=== PATIENT | male | born 1960 | race Caucasian/White ===

== ENCOUNTER 2022-10-26 15:12 | Outpatient (OUT) | payer MEDICAID, SELFPAY ==
[2022-10-26 15:41] LABS: Basophils Absolute Auto 0.1 10^3/uL (0.0-0.1); Basophils Percent Auto 0.6 % (0.2-2.0); Eosinophils Absolute Auto 0.2 10^3/uL (0.0-0.7); Eosinophils Percent Auto 2.5 % (0.9-7.0); Hematocrit 41.6 % (42.0-54.0); Hemoglobin 13.9 g/dL (14.0-18.0); Immature Granulocytes Abs Auto 0.02 10^3/uL (0.00-0.03); Immature Granulocytes Pct Auto 0.2 % (0.0-0.5); Lymphocytes Absolute Auto 2.4 10^3/uL (1.2-3.8); Lymphocytes Percent Auto 25.5 % (20.5-60.0); Mean Corpuscular HGB Conc 33.4 g/dL (29.9-35.2); Mean Corpuscular Hemoglobin 30.8 pg (25.9-34.0); Mean Platelet Volume 10.3 fL (9.5-13.5); Monocytes Percent Auto 11.1 % (1.7-12.0); Neutrophils Absolute Auto 5.6 10^3/uL (1.4-6.5); Neutrophils Percent Auto 60.1 % (43.0-75.0); Platelet Count 307 10^3/uL (150-450); Red Blood Count 4.52 10^6/uL (4.70-6.10); Red Cell Distribution Width 13.5 % (11.0-15.0); White Blood Count 9.4 10^3/uL (4.0-11.0)
[2022-10-26 16:05] LABS: Alanine Aminotransferase 45 U/L (16-63); Albumin Globulin Ratio 1.3; Alkaline Phosphatase 88 U/L (46-116); Anion Gap 11.1; Aspartate Amino Transferase 28 U/L (15-37); Bilirubin Total 0.7 mg/dL (0.2-1.0); Calcium 9.7 mg/dL (8.5-10.1); Carbon Dioxide 27.3 mmol/L (21.0-32.0); Chloride 101 mmol/L (98-107); Chol HDL Ratio 2.2; Cholesterol 107 mg/dL (<=200); Estimated GFR (African America >60 (>=60); Estimated GFR (Non-African Ame >60 (>=60); Globulin 3.2 g/dL; Glucose 113 mg/dL (74-106); HDL Cholesterol 49 mg/dL (40-60); LDL Cholesterol Calculated 52.4 mg/dL; Potassium 4.4 mmol/L (3.5-5.1); Sodium 135 mmol/L (136-145); Total Protein 7.2 g/dL (6.4-8.2); Triglycerides 28 mg/dL (<=150); VLDL CHOLESTEROL 5.6 mg/dL
[2022-10-26 16:22] LABS: Prostate Specific Antigen Scrn 3.43 ng/mL (<=4.00)
== END 2022-10-26 15:13 | disposition home or self-care (01) ==
LOC: LAB 15:14
PROVIDERS: PCP Internal Medicine; Visit Provider Internal Medicine
DX: Z00.00 Encounter for general adult medical examination without abnormal findings (principal); Z12.5 Encounter for screening for malignant neoplasm of prostate
CPT/HCPCS: 36415; 80053; 80061; 85025; G0103

== ENCOUNTER 2022-11-08 13:18 | Outpatient (OUT) | payer MEDICAID, SELFPAY ==
--- NOTE | 2022-11-08 13:21 | CT_ITS ---
[address] [address] Patient Name: NAKIA LIRIANO MRN: [id number] date: 1960 Sex: M Assigned Patient Location: CT Current Patient Location: Accession/Order Number: [id number] Exam Date: 11/08/2022 13:25 Report Date: 11/09/2022 01:47 At the request of: PRINCESS VALVERDE Procedure: CT lung screening low-dose EXAMINATION: CT lung screening low-dose HISTORY: History Of Tobacco Abuse Z87.891 COMPARISON: CT chest 11/11/2021 TECHNIQUE: Axial, Coronal, and Sagittal images were created without the administration of IV contrast material. Dose reduction techniques were achieved by using automated exposure control and/or adjustment of mA and/or kV according to patient size and/or use of iterative reconstruction technique. FINDINGS: LUNGS: Marked emphysematous changes throughout the lungs. Mild scarring and/or discoid atelectasis within lateral base of right upper lobe and superior segment of right lower lobe. No suspicious mass/nodules. PLEURA: No mass, effusion, or pneumothorax. VASCULATURE: No abnormality. DEBORA: No mass or pathologic adenopathy. MEDIASTINUM: No mass or pathologic adenopathy. CARDIAC: No enlargement, pericardial thickening, or significant calcification. AORTA: No aneurysm or dissection. CHEST WALL: No mass or axillary adenopathy BONES: No bone lesion or fracture. LIMITED ABDOMEN: No suspicious findings. Limited images of the upper abdomen. OTHER: Negative. CT/CT lung screening low-dose IMPRESSION: 1. Lung-RADS Category 1 Negative. No nodules and definitely benign nodules. Continue annual screening with LDCT in 12 months. 2. Marked emphysematous changes. Electronically authenticated by: NOEMI MARTINEZ Date: 11/09/2022 01:47
== END 2022-11-08 13:19 | disposition home or self-care (01) ==
LOC: CT 13:18
PROVIDERS: PCP Internal Medicine; Visit Provider Internal Medicine
DX: Z87.891 Personal history of nicotine dependence (principal)
CPT/HCPCS: 71271

== ENCOUNTER 2022-12-05 14:43 | Outpatient (OUT) | payer MEDICAID, SELFPAY ==
[2022-12-06 04:07] LABS: PSA, Free 0.25 ng/mL; Prostate Specific Ag 2.4 ng/mL (0.0-4.0)
== END 2022-12-05 14:44 | disposition home or self-care (01) ==
LOC: LAB 14:44
PROVIDERS: PCP Internal Medicine; Visit Provider Internal Medicine
DX: R97.20 Elevated prostate specific antigen [PSA] (principal)
CPT/HCPCS: 36415; 84153; 84154

== ENCOUNTER 2023-04-23 11:13 | Outpatient (OUT) | payer MEDICAID, SELFPAY ==
[2023-04-23 11:38] LABS: Basophils Absolute Auto 0.1 10^3/uL (0.0-0.1); Eosinophils Absolute Auto 0.3 10^3/uL (0.0-0.7); Immature Granulocytes Abs Auto 0.04 10^3/uL (0.00-0.03); Immature Granulocytes Pct Auto 0.3 % (0.0-0.5); Lymphocytes Absolute Auto 2.6 10^3/uL (1.2-3.8); Monocytes Absolute Auto 1.1 10^3/uL (0.3-0.8); Red Blood Count 4.74 10^6/uL (4.70-6.10); Red Cell Distribution Width 12.9 % (11.0-15.0)
[2023-04-23 12:18] LABS: Alanine Aminotransferase 34 U/L (16-63); Anion Gap 8.8; BUN Creatinine Ratio 22.5; Calcium 10.2 mg/dL (8.5-10.1); Carbon Dioxide 30.4 mmol/L (21.0-32.0); Chloride 103 mmol/L (98-107); Chol HDL Ratio 2.6; Cholesterol 129 mg/dL (<=200); Estimated GFR (African America >60 (>=60); Estimated GFR (Non-African Ame >60 (>=60); Glucose 107 mg/dL (74-106); HDL Cholesterol 50 mg/dL (40-60); LDL Cholesterol Calculated 65.4 mg/dL; Potassium 4.2 mmol/L (3.5-5.1); Sodium 138 mmol/L (136-145); Triglycerides 68 mg/dL (<=150); VLDL CHOLESTEROL 13.6 mg/dL
[2023-04-23 12:44] LABS: Basophils Percent Auto 0.8 % (0.2-2.0); Eosinophils Percent Auto 2.3 % (0.9-7.0); Hematocrit 44.8 % (42.0-54.0); Hemoglobin 14.3 g/dL (14.0-18.0); Lymphocytes Percent Auto 21.6 % (20.5-60.0); Mean Corpuscular HGB Conc 31.9 g/dL (29.9-35.2); Mean Corpuscular Hemoglobin 30.2 pg (25.9-34.0); Mean Corpuscular Volume 94.5 fL (80.0-94.0); Mean Platelet Volume 11.7 fL (9.5-13.5); Monocytes Percent Auto 9.3 % (1.7-12.0); Neutrophils Percent Auto 65.7 % (43.0-75.0); Platelet Count 362 10^3/uL (150-450); White Blood Count 12.1 10^3/uL (4.0-11.0)
[2023-04-23 13:53] LABS: Prostate Specific Antigen Scrn 1.86 ng/mL (<=4.00)
== END 2023-04-23 11:14 | disposition home or self-care (01) ==
LOC: LAB 11:14
PROVIDERS: PCP Internal Medicine; Visit Provider Internal Medicine
DX: I25.10 Atherosclerotic heart disease of native coronary artery without angina pectoris (principal); Z79.899 Other long term (current) drug therapy; E78.00 Pure hypercholesterolemia, unspecified
CPT/HCPCS: 36415; 80048; 80061; 84460; 85025; G0103

== ENCOUNTER 2023-11-11 10:05 | Outpatient (OUT) | payer MEDICARE, MEDICAID, SELFPAY ==
--- NOTE | 2023-11-11 10:10 | CT_ITS ---
[address] [address] Patient Name: NAKIA LIRIANO MRN: [id number] date: 1960 Sex: M Assigned Patient Location: CT Current Patient Location: Accession/Order Number: [id number] Exam Date: 11/11/2023 10:20 Report Date: 11/13/2023 04:44 At the request of: PRINCESS VALVERDE Procedure: CT lung screening low-dose EXAMINATION: CT lung screening low-dose HISTORY: History Of Tobacco Dependence Z87.891 COMPARISON: CT lung cancer screening 11/08/2022 TECHNIQUE: Axial, Coronal, and Sagittal images were created without the administration of IV contrast material. Dose reduction techniques were achieved by using automated exposure control and/or adjustment of mA and/or kV according to patient size and/or use of iterative reconstruction technique. FINDINGS: LUNGS: Marked emphysematous changes and a few scattered areas of mild scarring. Stable appearance of a few 3-5 mm nodules/opacities. No suspicious nodules. PLEURA: No mass, effusion, or pneumothorax. VASCULATURE: No abnormality. DEBORA: No mass or pathologic adenopathy. MEDIASTINUM: No mass or pathologic adenopathy. CARDIAC: No enlargement, pericardial thickening, or pericardial effusion. Coronary Artery calcifications: Coronary calcifications are moderate. AORTA: No aneurysm or dissection. CHEST WALL: No mass or axillary adenopathy BONES: No bone lesion or fracture. LIMITED ABDOMEN: No suspicious findings. Limited images of the upper abdomen. OTHER: Negative. CT/CT lung screening low-dose IMPRESSION: 1. Lung-RADS 2- Benign Appearance or Behavior. Nodules with a very low likelihood of becoming a clinically active cancer due to size or lack of growth. Follow-up CT Chest in 1 year. Electronically authenticated by: NOEMI MARTINEZ Date: 11/13/2023 04:44
== END 2023-11-11 10:06 | disposition home or self-care (01) ==
LOC: CT 10:05
PROVIDERS: PCP Internal Medicine; Visit Provider Internal Medicine
DX: Z87.891 Personal history of nicotine dependence (principal); Z12.2 Encounter for screening for malignant neoplasm of respiratory organs
CPT/HCPCS: 71271

== ENCOUNTER 2023-12-23 12:00 | Outpatient (OUT) | payer MEDICARE, MEDICAID, SELFPAY ==
--- OUTSIDE RECORDS SUMMARY | 2023-12-23 12:22 | XMS_ITS | CCD ---
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 Princess Brown Referring Unavailab le Pending, Provider Primary Care Unavailable JESENIA, Dr. PAULINO BRISENO Admitting Unav ailable YOUNG, Dr. PAULINO BRISENO Attending Unav ailable Kinga, Dr. Moises Urena Referring Unavailab le Pending, Provider Primary Care Unavailable Pending, Provider Primary Care Unavailable SCHILMichael, Dr. GELA KRAFT Attending Unavaila ble Pending, Provider Primary Care Unavailable SCHILZ, Dr. GELA KRAFT Attending Unavaila ble SCHILZ, Dr. GELA KRAFT Attending Unavaila ble Pending, Provider Primary Care Unavailable Avasarala, Hunter Chinchilla Attending Unavai lable Avasarala, Hunter Chinchilla Referring Unavai lable Pending, Provider Primary Care Unavailable TIMMIS, DR VELAZQUEZ Attending Unavailable TIMMIS, DR VELAZQUEZ Admitting Unavailable BALL, DR ECHAVARRIA Primary Care Unavailable BALL, DR ECHAVARRIA Primary Care Unavailable TIMMIS, DR VELAZQUEZ Attending Unavailable TIMMIS, DR VELAZQUEZ Admitting Unavailable BALL, DR ECHAVARRIA Consulting Unavailable BALL, DR ECHAVARRIA Primary Care Unavailable BALL, DR ECHAVARRIA Admitting Unavailable BALL, DR ECHAVARRIA Attending Unavailable BALL, DR ECHAVARRIA Admitting Unavailable BALL, DR ECHAVARRIA Attending Unavailable BALL, DR ECHAVARRIA Consulting Unavailable BALL, DR ECHAVARRIA Primary Care Unavailable BALL, DR ECHAVARRIA Consulting Unavailable MISC, DR STRANGE Attending Unavailable BALL, DR ECHAVARRIA Primary Care Unavailable MISC, DR STRANGE Admitting Unavailable BALL, DR ECHAVARRIA Consulting Unavailable BALL, DR ECHAVARRIA Primary Care Unavailable BALL, DR ECHAVARRIA Admitting Unavailable BALL, DR ECHAVARRIA Attending Unavailable ZIEBER, DR NOEMI Watson Consulting Unavailable BALL, DR ECHAVARRIA Primary Care Unavailable BALL, DR ECHAVARRIA Admitting Unavailable BALL, DR ECHAVARRIA Attending Unavailable BALL, DR ECHAVARRIA Primary Care Unavailable MISC, DR STRANGE Consulting Unavailable MISC, DR STRANGE Admitting Unavailable MISC, DR STRANGE Attending Unavailable RAFAEBLORE, DR NOEMI Watson Consulting Unavailable SAMSA ., PRINCESS Attending Unavailable LOS LUNAS, DR OJ Adler Consulting Unavailable SEGUNDO, DR ECHAVARRIA Primary Care Unavailable SAMSA ., PRINCESS Admitting Unavailable SAMSA ., PRINCESS Consulting Unavailable SEGUNDO, DR ECHAVARRIA Primary Care Unavailable MISC, DR STRANGE Consulting Unavailable MISC, DR STRANGE Admitting Unavailable MISC, DR STRANGE Attending Unavailable SEGUNDO, DR ECHAVARRIA Primary Care Unavailable SAMSA ., PRINCESS Attending Unavailable SAMSA ., PRINCESS Admitting Unavailable TIMMIS, DR VELAZQUEZ Admitting Unavailable SEGUNDO, DR ECHAVARRIA Primary Care Unavailable TIMMIDarlene, DR VELAZQUEZ Attending Unavailable Paulino Wilson Unavailable PAULINO WILSON Primary Care Physician [phone] MARGARET CASTILLO Attending Unavailable Calvin WALKER Attending Unavailable Calvin WALKER Attending Unavailable PAULINO WILSON Referring Unavailable Allergies Allergy Classification Reported Allergen(s) Allergy Type Date of Onset Reaction(s) Facility (1 source) No Known Medication Allergies; Translations: [No Known Medication Allergies] Propensity to adverse reactions (disorder) [facility] Repository Medications Current Medications Medication Drug Class(es) Dates Sig (Normalized) Sig (Original) [id number] 200 actuat albuterol 0.09 mg/actuat metered dose inhaler (17 sources) beta2-Adrenergic Agonist Start: 05-16-2023 take 2 puff(s) by mouth every four hours as needed for cough Albuterol Sulfate (Ventolin Hfa) 90 mcg/actuation HFA aerosol inhaler Active 0 .ROUTE .COMPLEX May 16, 2023 3:38pm INHALE 2 PUFFS BY MOUTH EVERY 4 HOURS NEEDED FOR COUGH OR SHORTNESS OF BREATH Start: 05-16-2023 End: 05-16-2023 take 1 puff(s) by inhalation every four hours Albuterol Sulfate Discontinued 2 PUFF INHALATION Every 4 hours May 16, 2023 1:00am May 16, 2023 3:38pm Start: 02-21-2021 take 2 puff(s) by mo uth every four hours as needed for cough Albuterol Sulfate HFA 108 (90 Base) MCG/ACT Inhalation Aerosol Solution INHALE 2 PUFFS BY MOUTH EVERY 4 HOURS NEEDED FOR COUGH OR SHORTNESS OF BREATH Quantity: 8 Refills: 0 Ordered: 09-Aug-2021 DO Start : 21-Feb-2021 Active take 2 puff(s) by [facility] every four hours as needed for cough Albuterol Sulfate HFA 108 (90 Base) MCG/ACT INHALE 2 PUFFS BY MOUTH EVERY 4 HOURS NEEDED FOR COUGH OR SHORTNESS OF BREATH Active take 2 puff(s) by [facility] every four hours as needed for cough Albuterol Sulfate HFA 108 (90 Base) MCG/ACT INHALE 2 PUFFS BY MOUTH EVERY 4 HOURS NEEDED FOR COUGH OR SHORTNESS OF BREATH Active take 2 puff(s) by [facility] every four hours as needed for cough Albuterol Sulfate HFA 108 (90 Base) MCG/ACT INHALE 2 PUFFS BY MOUTH EVERY 4 HOURS NEEDED FOR COUGH OR SHORTNESS OF BREATH Active 24 hr alfuzosin hydrochloride 10 mg extended release oral tablet (2 sources) alpha-Adrenergic Michael Start: 04-29-2023 End: 04-23-2024 take 10 mg by mouth once daily at mealtime Alfuzosin Active 10 MG PO Daily October 15, 2023 12:00am administer after the same meal each day aspirin 81 mg delayed release oral tablet (17 sources) Platelet Aggregation Inhibitor, Nonsteroidal Anti-inflammatory Drug Start: 10-15-2023 take 81 mg by mouth once daily Aspirin Active 81 MG PO Daily October 15, 2023 12:00am Start: 04-29-2023 [facility] ASP[facility] 81 MG TABLET [facility] ASPIRIN EC 81 MG TABLET Start Date: 04/29/23 Status: Ordered Start: 02-22-2021 take 1 tablet by mouth once da ariadne Aspirin Low Dose 81 MG Oral Tablet Delayed Release TAKE 1 TABLET BY MOUTH EVERY DAY Quantity: 90 Refills: 0 Ordered: 16-Aug-2021 DO Start : 22-Feb-2021 Active atorvastatin 80 mg oral tablet (17 sources) HMG-CoA Reductase Inhibitor Start: 10-15-2023 take 80 mg by mouth once daily Atorvastatin Active 80 MG PO Daily October 15, 2023 12:00am Start: 04-29-2023 atorvastatin 8 0 mg Tab Refills(s) 0 Start Date: 04/29/23 Status: Ordered Start: 02-22-2021 take 1 tablet by gene th once daily Atorvastatin Calcium 80 MG Oral Tablet TAKE 1 TABLET BY MOUTH EVERY DAY Quantity: 90 Refills: 0 Ordered: 16-Aug-2021 DO Start : 22-Feb-2021 Active Breztri Aerosphere inhalation aerosol (1 source) Start: 04-29-2023 Breztri Aerosp here inhalation aerosol Refill(s) 0 Start Date: 04/29/23 Status: Ordered metoprolol tartrate 25 mg oral tablet (17 sources) beta-Adrenergic Michael Start: 10-15-2023 take 25 mg by mouth twice daily Metoprolol Tartrate Active 25 MG PO Twice daily October 15, 2023 12:00am Start: 04-29-2023 take 1 tablet by mouth once da ariadne Lopressor 25 mg oral tablet 25 mg = 1 tab(s), Oral, Daily, Refills(s) 0 Start Date: 04/29/23 Status: Ordered Start: 01-11-2021 take 1 tablet by gene twice daily at mealtime Metoprolol Tartrate 25 MG Oral Tablet TAKE 1 TABLET BY MOUTH TWICE A DAY WITH FOOD Quantity: 180 Refills: 0 Ordered: 09-Aug-2021 DO Start : 11-Jan-2021 Active Tiotropium-Olodaterol (1 source) Anticholinergic, beta2-Adrenergic Agonist Start: 12-01-2018 Tiotropium-Olodaterol (Stiolto Respimat) 2.5-2.5 mcg/actuation Mist Active 2 PUFF INHALATION Daily December 01, 2018 12:00am Completed/Discontinued Medications Medication Drug Class(es) Dates Sig (Normalized) Sig (Original) Acetaminophen / HYDROcodone (8 sources) Opioid Agonist HYDROcodone-Acet aminop hen Not-Taking/PRN HYDROcodone-Acet aminophen Not-Taking 120 actuat budesonide 0.16 mg/actuat / formoterol fumarate 0.0048 mg/actuat / glycopyrrolate 0.009 mg/actuat metered dose inhaler (15 sources) Corticosteroid, beta2-Adrenergic Agonist Start: 07-27-2021 take 2 puff(s) by mouth twice daily Breztri Aerosphere 160-9-4.8 MCG/ACT Inhalation Aerosol INHALE 2 PUFFS BY MOUTH TWICE A DAY *RINSE MOUTH AFTER USE* Quantity: 11 Refills: 0 Ordered: 28-Jul-2021 DO Start : 27-Jul-2021 Active take 2 puff(s) by inhalation twi ce daily Breztri Aerosphere 160-9-4.8 MCG/ACT 2 puffs Inhalation Twice a day Active Cephalexin (8 sources) Cephalosporin Antibacterial Ceph alexin Not-Taking/PRN Cephalexin Not-T aking clopidogrel 75 mg oral tablet (7 sources) P2Y12 Platelet Inhibitor Start: 02-22-2021 take 1 tablet by mouth once daily Clopidogrel Bisulfate 75 MG Oral Tablet TAKE 1 TABLET BY MOUTH EVERY DAY Quantity: 90 Refills: 0 Ordered: 16-Aug-2021 DO Start : 22-Feb-2021 Active sulfamethoxazole 800 mg / trimethoprim 160 mg oral tablet (7 sources) Dihydrofolate Reductase Inhibitor Antibacterial, Sulfonamide Antimicrobial Start: 10-29-2022 take 1 tablet by mouth every twelve hours Bactrim DS 800-160 MG 1 tablet Orally Twice a day for 21 days Oct, Not-Taking/PRN Problems Active Problems Problem Classification Problem Date Documented Da te Episodic/Chronic Abdominal pain (1 source) Right lower quadrant pain Episodic Acute bronchitis (5 sources) Acute bronchitis; Translations: [Acute bronchitis due to other specified organisms] Episodic Cardiac dysrhythmias (9 sources) Supraventricular tachycardia; Translations: [Supraventricular tachycardia] Resolved: 2 10-13-2023 Chronic Chronic obstructive pulmonary disease and bronchiectasis (20 sources) Pulmonary emphysema; Translations: [Other emphysema] Onset: 6 Resolved: 2 Chronic Coronary atherosclerosis and other heart disease (20 sources) Atherosclerotic heart disease of [place] coronary artery without angina pectoris; Translations: [Atherosclerosis of coronary artery without angina pectoris] Onset: 1 Chronic Disorders of lipid metabolism (11 sources) Hyperlipidemia, unspecified; Translations: [Hypercholesterolemia] Onset: 2 Chronic Essential hypertension (1 source) Essential (primary) hypertension; Translations: [Essential (primary) hypertension] Onset: 2 Chronic Genitourinary symptoms and ill-defined conditions (1 source) Poor urinary stream Episodic Hyperplasia of prostate (19 sources) Lower urinary tract symptoms due to benign prostatic hypertrophy; Translations: [Benign prostatic hyperplasia with lower urinary tract symptoms] Onset: 4 Chronic Inflammatory conditions of male genital organs (13 sources) Orchitis and epididymitis; Translations: [Epididymo-orchitis] Onset: 7 Episodic Nonmalignant breast conditions (12 sources) Hypertrophy of breast; Translations: [Gynecomastia] Onset: 3 Episodic Nutritional deficiencies (13 sources) Vitamin D deficiency; Translations: [Vitamin D deficiency, unspecified] Chronic Other aftercare (8 sources) Long-term current use of inhaled steroid; Translations: [alf (current) use of inhaled steroids] Episodic Other aftercare (1 source) 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 Episodic Other and unspecified benign neoplasm (8 sources) Benign neoplasm of colon; Translations: [Benign neoplasm of sigmoid colon] Episodic Other and unspecified benign neoplasm (5 sources) Benign neoplasm of sigmoid colon; Translations: [Benign neoplasm of sigmoid colon] Episodic Other circulatory disease (7 sources) H/O: heart disorder; Translations: [Personal history of unspecified circulatory disease] Episodic Other gastrointestinal disorders (13 sources) Oropharyngeal dysphagia; Translations: [Dysphagia, oropharyngeal phase] Episodic Other gastrointestinal disorders (1 source) Stool DNA-based colorectal cancer screening positive; Translations: [Other fecal abnormalities] 03-06-2023 Episodic Other inflammatory condition of skin (13 sources) Intertrigo; Translations: [Erythema intertrigo] Episodic Other lower respiratory disease (7 sources) H/O: asthma; Translations: [Personal history of other diseases of respiratory system] Episodic Other lower respiratory disease (7 sources) Solitary pulmonary nodule; Translations: [Solitary pulmonary nodule] Onset: 2 Episodic Other lower respiratory disease (8 sources) Dyspnea on exertion; Translations: [Other forms of dyspnea] Episodic Other lower respiratory disease (5 sources) Dyspnea; Translations: [Other forms of dyspnea] Episodic Other lower respiratory disease (8 sources) Solitary nodule of lung; Translations: [Solitary pulmonary nodule] Episodic Other lower respiratory disease (1 source) Nodule of lung; Translations: [Solitary pulmonary nodule] 10-14-2023 Episodic Other nutritional; endocrine; and metabolic disorders (9 sources) Hypercalcemia; Translations: [Hypercalcemia] 10-14-2023 Chronic Other nutritional; endocrine; and metabolic disorders (1 source) Hypercalcemia; Translations: [Hypercalcemia] 10-15-2023 Chronic Other screening for suspected conditions (not mental disorders or infectious disease) (7 sources) Encounter for screening for malignant neoplasm of prostate; Translations: [Elevated prostate specific antigen [PSA]] Onset: 2 Episodic Residual codes; unclassified (2 sources) H/O: tissue/organ recipient; 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] Chronic Residual codes; unclassified (5 sources) Immunization refused ; Translations: [Immunization not carried out because of patient refusal] Episodic Screening and history of mental health and substance abuse codes (8 sources) Personal history of nicotine dependence; Translations: [Nicotine dependence] Onset: 2 Episodic Substance-related disorders (20 sources) 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; Translations: [Nicotine dependence, cigarettes, with unspecified nicotine-induced disorders] Onset: 6 Chronic Unclassified (1 source) CONTACT W/AND (SUSP) EXPOS COVID-19; Translations: [CONTACT W/AND (SUSP) EXPOS COVID-19] Onset: 2 Unclassified (5 sources) Other ventricular tachycardia; Translations: [Other ventricular tachycardia] Past or Other Problems Problem Classification Problem Date Documented Da te Episodic/Chronic Cancer of bronchus; lung (1 source) Personal history of other malignant neoplasm of bronchus and lung; Translations: [Personal history of malignant neoplasm of bronchus and lung] Onset: 01-30-2022 Episodic Coronary atherosclerosis and other heart disease (1 source) Presence of aortocoronary bypass graft; Translations: [Presence of aortocoronary bypass graft] Onset: 01-30-2022 Episodic Deficiency and other anemia (5 sources) Anemia; Translations: [Anemia, unspecified] Resolved: 05-16-2021 Episodic E Codes: Adverse effects of medical drugs (5 sources) Adverse effect of antiasthmatics, initial encounter; Translations: [Adverse effect of antiasthmatics, initial encounter] Onset: 07-21-2015 Episodic Immunizations and screening for infectious disease (5 sources) Contact with and (suspected) exposure to other viral communicable diseases; Translations: [Contact with and (suspected) exposure to COVID-19] Resolved: 06-08-2021 Episodic Lymphadenitis (1 source) Generalized enlarged lymph nodes; Translations: [Generalized enlarged lymph nodes] Onset: 09-11-2021 Episodic Other aftercare (1 source) 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; Translations: [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] Onset: 01-30-2022 Episodic Other aftercare (1 source) 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; Translations: [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] Onset: 01-30-2022 Episodic Other and unspecified benign neoplasm (1 source) Polyp of colon; Translations: [Polyp of colon] Onset: 03-25-2018 10-13-2023 Episodic Other and unspecified benign neoplasm (1 source) Polyp of colon; Translations: [Benign neoplasm of colon] Onset: 03-25-2018 10-15-2023 Episodic Other lower respiratory disease (5 sources) Chest pain on breathing; Translations: [Chest pain on breathing] Resolved: 07-19-2021 Episodic Other nutritional; endocrine; and metabolic disorders (5 sources) Abnormal weight loss; Translations: [Abnormal weight loss] Onset: 06-15-2015 Episodic Other nutritional; endocrine; and metabolic disorders (5 sources) Body mass index less than 20; Translations: [Body mass index (BMI) 19.9 or less, adult] Onset: 12-18-2017 Episodic Other upper respiratory disease (5 sources) Disorder of pharynx; Translations: [Other diseases of pharynx] Onset: 07-21-2015 Episodic Other upper respiratory infections (5 sources) Acute tracheitis without obstruction; Translations: [Acute tracheitis without obstruction] Resolved: 06-22-2021 Episodic Pneumonia (except that caused by tuberculosis or sexually transmitted disease) (5 sources) Pneumonia; Translations: [Pneumonia, unspecified organism] Resolved: 07-19-2021 Episodic Residual codes; unclassified (5 sources) Tobacco user; Translations: [Tobacco use] Onset: 06-15-2015 Episodic Unclassified (6 sources) NSVT (nonsustained ventricular tachycardia); Translations: [NSVT (nonsustained ventricular tachycardia)] Unclassified (1 source) NSVT (nonsustained ventricular tachycardia) I47.29 Results Test Name Value Interpretation Reference Range Facility Office Visiton 06-20-2023 Follow-up visit [id number] Brad Liriano 1960 M Date Provider Department Center 06/20/2023 [facility] Family History Problem Relation Age of Onset No Known Problems Mother No Known Problems Father Family Status - Relation Status Age at Mother Father Level of Service:89739 [place] OFFICE/OUTPATIENT ESTABLISHED LOW MDM 20 MIN Reason for Visit and Comments: Coronary Artery Disease [187] Hypertension [576470] Normal [facility] Physician Referralon 024 Physician Referral [id number] Normal [facility] Screenson 04-30-2023 Screens [id number] Normal [facility] Patient Educationon 04-29-19 24 Patient Education Urology Benign Prostatic Hyperplasia Benign prostatic hyperplasia (BPH) is an enlarged prostate gland that is caused by the normal aging process. The prostate may get bigger as a man gets older. The condition is not caused by cancer. The prostate is a walnut-sized gland that is involved in the production of semen. It is located in front of the rectum and below the bladder. The bladder stores urine. The urethra carries stored urine out of the body. An enlarged prostate can press on the urethra. This can make it harder to pass urine. The buildup of urine in the bladder can cause infection. Back pressure and infection may progress to bladder damage and kidney (renal) failure. What are the causes? This condition is part of the normal aging process. However, not all men develop problems from this condition. If the prostate enlarges away from the urethra, urine flow will not be blocked. If it enlarges toward the urethra and compresses it, there will be problems passing urine. What increases the risk? This condition is more likely to develop in men older than 50 years. What are the signs or symptoms? Symptoms of this condition include: ? Getting up often during the night to urinate. ? Needing to urinate frequently during the day. ? Difficulty starting urine flow. ? Decrease in size and strength of your urine stream. ? Leaking (dribbling) after urinating. ? Inability to pass urine. This needs immediate treatment. ? Inability to completely empty your bladder. ? Pain when you pass urine. This is more common if there is also an infection. ? Urinary tract infection (UTI). How is this diagnosed? This condition is diagnosed based on your medical history, a physical exam, and your symptoms. Tests will also be done, such as: ? A post-void bladder scan. This measures any amount of urine that may remain in your bladder after you finish urinating. ? A digital rectal exam. In a rectal exam, your health care provider checks your prostate by putting a lubricated, gloved finger into your rectum to feel the back of your prostate gland. This exam detects the size of your gland and any abnormal lumps or growths. ? An exam of your urine (urinalysis). ? A prostate specific antigen (PSA) screening. This is a blood test used to screen for prostate cancer. ? An ultrasound. This test uses sound waves to electronically produce a picture of your prostate gland. Your health care provider may refer you to a specialist in kidney and prostate diseases (urologist). How is this treated? Once symptoms begin, your health care provider will monitor your condition (active surveillance or watchful waiting). Treatment for this condition will depend on the severity of your condition. Treatment may include: ? Observation and yearly exams. This may be the only treatment needed if your condition and symptoms are mild. ? Medicines to relieve your symptoms, including: ? Medicines to shrink the prostate. ? Medicines to relax the muscle of the prostate. ? Surgery in severe cases. Surgery may include: ? Prostatectomy. In this procedure, the prostate tissue is removed completely through an open incision or with a laparoscope or robotics. ? Transurethral resection of the prostate (TURP). In this procedure, a tool is inserted through the opening at the tip of the penis (urethra). It is used to cut away tissue of the inner core of the prostate. The pieces are removed through the same opening of the penis. This removes the blockage. ? Transurethral incision (TUIP). In this procedure, small cuts are made in the prostate. This lessens the prostate's pressure on the urethra. ? Transurethral microwave thermotherapy (TUMT). This procedure uses microwaves to create heat. The heat destroys and removes a small amount of prostate tissue. ? Transurethral needle ablation (TUNA). This procedure uses radio frequencies to destroy and remove a small amount of prostate tissue. ? Interstitial laser coagulation (ILC). This procedure uses a laser to destroy and remove a small amount of prostate tissue. ? Transurethral electrovaporization (TUVP). This procedure uses electrodes to destroy and remove a small amount of prostate tissue. ? Prostatic urethral lift. This procedure inserts an implant to push the lobes of the prostate away from the urethra. Follow these instructions at home: ? Take mdxp-mpt-epzkzie and prescription medicines only as told by your health care provider. ? Monitor your symptoms for any changes. Contact your health care provider with any changes. ? Avoid drinking large amounts of liquid before going to bed or out in public. ? Avoid or reduce how much caffeine or alcohol you drink. ? Give yourself time when you urinate. ? Keep all follow-up visits. This is important. Contact a health care provider if: ? You have unexplained back pain. ? Your symptoms do not get better with treatment. ? You develop side effects from the medicine (more content not included)... Normal [facility] Lab Reportson 04-27-2023 Lab Reports [id number] Normal [facility] MG MAMM DIAGNOSTIC 3D MATT CA Don 06-26-2022 MG MAMM DIAGNOSTIC 3D MATT CAD Patient: PATRICK LIRIANO Exam Date: 06/26/2022 : 1960 Gender:M Ordering : DR PAULINO WILSON D.O. Admission #: [id number] Family : Order #: [id number] CLICK HERE TO VIEW EXAM RADIOLOGY REPORT PROCEDURE: MAMMOGRAM DIAGNOSTIC 3D BILATERAL CAD, 06/26/2022, 12:44 ULTRASOUND BREAST LEFT LIMITED, 06/26/2022, 13:07 COMPARISON: US BREAST LEFT LIMITED, 06/26/2022. INDICATIONS: Hypertrophy of breast Calculator Name NCI Breast Cancer Risk Assessment Tool 5 Year Breast Cancer Risk Not Applicable. Lifetime Breast Cancer Risk Not Applicable. Personal Breast Cancer No Personal Ovarian Cancer No Treatments None Family Cancers None LOCATION: [facility] BREAST COMPOSITION: Almost entirely fatty. FINDINGS: DIAGNOSTIC CATEGORY 2--BENIGN FINDING: RIGHT BREAST: Trace amount of increased density in the subareolar region. LEFT BREAST: Triangular-shaped area of increased density in the retroareolar region which corresponds to the patient's area of tenderness and palpable lump. Ultrasound evaluation demonstrates normal appearing subcutaneous tissue; no mass or cyst. Findings are compatible with gynecomastia; left greater than right. RECOMMENDATIONS: CLINICAL EVALUATION. PLEASE NOTE: A NORMAL MAMMOGRAM DOES NOT EXCLUDE THE POSSIBILITY OF BREAST CANCER. A CLINICALLY SUSPICIOUS PALPABLE LUMP SHOULD BE BIOPSIED. Dictated by: Noemi Conrad M.D. on 06/26/2022 at 13:19 Approved by: Noemi Conrad M.D. on 06/26/2022 at 13:25 Normal [facility] US BREAST LEFT LIMITEDon US BREAST LEFT LIMITED Patient: PATRICK LIRIANO Exam Date: 06/26/2022 : 1960 Gender:M Ordering : DR PAULINO WILSON D.O. Admission #: [id number] Family : Order #: [id number] CLICK HERE TO VIEW EXAM RADIOLOGY REPORT PROCEDURE: MAMMOGRAM DIAGNOSTIC 3D BILATERAL CAD, 06/26/2022, 12:44 ULTRASOUND BREAST LEFT LIMITED, 06/26/2022, 13:07 COMPARISON: US BREAST LEFT LIMITED, 06/26/2022. INDICATIONS: Hypertrophy of breast Calculator Name NCI Breast Cancer Risk Assessment Tool 5 Year Breast Cancer Risk Not Applicable. Lifetime Breast Cancer Risk Not Applicable. Personal Breast Cancer No Personal Ovarian Cancer No Treatments None Family Cancers None LOCATION: [facility] BREAST COMPOSITION: Almost entirely fatty. FINDINGS: DIAGNOSTIC CATEGORY 2--BENIGN FINDING: RIGHT BREAST: Trace amount of increased density in the subareolar region. LEFT BREAST: Triangular-shaped area of increased density in the retroareolar region which corresponds to the patient's area of tenderness and palpable lump. Ultrasound evaluation demonstrates normal appearing subcutaneous tissue; no mass or cyst. Findings are compatible with gynecomastia; left greater than right. RECOMMENDATIONS: CLINICAL EVALUATION. PLEASE NOTE: A NORMAL MAMMOGRAM DOES NOT EXCLUDE THE POSSIBILITY OF BREAST CANCER. A CLINICALLY SUSPICIOUS PALPABLE LUMP SHOULD BE BIOPSIED. Dictated by: Noemi Conrad M.D. on 06/26/2022 at 13:19 Approved by: Noemi Conrad M.D. on 06/26/2022 at 13:25 Normal [facility] HLA CLASS I SP AB ID, HDon 1 HLA CLASS I SP AB ID,HD SEE COMMENT Normal [facility] Comment on above: Result Comment: HLA- CLASS I SP ANTIBODY IDENTIFICATION, HIGH DEFINITION SEE SEPARATE REPORT. Test performed at [facility], 6th Floor [address] [place] [address] Performed By: #### I GA #### [facility] [address] [place] [id number] HLA CLASS II SP AB ID, HDon 03-23-2022 HLA CLASS II SP AB ID,HD SEE COMMENT Normal [facility] Comment on above: Result Comment: HLA- CLASS II SP ANTIBODY IDENTIFICATION, HIGH DEFINITION SEE SEPARATE REPORT. Test performed at [facility], 6th Floor [address] [place] [address] Performed By: #### I GA #### [facility] [address] [place] [address] HLA CLASS II SP AB ID,HD SEE COMMENT Normal [facility] Comment on above: Result Comment: HLA- CLASS II SP ANTIBODY IDENTIFICATION, HIGH DEFINITION SEE SEPARATE REPORT. Test performed at [facility], 6th Floor [address] [place] [address] Performed By: #### H LHD2 #### [facility] [address] [place] [id number] HLA-A,B,C LRon 03-23-2022 HLA-A LOCUS LR TYPE SEE COMMENT Normal [facility] Comment on above: Result Comment: HLA- A LOCUS, LOW RESOLUTION TYPE SEE SEPARATE REPORT. Performed By: #### H AVTO #### [facility] [address] [place] [address] HLA-B LOCUS LR TYPE SEE COMMENT Normal [facility] Comment on above: Result Comment: HLA- B LOCUS, LOW RESOLUTION TYPE SEE SEPARATE REPORT. Performed By: #### H AVTO #### [facility] [address] [place] [address] HLA-C LOCUS LR TYPE SEE COMMENT Normal [facility] Comment on above: Result Comment: HLA- C LOCUS, LOW RESOLUTION TYPE SEE SEPARATE REPORT. Test performed at [facility], 6th Floor [address] [place] [address] Performed By: #### H AVTO #### [facility] [address] [place] HLA-DPB1 HR TYPINGon 022 HLA-DPB1 HR TYPING SEE COMMENT Normal [facility] Comment on above: Result Comment: HLA- DPB1 HIGH RESOLUTION TYPING SEE SEPARATE REPORT. Test performed at [facility], 6th Floor [id number] [place] [address] Performed By: #### S YPHR #### [facility] [address] [place] [id number] HLA-DQB1 HR TYPINGon HLA-DQB1 HR TYPING SEE COMMENT Normal [facility] Comment on above: Result Comment: HLA- DQB1 HIGH RESOLUTION TYPING SEE SEPARATE REPORT. Test performed at [facility], 6th Floor [address] [place] [address] Performed By: #### D QBHT #### [facility] [address] [address] [place] [address] HLA-DRB1/3/4/5 AND DQB1 LR T YPINGon 03-23-2022 HLA-DRB1/3/4/5 & DQB1 LR TYPING SEE COMMENT Normal [facility] Comment on above: Result Comment: HLA- DRB1/3/4/5 AND DQB1 LOW RESOLUTION TYPING SEE SEPARATE REPORT. Test performed at [facility], 6th Floor [address] [place] [address] Performed By: #### T ETAB #### [facility] [address] [place] [id number] HEP B VIRAL DNA, ULTRA QUANT PCRon 03-08-2022 HBV DNA PCR COMMENT SEE BELOW Normal [facility] Comment on above: Result Comment: Repo rtable Range: 10-1,000,000,000 IU/mL. The lauren HBV test is in vitro nucleic acid amplification test for the quantitation of hepatitis B virus (HBV) DNA in human EDTA plasma or serum of HBV-infected individuals on the lauren??? 6800/8800 Systems. A single probe is used to detect and quantify, but not discriminate genotypes A-H. The primers and probes target the highly conserved pre-core and core regions of the HBV genome. The analytical quantification range of this assay has been determined to be 10 to 1,000,000,000 IU/ml in plasma. The amplified region of the genome will not be affected by mutations that arise due to drug resistance. Though rare, mutations within the highly conserved regions of a viral genome covered by lauren HBV, may affect primers and/or probe binding resulting in the under-quantitation of virus or failure to detect the presence of virus. If the assay DETECTED the presence of the virus but was not able to accurately quantify the number of copies, the test result will be reported as DETECTED BUT NOT QUANTIFIED . The lauren HBV test is intended for use as an aid in the management of patients with chronic HBV infection undergoing anti-viral therapy. The test can be used to measure HBV DNA levels at baseline and during treatment to aid in assessing response to treatment. The results from lauren??? HBV must be interpreted within the context of all relevant clinical and laboratory findings. The lauren HBV is not intended for use as a screening test for the presence of HBV in blood or blood products or as a diagnostic test to confirm the presence of HBV infection. This test is approved by the US Food and Drug Administration, and its performance characteristics verified by the Molecular Diagnostic Laboratory, Department of Pathology, [facility]. Performed By: #### I GA #### [facility] [address] [place] [address] HBV DNA QUANT PCR IU/ML Not detected Normal Not Detected [facility] Comment on above: Performed By: #### I GA #### [facility] [address] [place] [address] HBV DNA QUANT PCR LOG NOT CALCULATED Normal [facility] Comment on above: Performed By: #### I GA #### [facility] [address] [place] [address] HISTOPLASMA ABS,(CF/ID)on HISTOPLASMA,ABS (ID) Not detected Normal Not Detected [facility] Comment on above: Result Comment: No H istoplasma antibodies were detected. This result does not exclude Histoplasma infection. Performed by [facility], [address] [place], [place] [address], [place] [address] [email or web address], Garfield Torrez MD, PHD - Lab. Director Performed By: #### I GA #### [facility] [address] [place] [address] HISTOPLASMOSIS MYCELIA <1:8 Normal <1:8 [facility] Comment on above: Result Comment: INTR EPRETIVE INFORMATION: Histoplasma Mycelia Antibodies by CF A titer of 1:8 or greater is generally considered presumptive evidence of histoplasmosis. A titer of 1:32 or greater or rising titers indicate strong presumptive evidence of histoplasmosis. Cross reactions, usually at lower titers, may occur with other fungal diseases. Performed By: #### I GA #### [facility] [address] [place] [address] HISTOPLASMOSIS YEAST <1:8 Normal <1:8 [facility] Comment on above: Result Comment: INTE RPRETIVE INFORMATION: Histoplasma Yeast Antibodies by CF A titer of 1:8 or greater is generally considered presumptive evidence of histoplasmosis. A titer of 1:32 or greater or rising titers indicate strong presumptive evidence of histoplasmosis. Cross reactions, usually at lower titers, may occur with other fungal diseases. Performed By: #### I GA #### [facility] [address] [place] [address] CMV IGM ABon 03-07-2022 CMV IGM AB <30.00 Normal [facility] Comment on above: Result Comment: REFE RENCE RANGE: <30.00 AU/mL . Interpretive criteria: <30.00 AU/mL No antibody detected 30.00-34.99 AU/mL Equivocal > or = 35.00 AU/mL Antibody detected . Results from any one IgM assay should not be used as a sole determinant of a current or recent infection. Because an IgM test can yield false positive results and low level IgM antibody may persist for more than 12 months post infection, reliance on a single test result could be misleading. Acute infection is best diagnosed by demonstrating the conversion of IgG from negative to positive. If an acute infection is suspected, consider obtaining a new specimen and submit for both IgG and IgM testing in two or more weeks. Performed By: #### C MV #### [facility] [address] [place] [address] STREP PNEUMO IGG AB 23 SEROT YPESon 03-07-2022 SEROTYPE 1 <0.1 Low >1.3 [facility] Comment on above: Performed By: #### H IV #### [facility] [address] [place] [address] SEROTYPE 10A[34] 0.1 ug/mL Low >1.3 [facility] Comment on above: Performed By: #### H IV #### [facility] [address] [place] [address] SEROTYPE 11A[43] <0.1 Low >1.3 [facility] Comment on above: Performed By: #### H IV #### [facility] [address] [place] [address] SEROTYPE 12F <0.1 Low >1.3 [facility] Comment on above: Performed By: #### H IV #### [facility] [address] [place] [address] SEROTYPE 14 <0.1 Low >1.3 [facility] Comment on above: Performed By: #### H IV #### [facility] [address] [place] [address] SEROTYPE 15B[54] <0.1 Low >1.3 [facility] Comment on above: Performed By: #### H IV #### [facility] [address] [place] [address] SEROTYPE 17F <0.1 Low >1.3 [facility] Comment on above: Performed By: #### H IV #### [facility] [address] [place] [address] SEROTYPE 18C[56] <0.1 Low >1.3 [facility] Comment on above: Performed By: #### H IV #### [facility] [address] [place] [address] SEROTYPE 19A[57] 0.1 ug/mL Low >1.3 [facility] Comment on above: Performed By: #### H IV #### [facility] [address] [place] [address] SEROTYPE 19F 0.2 ug/mL Low >1.3 [facility] Comment on above: Performed By: #### H IV #### [facility] [address] [place] [address] SEROTYPE 2 <0.1 Low >1.3 [facility] Comment on above: Performed By: #### H IV #### [facility] [address] [place] [address] SEROTYPE 20 <0.1 Low >1.3 [facility] Comment on above: Performed By: #### H IV #### [facility] [address] [place] [address] SEROTYPE 22F <0.1 Low >1.3 [facility] Comment on above: Performed By: #### H IV #### [facility] [address] [place] [address] SEROTYPE 23F <0.1 Low >1.3 [facility] Comment on above: Performed By: #### H IV #### [facility] [address] [place] [address] SEROTYPE 3 0.3 ug/mL Low >1.3 [facility] Comment on above: Performed By: #### H IV #### [facility] [address] [place] [address] SEROTYPE 33F[70] <0.1 Low >1.3 [facility] Comment on above: Result Comment: *Thi s test was developed and its performance characteristics determined by [facility]. It has not been cleared or approved by the U.S. Food and Drug Administration. Performed At: [facility] [address] [place] [address] Transition Social Worker: Ciaran Baxter Ph.D., BCLNhung (CLAUDIA) CAMERONIA#: [id number] Phone: Performed By: #### H IV #### [facility] [address] [place] [address] SEROTYPE 4 <0.1 Low >1.3 [facility] Comment on above: Performed By: #### H IV #### [facility] [address] [place] [address] SEROTYPE 5 <0.1 Low >1.3 [facility] Comment on above: Performed By: #### H IV #### [facility] [address] [place] [address] SEROTYPE 6B[26] <0.1 Low >1.3 [facility] Comment on above: Performed By: #### H IV #### [facility] [address] [place] [address] SEROTYPE 7F[51] <0.1 Low >1.3 [facility] Comment on above: Performed By: #### H IV #### [facility] [address] [place] [address] SEROTYPE 8 <0.1 Low >1.3 [facility] Comment on above: Performed By: #### H IV #### [facility] [address] [place] [address] SEROTYPE 9N <0.1 Low >1.3 [facility] Comment on above: Performed By: #### H IV #### [facility] [address] [place] [address] SEROTYPE 9V[68] <0.1 Low >1.3 [facility] Comment on above: Performed By: #### H IV #### [facility] [address] [place] [address] DIPHTHERIA ABon 03-06-2022 DIPHTHERIA AB 0.27 IU/mL Normal <0.10 [facility] Comment on above: Result Comment: Inte rpretation: Non-Protective <0.10 Protective >=0.10 For research use only. Performed By: #### H IV #### [facility] [address] [place] [address] H. INFLUENZA B AB, IGGon H. INFLUENZA B AB, IGG 0.1 ug/mL Normal [facility] Comment on above: Result Comment: INTE RPRETIVE INFORMATION: H. Influenzae b Ab, IgG Less than 1.0 ug/mL ...... Antibody concentration not protective. 1.0 ug/mL or greater ..... Antibodies to H. Influenzae b detected. Suggestive of protection. Responder status is determined according to the ratio of post-vaccination concentration to pre-vaccination concentration of Haemophilus influenza b antibody, IgG as follows: 1. If the post-vaccination concentration is less than 3.0 ug/mL, the patient is considered to be a non-responder. 2. If the post-vaccination concentration is greater than or equal to 3.0 ug/mL, a patient with a ratio of greater than or equal to 4 is a good responder, a ratio of 2-4 is a weak responder, and a ratio of less than 2 is considered a non-responder. This test was developed and its performance characteristics determined by [facility]. It has not been cleared or approved by the US Food and Drug Administration. This test was performed in a CLIA certified laboratory and is intended for clinical purposes. Performed By: [facility] [address] [place] [address] Transition Social Worker: Garfield Torrez MD, PhD Performed By: #### H IV #### [facility] [address] [place] [address] TETANUS ABon 03-06-2022 TETANUS AB >7.00 Normal <0.10 [facility] Comment on above: Result Comment: Inte rpretation: Non-Protective <0.10 Protective >=0.10 Results for this test are for research purposes only by the assay's information technology manager. The performance characteristics of this product have not been established. Results should not be used as a diagnostic procedure without confirmation of the diagnosis by another medically established diagnostic product or procedure. Performed By: #### T ETAB #### [facility] [address] [place], [place] [id number] TOXO IGMon 03-04-2022 TOXOPLASMA IGM <3.0 Normal <=7.9 [facility] Comment on above: Result Comment: INTE RPRETIVE INFORMATION: Toxoplasma Ab, IgM 7.9 AU/mL or less .... Not Detected. 8.0-9.9 AU/mL ........ Indeterminate - Repeat testing in 10-14 days may be helpful. 10.0 AU/mL or greater. Detected - Significant level of Toxoplasma gondii IgM antibody detected and may indicate a current or recent infection. However, low levels of IgM antibodies may occasionally persist for more than 12 months post-infection. This test is performed using the [employer] LIAISON. As suggested by the CDC, any indeterminate or detected Toxoplasma gondii IgM result should be retested in parallel with a specimen collected 1-3 weeks later. Further confirmation may be necessary using a different test from another reference laboratory specializing in toxoplasmosis testing where an IgM NELIDA should be ordered. Caution should be exercised in the use of IgM antibody levels in screening. Any Toxoplasma gondii IgM in patients that have also been confirmed by a second reference laboratory should be evaluated by amniocentesis and PCR testing for Toxoplasma gondii. For male and non- female patients with indeterminate or detected Toxoplasma gondii IgM results, PCR may also be useful if a specimen can be collected from an affected body site. This test should not be used for blood donor screening, associated re-entry protocols, or for screening Human Cell, Tissues and Cellular and Tissue-Based Products (HCT/P). For additional information, refer to the CDC website: www.cdc.gov/parasites/toxoplasmosis/health_professionals/index.htm l . The magnitude of the measured result is not indicative of the amount of antibody present. Performed By: [facility] [address] [place] [id number] Transition Social Worker: Garfield Torrez MD, PhD Performed By: #### H IV #### [facility] [address] [place] [id number] T-SPOT TBon 03-03-2022 NIL[NEG]CONTROL SPOT COUNT Passed Normal [facility] Comment on above: Performed By: #### I GA #### [facility] [address] [place] [address] PANEL A SPOT COUNT 0 Normal [facility] Comment on above: Performed By: #### I GA #### [facility] [address] [place] [address] PANEL B SPOT COUNT 0 Normal [facility] Comment on above: Performed By: #### I GA #### [facility] [address] [place] [address] POS CONTROL SPOT COUNT Passed Normal [facility] Comment on above: Performed By: #### I GA #### [facility] [address] [place] [address] T-SPOT.TB INTERP Negative Normal Normal Valu e: Negative [facility] Comment on above: Result Comment: A ne gative test result does not exclude the possibility of exposure to or infection with Mycobacterium tuberculosis (M. tuberculosis). Patients with recent exposure to TB infected individuals exhibiting a negative T-SPOT.TB result should be considered for retesting within 6 weeks or if other relevant clinical symptoms indicate. Results from T-SPOT.TB testing must be used in conjunction with each individual's epidemiological history, current medical status, and results of other diagnostic evaluations. The T-SPOT.TB test is qualitative and results are reported as positive, borderline or negative, given that the test controls perform as expected. In line with the Centers for Disease Control and Prevention's 2010 recommendation to report quantitative measurements alongside the qualitative result, the laboratory provides spot counts for informational purposes only. The T-SPOT.TB test should not be interpreted as a quantitative test. Performed By: #### I GA #### [facility] [address] [place] [address] Generalized Anxiety Disorder -7on 03-02-2022 Adult depression screening assessment In Remission (0-4) [facility] [place] [address] Work Phone: Generalized Anxiety Disorder-7 2 1 [facility] [place] [address] Work Phone: [phone] Generalized Anxiety Disorder-7 1-Several days [facility] [place] [address] Work Phone: [phone] Generalized Anxiety Disorder-7 0-Not at all [facility] [place] [address] Work Phone: [phone] HCV RNA BY PCR [VIRAL LOAD]o n 03-02-2022 HCV RNA, PCR Not detected Normal [facility] Comment on above: Result Comment: REF VALUE NOT DETECTED Performed By: #### T ETAB #### [facility] [address] [place], [place] [id number] HCV RNA,PCR, LOG NOT CALCULATED Normal [facility] Comment on above: Result Comment: Repo rtable Range: 15-100,000,000 IU/mL. The lauren HCV is an in vitro nucleic acid amplification test for both the detection and quantitation of hepatitis C virus (HCV) RNA, in human EDTA plasma or serum, of HCV antibody positive or HCV-infected individuals on the lauren [employer]/8800 Systems. Dual probes are used to detect and quantify, but not discriminate HCV genotypes 1-6. Though rare, mutations within the highly conserved regions of a viral genome covered by lauren HCV may affect primer and/or probe binding resulting in the under-quantitation of virus or failure to detect the presence of virus. The analytical quantification range of this assay has been determined to be 15 to 100,000,000 IU/ml in plasma. If the assay DETECTED the presence of the virus but was not able to accurately quantify the number of copies, the test result will be reported as DETECTED BUT NOT QUANTIFIED . The lauren??? HCV is intended for use as an aid in the diagnosis of HCV infection in the following populations: individuals with antibody evidence of HCV with evidence of liver disease, individuals suspected to be actively infected with HCV antibody evidence, and individuals at risk for HCV infection with antibodies to HCV. Detection of HCV RNA indicates that the virus is replicating and therefore is evidence of active infection. The luaren HCV is intended for use as an aid in the management of HCV-infected patients undergoing anti-viral therapy. The assay can be used to measure HCV RNA levels at baseline, during treatment, at the end of treatment, and at the end of follow up of treatment to determine sustained or non-sustained viral response. The results must be interpreted within the context of all relevant clinical and laboratory findings. This test is approved by the [place] Food and Drug administration, and its performance characteristics verified by the Molecular Diagnostic Laboratory, Department of Pathology, [facility]. Performed By: #### T ETAB #### [facility] [address] [place], [place] [id number] SIPATon 03-02-2022 SIPAT 21-39 Minimally Acceptable Candidate [facility] [place] [address] Work Phone: [phone] SIPAT 1) Good Understanding [facility] [place] [address] Work Phone: [phone] SIPAT 1) Good [facility] [place] [address] Work Phone: SIPAT 2) Good [facility] 1800 Work Phone: SIPAT 3) Late [facility] Work Phone: [phone] SIPAT 8) Poor [facility] Work Phone: [phone] SIPAT 6) Limited [facility] Work Phone: [phone] SIPAT 3) Limited [facility] Work Phone: [phone] SIPAT 0) None [facility] Work Phone: [phone] SIPAT 0) No Clinical Depression [facility] [place] [facility] Work Phone: [phone] SIPAT 0) No Clinical Anxiety [facility] Work Phone: [phone] SIPAT 1) Minimal [facility] Work Phone: [phone] SIPAT 2) Minor [facility] Work Phone: [phone] SIPAT 2) Mild [facility] [place] [facility] Work Phone: [phone] SIPAT 2) No Problematic Al cohol Use [facility] Work Phone: [phone] SIPAT 1) Low Risk [facility] [place] [facility] Work Phone: [phone] SIPAT 1) Past Use [facility] Work Phone: [phone] ABO/RH GROUP TESTon 03-01-20 22 ABO TYPE A Normal [facility] Comment on above: Performed By: #### A DONNA #### [facility] [address] [place] [address] RH TYPE Positive Normal [facility] Comment on above: Performed By: #### A DONNA #### [facility] [address] [place] [address] Antibody Assay, Diphtheriaon 03-01-2022 C. diphtheriae Ab IA Qn (S) 0.27 {IU/mL} <0.10 [facility] 1800 Work Phone: Comment on above: Interpretation: Non- Protective <0.10 Protective >=0.10 For research use only. Blood Typing (ABO + Rho D)on 03-01-2022 ABO group Nom (Bld) A [facility] Work Phone: Rh immune globulin screen (Bld) [Interp] Positive [facility] Work Phone: CBC AND DIFFERENTIALon 03-01 % AUTOMATED IMMATURE GRAN 0.3 % Normal 0.0 - 0.9 [facility] Comment on above: Result Comment: Cathleen ture Granulocyte Count (IG) includes promyelocytes, myelocytes and metamyelocytes but does not include bands. Percent differential counts (%) should be interpreted in the context of the absolute cell counts (cells/L). Performed By: #### I GA #### [facility] [address] [place] [address] Basophils (Bld) [#/Vol] 0.07 10*3/uL Normal 0.00 - 0.10 [facility] Comment on above: Performed By: #### I GA #### [facility] [address] [place] [address] Basophils/100 WBC (Bld) 0.6 % Normal 0.0 - 2.0 [facility] Comment on above: Performed By: #### I GA #### [facility] [address] [place] [address] Eosinophils (Bld) [#/Vol] 0.26 10*3/uL Normal 0.00 - 0.70 [facility] Comment on above: Performed By: #### I GA #### [facility] [address] [place] [address] Eosinophils/100 WBC (Bld) 2.3 % Normal 0.0 - 6.0 [facility] Comment on above: Performed By: #### I GA #### [facility] [address] [place] [address] Erythrocyte distribution width (RBC) [Ratio] 13.0 % Normal 11.5 - 14.5 [facility] Comment on above: Performed By: #### I GA #### [facility] [address] [place] [address] Hematocrit (Bld) [Volume fraction] 47.9 % Normal 41.0 - 52.0 [facility] Comment on above: Performed By: #### I GA #### [facility] [address] [place] [address] Hemoglobin (Bld) [Mass/Vol] 15.6 g/dL Normal 13.5 - 17.5 [facility] Comment on above: Performed By: #### I GA #### [facility] [address] [place] [address] Lymphocytes (Bld) [#/Vol] 2.53 10*3/uL Normal 1.20 - 4.80 [facility] Comment on above: Performed By: #### I GA #### [facility] [address] [place] [address] Lymphocytes/100 WBC (Bld) 22.8 % Normal 13.0 - 44.0 [facility] Comment on above: Performed By: #### I GA #### [facility] [address] [place] [address] MCHC (RBC) [Mass/Vol] 32.6 g/dL Normal 32.0 - 36.0 [facility] Comment on above: Performed By: #### I GA #### [facility] [address] [place] [address] MCV (RBC) [Entitic vol] 92 fL Normal 80 - 100 [facility] Comment on above: Performed By: #### I GA #### [facility] [address] [place] [address] Monocytes (Bld) [#/Vol] 0.82 10*3/uL Normal 0.10 - 1.00 [facility] Comment on above: Performed By: #### I GA #### [facility] [address] [place] [address] Monocytes/100 WBC (Bld) 7.4 % Normal 2.0 - 10.0 [facility] Comment on above: Performed By: #### I GA #### [facility] [address] [place] [address] Neutrophils (Bld) [#/Vol] 7.37 10*3/uL Normal 1.20 - 7.70 [facility] Comment on above: Performed By: #### I GA #### [facility] [address] [place] [address] Neutrophils/100 WBC (Bld) 66.6 % Normal 40.0 - 80.0 [facility] Comment on above: Performed By: #### I GA #### [facility] [address] [place] [address] NUCLEATED RBC 0.0 /100 WBC Normal 0.0-0.0 [facility] Comment on above: Performed By: #### I GA #### [facility] [address] [place] [address] Platelets (Bld) [#/Vol] 355 10*3/uL Normal 150 - 450 [facility] Comment on above: Performed By: #### I GA #### [facility] [address] [place] [address] RBC 5.20 x10E12/L Normal 4.50 - 5.90 [facility] Comment on above: Performed By: #### I GA #### [facility] [address] [place] [address] WBC (Bld) [#/Vol] 11.1 10*3/uL Normal 4.4 - 11.3 [facility] Comment on above: Performed By: #### I GA #### [facility] [address] [place] [address] CMV IGG AND IGM ABon 022 CMV IGG AB Non-Reactive Normal NONREACTIVE [facility] Comment on above: Performed By: #### T ETAB #### [facility] [place], [place] [id number] CMV IGM ABon 03-01-2022 CMV IgM IA Qn <30.00 [facility] Work Phone: Comment on above: REFERENCE RANGE: <30 .00 AU/mL. Interpretive criteria: <30.00 AU/mL No antibody detected 30.00-34.99 AU/mL Equivocal > or = 35.00 AU/mL Antibody detected.Results from any one IgM assay should not beused as a sole determinant of a current or recentinfection. Because an IgM test can yield falsepositive results and low level IgM antibody maypersist for more than 12 months post infection,reliance on a single test result could be misleading.Acute infection is best diagnosed by demonstratingthe conversion of IgG from negative to positive.If an acute infection is suspected, considerobtaining a new specimen and submit for bothIgG and IgM testing in two or more weeks. COMPREHENSIVE PANELon 2021 Albumin [Mass/Vol] 4.8 g/dL Normal 3.4 - 5.0 [facility] Comment on above: Performed By: #### S YPHR #### [facility] [address] [place] [address] ALP [Catalytic activity/Vol] 128 U/L Normal 33 - 136 [facility] Comment on above: Performed By: #### S YPHR #### [facility] [address] [place] [address] ALT [Catalytic activity/Vol] 28 U/L Normal 10 - 52 [facility] Comment on above: Result Comment: Lorena ents treated with Sulfasalazine may generate falsely decreased results for ALT. Performed By: #### S YPHR #### [facility] [address] [place] [address] Anion gap [Moles/Vol] 14 mmol/L Normal 10 - 20 [facility] Comment on above: Performed By: #### S YPHR #### [facility] [address] [place] [address] AST [Catalytic activity/Vol] 23 U/L Normal 9 - 39 [facility] Comment on above: Performed By: #### S YPHR #### [facility] [address] [place] [address] Bilirubin [Mass/Vol] 1.0 mg/dL Normal 0.0 - 1.2 [facility] Comment on above: Performed By: #### S YPHR #### [facility] [address] [place] [address] Calcium [Mass/Vol] 11.4 mg/dL High 8.6 - 10.6 [facility] Comment on above: Performed By: #### S YPHR #### [facility] [address] [place] [address] Chloride [Moles/Vol] 100 mmol/L Normal 98 - 107 [facility] Comment on above: Performed By: #### S YPHR #### [facility] [address] [place] [address] Creatinine [Mass/Vol] 0.88 mg/dL Normal 0.50 - 1.30 [facility] Comment on above: Performed By: #### S YPHR #### [facility] [address] [place] [address] eGFR MALE >90 Normal >90 [facility] Comment on above: Result Comment: CALC ULATIONS OF ESTIMATED GFR ARE PERFORMED USING THE 2020 CKD-EPI STUDY REFIT EQUATION WITHOUT THE RACE VARIABLE FOR THE IDMS-TRACEABLE CREATININE METHODS. https://jasn.asnjournals.org/content//ASN.66500314 88 Performed By: #### S YPHR #### [facility] [address] [place] [address] Glucose [Mass/Vol] 96 mg/dL Normal 74 - 99 [facility] Comment on above: Performed By: #### S YPHR #### [facility] [address] [place] [address] HCO3 (Bld) [Moles/Vol] 29 mmol/L Normal 21 - 32 [facility] Comment on above: Performed By: #### S YPHR #### [facility] [address] [place] [address] Potassium [Moles/Vol] 4.4 mmol/L Normal 3.5 - 5.3 [facility] Comment on above: Performed By: #### S YPHR #### [facility] [address] [place] [address] Protein [Mass/Vol] 7.8 g/dL Normal 6.4 - 8.2 [facility] Comment on above: Performed By: #### S YPHR #### [facility] [address] [place] [address] Sodium [Moles/Vol] 139 mmol/L Normal 136 - 145 [facility] Comment on above: Performed By: #### S YPHR #### [facility] [address] [place] [address] Urea nitrogen [Mass/Vol] 13 mg/dL Normal 6 - 23 [facility] Comment on above: Performed By: #### S YPHR #### [facility] [address] [place] [address] CRP, HIGH SENSITIVITYon 12-0 CRP, HIGH SENSITIVITY 4.0 mg/L Abnormal [facility] Comment on above: Result Comment: hsCR P INTERPRETATION mg/L < 1.0 LOW RELATIVE RISK OF CVD 1.0-3.0 AVERAGE RELATIVE RISK OF CVD > 3.0 HIGH RELATIVE RISK OF CVD Source: NELY TJael Colindres. et al. CIRCULATION 2003; 107:499-511. Performed By: #### S YPHR #### [facility] [address] [place] [address] CRP, High Sensitivityon 12-0 CRP High sensitivity method [Mass/Vol] 4.0 mg/L Abnormal [facility] Work Phone: Comment on above: SOURCE: hsCRP INTERP RETATION mg/L < 1.0 LOW RELATIVE RISK OF CVD 1.0-3.0 AVERAGE RELATIVE RISK OF CVD > 3.0 HIGH RELATIVE RISK OF CVD Source:NELY TJael Colindres. et al. CIRCULATION 2003;107:499-511. Complete Blood Count + Diffe vern 03-01-2022 Basophils/100 WBC (Bld) 0.6 % 0.0 - 2.0 [facility] Work Phone: Erythrocyte distribution width (RBC) [Ratio] 13.0 % See Below [facility] Work Phone: Comment on above: Reference Range: 11. 5 - 14.5 Hematocrit (Bld) [Volume fraction] 47.9 % See Below [facility] Work Phone: Comment on above: Reference Range: 41. 0 - 52.0 Hemoglobin (Bld) [Mass/Vol] 15.6 g/dL See Below [facility] Work Phone: Comment on above: Reference Range: 13. 5 - 17.5 Lymphocytes/100 WBC (Bld) 22.8 % See Below [facility] Work Phone: Comment on above: Reference Range: 13. 0 - 44.0 MCHC (RBC) [Mass/Vol] 32.6 g/dL See Below [facility] Work Phone: Comment on above: Reference Range: 32. 0 - 36.0 MCV (RBC) [Entitic vol] 92 fL 80 - 100 [facility] Work Phone: Monocytes/100 WBC (Bld) 7.4 % 2.0 - 10.0 [facility] Work Phone: Neutrophils/100 WBC (Bld) 66.6 % See Below [facility] Work Phone: Comment on above: Reference Range: 40. 0 - 80.0 Platelets (Bld) [#/Vol] 355 10*3/uL 150 - 450 [facility] Work Phone: RBC (Bld) [#/Vol] 5.20 {x10E12/L} See Below [facility] Work Phone: Comment on above: Reference Range: 4.5 0 - 5.90 WBC (Bld) [#/Vol] 11.1 10*3/uL 4.4 - 11.3 [facility] Work Phone: Complete Blood Count + Differential 0.07 {x10E9/L} See Below [facility] Work Phone: Comment on above: Reference Range: 0.0 0 - 0.10 Complete Blood Count + Differential 0.26 {x10E9/L} See Below [facility] Work Phone: Comment on above: Reference Range: 0.0 0 - 0.70 Complete Blood Count + Differential 0.82 {x10E9/L} See Below [facility] Work Phone: Comment on above: Reference Range: 0.1 0 - 1.00 Complete Blood Count + Differential 2.53 {x10E9/L} See Below [facility] Work Phone: Comment on above: Reference Range: 1.2 0 - 4.80 Complete Blood Count + Differential 7.37 {x10E9/L} See Below [facility] Work Phone: Comment on above: Reference Range: 1.2 0 - 7.70 Complete Blood Count + Differential 2.3 % 0.0 - 6.0 [facility] Work Phone: Complete Blood Count + Differential 0.3 % 0.0 - 0.9 [facility] Work Phone: Comment on above: Immature Granulocyte Count (IG) includes promyelocytes, myelocytes and metamyelocytes but does not include bands. Percent differential counts (%) should be interpreted in the context of the absolute cell counts (cells/L). Complete Blood Count + Differential 0.0 {/100_WBC} 0.0-0.0 [facility] Work Phone: DRUG SCREEN,URINE WITH REFLE X TO CONFIRMATIONon 03-01-2022 AMPHETAMINE SCREEN,U Canceled Normal [facility] Comment on above: Order Comment: TEST DRUG SCREEN,URINE WITH REFLEX TO CONFIRMATION WAS CANCELLED, :42 pt couldnt void. Result Comment: CUTO FF LEVEL: 500 NG/ML Cross-reactivity has been reported with high concentrations of the following drugs: buproprion, chloroquine, chlorpromazine, ephedrine, mephentermine, fenfluramine, phentermine, phenylpropanolamine, pseudoephedrine, and propranolol. Performed By: #### H IV #### [facility] [address] [place] [id number] BARBITURATES SCREEN,U Canceled Normal [facility] Comment on above: Order Comment: TEST DRUG SCREEN,URINE WITH REFLEX TO CONFIRMATION WAS CANCELLED, :42 pt couldnt void. Result Comment: CUTO FF LEVEL: 200 NG/ML Performed By: #### H IV #### [facility] [address] [place] [address] BENZODIAZEPINES SCREEN,U Canceled Normal [facility] Comment on above: Order Comment: TEST DRUG SCREEN,URINE WITH REFLEX TO CONFIRMATION WAS CANCELLED, :42 pt couldnt void. Result Comment: CUTO FF LEVEL: 200 NG/ML Performed By: #### H IV #### [facility] [address] [place] [address] CANNABINOIDS SCREEN,U Canceled Normal [facility] Comment on above: Order Comment: TEST DRUG SCREEN,URINE WITH REFLEX TO CONFIRMATION WAS CANCELLED, :42 pt couldnt void. Result Comment: CUTO FF LEVEL: 50 NG/ML Performed By: #### H IV #### [facility] [address] [place] [address] COCAINE METABOLITE SCREEN,U Canceled Normal [facility] Comment on above: Order Comment: TEST DRUG SCREEN,URINE WITH REFLEX TO CONFIRMATION WAS CANCELLED, :42 pt couldnt void. Result Comment: CUTO FF LEVEL: 150 NG/ML Performed By: #### H IV #### [facility] [address] [place] [address] DRUG SCREEN COMMENT Canceled Normal [facility] Comment on above: Order Comment: TEST DRUG SCREEN,URINE WITH REFLEX TO CONFIRMATION WAS CANCELLED, :42 pt couldnt void. Result Comment: Drug screen results are presumptive and should not be used to assess compliance with prescribed medication. Definitive confirmatory drug testing has been added to this sample for any positive screen result and will be reported separately. . Toxicology screening results are reported qualitatively. The concentration must be greater than or equal to the cutoff to be reported as positive. The concentration at which the screening test can detect an individual drug or metabolite varies. The absence of expected drug(s) and/or drug metabolite(s) may indicate non-compliance, inappropriate timing of specimen collection relative to drug administration, poor drug absorption, diluted/adulterated urine, or limitations of testing. For medical purposes only; not valid for forensic use. . Interpretive questions should be directed to the laboratory medical directors. Performed By: #### H IV #### [facility] [address] [place] [address] FENTANYL SCREEN,URINE Canceled Normal [facility] Comment on above: Order Comment: TEST DRUG SCREEN,URINE WITH REFLEX TO CONFIRMATION WAS CANCELLED, :42 pt couldnt void. Result Comment: CUTO FF LEVEL: 5 NG/ML Performed By: #### H IV #### [facility] [address] [place] [address] METHADONE SCREEN,U Canceled Normal [facility] Comment on above: Order Comment: TEST DRUG SCREEN,URINE WITH REFLEX TO CONFIRMATION WAS CANCELLED, :42 pt couldnt void. Result Comment: CUTO FF LEVEL: 150 NG/ML The metabolite R-yhggq-zkrdddsprqafcg (LAAM) is not detected by this method in concentrations that would be found in the urine of patients on LAAM therapy. Performed By: #### H IV #### [facility] [address] [place] [id number] OPIATES SCREEN,U Canceled Normal [facility] Comment on above: Order Comment: TEST DRUG SCREEN,URINE WITH REFLEX TO CONFIRMATION WAS CANCELLED, :42 pt couldnt void. Result Comment: CUTO FF LEVEL: 300 NG/ML The opiate screen does not detect fentanyl, meperidine, or tramadol. Oxycodone is not consistently detected (refer to Oxycodone Screen, Urine result). Performed By: #### H IV #### [facility] [address] [place] [address] OXYCODONE SCREEN,U Canceled Normal [facility] Comment on above: Order Comment: TEST DRUG SCREEN,URINE WITH REFLEX TO CONFIRMATION WAS CANCELLED, :42 pt couldnt void. Result Comment: CUTO FF LEVEL: 100 NG/ML This test will accurately detect both oxycodone and oxymorphone. Performed By: #### H IV #### [facility] [address] [place] [id number] PCP SCREEN,U Canceled Normal [facility] Comment on above: Order Comment: TEST DRUG SCREEN,URINE WITH REFLEX TO CONFIRMATION WAS CANCELLED, :42 pt couldnt void. Result Comment: CUTO FF LEVEL: 25 NG/ML Cross-reactivity has been reported with dextromethorphan. Performed By: #### H IV #### [facility] [address] [place] [address] EBV PANELon 03-01-2022 VCA IGM ANTIBODY Negative Normal NEGATIVE [facility] Comment on above: Performed By: #### T ETAB #### [facility] [address] [place], [place] [id number] EBV EA-D IGG ANTIBODY Negative Normal NEGATIVE [facility] Comment on above: Performed By: #### T ETAB #### [facility] [address] [place], [place] [id number] EBV INTERPRETATION SEE BELOW Normal [facility] Comment on above: Result Comment: . EB V INTERPRETATION CHART . VCA-IGG VCA-IGM NA-IGG EA-IGG . PRIMARY ACUTE +/- +/- - +/- LATE ACUTE + +/- +/- +/- RECOVERING + - - + PREVIOUS INFECTION + - +/- - Performed By: #### T ETAB #### [facility] [address] [place], [place] [id number] EBV NA-1 IGG ANTIBODY Positive Abnormal NEGATIVE [facility] Comment on above: Performed By: #### T ETAB #### [facility] [address] [place], [place] [id number] VCA IGG ANTIBODY Positive Abnormal NEGATIVE [facility] Comment on above: Performed By: #### T ETAB #### [facility] [address] [place], [place] [id number] FERRITINon 03-01-2022 FERRITIN 435 ug/L High 20 - 300 [facility] Comment on above: Performed By: #### H IV #### [facility] [address] [place] [address] Ferritin, Serumon 03-01-2022 Ferritin [Mass/Vol] 435 ug/L above high threshold 20 - 300 [facility] Work Phone: Comment on above: SOURCE: H. Influenza B Ab, IgGon H. influenzae B IgG (S) [Mass/Vol] 0.1 ug/mL [facility] Work Phone: Comment on above: INTERPRETIVE INFORMA TION: H. Influenzae b Ab, IgG Less than 1.0 ug/mL ...... Antibody concentration not protective. 1.0 ug/mL or greater ..... Antibodies to H. Influenzae b detected. Suggestive of protection.Responder status is determined according to the ratio of post-vaccination concentration to pre-vaccination concentration of Haemophilus influenza b antibody, IgG as follows: 1. If the post-vaccination concentration is less than 3.0 ug/mL, the patient is considered to be a non-responder. 2. If the post-vaccination concentration is greater than or equal to 3.0 ug/mL, a patient with a ratio of greater than or equal to 4 is a good responder, a ratio of 2-4 is a weak responder, and a ratio of less than 2 is considered a non-responder. This test was developed and its performance characteristics determined by [facility]. It has not been cleared or approved by the [place] Food and Drug Administration. This test was performed in a CLIA certified laboratory and is intended for clinical purposes.Performed By: [facility] [place] [id number] Director: Garfield Torrez MD, PhD HEMOGLOBIN A1Con 03-01-2022 Glucose [Mass/Vol] 114 mg/dL Normal [facility] Comment on above: Performed By: #### S YPHR #### [facility] [address] [place] [address] HbA1c (Bld) [Mass fraction] 5.6 % Normal [facility] Comment on above: Result Comment: Diag nosis of Diabetes-Adults Non-Diabetic: < or = 5.6% Increased risk for developing diabetes: 5.7-6.4% Diagnostic of diabetes: > or = 6.5% . Monitoring of Diabetes Age (y) Therapeutic Goal (%) Adults: >18 <7.0 Pediatrics: 13-18 <7.5 7-12 <8.0 0- 6 7.5-8.5 [employer]. Diabetes Care 33(S1), Mar 2009. Performed By: #### S YPHR #### [facility] [address] [place] [address] HEPATITIS A AB-TOTALon 03-01 HEPATITIS A AB-TOTAL Non-Reactive Normal NONREACTIVE [facility] Comment on above: Result Comment: Biot in interference may cause falsely elevated results. Patients taking a Biotin dose of up to 5 mg/day should refrain from taking Biotin for 24 hours before sample collection. Providers may contact their local laboratory for further information. Performed By: #### H AVTO #### [facility] [address] [place] [address] HEPATITIS B CORE AB-TOTALon 03-01-2022 HEP. B CORE AB-TOTAL Non-Reactive Normal NONREACTIVE [facility] Comment on above: Result Comment: Resu lts from patients taking biotin supplements or receiving high-dose biotin therapy should be interpreted with caution due to possible interference with this test. Providers may contact their local laboratory for further information. Performed By: #### S YPHR #### [facility] [address] [place] [address] HEPATITIS B SURF ABon 2021 HEP B SURF AB <3.1 Normal <10 [facility] Comment on above: Result Comment: INTE RPRETIVE CRITERIA: <10 mIU/mL....NONREACTIVE >=10 mIU/mL...REACTIVE . Biotin interference may cause falsely decreased results. Patients taking a Biotin dose of up to 5 mg/day should refrain from taking Biotin for 24 hours before sample collection. Providers may contact their local laboratory for further information. Performed By: #### S YPHR #### [facility] [address] [place] [address] HEPATITIS B SURFACE AGon HEP.B SURFACE AG Non-Reactive Normal NONREACTIVE [facility] Comment on above: Result Comment: Biot in interference may cause falsely decreased results. Patients taking a Biotin dose of up to 5 mg/day should refrain from taking Biotin for 24 hours before sample collection. Providers may contact their local laboratory for further information. Performed By: #### T ETAB #### [facility] [address] [place], [place] [id number] HEPATITIS C ABon 03-01-2022 HEPATITIS C AB Non-Reactive Normal NONREACTIVE [facility] Comment on above: Result Comment: Resu lts from patients taking biotin supplements or receiving high-dose biotin therapy should be interpreted with caution due to possible interference with this test. Providers may contact their local laboratory for further information. Performed By: #### S YPHR #### [facility] [address] [place] [address] HIV 1/2 ANTIGEN/ANTIBODY SCR EEN WITH REFLEX TO CONFIRMATIONon 03-01-2022 HIV 1/2 AG/AB SCREEN Non-Reactive Normal NONREACTIVE [facility] Comment on above: Result Comment: HIV Ag/Ab screen is performed using the Siemens Atellica HIV Ag/Ab Combo assay which detects the presence of HIV p24 antigen as well as antibodies to HIV-1 (Group M and O) and HIV-2. . No laboratory evidence of HIV infection. If acute HIV infection is suspected, consider testing for HIV RNA by PCR (viral load). Performed By: #### H IV #### [facility] [address] [place] [address] HIV 1+2 Ab Qn (S) Non-Reactive See Below -[facility] [facility] Work Phone: Comment on above: SOURCE: Reference Ra nge: NONREACTIVE HIV Ag/Ab screen is performed using the Siemens Atellica HIV Ag/Ab Combo assay which detects the presence of HIV p24 antigen as well as antibodies to HIV-1 (Group M and O) and HIV-2..No laboratory evidence of HIV infection. If acute HIV infection is suspected, consider testing for HIV RNA by PCR (viral load). HLA CLASS I SP AB ID, HDon 1 05-02-2021 HLA CLASS I SP AB ID,HD Canceled Normal [facility] Comment on above: Order Comment: TEST HLA CLASS I SP AB ID, HD WAS CANCELLED, 03/01/2022 19:28 Tests orderedunder wron visit. Lab will reorder. Please do not recollect.. Performed By: #### H IV #### [facility] [address] [place] [address] HLA CLASS II SP AB ID, HDon 03-01-2022 HLA CLASS II SP AB ID,HD Canceled Normal [facility] Comment on above: Order Comment: TEST HLA CLASS II SP AB ID, HD WAS CANCELLED, 03/01/2022 19:28 Tests orderedunder wron visit. Lab will reorder. Please do not recollect.. Performed By: #### T ETAB #### [facility] [address] [place] [id number] HLA-A,B,C LRon 03-01-2022 HLA-A LOCUS LR TYPE Canceled Normal [facility] Comment on above: Order Comment: TEST HLA-A,B,C LR WAS CANCELLED, 03/01/2022 19:28 Tests ordered under wronvisit. Lab will reorder. Please do not recollect.. Performed By: #### A DONNA #### [facility] [address] [place] [address] HLA-B LOCUS LR TYPE Canceled Normal [facility] Comment on above: Order Comment: TEST HLA-A,B,C LR WAS CANCELLED, 03/01/2022 19:28 Tests ordered under wronvisit. Lab will reorder. Please do not recollect.. Performed By: #### A DONNA #### [facility] [address] [place] [address] HLA-C LOCUS LR TYPE Canceled Normal [facility] Comment on above: Order Comment: TEST HLA-A,B,C LR WAS CANCELLED, 03/01/2022 19:28 Tests ordered under wronvisit. Lab will reorder. Please do not recollect.. Performed By: #### A DONNA #### [facility] [address] [place] [address] HLA-DPB1 HR TYPINGon HLA-DPB1 HR TYPING Canceled Normal [facility] Comment on above: Order Comment: TEST HLA-DPB1 HR TYPING WAS CANCELLED, 03/01/2022 19:28 Tests ordered underwron visit. Lab will reorder. Please do not recollect.. Performed By: #### A DONNA #### [facility] [address] [place] [address] HLA-DQB1 HR TYPINGon 022 HLA-DQB1 HR TYPING Canceled Normal [facility] Comment on above: Order Comment: TEST HLA-DQB1 HR TYPING WAS CANCELLED, 03/01/2022 19:28 Tests ordered underwron visit. Lab will reorder. Please do not recollect.. Performed By: #### A DONNA #### [facility] [address] [place] [address] HLA-DRB1/3/4/5 AND DQB1 LR T YPINGon 03-01-2022 HLA-DRB1/3/4/5 & DQB1 LR TYPING Canceled Normal [facility] Comment on above: Order Comment: TEST HLA-DRB1/3/4/5 AND DQB1 LR TYPING WAS CANCELLED, 03/01/2022 19:28 Testsordered under wron visit. Lab will reorder. Please do not recollect.. Performed By: #### A DONNA #### [facility] [address] [place] [address] HSV IGG1 AND IGG2 ABon 03-01 HSV I IGG AB 0.7 INDEX Normal [facility] Comment on above: Result Comment: REF VALUES NEGATIVE <0.9 EQUIVOCAL >=0.90 <=1.10 POSITIVE >1.10 Performed By: #### A DONNA #### [facility] [address] [place] [address] HSV II IGG AB <0.2 Normal [facility] Comment on above: Result Comment: POTE NTIAL FOR CROSS-REACTIVITY BETWEEN HSV I AND HSV II EXISTS. REF VALUES NEGATIVE <0.9 EQUIVOCAL >=0.90 <=1.10 POSITIVE >1.10 Performed By: #### A DONNA #### [facility] [address] [place] [address] Hemoglobin A1Con 03-01-2022 Glucose [Mass/Vol] 114 mg/dL [facility] Work Phone: HbA1c (Bld) [Mass fraction] 5.6 % [facility] [facility] Work Phone: Comment on above: Diagnosis of Diabete s-Adults Non-Diabetic: < or = 5.6% Increased risk for developing diabetes: 5.7-6.4% Diagnostic of diabetes: > or = 6.5%. Monitoring of Diabetes Age (y) Therapeutic Goal (%) Adults: >18 <7.0 Pediatrics: 13-18 <7.5 7-12 <8.0 0- 6 7.5-8.5 [place] [employer]. Diabetes Care 33(S1), Mar 2009. Hep B Virus Quant PCRon 12-0 HBV DNA MARTINEZ+probe [Log units/Vol] NOT CALCULATED [facility] Work Phone: HBV DNA MARTINEZ+probe Ql SEE BELOW [facility] Work Phone: Comment on above: Reportable Range: 10 -1,000,000,000 IU/mL.The lauren HBV test is in vitro nucleic acid amplification test for the quantitation of hepatitis B virus (HBV) DNA in human EDTA plasma or serum of HBV-infected individuals on the Pharmaxis0/8800 Systems. A single probe is used to detect and quantify, but not discriminate genotypes A-H. The primers and probes target the highly conserved pre-core and core regions of the HBV genome. The analytical quantification range of this assay has been determined to be 10 to 1,000,000,000 IU/ml in plasma. The amplified region of the genome will not be affected by mutations that arise due to drug resistance. Though rare, mutations within the highly conserved regions of a viral genome covered by lauren HBV, may affect primers and/or probe binding resulting in the under-quantitation of virus or failure to detect the presence of virus.If the assay DETECTED the presence of the virus but was not able to accurately quantify the number of copies, the test result will be reported as DETECTED BUT NOT QUANTIFIED .The lauren HBV test is intended for use as an aid in the management of patients with chronic HBV infection undergoing anti-viral therapy. The test can be used to measure HBV DNA levels at baseline and during treatment to aid in assessing response to treatment. The results from lauren HBV must be interpreted within the context of all relevant clinical and laboratory findings. The lauren HBV is not intended for use as a screening test for the presence of HBV in blood or blood products or as a diagnostic test to confirm the presence of HBV infection. This test is approved by the [place] Food and Drug Administration, and its performance characteristics verified by the Molecular Diagnostic Laboratory, Department of Pathology, [facility]. HBV DNA MARTINEZ+probe Qn Not detected See Below [facility] [employer] Work Phone: Comment on above: SOURCE: Reference Ra nge: Not Detected Hepatitis A Antibody, Totalo n 03-01-2022 HAV Ab IA Ql (S) Non-Reactive See Below [facility] [employer] Work Phone: Comment on above: SOURCE: Reference Ra nge: NONREACTIVE Biotin interference may cause falsely elevated results. Patients taking a Biotin dose of up to 5 mg/day should refrain from taking Biotin for 24 hours before sample collection. Providers may contact their local laboratory for further information. Hepatitis B Surface Antibody on 03-01-2022 HBV surface Ag IA Ql <3.1 <10 [facility] 1800 Work Phone: Comment on above: SOURCE: INTERPRETIVE CRITERIA:<10 mIU/mL....NONREACTIVE >=10 mIU/mL...REACTIVE . Biotin interference may cause falsely decreased results. Patients taking a Biotin dose of up to 5 mg/day should refrain from taking Biotin for 24 hours before sample collection. Providers may contact their local laboratory for further information. Hepatitis C Antibody Teston 03-01-2022 Hepatitis C Antibody Test Non-Reactive See Below [facility] 1800 Work Phone: Comment on above: SOURCE: Reference Ra nge: NONREACTIVE Results from patients taking biotin supplements or receiving high-dose biotin therapy should be interpreted with caution due to possible interference with this test. Providers may contact their local laboratory for further information. SOURCE: Reference Ra nge: NONREACTIVE SOURCE: Reference Ra nge: NONREACTIVE Biotin interference may cause falsely decreased results. Patients taking a Biotin dose of up to 5 mg/day should refrain from taking Biotin for 24 hours before sample collection. Providers may contact their local laboratory for further information. IGAon 03-01-2022 IgA [Mass/Vol] 256 mg/dL Normal 70 - 400 [facility] Comment on above: Result Comment: MONO CLONAL PROTEINS MAY CAUSE FALSELY LOW RESULTS IN THIS ASSAY. SERUM PROTEIN ELECTROPHORESIS SHOULD BE DONE THE FIRST TEST TO EVALUATE MONOCLONAL GAMMOPATHY. Performed By: #### I GA #### [facility] [address] [place] [address] Lab Specimen Source Normal [facility] Comment on above: Performed By: #### I GA #### [facility] [address] [address] [place], [place] Performed By: #### H IV #### [facility] [address] [address] [place], [place] Performed By: #### S YPHR #### [facility] [address] [address] [place], [place] Performed By: #### H AVTO #### [facility] [address] [place], [place] Performed By: #### T ETAB #### [facility] [address] [place], [place] [id number] Performed By: #### A DONNA #### [facility] [address] [place] [address] [place] IGEon 03-01-2022 IGE 57 IU/mL Normal 0 - 214 [facility] Comment on above: Performed By: #### Bernadine DONNA #### [facility] [address] [address] [place] IGG SUBCLASSESon 03-01-2022 IGG SUBCLASS 2 158 mg/dL Normal 150 - 640 [facility] Comment on above: Performed By: #### T ETAB #### [facility] [address] [place], [place] [id number] IGG SUBCLASS 1 548 mg/dL Normal 490 - 1140 [facility] Comment on above: Performed By: #### T ETAB #### [facility] [address] [place], [place] [phone] IgG [Mass/Vol] 739 mg/dL Normal 700 - 1600 [facility] Comment on above: Result Comment: MONO CLONAL PROTEINS MAY CAUSE FALSELY LOW RESULTS IN THIS ASSAY. SERUM PROTEIN ELECTROPHORESIS SHOULD BE DONE THE FIRST TEST TO EVALUATE MONOCLONAL GAMMOPATHY. Performed By: #### T ETAB #### [facility] [address] [place], [place] [id number] IGG SUBCLASS 3 62 mg/dL Normal 11 - 85 [facility] Comment on above: Performed By: #### T ETAB #### [facility] [address] [place], [place] [id number] IGG SUBCLASS 4 28 mg/dL Normal 3 - 200 [facility] Comment on above: Result Comment: DUE TO INHERENT IMPRECISION OF METHODS, THE SUM OF COMPONENTS MAY DIFFER FROM TOTAL IGG BY MUCH 20%. Performed By: #### T ETAB #### [facility] [address] [place], [place] [id number] IGMon 03-01-2022 IgM [Mass/Vol] 63 mg/dL Normal 40 - 230 [facility] Comment on above: Result Comment: MONO CLONAL PROTEINS MAY CAUSE FALSELY LOW RESULTS IN THIS ASSAY. SERUM PROTEIN ELECTROPHORESIS SHOULD BE DONE THE FIRST TEST TO EVALUATE MONOCLONAL GAMMOPATHY. Performed By: #### H IV #### [facility] [address] [place] [address] IRON + TIBCon 03-01-2022 % SATURATION 34 % Normal 25 - 45 [facility] Comment on above: Performed By: #### I GA #### [facility] [address] [place] [address] Iron [Mass/Vol] 141 ug/dL Normal 35 - 150 [facility] Comment on above: Performed By: #### I GA #### [facility] [address] [place] [address] TIBC 414 ug/dL Normal 240 - 445 [facility] Comment on above: Performed By: #### I GA #### [facility] [address] [place] [address] Immunoglobulin A Level, Seru sat03-01-2022 IgA [Mass/Vol] 256 mg/dL 70 - 400 [facility] [place] [facility] Work Phone: Comment on above: SOURCE: MONOCLONAL P ROTEINS MAY CAUSE FALSELY LOWRESULTS IN THIS ASSAY. SERUM PROTEINELECTROPHORESIS SHOULD BE DONE THEFIRST TEST TO EVALUATE MONOCLONAL GAMMOPATHY. Immunoglobulin E Level, Seru sat03-01-2022 IgE Qn 57 {IU/mL} 0 - 214 [facility] [address] Work Phone: Comment on above: SOURCE: Immunoglobulin M Level, Seru mon 03-01-2022 IgM [Mass/Vol] 63 mg/dL 40 - 230 [facility] [address] Work Phone: Comment on above: SOURCE: MONOCLONAL P ROTEINS MAY CAUSE FALSELY LOWRESULTS IN THIS ASSAY. SERUM PROTEINELECTROPHORESIS SHOULD BE DONE THEFIRST TEST TO EVALUATE MONOCLONAL GAMMOPATHY. LIPID PANEL (CORONARY RISK 2 )on 03-01-2022 Cholesterol [Mass/Vol] 128 mg/dL Normal 0 - 199 [facility] Comment on above: Result Comment: . AGE DESIRABLE BORDERLINE HIGH HIGH 0-19 Y 0 - 169 170 - 199 >/= 200 20-24 Y 0 - 189 190 - 224 >/= 225 >24 Y 0 - 199 200 - 239 >/= 240 All ranges are based on fasting samples. Specific therapeutic targets will vary based on patient-specific cardiac risk. . Pediatric guidelines reference:Pediatrics 2011, 128(S5). Adult guidelines reference: NCEP ATPIII Guidelines, NAYE 2001, 258:2486-97 . Venipuncture immediately after or during the administration of Metamizole may lead to falsely low results. Testing should be performed immediately prior to Metamizole dosing. Performed By: #### I GA #### [facility] [address] [place] [address] Cholesterol in HDL [Mass/Vol] 56.0 mg/dL Normal [facility] Comment on above: Result Comment: . AGE VERY LOW LOW NORMAL HIGH 0-19 Y < 35 < 40 40-45 ---- 20-24 Y ---- < 40 >45 ---- >24 Y ---- < 40 40-60 >60 . Performed By: #### I GA #### [facility] [address] [place] [address] Cholesterol in LDL [Mass/Vol] 58 mg/dL Normal 0 - 99 [facility] Comment on above: Result Comment: . NEAR BORD AGE DESIRABLE OPTIMAL HIGH HIGH VERY HIGH 0-19 Y 0 - 109 --- 110-129 >/= 130 ---- 20-24 Y 0 - 119 --- 120-159 >/= 160 ---- >24 Y 0 - 99 100-129 130-159 160-189 >/=190 . Performed By: #### I GA #### [facility] [address] [place] [address] Cholesterol in VLDL [Mass/Vol] 14 mg/dL Normal 0 - 40 [facility] Comment on above: Performed By: #### I GA #### [facility] [address] [place] [address] Cholesterol.total/C holesterol in HDL [Mass ratio] 2.3 {ratio} Normal [facility] Comment on above: Result Comment: REF VALUES DESIRABLE < 3.4 HIGH RISK > 5.0 Performed By: #### I GA #### [facility] [address] [place] [address] Triglyceride [Mass/Vol] 72 mg/dL Normal 0 - 149 [facility] Comment on above: Result Comment: . AGE DESIRABLE BORDERLINE HIGH HIGH VERY HIGH 0 D-90 D 19 - 174 ---- ---- ---- 91 D- 9 Y 0 - 74 75 - 99 >/= 100 ---- 10-19 Y 0 - 89 90 - 129 >/= 130 ---- 20-24 Y 0 - 114 115 - 149 >/= 150 ---- >24 Y 0 - 149 150 - 199 200- 499 >/= 500 . Venipuncture immediately after or during the administration of Metamizole may lead to falsely low results. Testing should be performed immediately prior to Metamizole dosing. Performed By: #### I GA #### [facility] [address] [place] [address] Laboratory - Chemistry and C hemistry - challengeon 03-01-2022 Albumin BCP dye [Mass/Vol] 4.8 g/dL 3.4 - 5.0 [facility] Work Phone: ALP [Catalytic activity/Vol] 128 U/L 33 - 136 [facility] [facility] Work Phone: ALT With P-5'-P [Catalytic activity/Vol] 28 U/L 10 - 52 [facility] [facility] Work Phone: Comment on above: Patients treated wit h Sulfasalazine may generate falsely decreased results for ALT. Anion gap [Moles/Vol] 14 mmol/L 10 - 20 [facility] Work Phone: AST With P-5'-P [Catalytic activity/Vol] 23 U/L 9 - 39 [facility] Work Phone: Bilirubin [Mass/Vol] 1.0 mg/dL 0.0 - 1.2 [facility] [place] [employer] Work Phone: Calcium [Mass/Vol] 11.4 mg/dL above high threshold 8.6 - 10.6 [facility] Work Phone: Chloride [Moles/Vol] 100 mmol/L 98 - 107 [facility] Work Phone: CO2 [Moles/Vol] 29 mmol/L 21 - 32 [facility] Work Phone: Creatinine [Mass/Vol] 0.88 mg/dL See Below [facility] Work Phone: Comment on above: Reference Range: 0.5 0 - 1.30 Glucose [Mass/Vol] 96 mg/dL 74 - 99 [facility] [employer] [facility] [facility] Work Phone: Comment on above: SOURCE: IgG [Mass/Vol] 739 mg/dL 700 - 1600 [facility] [employer] [facility] Work Phone: Comment on above: SOURCE: MONOCLONAL P ROTEINS MAY CAUSE FALSELY LOWRESULTS IN THIS ASSAY. SERUM PROTEINELECTROPHORESIS SHOULD BE DONE THEFIRST TEST TO EVALUATE MONOCLONAL GAMMOPATHY. Iron [Mass/Vol] 141 ug/dL 35 - 150 [facility] Work Phone: Comment on above: SOURCE: Iron binding capacity [Mass/Vol] 414 ug/dL 240 - 445 [facility] Work Phone: Potassium [Moles/Vol] 4.4 mmol/L 3.5 - 5.3 [facility] [facility] Work Phone: Protein [Mass/Vol] 7.8 g/dL 6.4 - 8.2 [facility] [place] [facility] Work Phone: Sodium [Moles/Vol] 139 mmol/L 136 - 145 [facility] [facility] Work Phone: Urea nitrogen [Mass/Vol] 13 mg/dL 6 - 23 [facility] [facility] Work Phone: Laboratory - Coagulationon 1 05-02-2021 INR Coag (PPP) [Relative time] 1.1 {INR} 0.9 - 1.1 [facility] [facility] Work Phone: PT Coag (PPP) [Time] 12.2 s 9.8 - 13.4 [facility] [facility] Work Phone: Laboratory - HLA antigenson 03-01-2022 HLA-A locus Nom (Bld/Tiss) Canceled [facility] [place] [address] Work Phone: [phone] HLA-A+B+C (class I) Ab (S) Canceled [facility] [place] [address] Work Phone: [phone] HLA-B locus Nom (Bld/Tiss) Canceled [facility] [place] [address] Work Phone: [phone] HLA-C locus Nom (Bld/Tiss) Canceled [facility] [place] [address] Work Phone: [phone] HLA-DP+DQ+DR (class II) Ab (S) Canceled [facility] [place] [address] Work Phone: [phone] HLA-DP2 Ql (Bld/Tiss) Canceled [facility] [place] [address] Work Phone: [phone] HLA-DQB1 High resolution Nom (Bld/Tiss) Canceled [facility] [place] [address] Work Phone: HLA-DR+DQ Nom (Bld/Tiss) Canceled [facility] Work Phone: Laboratory - Microbiology an d Antimicrobial susceptibilityon 03-01-2022 EBV capsid IgG IA Qn (S) Positive Abnormal NEGATIVE [facility] [place] [facility] Work Phone: EBV capsid IgM IA Qn (S) Negative NEGATIVE [facility] [facility] Work Phone: [phone] EBV early IgM IA Qn (S) Negative NEGATIVE [facility] Work Phone: [phone] EBV nuclear IgG IA Qn (S) Positive Abnormal NEGATIVE [facility] [facility] Work Phone: [phone] H. capsulatum Ab Immune diff (S) [Titer] Not detected See Below [facility] Work Phone: [phone] Comment on above: Reference Range: Not DetectedNo Histoplasma antibodies were detected. This result does not exclude Histoplasma infection.Performed by [facility], [address] [place] [id number] [email or web address], Garfield Torrez MD, PHD - Lab. Director H. capsulatum mycelial phase Ab CF (S) [Titer] <1:8 <1:8 [facility] Work Phone: Comment on above: INTREPRETIVE INFORMA TION: Histoplasma Mycelia Antibodies by RECEPTIONIST SECRETARY titer of 1:8 or greater is generally considered presumptive evidence of histoplasmosis. A titer of 1:32 or greater or rising titers indicate strong presumptive evidence of histoplasmosis. Cross reactions, usually at lower titers, may occur with other fungal diseases. H. capsulatum yeast phase Ab CF (S) [Titer] <1:8 <1:8 [facility] Work Phone: Comment on above: INTERPRETIVE INFORMA TION: Histoplasma Yeast Antibodies by RECEPTIONIST SECRETARY titer of 1:8 or greater is generally considered presumptive evidence of histoplasmosis. A titer of 1:32 or greater or rising titers indicate strong presumptive evidence of histoplasmosis. Cross reactions, usually at lower titers, may occur with other fungal diseases. HCV RNA MARTINEZ+probe Qn Not detected [facility] [place] [facility] Work Phone: Comment on above: SOURCE: REF VALUENOT DETECTED S. pneumoniae Romanian type 1 IgG (S) [Mass/Vol] <0.1 below low threshold >1.3 [facility] [place] [facility] Work Phone: S. pneumoniae Romanian type 10A IgG (S) [Mass/Vol] 0.1 ug/mL below low threshold >1.3 [facility] Work Phone: S. pneumoniae Romanian type 11A IgG (S) [Mass/Vol] <0.1 below low threshold >1.3 [facility] [facility] Work Phone: S. pneumoniae Romanian type 12F IgG (S) [Mass/Vol] <0.1 below low threshold >1.3 [facility] [place] [facility] Work Phone: S. pneumoniae Romanian type 14 IgG (S) [Mass/Vol] <0.1 below low threshold >1.3 [facility] Work Phone: S. pneumoniae Romanian type 15B IgG (S) [Mass/Vol] <0.1 below low threshold >1.3 [facility] Work Phone: S. pneumoniae Romanian type 17F IgG (S) [Mass/Vol] <0.1 below low threshold >1.3 [facility] Work Phone: S. pneumoniae Romanian type 18C IgG (S) [Mass/Vol] <0.1 below low threshold >1.3 [facility] [facility] Work Phone: S. pneumoniae Romanian type 19A IgG (S) [Mass/Vol] 0.1 ug/mL below low threshold >1.3 [facility] Work Phone: S. pneumoniae Romanian type 19F IgG (S) [Mass/Vol] 0.2 ug/mL below low threshold >1.3 [facility] Work Phone: S. pneumoniae Romanian type 2 IgG (S) [Mass/Vol] <0.1 below low threshold >1.3 [facility] Work Phone: S. pneumoniae Romanian type 20A IgG (S) [Mass/Vol] <0.1 below low threshold >1.3 [facility] Work Phone: S. pneumoniae Romanian type 22F IgG (S) [Mass/Vol] <0.1 below low threshold >1.3 [facility] Work Phone: S. pneumoniae Romanian type 23F IgG (S) [Mass/Vol] <0.1 below low threshold >1.3 [facility] Work Phone: S. pneumoniae Romanian type 3 IgG (S) [Mass/Vol] 0.3 ug/mL below low threshold >1.3 [facility] Work Phone: S. pneumoniae Romanian type 33F IgG (S) [Mass/Vol] <0.1 below low threshold >1.3 [facility] Work Phone: Comment on above: *This test was kunal richter and its performance characteristics determined by [facility]. It has not been cleared or approved by the U.S. Food and Drug Administration. Performed At:[id number] [place], [place] [address]Laboratory Director: Ciaran Baxter Ph.D., BCLNhung (ABB)CLIA#: [id number]: S. pneumoniae Romanian type 4 IgG (S) [Mass/Vol] <0.1 below low threshold >1.3 [facility] Work Phone: S. pneumoniae Romanian type 5 IgG (S) [Mass/Vol] <0.1 below low threshold >1.3 [facility] [facility] Work Phone: S. pneumoniae Romanian type 6B IgG (S) [Mass/Vol] <0.1 below low threshold >1.3 [facility] Work Phone: S. pneumoniae Romanian type 7F IgG (S) [Mass/Vol] <0.1 below low threshold >1.3 [facility] Work Phone: S. pneumoniae Romanian type 8 IgG (S) [Mass/Vol] <0.1 below low threshold >1.3 [facility] Work Phone: S. pneumoniae Romanian type 9N IgG (S) [Mass/Vol] <0.1 below low threshold >1.3 [facility] Work Phone: S. pneumoniae Romanian type 9V IgG (S) [Mass/Vol] <0.1 below low threshold >1.3 [facility] Work Phone: Lipid Panelon 03-01-2022 Cholesterol [Mass/Vol] 128 mg/dL 0 - 199 [facility] Work Phone: Comment on above: SOURCE: . AGE DESIRA BLE BORDERLINE HIGH HIGH 0-19 Y 0 - 169 170 - 199 >/= 200 20-24 Y 0 - 189 190 - 224 >/= 225 >24 Y 0 - 199 200 - 239 >/= 240 All ranges are based on fasting samples. Specific therapeutic targets will vary based on patient-specific cardiac risk.. Pediatric guidelines reference:Pediatrics 2011, 128(S5). Adult guidelines reference: NCEP ATPIII Guidelines, NAYE 2001, 258:2486-97. Venipuncture immediately after or during the administration of Metamizole may lead to falsely low results. Testing should be performed immediately prior to Metamizole dosing. Cholesterol in HDL [Mass/Vol] 56.0 mg/dL [facility] [facility] Work Phone: Comment on above: . AGE VERY LOW LOW N ORMAL HIGH 0-19 Y < 35 < 40 40-45 ---- 20- 24 Y ---- < 40 >45 ---- >24 Y ---- < 40 40-60 >60. Cholesterol in LDL [Mass/Vol] 58 mg/dL 0 - 99 [facility] [facility] Work Phone: Comment on above: . NEAR BORD AGE ANDREA RABLE OPTIMAL HIGH HIGH VERY HIGH 0-19 Y 0 - 109 --- 110-129 >/= 130 ---- 20-24 Y 0 - 119 --- 120-159 >/= 160 ---- >24 Y 0 - 99 100-129 130-159 160-189 >/=190. Cholesterol.total/C holesterol in HDL [Mass ratio] 2.3 {ratio} [facility] [facility] Work Phone: Comment on above: REF VALUESDESIRABLE < 3.4HIGH RISK > 5.0 Triglyceride [Mass/Vol] 72 mg/dL 0 - 149 [facility] Work Phone: Comment on above: . AGE DESIRABLE BORD MARIE HIGH HIGH VERY HIGH 0 D-90 D 19 - 174 ---- ---- ----91 D- 9 Y 0 - 74 75 - 99 >/= 100 ---- 10-19 Y 0 - 89 90 - 129 >/= 130 ---- 20-24 Y 0 - 114 115 - 149 >/= 150 ---- >24 Y 0 - 149 150 - 199 200- 499 >/= 500. Venipuncture immediately after or during the administration of Metamizole may lead to falsely low results. Testing should be performed immediately prior to Metamizole dosing. Lipid Panel 14 mg/dL 0 - 40 [facility] [facility] Work Phone: MAGNESIUMon 03-01-2022 Magnesium [Mass/Vol] 1.74 mg/dL Normal 1.60 - 2.40 [facility] Comment on above: Performed By: #### T ETAB #### [facility] [address] [place], [place] [id number] MUMPS IGG ANTIBODYon 022 MUMPS IGG ANTIBODY Positive Normal [facility] Comment on above: Result Comment: INTE RPRETATIVE COMMENT NEGATIVE: No IgG antibodies specific to Mumps detected. It is likely that the patient has not had a previous exposure to Mumps through infection or vaccination. Alternatively, the patient may have been exposed to Mumps but a failure to respond may indicate immunodeficiency. EQUIVOCAL:Equivocal results; obtain additional sample for retesting. POSITIVE: IgG antibody to Mumps detected. This may indicate that the patient was exposed to Mumps through infection or vaccination. The interpretation of serological tests should take into account the immunological status of the patient. Test results for patients, including immunocompromised patients, neonates, and pediatric patients, reflect their capacity to respond immunologically to the virus as well as their exposure to the pathogen. Patients treated with IVIG may demonstrate altered results in serological assays. Performed By: #### A DONNA #### [facility] [address] [place] [address] Magnesium, Serumon 2 Magnesium [Mass/Vol] 1.74 mg/dL See Below [facility] Work Phone: Comment on above: SOURCE: Reference Ra nge: 1.60 - 2.40 Mumps IgG Antibodyon 022 MuV IgG (S) [Titer] Positive [facility] Work Phone: Comment on above: INTERPRETATIVE COMME NT NEGATIVE: No IgG antibodies specific to Mumps detected. It is likely that the patient has not had a previous exposure to Mumps through infection or vaccination. Alternatively, the patient may have been exposed to Mumps but a failure to respond may indicate immunodeficiency. EQUIVOCAL:Equivocal results; obtain additional sample for retesting. POSITIVE: IgG antibody to Mumps detected. This may indicate that the patient was exposed to Mumps through infection or vaccination.The interpretation of serological tests should take into accountthe immunological status of the patient. Test results forpatients, including immunocompromised patients, neonates, andpediatric patients, reflect their capacity to respondimmunologically to the virus as well as their exposure to thepathogen. Patients treated with IVIG may demonstrate alteredresults in serological assays. NICOTINEANDMETABOLITES,Uon 1 05-02-2021 [id number],U Canceled Normal [facility] Comment on above: Order Comment: TEST NICOTINE AND METABOLITES,U WAS CANCELLED, 03/01/2022 13:42 pt couldnt void. Performed By: #### I GA #### [facility] [address] [place] [address] ANABASINE,U Canceled Normal [facility] Comment on above: Order Comment: TEST NICOTINE AND METABOLITES,U WAS CANCELLED, 03/01/2022 13:42 pt couldnt void. Performed By: #### I GA #### [facility] [address] [place] [address] COTININE,U Canceled Normal [facility] Comment on above: Order Comment: TEST NICOTINE AND METABOLITES,U WAS CANCELLED, 03/01/2022 13:42 pt couldnt void. Performed By: #### I GA #### [facility] [address] [place] [address] NICOTINE,U Canceled Normal [facility] Comment on above: Order Comment: TEST NICOTINE AND METABOLITES,U WAS CANCELLED, 03/01/2022 13:42 pt couldnt void. Performed By: #### I GA #### [facility] [address] [place] [address] No Panel Informationon 03-01 NOT CALCULATED [facility] Work Phone: Comment on above: Reportable Range: 15 -100,000,000 IU/mL.The lauren HCV is an in vitro nucleic acid amplification test for both the detection and quantitation of hepatitis C virus (HCV) RNA, in human EDTA plasma or serum, of HCV antibody positive or HCV-infected individuals on the lauren 6800/8800 Systems. Dual probes are used to detect and quantify, but not discriminate HCV genotypes 1-6. Though rare, mutations within the highly conserved regions of a viral genome covered by lauren HCV may affect primer and/or probe binding resulting in the under-quantitation of virus or failure to detect the presence of virus. The analytical quantification range of this assay has been determined to be 15 to 100,000,000 IU/ml in plasma. If the assay DETECTED the presence of the virus but was not able to accurately quantify the number of copies, the test result will be reported as DETECTED BUT NOT QUANTIFIED .The lauren HCV is intended for use as an aid in the diagnosis of HCV infection in the following populations: individuals with antibody evidence of HCV with evidence of liver disease, individuals suspected to be actively infected with HCV antibody evidence, and individuals at risk for HCV infection with antibodies to HCV. Detection of HCV RNA indicates that the virus is replicating and therefore is evidence of active infection. The lauren HCV is intended for use as an aid in the management of HCV-infected patients undergoing anti-viral therapy. The assay can be used to measure HCV RNA levels at baseline, during treatment, at the end of treatment, and at the end of follow up of treatment to determine sustained or non-sustained viral response. The results must be interpreted within the context of all relevant clinical and laboratory findings. This test is approved by the [place] Food and Drug administration, and its performance characteristics verified by the Molecular Diagnostic Laboratory, Department of Pathology, [facility]. 28 mg/dL 3 - 200 [facility] Work Phone: Comment on above: DUE TO INHERENT IMPR ECISION OF METHODS, THE SUM OF COMPONENTS MAY DIFFER FROM TOTAL IGG BY MUCH 20%. 62 mg/dL 11 - 85 [facility] Work Phone: 158 mg/dL 150 - 640 [facility] [facility] Work Phone: 548 mg/dL 490 - 1140 [facility] [facility] Work Phone: <0.2 [facility] Work Phone: Comment on above: POTENTIAL FOR CROSS- REACTIVITY BETWEENHSV I AND HSV II EXISTS.REF VALUESNEGATIVE <0.9EQUIVOCAL >=0.90 <=1.10POSITIVE >1.10 0.7 {INDEX} [facility] Work Phone: Comment on above: REF VALUESNEGATIVE < 0.9EQUIVOCAL >=0.90 <=1.10POSITIVE >1.10 SEE BELOW [facility] [facility] Work Phone: Comment on above: . EBV INTERPRETATION CHART. VCA-IGG VCA-IGM NA-IGG EA-IGG. PRIMARY ACUTE +/- +/- - +/-LATE ACUTE + +/- +/- +/-RECOVERING + - - +PREVIOUS INFECTION + - +/- - 34 % 25 - 45 [facility] Work Phone: >90 >90 [facility] [facility] Work Phone: Comment on above: CALCULATIONS OF AMADOU MATED GFR ARE PERFORMED USING THE 2020 CKD-EPI STUDY REFIT EQUATION WITHOUT THE RACE VARIABLE FOR THE IDMS-TRACEABLE CREATININE METHODS.https://jasn.asnjournals.org/content/early//ASN. 5034221389 PT/INRon 03-01-2022 PT Coag (PPP) [Time] 12.2 s Normal 9.8 - 13.4 [facility] Comment on above: Performed By: #### S YPHR #### [facility] [address] [place] [address] PT, INR 1.1 Normal 0.9 - 1.1 [facility] Comment on above: Performed By: #### S YPHR #### [facility] [address] [place] [address] RUBELLA IGG ABon 03-01-2022 RUBELLA IGG AB Positive Normal [facility] Comment on above: Result Comment: INTE RPRETATIVE COMMENT NEGATIVE: No IgG antibodies specific to Rubella detected. It is likely that the patient has not had a previous exposure to Rubella through infection or vaccination. Alternatively, the patient may have been exposed to Rubella but a failure to respond may indicate immunodeficiency. EQUIVOCAL:Equivocal results; obtain additional sample for retesting. POSITIVE: IgG antibody to Rubella detected. This may indicate that the patient was exposed to Rubella through infection or vaccination. The interpretation of serological tests should take into account the immunological status of the patient. Test results for patients, including immunocompromised patients, neonates, and pediatric patients, reflect their capacity to respond immunologically to the virus as well as their exposure to the pathogen. Patients treated with IVIG may demonstrate altered results in serological assays. Performed By: #### A DONNA #### [facility] [address] [place] [address] RUBEOLA IGG ABon 03-01-2022 RUBEOLA IGG AB Positive Normal [facility] Comment on above: Result Comment: INTE RPRETATIVE COMMENT NEGATIVE: No IgG antibodies specific to Measles detected. It is likely that the patient has not had a previous exposure to Measles through infection or vaccination. Alternatively, the patient may have been exposed to Measles but a failure to respond may indicate immunodeficiency. EQUIVOCAL:Equivocal results; obtain additional sample for retesting. POSITIVE: IgG antibody to Measles detected. This may indicate that the patient was exposed to Measles through infection or vaccination. The interpretation of serological tests should take into account the immunological status of the patient. Test results for patients, including immunocompromised patients, neonates, and pediatric patients, reflect their capacity to respond immunologically to the virus as well as their exposure to the pathogen. Patients treated with IVIG may demonstrate altered results in serological assays. Performed By: #### A DONNA #### [facility] [address] [place] [address] Rubella IgG Antibodyon 03-01 Rubella virus IgG IA Ql Positive [facility] Work Phone: Comment on above: INTERPRETATIVE COMME NT NEGATIVE: No IgG antibodies specific to Rubella detected. It is likely that the patient has not had a previous exposure to Rubella through infection or vaccination. Alternatively, the patient may have been exposed to Rubella but a failure to respond may indicate immunodeficiency. EQUIVOCAL:Equivocal results; obtain additional sample for retesting. POSITIVE: IgG antibody to Rubella detected. This may indicate that the patient was exposed to Rubella through infection or vaccination.The interpretation of serological tests should take into accountthe immunological status of the patient. Test results forpatients, including immunocompromised patients, neonates, andpediatric patients, reflect their capacity to respondimmunologically to the virus as well as their exposure to thepathogen. Patients treated with IVIG may demonstrate alteredresults in serological assays. Rubeola IgG Antibodyon 03-01 MeV IgG IA Ql (S) Positive [facility] Work Phone: Comment on above: INTERPRETATIVE COMME NT NEGATIVE: No IgG antibodies specific to Measles detected. It is likely that the patient has not had a previous exposure to Measles through infection or vaccination. Alternatively, the patient may have been exposed to Measles but a failure to respond may indicate immunodeficiency. EQUIVOCAL:Equivocal results; obtain additional sample for retesting. POSITIVE: IgG antibody to Measles detected. This may indicate that the patient was exposed to Measles through infection or vaccination.The interpretation of serological tests should take into accountthe immunological status of the patient. Test results forpatients, including immunocompromised patients, neonates, andpediatric patients, reflect their capacity to respondimmunologically to the virus as well as their exposure to thepathogen. Patients treated with IVIG may demonstrate alteredresults in serological assays. SYPHILIS SCREENING WITH REFL EXon 03-01-2022 SYPHILIS TOTAL AB Non-Reactive Normal NONREACTIVE [facility] Comment on above: Result Comment: No s ignificant level of Treponema pallidum antibody detected. Repeat testing in 2 to 4 weeks may be considered if early infection or incubating syphilis infection is suspected. Performed By: #### S [facility] #### [facility] [address] [place] [address] T. pallidum IgG+IgM IA Ql (S) Non-Reactive See Below [facility] Work Phone: Comment on above: SOURCE: Reference Ra nge: NONREACTIVENo significant level of Treponema pallidum antibody detected. Repeat testing in 2 to 4 weeks may be considered if early infection or incubating syphilis infection is suspected. T-SPOT. TBon 03-01-2022 T-SPOT. TB Passed [facility] 1800 Work Phone: T-SPOT. TB 0 1 [facility] Work Phone: T-SPOT. TB Negative See Below [facility] Work Phone: Comment on above: Reference Range: Nor mal Value: NegativeA negative test result does not exclude the possibility of exposure to or infection with Mycobacterium tuberculosis (M. tuberculosis). Patients with recent exposure to TB infected individuals exhibiting a negative T-SPOT.TB result should be considered for retesting within 6 weeks or if other relevant clinical symptoms indicate. Results from T-SPOT.TB testing must be used in conjunction with each individual's epidemiological history, current medical status, and results of other diagnostic evaluations. The T-SPOT.TB test is qualitative and results are reported as positive, borderline or negative, given that the test controls perform as expected. In line with the Centers for Disease Control and Prevention's 2010 recommendation to report quantitative measurements alongside the qualitative result, the laboratory provides spot counts for informational purposes only. The T-SPOT.TB test should not be interpreted as a quantitative test. T3 - Free Triiodothyronine, Serumon 03-01-2022 Free T3 [Mass/Vol] 3.5 pg/mL 2.3 - 4.2 [facility] Work Phone: Comment on above: SOURCE: T4 - Free Thyroxine, Serumon 03-01-2022 Free T4 [Mass/Vol] 1.42 ng/dL See Below [employer] Work Phone: Comment on above: SOURCE: Reference Ra nge: 0.78 - 1.48 Thyroxine Free testing is performed using different testing methodology at [facility] than at other [facility]. Direct result comparisons should only be made within the same method. THYROXINE,FREEon 03-01-2022 THYROXINE,FREE 1.42 ng/dL Normal 0.78 - 1.48 [facility] Comment on above: Result Comment: Thyr oxine Free testing is performed using different testing methodology at [facility] than at other [facility]. Direct result comparisons should only be made within the same method. Performed By: #### I GA #### [facility] [address] [place] [address] TOXO IGGon 03-01-2022 TOXOPLASMA IGG Non-Reactive Normal NONREACTIVE [facility] Comment on above: Performed By: #### S YPHR #### [facility] [address] [place] [address] TRIIODOTHYRONINE,FREEon TRIIODOTHYRONINE,FR EE 3.5 pg/mL Normal 2.3 - 4.2 [facility] Comment on above: Performed By: #### H IV #### [facility] [address] [place] [address] TSHon 03-01-2022 TSH Qn 4.76 m[IU]/L High 0.44 - 3.98 [facility] Comment on above: Result Comment: TSH testing is performed using different testing methodology at [facility] than at other [facility]. Direct result comparisons should only be made within the same method. Performed By: #### T ETAB #### [facility] [address] [place], [place] [id number] TSH - Thyroid Stimulating Ho rmone, Serumon 03-01-2022 TSH Qn 4.76 m[IU]/L above high threshold See Below [facility] Work Phone: Comment on above: SOURCE: Reference Ra nge: 0.44 - 3.98 TSH testing is performed using different testing methodology at [facility] than at other [facility]. Direct result comparisons should only be made within the same method. Tetanus Abon 03-01-2022 C. tetani IgG IA Qn (S) >7.00 <0.10 [facility] Work Phone: Comment on above: Interpretation: Non- Protective <0.10 Protective >=0.10 Results for this test are for research purposes only by the assay's information technology manager. The performance characteristics of this product have not been established. Results should not be used as a diagnostic procedure without confirmation of the diagnosis by another medically established diagnostic product or procedure. Toxoplasma IgM, Serumon T. gondii IgM IA Qn (S) <3.0 <=7.9 [facility] [address] Work Phone: Comment on above: INTERPRETIVE INFORMA TION: Toxoplasma Ab, IgM 7.9 AU/mL or less .... Not Detected. 8.0-9.9 AU/mL ........ Indeterminate - Repeat testing in 10-14 days may be helpful. 10.0 AU/mL or greater. Detected - Significant level of Toxoplasma gondii IgM antibody detected and may indicate a current or recent infection. However, low levels of IgM antibodies may occasionally persist for more than 12 months post-infection.This test is performed using the [employer] LIAISON. As suggested by the CDC, any indeterminate or detected Toxoplasma gondii IgM result should be retested in parallel with a specimen collected 1-3 weeks later. Further confirmation may be necessary using a different test from another reference laboratory specializing in toxoplasmosis testing where an IgM NELIDA should be ordered. Caution should be exercised in the use of IgM antibody levels in screening. Any Toxoplasma gondii IgM in patients that have also been confirmed by a second reference laboratory should be evaluated by amniocentesis and PCR testing for Toxoplasma gondii.For male and non- female patients with indeterminate or detected Toxoplasma gondii IgM results, PCR may also be useful if a specimen can be collected from an affected body site.This test should not be used for blood donor screening, associated re-entry protocols, or for screening Human Cell, Tissues and Cellular and Tissue-Based Products (HCT/P). For additional information, refer to the CDC website: www.cdc.gov/parasites/toxoplasmosis/health_professionals/index.htm l. The magnitude of the measured result is not indicative of the amount of antibody present.Performed By: [facility] [place] [address] [id number] Director: Garfield Torrez MD, PhD Transplant Recipient Darrell avalos 03-01-2022 Transplant Recipient Assessment Assessment Visit Type: This is the initial visit for the patient. Location: [place] [address]. Accompanied by: Sue girlfriend. Organ for transplant: lung. Ethnicity: White: Not Specified/ Unknown. ADLs: Fully Independent, Showers okay it just takes longer, gets out of breath. Instrumental ADLs: Partially Independent, takes his time, gets out of breath, back pain, winded lifting doing something physical. Level of Activity: Active, does as much as he can but can't do what he use to. DME: none. Knowledge of Health: Good, toe/finger nails are getting thick, possible fungal, some toes going numb, stint in lower part of heart. Why do you have end stage organ disease? 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 Knowledge of transplant / VAD: Patient is able to make an informed decision. Patient verbalizes understanding of transplant / VAD: risk of rejection, risk of infection, risk of complications and risk of . Patient verbalizes understanding of recovery and follow up from transplant / VAD regarding length of stay, verbalizes understanding of recovery and follow up from transplant / VAD regarding appointments, verbalizes understanding of recovery and follow up from transplant / VAD regarding labs and verbalizes understanding of recovery and follow up from transplant / VAD regarding rehabilitation. Patient has identified goals of transplant / VAD? yes, wants to enjoy life not endure it, get back to be able to service his car maybe even work again. Any Potential Donors? n/a. Overall compliance: good, 4 pills and 2 inhalers. Compliance with medications: good. Managed by: patient, uses bottles. Understanding of medication: good, named off the medications and knows what they are for. Compliance with appointments: good, stated never misses/rescheduled. How does patient handle health problems? sit around for a few minutes, gather thoughts, hurting or if too much, will contact the office. Lung Pulmonary Rehab: active, 2x a week. O2 Therapy Compliance? no. not needed Medical and Clinic Appointment Compliant? yes. : no Education: HS Diploma, Patient is literate, Patient is computer literate, but Patient does not have Internet access . working on getting [employer] at home, company coming to manager group. Patient's current employment: Not working disabled: . Employment History:. 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 Will patient have paid status from employment during recovery? no. none Spouse/SO current employment: unemployed Will spouse/SO have paid status from employment during recovery? no. none SO fighting disability, getting a letter about not being able to return to work from a doctor, terminating employee status due to medical Patient has financial concerns Patient is able to meet current monthly expenses mortgage, car note, friends and mom is helping, had a savings but it is gone, cut a lot of services, like internet, tv, working on dissbility Resources: [employer] [place] Primary Insurance: Self , Medicaid Medicaid: yes. : yes. When? 1998. In a Relationship: yes. How Long? 19 years. Describe Relationship: good. Spouse/SO Name: Sue Krishna. Age: 53. Health: severe depression social anxiety, 4 bulging herniated disks, COPD, still smokes. Other Caregiver Responsibilities: none. Spouse/Significant others reaction to donation: n/a. Children: # Biological: 2 children, once . ? 1 child. has a dtr but hasn?t talked to her since last year Raised By: one biological parent milli got when he was 6 . Did the patient have contact with the other parent? yes. saw him 6 weeks in the summer Father ? yes. Age? 79. Cause of : lung cancer. Living Parent #1 Name: Zoë. Age: 82. Health: decent, just had surgery, had an annurism surgery. Lives: local. How Much Contact? daily. Siblings: # Biological: sister but she passed from cancer . Support AND Recovery Plan: Both primary and secondary supports are not adequate. Primary Support Name: Sue. Age: 53 Relationship to Patient: SO unemployed. If so, is it paid time off? no. If not, will this impact your finances? no. Did they attend education classes? yes. Do they have other caregiver responsibilities (child or eldercare)? no. Do they have their own conditions which may prevent them from providing care for you? yes. back pain and mental health concerns. Are they available on short notice? yes. Are they reliable? yes. Are they responsible? yes. Are they able to understand and process new information? yes. Do they have reliable transportation or will you allow them to use you vehicle? yes. Are they currently involved in your care? yes. Secondary Support: Name: Zoë Liriano. Kow: 81Relationship to Patient: Mom Can they take time off work? no. If so, is it paid time off? no. If not, will this impact your finances? no. Did they attend education (more content not included)... Normal [employer] URINALYSISon 03-01-2022 Appearance (U) Canceled Normal [facility] Comment on above: Order Comment: TEST URINALYSIS WAS CANCELLED, 03/01/2022 13:42 pt couldnt void. Performed By: #### S YPHR #### [facility] [address] [place] [address] ASCORBIC ACID Canceled Normal [facility] Comment on above: Order Comment: TEST URINALYSIS WAS CANCELLED, 03/01/2022 13:42 pt couldnt void. Result Comment: Conc entrations > = 20 mg/dL of ascorbic acid can be expected to cause strong interference in the reactions testing for glucose, nitrite and blood. It is recommended to discontinue Vitamin C administration and retest in 10 hours. Performed By: #### S YPHR #### [facility] [address] [place] [address] Bilirubin Ql (U) Canceled Normal [facility] Comment on above: Order Comment: TEST URINALYSIS WAS CANCELLED, 03/01/2022 13:42 pt couldnt void. Performed By: #### S YPHR #### [facility] [address] [place] [address] Color (U) Canceled Normal [facility] Comment on above: Order Comment: TEST URINALYSIS WAS CANCELLED, 03/01/2022 13:42 pt couldnt void. Performed By: #### S YPHR #### [facility] [address] [place] [address] Glucose Ql (U) Canceled Normal [facility] Comment on above: Order Comment: TEST URINALYSIS WAS CANCELLED, 03/01/2022 13:42 pt couldnt void. Performed By: #### S YPHR #### [facility] [address] [place] [address] Hemoglobin Ql (U) Canceled Normal [facility] Comment on above: Order Comment: TEST URINALYSIS WAS CANCELLED, 03/01/2022 13:42 pt couldnt void. Performed By: #### S YPHR #### [facility] [address] [place] [address] Ketones Ql (U) Canceled Normal [facility] Comment on above: Order Comment: TEST URINALYSIS WAS CANCELLED, 03/01/2022 13:42 pt couldnt void. Performed By: #### S YPHR #### [facility] [address] [place] [address] Leukocyte esterase Test strip Ql (U) Canceled Normal [facility] Comment on above: Order Comment: TEST URINALYSIS WAS CANCELLED, 03/01/2022 13:42 pt couldnt void. Performed By: #### S YPHR #### [facility] [address] [place] [address] Nitrite Ql (U) Canceled Normal [facility] Comment on above: Order Comment: TEST URINALYSIS WAS CANCELLED, 03/01/2022 13:42 pt couldnt void. Performed By: #### S YPHR #### [facility] [address] [place] [address] pH Canceled Normal [facility] Comment on above: Order Comment: TEST URINALYSIS WAS CANCELLED, 03/01/2022 13:42 pt couldnt void. Performed By: #### S YPHR #### [facility] [address] [place] [address] Protein Ql (U) Canceled Normal [facility] Comment on above: Order Comment: TEST URINALYSIS WAS CANCELLED, 03/01/2022 13:42 pt couldnt void. Performed By: #### S YPHR #### [facility] [address] [place] [address] Specific gravity (U) [Rel density] Canceled Normal [facility] Comment on above: Order Comment: TEST URINALYSIS WAS CANCELLED, 03/01/2022 13:42 pt couldnt void. Performed By: #### S YPHR #### [facility] [address] [place] [address] UROBILINOGEN Canceled Normal [facility] Comment on above: Order Comment: TEST URINALYSIS WAS CANCELLED, 03/01/2022 13:42 pt couldnt void. Performed By: #### S YPHR #### [facility] [address] [place] [address] VARICELLA ZOSTER IGG ABon VARICELLA ZOSTER IGG AB Positive Normal NEGATIVE [facility] Comment on above: Result Comment: INTE RPRETATIVE COMMENT NEGATIVE: No IgG antibodies specific to VZV detected. It is likely that the patient has not had a previous exposure to VZV through infection or vaccination. Alternatively, the patient may have been exposed to VZV but a failure to respond may indicate immunodeficiency. EQUIVOCAL:Equivocal results; obtain additional sample for retesting. POSITIVE: IgG antibody to VZV detected. This may indicate that the patient was exposed to VZV through infection or vaccination. The interpretation of serological tests should take into account the immunological status of the patient. Test results for patients, including immunocompromised patients, neonates, and pediatric patients, reflect their capacity to respond immunologically to the virus as well as their exposure to the pathogen. Patients treated with IVIG may demonstrate altered results in serological assays. Performed By: #### A DONNA #### [facility] [address] [place] [address] Varicella Zoster IgG Antibod yon 03-01-2022 VZV IgG IA Ql (S) Positive NEGATIVE [facility] [address] Work Phone: Comment on above: INTERPRETATIVE COMME NT NEGATIVE: No IgG antibodies specific to VZV detected. It is likely that the patient has not had a previous exposure to VZV through infection or vaccination. Alternatively, the patient may have been exposed to VZV but a failure to respond may indicate immunodeficiency. EQUIVOCAL:Equivocal results; obtain additional sample for retesting. POSITIVE: IgG antibody to VZV detected. This may indicate that the patient was exposed to VZV through infection or vaccination.The interpretation of serological tests should take into accountthe immunological status of the patient. Test results forpatients, including immunocompromised patients, neonates, andpediatric patients, reflect their capacity to respondimmunologically to the virus as well as their exposure to thepathogen. Patients treated with IVIG may demonstrate alteredresults in serological assays. Bronchoscopyon 01-30-2022 Bronchoscopy PATIENTNAME Patient Name: Patrick Liriano EXAMDATE Procedure Date: 01/30/2022 9:49 AM PATIENTID PATIENTACCOUNTNUM PATIENTDOB Date of : 1960 PATIENTROOM Room: [place] Procedure Room 8 PROVDR Attending MD: Paulino Betancur MD, [id number] ENDOPROCEDURENAME Procedure: Bronchoscopy INDICATION Indications: Emphysema, Bronchoscopic lung volume reduction PRIMARYPROVIDER Providers: Paulino Betancur MD (Doctor), Kenzie Cabrera RN (Nurse), Pankaj Tejeda Location Man (Location Man), Peggy Hurtado MD (Fellow) EDREFPROVIDER Referring MD: Princess Valverde DO (Referring MD) CURRENT_MEDS Medicines: General Anesthesia, See the Anesthesia note for documentation of the administered medications COMPLIC Complications: No immediate complications ENDOPROCEDURETEXT Procedure: Pre-Anesthesia Assessment: - A History and Physical has been performed. Patient meds and allergies have been reviewed. The risks and benefits of the procedure and the sedation options and risks were discussed with the patient. All questions were answered and informed consent was obtained. Patient identification and proposed procedure were verified prior to the procedure by the physician, the nurse, the anesthesiologist and the corporate receptionist in the procedure room. Mental Status Examination: alert and oriented. Airway Examination: Please refer to anesthesia staff note. Respiratory Examination: poor air movement. CV Examination: RRR, no murmurs, no S3 or S4. ASA Grade Assessment: III - A patient with severe systemic disease. After reviewing the risks and benefits, the patient was deemed in satisfactory condition to undergo the procedure. The anesthesia plan was to use general anesthesia. Immediately prior to administration of medications, the patient was re-assessed for adequacy to receive sedatives. The heart rate, respiratory rate, oxygen saturations, blood pressure, adequacy of pulmonary ventilation, and response to care were monitored throughout the procedure. The physical status of the patient was re-assessed after the procedure. After obtaining informed consent, the therapeutic bronchoscope was introduced through the mouth, via the endotracheal tube (the patient was intubated for the procedure) and advanced to the tracheobronchial tree. The procedure was accomplished without difficulty. The patient tolerated the procedure well. The total duration of the procedure was 31 minutes. FINDING Findings: The endotracheal tube is in good position. The trachea is of normal caliber. The sarita is sharp. The tracheobronchial tree was examined to at least the first subsegmental level. Bronchial mucosa and anatomy are normal; there are no endobronchial lesions. The Chart[employer]ference Hound System was used to assess for collateral ventilation in the target lobe by sequentially occluding the left upper and lower lobe bronchi. Airflow was maintained after balloon occlusion, indicating a non-intact interlobar fissure with collateral ventilation. Endobronchial valves could not be placed due to collateral ventilation. EBL Estimated Blood Loss: Estimated blood loss was minimal. IMPRESS Impression: - Emphysema - Chartis System evaluation demonstrated the presence of collateral ventilation in the target lobe. Bronchoscopic lung volume reduction could not be performed. - No specimens collected. ENDORECOMMENDATION Recommendation: - The patient will be observed post-procedure, until all discharge criteria are met. - Follow up with referring physician. - Referral for evaluations for surgical options for severe emphysema (e.g. LVRS, lung transplant). CPT_CODES Procedure Code(s): --- Professional --- 29618, Bronchoscopy, rigid or flexible, including fluoroscopic guidance, when performed; with balloon occlusion, with assessment of air leak, with administration of occlusive substance (eg, fibrin glue), if performed ICD_CODES Diagnosis Code(s): --- Professional --- J43.9, Emphysema, unspecified CODINGSTMT CPT copyright 2020 [employer]. All rights reserved. The codes documented in this report are preliminary and upon personal caregiver review may be revised to meet current compliance requirements. ATTDRPART Attending Participation: I was present and participated during the entire procedure, including non-kiser portions. SIGNATURENAME Paulino Betancur MD SIGNATUREDATE 02/01/2022 10:45:05 AM SIGNATUREONFILEIND This report has been signed electronically. NUMADDENDA Number of Addenda: 0 INITIATEDON Note Initiated On: 01/30/2022 9:49 AM PTPROFILE Patient Profile: This is a 62 year old male. Refer to note in patient chart for documentation of history and physical. The attending physician independently verified the history and physical at 1009 on 01/30/2022. The patient's ECOG performance status grade is 2 - (more content not included)... Normal [facility] No Panel Informationon 01-30 [email or web address] ={[id number]} [facility] Work Phone: [facility] Work Phone: CBC AUTO DIFFon 01-27-2022 BASO # 0.1 103/ul Normal 0.0-0.1 [facility] Comment on above: Performed By: #### C BC ####[facility] [address] [place], [place] [address]Dr. Evon Quesada Basophils/100 WBC (Bld) 0.5 % Normal 0.2-2.0 [facility] Comment on above: Performed By: #### C BC ####[facility] [address] [place], [place] [address]Dr. Evon Quesada EO # 0.3 103/ul Normal 0.0-0.7 [facility] Comment on above: Performed By: #### C BC ####[facility] [address] [place], [place] [address]Dr. Evon Quesada Eosinophils/100 WBC (Bld) 2.8 % Normal 0.9-7.0 [facility] Comment on above: Performed By: #### C BC ####[facility] [address] [place], [place] [address]Dr. Evon Quesada Erythrocyte distribution width (RBC) [Ratio] 13.1 % Normal 11.0-15.0 [facility] Comment on above: Performed By: #### C BC ####[facility] [address] [place], [place] [address]Dr. Evon Quesada Hematocrit (Bld) [Volume fraction] 42.4 % Normal 42.0-54.0 [facility] Comment on above: Performed By: #### C BC ####[facility] [address] [place], [place] [address]Dr. Evon Quesada Hemoglobin (Bld) [Mass/Vol] 13.9 g/dL Critically low 14.0-18.0 [facility] Comment on above: Performed By: #### C BC ####[facility] [address] [place], [place] [address]Dr. Evon Quesada IG # 0.03 10e3/ul Normal 0.00-0.03 [facility] Comment on above: Performed By: #### C BC ####[facility] [address] [place] [id number]. Evon Quesada IG % 0.3 % Normal 0.0-0.5 [facility] Comment on above: Performed By: #### C BC ####[facility] [address] [place] [id number]. Evon Quesada LYMPH # 1.8 103/ul Normal 1.2-3.8 [facility] Comment on above: Performed By: #### C BC ####[facility] [address] [place] [id number]. Evon Dipak Lymphocytes/100 WBC (Bld) 15.6 % Critically low 20.5-60.0 [facility] Comment on above: Performed By: #### C BC ####[facility] [address] [place] [phone]. Evon Dipak MANUAL DIFF REQ NO Normal [facility] Comment on above: Performed By: #### C BC ####[facility] [address] [place] [phone]. Evon Dipak MCH (RBC) [Entitic mass] 30.2 pg Normal 25.9-34.0 [facility] Comment on above: Performed By: #### C BC ####[facility] [address] [place] [id number]. Evon Quesada MCHC (RBC) [Mass/Vol] 32.8 g/dL Normal 29.9-35.2 [facility] Comment on above: Performed By: #### C BC ####[facility] [address] [place] [phone]. Evon Qeusada MCV (RBC) [Entitic vol] 92.0 fL Normal 80.0-94.0 [facility] Comment on above: Performed By: #### C BC ####[facility] [address] [place] [phone]. Evon Dipak MONO # 1.3 103/ul Critically high 0.3-0.8 [facility] Comment on above: Performed By: #### C BC ####[facility] [address] [place] [phone]. Evon Quesada Monocytes/100 WBC (Bld) 11.1 % Normal 1.7-12.0 [facility] Comment on above: Performed By: #### C BC ####[facility] [address] [place], [place] [address]Db. Evon Quesada NEUT # 7.9 103/ul Critically high 1.4-6.5 [facility] Comment on above: Performed By: #### C BC ####[facility] [address] [place] [phone]. Evon Quesada Neutrophils/100 WBC (Bld) 69.7 % Normal 43.0-75.0 [facility] Comment on above: Performed By: #### C BC ####[facility] [address] [place] [phone]. Evon Quesada Platelet mean volume (Bld) [Entitic vol] 10.1 fL Normal 9.5-13.5 [facility] Comment on above: Performed By: #### C BC ####[facility] [address] [place] [phone]. Evon Quesada PLT 333 103/ul Normal 150-450 [facility] Comment on above: Performed By: #### C BC ####[facility] [address] [place] [phone]. Evon Quesada RBC 4.61 106/ul Critically low 4.70-6.10 [facility] Comment on above: Performed By: #### C BC ####[facility] [address] [place] [phone]. Evon Quesada WBC 11.3 103/ul Critically high 4.0-11.0 [facility] Comment on above: Performed By: #### C BC ####[facility] [address] [place] [phone]. Evon Quesada Covid-19 PCR (CVDTB)on SARS-CoV-2 (COVID-19) RNA MARTINEZ+probe Ql (Unsp spec) Not detected Normal NOT DETECTED [facility] Comment on above: Result Comment: This test is not yet approved or cleared by the [place] FDA. When there are no FDA-approved or cleared tests available, and other criteria are met, FDA can make tests available under an emergency access mechanism called an Emergency Use Authorization (EUA). The EUA for this test is supported by the [place] of Health and Human Service's (HHS's) declaration that circumstances exist to justify the emergency use of in vitro diagnostics for the detection and/or diagnosis of the virus that causes COVID-19. This EUA will remain in effect (meaning this test can be used) for the duration of the COVID-19 declaration justifying emergency of IVDs, unless it is terminated or revoked by FDA (after which the test may no longer be used). When diagnostic testing is negative, the possibility of a false negative should be considered in the context of a patient's recent exposures and the presence of clinical signs and symptoms consistent with SARS-CoV-2. Performed By: #### C VDTB #### [facility] [address] [place] [address] Dr. Evon Quesada PROF CHEM 8 (BAS METB)on Anion gap [Moles/Vol] 7.1 mmol/L Normal [facility] Comment on above: Performed By: #### B MP #### [facility] [address] [place] [address] Dr. Evon Quesada Calcium [Mass/Vol] 10.2 mg/dL Critically high 8.5-10.1 [facility] Comment on above: Performed By: #### B MP #### [facility] [address] [place] [address] Dr. Evon Quesada Chloride [Moles/Vol] 100 mmol/L Normal 98-107 [facility] Comment on above: Performed By: #### B MP #### [facility] [address] [place] [address] Dr. Evon Quesada CO2 [Moles/Vol] 33.2 mmol/L Critically high 21.0-32.0 [facility] Comment on above: Performed By: #### B MP #### [facility] [address] [place] [address] Dr. Evon Quesada Creatinine [Mass/Vol] 0.74 mg/dL Normal 0.70-1.30 [facility] Comment on above: Performed By: #### B MP #### [facility] [address] [place] [address] [address] Evon Quesada EGFR-AF SALVADOREAN >60 Normal >=60 [facility] [place] Comment on above: Performed By: #### B MP #### [facility] [address] [place] [address] [address] Evon Quesada EGFR-NON AF SALVADOREAN >60 Normal >=60 [facility] Comment on above: Performed By: #### B MP #### [facility] [address] [place] [address] [address] Evon Quesada Glucose [Mass/Vol] 96 mg/dL Normal 74-106 [facility] Comment on above: Performed By: #### B MP #### [facility] [address] [place] [address] Dr. Evon Quesada Potassium [Moles/Vol] 4.3 mmol/L Normal 3.5-5.1 [facility] Comment on above: Performed By: #### B MP #### [facility] [address] [place] [address] Dr. Evon Quesada Sodium [Moles/Vol] 136 mmol/L Normal 136-145 [facility] Comment on above: Performed By: #### B MP #### [facility] [address] [place] [address] Dr. Evon Quesada Urea nitrogen [Mass/Vol] 16.0 mg/dL Normal 7.0-18.0 [facility] Comment on above: Performed By: #### B MP #### [facility] [address] [place] [address] Dr. Evon Quesada Urea nitrogen/Creatinine [Mass ratio] 21.6 mg/mg Normal [facility] Comment on above: Performed By: #### B MP #### [facility] [address] [place] [address] Dr. Evon Quesada NM LUNG PERF QUANTon 022 NM LUNG PERF QUANT EXAMINATION: NM LUNG PERF QUANT HISTORY: Chronic obstructive lung disease COMPARISON: No relevant comparison available. TECHNIQUE: After obtaining the patient's consent, a ventilation/perfusion scan was obtained in the usual manner.; 6.1 mm technetium 99m MAA IV; 26.3 mCi technetium 99m DTPA aerosol inhaled FINDINGS: VENTILATION: Markedly decreased radiotracer activity within the upper one half the lungs, left is decreased more significantly than right. PERFUSION: Radiotracer activity on perfusion sequence matches the ventilation pattern; no significant mismatch. QUANTITATIVE: Anterior perfusion: Upper zone left 5% right 6% Middle zone: Left 22% right 32% Lower zone: Left 16% right 19% Posterior perfusion: Upper zone: Left 5% right 6% Middle zone: Left 23% right 31% Lower zone: Left 17% right 18% IMPRESSION: 1. Quantitative perfusion of lung zones as detailed above. Electronically authenticated by: NOEMI CONRAD Date: 2021-12-05 12:03 Normal [facility] XR CHEST 2 Von 12-05-2021 XR CHEST 2 V EXAMINATION: XR CHES T 2 V HISTORY: Chronic obstructive lung disease COMPARISON: XR chest 06/14/2021, CT chest 09/11/2021 FINDINGS: LUNGS: Hyperexpanded lungs compatible with known marked COPD with apical predominance; left lung apex greater than right. VASCULATURE: No increased pulmonary vasculature. PLEURA: No pneumothorax, effusion, or pleural thickening. CARDIAC: No cardiomegaly or cardiac silhouette abnormality. MEDIASTINUM: No visible mass or adenopathy. BONES: No fracture or visible bone lesion. OTHER: Negative. IMPRESSION: 1. No acute cardiopulmonary process. 2. Hyperexpanded lungs secondary to bilateral apical emphysematous changes, left greater than right. Electronically authenticated by: NOEMI CONRAD Date: 2021-12-05 11:52 Normal [facility] PET CT SKULL BASE MID THIGHo n 10-30-[address] SKULL BASE MID THIGH EXAMINATION: PET CT SKULL BASE MID THIGH HISTORY: Solitary nodule of lung COMPARISON: 09/11/2021 CT TECHNIQUE: After obtaining the patient's consent, F-18 FDG was administered intravenously. PET/CT imaging was performed from skull to thigh with multi-planar imaging without oral or intravenous contrast material, using a dedicated integrated PET/CT scanner. FINDINGS: HEAD/NECK: Normal. No pathologic FDG activity. LUNGS: Moderate to severe diffuse bilateral centrilobular emphysema. Bilateral subcentimeter pulmonary nodules. The previously noted spiculated nodule in the right middle lobe is markedly decreased in size on the current exam now several associated punctate nodules measuring 2 to 3 mm in size best visualized on axial images 138-139. No associated abnormal FDG uptake is observed. MEDIASTINUM/DEBORA: Normal. No pathologic FDG activity. CHEST WALL/AXILLA: Normal. No pathologic FDG activity. ABDOMEN: Normal. No pathologic FDG activity. PELVIS: Normal. No pathologic FDG activity. BONES: Normal. No pathologic FDG activity. No suspicious lesions on CT imaging. OTHER: Negative. IMPRESSION: Significant interval decrease in size of a right middle lobe nodule with no associated abnormal pathologic FDG activity. Electronically authenticated by: OJ CALI Date: 2021-10-30 13:20 Normal [facility] ARTERIAL BLOOD GAS,CO-OXon 0 09-11-2021 BASE EXCESS-BLOOD 1.2 mmol/L Normal -2.0 - 3.0 [facility] Comment on above: Performed By: #### H IV #### [facility] [address] [place] [address] BICARB, CALCULATED 26.0 mmol/L Normal 22.0 - 26.0 [facility] Comment on above: Performed By: #### H IV #### [facility] [address] [place] [address] CO HGB 1.6 % Abnormal [facility] Comment on above: Result Comment: REF VALUES NONSMOKERS 0.5-1.5% SMOKERS 0.5-10.0% Performed By: #### H IV #### [facility] [address] [place] [address] DEOXY HGB 3.2 % Normal 0.0 - 5.0 [facility] Comment on above: Performed By: #### H IV #### [facility] [address] [place] [address] Hemoglobin (Bld) [Mass/Vol] 15.0 g/dL Normal 13.5 - 17.5 [facility] Comment on above: Performed By: #### H IV #### [facility] [address] [place] [address] MET HGB 0.9 % Normal 0.0 - 1.5 [facility] Comment on above: Performed By: #### H IV #### [facility] [address] [place] [address] OXY HGB 94.4 % Normal 94.0 - 98.0 [facility] Comment on above: Performed By: #### H IV #### [facility] [address] [place] [address] Oxygen (Bld) [Partial pressure] 77 mm[Hg] Low 85 - 95 [facility] Comment on above: Performed By: #### H IV #### [facility] [address] [place] [address] PATIENT TEMPERATURE 37.0 degrees C Normal [facility] Comment on above: Result Comment: NOTE : PATIENT RESULTS ARE NOT CORRECTED FOR TEMPERATURE. Performed By: #### H IV #### [facility] [address] [place] [address] PCO2 41 mmHg Normal 38 - 42 [facility] Comment on above: Performed By: #### H IV #### [facility] [address] [place] [address] pH (Bld) 7.41 [pH] Normal 7.38 - 7.42 [facility] Comment on above: Performed By: #### H IV #### [facility] [address] [place] [address] SO2 97 % Normal 94 - 100 [facility] Comment on above: Performed By: #### H IV #### [facility] [address] [place] [address] CHEST without FOR BRYAN BRONC PLANNINGon 09-11-2021 CT CHEST without FOR BRYAN BRONC PLANNING Patient Name: PATRICK LIRIANO STUDY: TH CT CHEST WITHOUT FOR BRYAN BRONC PLANNING; 09/11/2021 1:05 pm INDICATION: sob J43.9: COPD (chronic obstructive pulmonary disease) with emphysema. COMPARISON: None ACCESSION NUMBER(S): [id number] ORDERING CLINICIAN: HUNTER SMITH TECHNIQUE: Helical data acquisition of the chest was obtained without intravenous contrast. Images were reformatted in axial, coronal, and sagittal planes. FINDINGS: LUNGS AND AIRWAYS: The trachea and central airways are patent. No endobronchial lesion is seen. There is a solid nodule in the periphery of the right middle lobe which measures 0.9 x 0.8 cm (series 2, image 226) and demonstrates faint spiculations. There is a 0.3 cm spiculated ground-glass nodule in the right upper lobe near the apex (series 2, image 93). There is a 0.2 cm nodule in the left upper lobe (series 3, image 114). There is a 0.2 cm nodule in the left upper lobe (series 3, image 74). Severe biapical predominant emphysematous changes. There is no focal consolidation, pleural effusion, or pneumothorax. MEDIASTINUM AND DEBORA, LOWER NECK AND AXILLA: The visualized thyroid gland is within normal limits. Borderline enlarged left paratracheal lymph node with short axis measuring up to 1.0 cm (series 3, image 148). Multiple additional prominent, nonenlarged mediastinal lymph nodes. There is no hilar or axillary lymphadenopathy. Esophagus appears within normal limits as seen. HEART AND VESSELS: The thoracic aorta normal in course and caliber.There are mild scattered atherosclerosis present, including calcified and noncalcified plaques. Main pulmonary artery and its branches are normal in caliber. Moderate coronary artery calcifications are seen. Please note,the study is not optimized for evaluation of coronary arteries. The cardiac chambers are not enlarged. There is no pericardial effusion seen. UPPER ABDOMEN: The visualized subdiaphragmatic structures demonstrate no remarkable findings. CHEST WALL AND OSSEOUS STRUCTURES: Chest wall is within normal limits. No acute osseous pathology.There are no suspicious osseous lesions.Mild multilevel degenerative changes within visualized spine. IMPRESSION: 1. Solid nodule in the periphery of the right middle lobe measuring 0.9 x 0.8 cm with faint spiculations. Recommend correlation with prior outside hospital imaging if available. Recommend further evaluation with a short term follow up non contrast Chest CT at 3 months, PET/CT, or tissue sampling. Please note that negative PET-CT does not exclude low grade malignancy, FDG uptake may be underestimated in nodules <1 cm in size, or those close to diaphragm.(Fredrick Nava et al., Guidelines for management of incidental pulmonary nodules detected on CT images: From the Fleischner Society 2017, Radiology. 2017 Sep;284 (1):228-243.) FLEISCHNER.ACR.IF.4 2. There is a 0.3 cm ground-glass right upper lobe nodule with faint spiculations. Recommend attention to this finding on follow-up evaluation. 3. Multiple additional nodules less than 0.6 cm in size further described above which are favored to be infectious/inflammatory in nature. 4. Borderline enlarged left paratracheal lymph node with multiple additional prominent, nonenlarged mediastinal lymph nodes. Findings may be reactive in nature, however malignancy is not definitively excluded. There is no hilar or axillary lymphadenopathy. 5. Severe biapical predominant emphysematous changes. COMMUNICATION A critical result communication was sent to Dr. Smith on 08/11/2021 at 6:52 p.m. using the Boonty system. I personally reviewed the images/study and I agree with the findings as stated. This study was interpreted at [place], [place]. Electronically signed by: Walter HELTON MD Normal [facility]23 SARS-CoV-2 (COVID-19) RNA MARTINEZ+probe Ql (Unsp spec) Not detected Normal NOT DETECTED [facility] Comment on above: Result Comment: This test is not yet approved or cleared by the [place] FDA. When there are no FDA-approved or cleared tests available, and other criteria are met, FDA can make tests available under an emergency access mechanism called an Emergency Use Authorization (EUA). The EUA for this test is supported by the Component Engineer of Health and Human Service's (HHS's) declaration that circumstances exist to justify the emergency use of in vitro diagnostics for the detection and/or diagnosis of the virus that causes COVID-19. This EUA will remain in effect (meaning this test can be used) for the duration of the COVID-19 declaration justifying emergency of IVDs, unless it is terminated or revoked by FDA (after which the test may no longer be used). When diagnostic testing is negative, the possibility of a false negative should be considered in the context of a patient's recent exposures and the presence of clinical signs and symptoms consistent with SARS-CoV-2. Performed By: #### C [facility] #### [facility] [address] [place], [place] [id number] Dr. Evon Quesada CBC AUTO DIFFon 08-18-2021 BASO # 0.1 103/ul Normal 0.0-0.1 [facility] Comment on above: Performed By: #### C BC ####[facility] [address] [place] [id number]. Evon Quesada Basophils/100 WBC (Bld) 0.5 % Normal 0.2-2.0 [facility] Comment on above: Performed By: #### C BC ####[facility] [address] [place] [address]DrJael Quesada EO # 0.2 103/ul Normal 0.0-0.7 [facility] Comment on above: Performed By: #### C BC ####[facility] [address] [place] [address]DrJael Quesada Eosinophils/100 WBC (Bld) 1.5 % Normal 0.9-7.0 [facility] Comment on above: Performed By: #### C BC ####[facility] [address] [place] [address]Dr. Evon Quesada Erythrocyte distribution width (RBC) [Ratio] 13.3 % Normal 11.0-15.0 [facility] Comment on above: Performed By: #### C BC ####[facility] [address] [place] [phone]. Evon Quesada Hematocrit (Bld) [Volume fraction] 42.6 % Normal 42.0-54.0 [facility] Comment on above: Performed By: #### C BC ####[facility] [address] [place] [phone]. Evon Quesada Hemoglobin (Bld) [Mass/Vol] 13.9 g/dL Critically low 14.0-18.0 [facility] Comment on above: Performed By: #### C BC ####[facility] [address] [place] [phone] Quesada IG # 0.11 10e3/ul Critically high 0.00-0.03 [facility] Comment on above: Performed By: #### C BC ####[facility] [address] [place] [phone]. Evon Quesada IG % 0.7 % Critically high 0.0-0.5 [facility] Comment on above: Performed By: #### C BC ####[facility] [address] [place] [phone]. Evon Quesada LYMPH # 2.3 103/ul Normal 1.2-3.8 [facility] Comment on above: Performed By: #### C BC ####[facility] [address] [place] [phone]. Evon Queasda Lymphocytes/100 WBC (Bld) 15.8 % Critically low 20.5-60.0 [facility] Comment on above: Performed By: #### C BC ####[facility] [address] [place] [phone]. Evon Quesada MANUAL DIFF REQ NO Normal [facility] Comment on above: Performed By: #### C BC ####[facility] [address] [place] [phone]. Evon Quesada MCH (RBC) [Entitic mass] 30.7 pg Normal 25.9-34.0 [facility] Comment on above: Performed By: #### C BC ####[facility] [address] [place] [phone]. Evon Quesada MCHC (RBC) [Mass/Vol] 32.6 g/dL Normal 29.9-35.2 [facility] Comment on above: Performed By: #### C BC ####[facility] [address] [place] [phone]. Evon Quesada MCV (RBC) [Entitic vol] 94.0 fL Normal 80.0-94.0 [facility] Comment on above: Performed By: #### C BC ####[facility] [address] [place] [phone]. Evon Dipak MONO # 1.7 103/ul Critically high 0.3-0.8 [facility] Comment on above: Performed By: #### C BC ####[facility] [address] [place] [phone]. Evon Quesada Monocytes/100 WBC (Bld) 11.3 % Normal 1.7-12.0 [facility] Comment on above: Performed By: #### C BC ####[facility] [address] [place], [place] [address]Bc. Evon Quesada NEUT # 10.4 103/ul Critically high 1.4-6.5 [facility] Comment on above: Performed By: #### C BC ####[facility] [address] [place] [phone]. Evon Quesada Neutrophils/100 WBC (Bld) 70.2 % Normal 43.0-75.0 [facility] Comment on above: Performed By: #### C BC ####[facility] [address] [place] [phone]. Evon Quesada Platelet mean volume (Bld) [Entitic vol] 10.1 fL Normal 9.5-13.5 [facility] Comment on above: Performed By: #### C BC ####[facility] [address] [place] [phone]. Evon Quesada PLT 366 103/ul Normal 150-450 [facility] Comment on above: Performed By: #### C BC ####[facility] [address] [place] [phone]. Evon Quesada RBC 4.53 106/ul Critically low 4.70-6.10 [facility] Comment on above: Performed By: #### C BC ####[facility] [address] [place] [phone]. Evon Quesada WBC 14.7 103/ul Critically high 4.0-11.0 [facility] Comment on above: Performed By: #### C BC ####[facility] [address] [place] [phone]. Evon Quesada LIPID PROFILEon 08-18-2021 CHOL-HDL RATIO NORM SEE BELOW Normal [facility] Comment on above: Result Comment: 3.3 - 4.4 LOW RISK 4.4 - 7.1 AVERAGE RISK 7.1 - 11.0 MODERATE RISK >11.0 HIGH RISK Performed By: #### L IPID, CMP #### [facility] [address] [place] [address] [address] Evon Quesada Cholesterol [Mass/Vol] 117 mg/dL Normal <=200 [facility] Comment on above: Performed By: #### L IPID, CMP #### [facility] [address] [place] [address] [address] Evon Quesada Cholesterol in HDL [Mass/Vol] 56 mg/dL Normal 40-60 [facility] Comment on above: Performed By: #### L IPID, CMP #### [facility] [address] [place] [address] Dr. Evon Quesada Cholesterol in LDL [Mass/Vol] 49.8 mg/dL Normal [facility] Comment on above: Performed By: #### L IPID, CMP #### [facility] [address] [place] [address] Dr. Evon Quesada Cholesterol.total/C holesterol in HDL [Mass ratio] 2.1 {ratio} Normal [facility] Comment on above: Performed By: #### L IPID, CMP #### [facility] [address] [place] [address] Dr. Evon Quesada HDL NORMAL > or = 60 mg/dl - LO W CARDIOVASCULAR RISK <40 mg/dl - HIGH CARDIOVASCULAR RISK Normal [facility] Comment on above: Performed By: #### L IPID, CMP #### [facility] [address] [place] [address] Dr. Evon Quesada LDL CALC NORMAL SEE BELOW Normal [facility] Comment on above: Result Comment: <100 mg/dl OPTIMAL 100 - 129 mg/dl NEAR OR ABOVE OPTIMAL 130 - 159 mg/dl BORDERLINE HIGH 160 - 189 mg/dl HIGH >190 mg/dl VERY HIGH Performed By: #### L IPID, CMP #### [facility] [address] [place] [address] Dr. Evon Quesada Triglyceride [Mass/Vol] 56 mg/dL Normal <=150 [facility] Comment on above: Performed By: #### L IPID, CMP #### [facility] [address] [place] [address] [address] Evon Quesada VLDL CALC 11.2 mg/dL Normal [facility] Comment on above: Performed By: #### L IPID, CMP #### [facility] [address] [place] [address] [address] Evon Quesada PROF 14(COMP METB)on 022 Albumin [Mass/Vol] 3.6 g/dL Normal 3.4-5.0 [facility] Comment on above: Performed By: #### L IPID, CMP #### [facility] [address] [place] [address] [address] Evon Quesada Albumin/Globulin [Mass ratio] 1.0 {ratio} Normal [facility] Comment on above: Performed By: #### L IPID, CMP #### [facility] [address] [place] [address] Dr. Evon Quesada ALP [Catalytic activity/Vol] 108 U/L Normal 46-116 [facility] Comment on above: Performed By: #### L IPID, CMP #### [facility] [address] [place] [address] [address] Evon Quesada ALT [Catalytic activity/Vol] 38 U/L Normal 16-63 [facility] Comment on above: Performed By: #### L IPID, CMP #### [facility] [address] [place] [address] [address] Evon Quesada Anion gap [Moles/Vol] 10.7 mmol/L Normal [facility] Comment on above: Performed By: #### L IPID, CMP #### [facility] [address] [place] [address] [address] Evon Quesada AST [Catalytic activity/Vol] 35 U/L Normal 15-37 [facility] Comment on above: Performed By: #### L IPID, CMP #### [facility] [address] [place] [address] [address] Evon Quesada Bilirubin [Mass/Vol] 0.7 mg/dL Normal 0.2-1.0 [facility] Comment on above: Performed By: #### L IPID, CMP #### [facility] [address] [place] [address] [address] Evon Quesada Calcium [Mass/Vol] 10.4 mg/dL Critically high 8.5-10.1 [facility] Comment on above: Performed By: #### L IPID, CMP #### [facility] [address] [place] [address] [address] Evon Quesada Chloride [Moles/Vol] 102 mmol/L Normal 98-107 [facility] Comment on above: Performed By: #### L IPID, CMP #### [facility] [address] [place] [address] Dr. Evon Quesada CO2 [Moles/Vol] 30.1 mmol/L Normal 21.0-32.0 [facility] [place] Comment on above: Performed By: #### L IPID, CMP #### [facility] [address] [place] [address] Dr. Evon Quesada Creatinine [Mass/Vol] 0.79 mg/dL Normal 0.70-1.30 [facility] Comment on above: Performed By: #### L IPID, CMP #### [facility] [address] [place] [address] Dr. Evon Quesada EGFR-AF SALVADOREAN >60 Normal >=60 [facility] [place] Comment on above: Performed By: #### L IPID, CMP #### [facility] [address] [place] [address] Dr. Evon Quesada EGFR-NON AF SALVADOREAN >60 Normal >=60 [facility] Comment on above: Performed By: #### L IPID, CMP #### [facility] [address] [place] [address] Dr. Evon Quesada Globulin (S) [Mass/Vol] 3.7 g/dL Normal [facility] Comment on above: Performed By: #### L IPID, CMP #### [facility] [address] [place] [address] Dr. Evon Quesada Glucose [Mass/Vol] 99 mg/dL Normal 74-106 [facility] Comment on above: Performed By: #### L IPID, CMP #### [facility] [address] [place] [address] [address] Evon Quesada Potassium [Moles/Vol] 4.8 mmol/L Normal 3.5-5.1 [facility] Comment on above: Performed By: #### L IPID, CMP #### [facility] [address] [place] [address] [address] Evon Quesada Protein [Mass/Vol] 7.3 g/dL Normal 6.4-8.2 [facility] Comment on above: Performed By: #### L IPID, CMP #### [facility] [address] [place] [address] [address] Evon Quesada Sodium [Moles/Vol] 138 mmol/L Normal 136-145 [facility] Comment on above: Performed By: #### L IPID, CMP #### [facility] [address] [place] [address] [address] Evon Quesada Urea nitrogen [Mass/Vol] 12.0 mg/dL Normal 7.0-18.0 [facility] Comment on above: Performed By: #### L IPID, CMP #### [facility] [address] [place] [address] Dr. Evon Quesada Urea nitrogen/Creatinine [Mass ratio] 15.2 mg/mg Normal [facility] Comment on above: Performed By: #### L IPID, CMP #### [facility] [address] [place] [address] [address] Evon Quesada HEMOGLOBINon 07-07-2021 Hemoglobin (Bld) [Mass/Vol] 13.3 g/dL Critically low 14.0-18.0 [facility] Comment on above: Performed By: #### H GB ####[facility] [address] [place] [address]Dr. Evon Quesada CREATININE BLOODon Creatinine [Mass/Vol] 0.64 mg/dL Low 0.70-1.30 [facility] Comment on above: Order Comment: No: D o not add to previous draw Performed By: #### 2 5656 #### [facility] [address] [place] [address], [facility] GFR/1.73 sq M.predicted among blacks MDRD (S/P/Bld) [Vol rate/Area] mL/min/{1.73_m2} Normal >60 [facility] Comment on above: Order Comment: No: D o not add to previous draw Performed By: #### 2 5656 #### [facility] [address] [place] [address], [facility] GFR/1.73 sq M.predicted among non-blacks MDRD (S/P/Bld) [Vol rate/Area] mL/min/{1.73_m2} Normal >60 [facility] Comment on above: Order Comment: No: D o not add to previous draw Performed By: #### 2 5656 #### [facility] [address] Cardiovascular Lab Reporton 02-23-2021 Cardiovascular Lab Report [facility] Patient Name: Shashi [facility] MR #: [id number] Physician: Almas Mcallister, Department of M.D. Medicine Service Date: 02/22/2021 Division of Birthdate: 1960 Cardiology Room #: [id number] [facility] [place] [address] Cardiovascular Laboratory Report FINAL IMPRESSIONS: 1. Severe stenosis of the left anterior descending coronary artery successfully treated by balloon angioplasty and Synergy drug-eluting stent placement. 2. Otherwise nonobstructive coronary arteries angiographically. 3. Normal global left ventricular systolic function by noninvasive imaging. 4. Mildly elevated right-sided heart pressures and normal wedge pressure. 5. Normal cardiac output/cardiac index. RECOMMENDATIONS: 1. Aspirin 81 mg lifelong. 2. Plavix 75 mg daily for a minimum of 6 months preferably fpc. 3. Aggressive cardiovascular risk factor modification. 4. Guideline directed medical therapy for coronary artery disease should include high-intensity statin therapy, beta michael, +/- an angiotensin-converting enzyme inhibitor. 5. Follow up with Dr. Mcallister in the [facility] in the next 3-4 weeks. 6. Follow up with Dr. Wilson as scheduled. PROCEDURES: Limited femoral angiography, right heart catheterization, bilateral selective coronary angiography, percutaneous balloon angioplasty, and Synergy drug-eluting stent placement of the left anterior descending coronary artery. Failed MynxGrip deployment over the right femoral access site. METHODS: After risks, benefits, and alternatives were explained, written informed consent was obtained. The patient was prepped and draped in the usual sterile fashion over both groins. Using 1% lidocaine solution, local infiltration anesthesia was achieved. Using a modified Seldinger technique and a micropuncture kit, access to the right common femoral vein and artery was obtained. A 6-Turkish 11 cm sheath was placed in each. Right heart catheterization was performed using a Fernandez catheter via the venous sheath. Pressures were measured in the right atrium, right ventricle, pulmonary artery, and pulmonary capillary wedge positions. Oxygen saturations were obtained and cardiac output/cardiac index was calculated using the modified Joel principle. The Fernandez catheter was removed. Bilateral selective coronary angiography was performed using JL4 and JR4 catheters. After reviewing the images, it was elected to proceed with an interventional procedure. A 6-Turkish XB3.5 guide catheter was advanced over J-wire and coaxially engaged into the left coronary ostium. A 0.014 Runthrough NS wire was advanced through the catheter across the suspect stenosis and positioned distally. Balloon angioplasty was performed using a 2.5 x 15 mm noncompliant balloon. An inadequate result was treated using a 4.0 x 20 mm Synergy drug-eluting stent. Postdilation was performed using a 4.0 x 12 and a 4.0 x 8 mm Synergy stent. Evidence of plaque protrusion was seen. Therefore repeat post dilation was performed using the 4.0 x 15 mm balloon. Repeat imaging showed a satisfactory result. The wire was removed. Final images showed GIANA-3 flow with no dissection, thrombus, or distal wire trauma. At this point, it was elected to conclude the procedure. All catheters were removed. A 6-Turkish MynxGrip closure device was deployed per protocol, however, failed due to the patient's body habitus. Therefore manual pressure was held for hemostasis. Overall, the patient tolerated the procedure well. There were no other complications. He was to be transferred to the holding area in stable condition. FINDINGS: Hemodynamics. RA 3. RV 38/0, 6. PA 38/15, (24). PCWP 7. TP. AO 144/86. Cardiac output 5.01/cardiac index 2.67. AO sat 93%/PA sat 67%. LEFT VENTRICULOGRAPHY: This was not performed. Ejection fraction is normal to low normal on echocardiography. CORONARY ARTERIES: Left main coronary artery: This arises from the left coronary cusp. It bifurcates into the left anterior descending and left circumflex coronary arteries. It is free of significant stenosis. Left anterior descending coronary artery: Baseline imaging shows short segment 80% to 85% stenosis adjacent to a small caliber 2nd diagonal. This was reduced to 0%-10% by balloon angioplasty and Synergy drug-eluting stent placement with postdilation as described above. It is a large wrap-around vessel also supplying the distal half of the infero apex. Final images showed GIANA-3 flow with no dissection, thrombus, or distal wire trauma. Left circumflex coronary artery: This is a dominant vessel giving rise to the posterior descending and posterolateral branches. It shows luminal irregularities. Right coronary artery: This is a small nondominant vessel. INDICATI (more content not included)... Normal [facility] Vital Signs Date Time Vital Sign Value Performing Clinician Facility 10-15-2023 10:45-0400 Body height 190.5 cm [facility] 10-15-2023 10:45-0400 Body mass index (BMI) [Ratio] 20.9 kg/m2 [facility] 10-15-2023 10:45-0400 Body weight 75.92 kg [facility] 10-15-2023 10:45-0400 Diastolic blood pressure 83 mm[Hg] [facility] 10-15-2023 10:45-0400 Heart rate 78 /min [facility] 10-15-2023 10:45-0400 Respiratory rate 12 /min [facility] 10-15-2023 10:45-0400 Systolic blood pressure 127 mm[Hg] [facility] 04-29-2023 11:22-0500 Blood Pressure Location Calvin LIZETH [facility] 04-29-2023 11:22-0500 Diastolic blood pressure 68 mm[Hg] Calvin WALKER [facility] 04-29-2023 11:22-0500 Heart rate 64 /min Calvin WALKER [facility] 04-29-2023 11:22-0500 Respiratory rate 16 /min Calvin WALKER [facility] 04-29-2023 11:22-0500 Systolic blood pressure 128 mm[Hg] Calvin WALKER [facility] 04-23-2023 10:30-0500 Body height 190.5 cm Paulino Ball Other [facility] Other 04-23-2023 10:30-0500 Body mass index (BMI) [Ratio] 20.72 kg/m2 Paulino Ball Other [facility] Other 04-23-2023 10:30-0500 Body weight 75.21 kg Paulino Ball Other [facility] Other 04-23-2023 10:30-0500 Diastolic blood pressure 73 mm[Hg] Paulino Ball Other [facility] Other 04-23-2023 10:30-0500 Respiratory rate 12 /min Paulino Ball Other [facility] Other 04-23-2023 10:30-0500 Systolic blood pressure 119 mm[Hg] Paulino Ball Other [facility] Other 10-22-2022 11:00-0400 Body height 190.5 cm Paulino Ball Other [facility] Other 10-22-2022 11:00-0400 Body mass index (BMI) [Ratio] 21.25 kg/m2 Paulino [employer] Other [facility] Other 10-22-2022 11:00-0400 Body weight 77.11 kg Paulino [employer] Other [facility] Other 10-22-2022 11:00-0400 Diastolic blood pressure 71 mm[Hg] [employer] Other [facility] Other 10-22-2022 11:00-0400 Respiratory rate 16 /min [employer] Other [facility] Other 10-22-2022 11:00-0400 Systolic blood pressure 142 mm[Hg] [employer] Other [facility] Other 03-02-2022 14:14-0500 1 1 Hiral Guy [employer] PRE[employer] Work Phone: [facility] Work Phone: Comment on above: PHQ-9 TS Encounters Encounter Date Encounter Type Care Provider Facility Start: 12-27-2023 ambulatory Calvin WALKER [facility] ty:[facility] Start: 10-15-2023 End: 10-15-2023 ambulatory [facility] Work Phone: Start: 10-15-2023 End: 10-15-2023 [facility] Work Phone: Start: 06-20-2023 End: 06-20-2023 ambulatory [facility] Start: 04-29-2023 End: 04-29-2023 ambulatory Calvin WALKER Facility:[facility] Start: 04-29-2023 End: 04-29-2023 Patient encounter procedure Calvin WALKER [facility] Start: 04-24-2023 End: 04-24-2023 ambulatory Paulino Wilson Other [facility] [employer] Other Start: 04-24-2023 Telephone encounter Paulino Wilson [facility] Start: 04-23-2023 End: 04-23-2023 ambulatory Paulino Ball Other [employer] Other Start: 04-23-2023 Office outpatient vi sit 25 minutes Paulino Segundo [facility] Start: 04-05-2023 ambulatory Calvin WALKER Facility :[facility] Start: 01-31-2023 End: 01-31-2023 ambulatory Paulino Wilson Other [employer] Other Start: 01-31-2023 Telephone encounter Paulino Wilson [facility] [employer] Start: 12-14-2022 ambulatory Calvin WALKER Facility :[facility] Start: 12-07-2022 End: 12-07-2022 ambulatory Paulino Wilson Other [employer] Other Start: 12-07-2022 Telephone encounter Paulino Wilson [facility] Start: 11-29-2022 End: 11-29-2022 ambulatory Paulino Segundo Other [facility] Other Start: 11-29-2022 Telephone encounter Paulino Ball [facility] Start: 11-11-2022 End: 11-11-2022 ambulatory Paulino Ball Other [employer] Other Start: 11-11-2022 Telephone encounter Paulino Ball [facility] Start: 11-09-2022 End: 11-09-2022 ambulatory Paulino Ball Other [facility] Other Start: 11-09-2022 Telephone encounter Paulino Ball [facility] Start: 10-22-2022 End: 10-22-2022 ambulatory Paulino Ball Other [employer] Other Start: 10-22-2022 Encounter for genera l adult medical examination without abnormal findings Paulino Wilson [facility] Start: 10-22-2022 Periodic preventive med est patient 40-64yrs Paulino Segundo [facility] Start: 06-26-2022 End: 06-27-[address] PAULINO WILSON Facility: Start: 03-23-2022 ambulatory Provider Pending Facili ty:[facility] Start: 03-21-2022 Chart Update Gela Jaquez DO Work Phone: [facility] Work Phone: Start: 03-01-2022 ambulatory Provider Pending Facili ty:[facility] Start: 03-01-2022 LUNGSW, Provider: Hiral Guy, Status: Pen, Time: 11:00 AM Gela Jaquez DO Work Phone: [facility] Work Phone: Start: 03-01-2022 Patient encounter procedure Hiral Guy JACK[employer] PREPAR[employer] Work Phone: [facility] [address] Work Phone: Start: 03-01-[address] GELA JAQUEZ Facility:[facility] Start: 03-01-2022 EDUCLUNG, Provider: LUNG TRANSPLANT EDUCATION,NURSE, Status: Pen, Time: 10:00 AM Gela Jaquez DO Work Phone: [facility] Work Phone: Start: 02-22-2022 AUDIT Gela Jaquez DO Work Phone: [facility] Work Phone: Start: 02-01-2022 Result Review Provider Lorri hernandez Work Phone: [facility] Work Phone: Start: 02-01-2022 Encounter for [facility] Start: 01-30-2022 End: 01-30-[address] PAULINO BETANCUR Facility:[facility] Start: 01-27-2022 End: 01-28-[address] PAULINO WILSON Facility:[facility] Start: 01-27-2022 End: 01-28-2022 Encounter for other preprocedural examination DR PAULINO WILSON Facility:[facility] Start: 12-05-2021 End: 12-06-[address] PAULINO WILSON Facility:[facility] Start: 11-06-[address] PAULINO WILSON Facilalthea ty:[facility] Start: 10-28-2021 End: 10-29-2021 ambulatory PRINCESS VALVERDE . Facility:[facility] Start: 09-11-2021 ambulatory Hunter Smith Facility:[facility] Start: 09-11-2021 ambulatory Hunter Smith Facility:[facility] Start: 09-11-2021 Patient encounter procedure Martina Rodríguez Work Phone: [facility] Work Phone: Start: 09-08-2021 End: 09-09-[address] PAULINO WILSON Facility:[facility] Start: 08-29-2021 AUDIT Hunter palmer MD Work Phone: [facility] Work Phone: Start: 08-28-2021 Encounter for genera l adult medical examination without abnormal findings DR PAULINO WILOSN [facility] Start: 08-18-2021 End: 08-19-[address] PAULINO WILSON Facility:[facility] Start: 08-18-2021 End: 08-19-2021 Encounter for general adult medical examination without abnormal findings DR PAULINO WILSON Facility:[facility] Start: 08-17-2021 Adult health examination Sarthak Wilson Other [employer] Other Start: 08-08-[address] PAULINO Mathis ty:[facility] Start: 08-05-[address] CAROLINE Mathis ty:[facility] Start: 07-28-[address] CAROLINE Mathis ty:[facility] Start: 07-07-2021 End: 07-08-[address] PAULINO WILSON Facility:[facility] Start: 02-22-2021 End: 02-23-2021 ambulatory EHAB A SERJIO Facility:[facility] Start: 03-30-2019 Problem, abnormal examination Paulino Wilson Other [employer] Other Patient encounter status Provide r AMAProvider Work Phone: [facility] Work Phone: Procedures Date Procedure Procedure Detail Performing Clinician Start: 08-18-[address] CAROLINE THOMAS Comment on above: Performed By: #### P [facility] #### [facility] [address] [place] [address] Dr. Evon Quesada Start: 12-18-2017 Screening for malign ant neoplasm of colon Paulino Wilson Other Cardiac catheter (ph ysical object) Calvin WALKER Cardiac catheterization Prov ider AMAProvider Work Phone: Colonoscopy Provider AMAPro vider Work Phone: Depression screening Bette Wilson Other Endoscopy Provider AMAPro vider Work Phone: Finger operation Provider AM AProvider Work Phone: Finger structure (mary dy structure) Calvin WALKER Screening for malign ant neoplasm of prostate Paulino Wilson Other Upper limb structure (body structure) Calvin WALKER Plan of Treatment Date Care Activity Detail Author Start: 10-27-2021 NPV, Provider: Mary Salcedo, Status: Pen, Time: 2:00 PM NPV, Provider: Mary Salcedo, Status: Pen, Time: 2:00 PM [facility] Work Phone: Start: 09-22-2021 VIRNPVBLAYNEE, Provider : Hunter Smith, Status: Pen, Time: 1:40 PM VIRNPVROSITA, Provider: Hunter Smith, Status: Pen, Time: 1:40 PM [facility] Work Phone: Start: 09-11-2021 ABG, Provider: [facility] FLR PFT RM1,PULM, Status: Pen, Time: 12:15 PM ABG, Provider: [facility] F[facility] PFT RM1,PULM, Status: Pen, Time: 12:15 PM [facility] Work Phone: Start: 09-11-2021 PFT, [facility] F[facility] PFT RM1,PULM, Status: Pen, Time: 11:15 AM PFT, Provider: [facility] FLR PFT RM1,PULM, Status: Pen, Time: 11:15 AM [facility] Work Phone: Start: 09-11-2021 PST, Provider: [facility] FLR PFT [place],PULM, Status: Pen, Time: 10:45 AM PST, Provider: [address] FLR PFT WALKWAY,PULM, Status: Pen, Time: 10:45 AM [facility] Work Phone: Immunizations Immunization Date Immunization Notes Care Provider Abdelrahman wilcox 04-04-2022 SARS-CoV-2 mRNA (dhgqrjjtlfn-efps-hyfga se) vaccine Calvin WALKER [facility] Comment on above: Result Comment: 2023: [id number] 03-14-2022 SARS-CoV-2 mRNA (xzquebartvf-tqdw-ykltb se) vaccine Calvin WALKER [facility] Comment on above: Result Comment: 2023: [id number] 03-11-2022 influenza virus vaccine, unspecified formulation Calvin WALKER [facility] Payers Date Payer Category Payer Medicaid [id number] 1960 Self-pay [id number] 1960 Unknown [id number] 1960 Unknown [id number] 2.16.8 [id number] 1959 Unknown [id number] 2.16. 840.1.305629.3.579.2.356 1959 Unknown [id number] 2.16. 840.1.986957.3.579.2.356 1959 Unknown [id number] 2.16. 840.1.997145.3.579.2.356 1959 Unknown [id number] 2.16. 840.1.130665.3.579.2.356 1959 Unknown [id number] 2.16. 840.1.414296.3.579.2.356 1959 Unknown [id number] 2.16. 840.1.789788.3.579.2.356 1959 Unknown [id number] 2.16.84 0.1.161545.3.579.2.593 1959 Unknown [id number] 2.16.84 0.1.988925.3.579.2.593 1959 Unknown [id number] 2.16.84 0.1.282854.3.579.2.593 1959 Unknown [id number] 2.16.84 0.1.867320.3.579.2.593 1959 Unknown [id number] 2.16.84 0.1.313319.3.579.2.593 1959 Unknown [id number] 2.16.84 0.1.569331.3.579.2.593 1959 Unknown [id number] 2.16.84 0.1.733618.3.579.2.593 1959 Unknown [id number] 2.16.84 0.1.298684.3.579.2.593 1959 Unknown [id number] 2.16.84 0.1.663423.3.579.2.593 1959 Unknown [id number] 2.16.84 0.1.106642.3.579.2.593 1959 Unknown [id number] 2.16.84 0.1.013733.3.579.2.593 1959 Unknown [id number] 2.16.8 40.1.097544.3.579.2.727 1959 Unknown [id number] 2.16.8 40.1.629819.3.579.2.727 1959 Unknown [id number] 2.16.8 40.1.793194.3.579.2.727 1959 Unknown [id number] 2.16.8 40.1.909054.3.579.2.727 Self-pay Self Pay [id number] Unknown Unknown [id number] Unknown [id number] 2.16.84 0.1.909367.3.579.2.593 Social History Date Type Detail Facility [facility] Work Phone: Comment on above: quit 12/2020; on short term disabi lity; Sex Assigned At [facility] Start: 04-29-2023 Tobacco smoking status Ex-smoker (fi nding) [facility] Tobacco smoking status Never [facility] Start: 12-01-2018 Tobacco smoking stat us NHIS Smoker (finding) [facility] Start: 1960 Sex Assigned At Male [facility] Functional Status Date Assessment Result Facility 04-29-2023 Functional Status N/A [facility] Clinical Notes 10-06-2021 to 06-20-2023 Note Date & Type Note Facility 06-20-2023 Note Patient here for 1 y ear follow up CAD and NSVT. Dr. Mcallister stopped Plavix at last visit in May 2022. He had routine labs w/ lipid in Mar 2023. Denies chest pain, palpitations, and lightheadedness/syncope. Sees Dr. Valverde for SOB and COPD. Review of Systems Cardiovascular: Positive for dyspnea on exertion. Respiratory: Positive for cough. Musculoskeletal: Positive for arthritis, back pain, joint pain and myalgias. All other systems reviewed and are negative. [facility] 06-20-2023 Note Cardiovascular Medic [facility] SUBJECTIVE Chief Complaint Patient presents with Coronary Artery Disease Hypertension Patrick Liriano is a 63 y.o. male here for follow-up. HPI PMHx: CAD, NSVT, HTN, COPD He has been doing well since last seen. He has MARK that is chronic. This is secondary to his COPD. This limits his activity level pretty significantly. He is waiting to be able to be on the lung transplant list. Denies c/o CP, orthopnea, PND, LE edema, dizziness/LH, palpitations, syncope. Patient Active Problem List Diagnosis Fracture of phalanx of finger Nonsustained ventricular tachycardia (CMS/HCC) Chronic obstructive lung disease (CMS/HCC) Coronary artery disease involving [place] coronary artery of [place] heart without angina pectoris Primary hypertension Mixed hyperlipidemia Past Medical History: Diagnosis Date COPD (chronic obstructive pulmonary disease) (CMS/HCC) Coronary artery disease NSVT (nonsustained ventricular tachycardia) Family History Problem Relation Name Age of Onset No Known Problems Mother No Known Problems Father Social History Tobacco Use Smoking status: Former Types: Cigarettes Smokeless tobacco: Never Substance Use Topics Alcohol use: Not Currently No Known Allergies ROS Cardiovascular: Positive for dyspnea on exertion. Respiratory: Positive for cough. Musculoskeletal: Positive for arthritis, back pain, joint pain and myalgias. All other systems reviewed and are negative. OBJECTIVE Visit Vitals BP 120/72 (BP Location: Left arm, Patient Position: Sitting) Pulse 63 Ht 1.905 m (6' 3 ) Wt 77.1 kg (170 lb) SpO2 95% BMI 21.25 kg/m??? Smoking Status Former BSA 2.02 m??? Medications: Current Outpatient Medications: albuterol 90 mcg/actuation inhaler, , Disp: , Rfl: aspirin 81 mg EC tablet, Take 1 tablet (81 mg) by mouth once daily as directed., Disp: 90 tablet, Rfl: 3 atorvastatin (Lipitor) 80 mg tablet, Take 1 tablet (80 mg) by mouth at bedtime., Disp: 90 tablet, Rfl: 3 jmhhcnaoho-giswjtiw-khdtobysxr 160-9-4.8 mcg/actuation HFA aerosol inhaler, Tramainetralthea Aerosphere 160 mcg-9mcg-4.8mcg/actuation HFA aerosol inhaler INHALE 2 PUFFS BY MOUTH TWICE A DAY *RINSE MOUTH AFTER USE*, Disp: , Rfl: metoprolol tartrate (Lopressor) 25 mg tablet, TAKE 1 TABLET BY MOUTH IN THE MORNING AND 1 TABLET AT BEDTIME, Disp: 180 tablet, Rfl: 3 Physical Exam Constitutional: Appearance: Normal appearance. He is normal weight. HENT: Head: Normocephalic and atraumatic. Right Ear: External ear normal. Left Ear: External ear normal. Eyes: Extraocular Movements: Extraocular movements intact. Pupils: Pupils are equal, round, and reactive to light. Neck: Vascular: No carotid bruit. Cardiovascular: Rate and Rhythm: Normal rate and regular rhythm. Pulses: Normal pulses. Heart sounds: Normal heart sounds. Pulmonary: Effort: Pulmonary effort is normal. Breath sounds: Normal breath sounds. Abdominal: General: Bowel sounds are normal. Palpations: Abdomen is soft. Musculoskeletal: General: Normal range of motion. Cervical back: Neck supple. Right lower leg: No edema. Left lower leg: No edema. Skin: General: Skin is warm and dry. Neurological: General: No focal deficit present. Mental Status: He is alert and oriented to person, place, and time. Psychiatric: Mood and Affect: Mood normal. Behavior: Behavior normal. Thought Content: Thought content normal. Judgment: Judgment normal. Labs: Legacy Encounter on 02/23/2021 Component Date Value Ref Range Status Creatinine 02/23/2021 0.64 (L) 0.70 - 1.30 mg/dL Final eGFR - Non- 02/23/2021 >60 >60 ml/min/1.73sq m Final eGFR - 02/23/2021 >60 >60 ml/min/1.73sq m Final No results found for: EXTCMP , BMPR1A , CBCDIF , BNP , LASAP , RED 04/23/2023 Cr 0.28, BUN 20, K 4.2, Na 138, eGFR >60 Chol 129, HDL 50, trig 68, direct LDL 65.4 Testing/Procedures: Echocardiogram 12/2020: Low normal global left ventricle systolic function with an EF of 50 to 55%. Normal right ventricular systolic function. No significant valvular dysfunction. Normal right-sided pressures. Service Date: 02/22/2021 Cardiovascular Laboratory Report FINAL IMPRESSIONS: 1. Severe stenosis of the left anterior descending coronary artery successfully treated by balloon angioplasty and Synergy drug-eluting stent placement. 2. Otherwise nonobstructive coronary arteries angiographically. 3. Normal global left ventricular systolic function by noninvasive imaging. 4. Mildly elevated right-sided heart pressures and normal wedge pressure. 5. Normal cardiac output/cardiac index. RECOMMENDATIONS: 1. Aspirin 81 mg lifelong. 2. Plavix 75 mg daily for a minimum of 6 months preferably fpc. 3. Aggressive cardiovascular risk factor modification. 4. Guideline directed medical therapy for coronary artery disease should include high-intensit (more content not included)... [facility] 04-29-2023 Hospital Discharge instructions Patient Education 04/29/2023 12:11:15 Benign Prostatic Hyperplasia Benign Prostatic Hyperplasia Benign prostatic hyperplasia (BPH) is an enlarged prostate gland that is caused by the normal aging process. The prostate may get bigger as a man gets older. The condition is not caused by cancer. The prostate is a walnut-sized gland that is involved in the production of semen. It is located in front of the rectum and below the bladder. The bladder stores urine. The urethra carries stored urine out of the body. An enlarged prostate can press on the urethra. This can make it harder to pass urine. The buildup of urine in the bladder can cause infection. Back pressure and infection may progress to bladder damage and kidney (renal) failure. What are the causes? This condition is part of the normal aging process. However, not all men develop problems from this condition. If the prostate enlarges away from the urethra, urine flow will not be blocked. If it enlarges toward the urethra and compresses it, there will be problems passing urine. What increases the risk? This condition is more likely to develop in men older than 50 years. What are the signs or symptoms? Symptoms of this condition include: Getting up often during the night to urinate. Needing to urinate frequently during the day. Difficulty starting urine flow. Decrease in size and strength of your urine stream. Leaking (dribbling) after urinating. Inability to pass urine. This needs immediate treatment. Inability to completely empty your bladder. Pain when you pass urine. This is more common if there is also an infection. Urinary tract infection (UTI). How is this diagnosed? This condition is diagnosed based on your medical history, a physical exam, and your symptoms. Tests will also be done, such as: A post-void bladder scan. This measures any amount of urine that may remain in your bladder after you finish urinating. A digital rectal exam. In a rectal exam, your health care provider checks your prostate by putting a lubricated, gloved finger into your rectum to feel the back of your prostate gland. This exam detects the size of your gland and any abnormal lumps or growths. An exam of your urine (urinalysis). A prostate specific antigen (PSA) screening. This is a blood test used to screen for prostate cancer. An ultrasound. This test uses sound waves to electronically produce a picture of your prostate gland. Your health care provider may refer you to a specialist in kidney and prostate diseases (urologist). How is this treated? Once symptoms begin, your health care provider will monitor your condition (active surveillance or watchful waiting). Treatment for this condition will depend on the severity of your condition. Treatment may include: Observation and yearly exams. This may be the only treatment needed if your condition and symptoms are mild. Medicines to relieve your symptoms, including: ?Medicines to shrink the prostate. ?Medicines to relax the muscle of the prostate. Surgery in severe cases. Surgery may include: ?Prostatectomy. In this procedure, the prostate tissue is removed completely through an open incision or with a laparoscope or robotics. ?Transurethral resection of the prostate (TURP). In this procedure, a tool is inserted through the opening at the tip of the penis (urethra). It is used to cut away tissue of the inner core of the prostate. The pieces are removed through the same opening of the penis. This removes the blockage. ?Transurethral incision (TUIP). In this procedure, small cuts are made in the prostate. This lessens the prostate's pressure on the urethra. ?Transurethral microwave thermotherapy (TUMT). This procedure uses microwaves to create heat. The heat destroys and removes a small amount of prostate tissue. ?Transurethral needle ablation (TUNA). This procedure uses radio frequencies to destroy and remove a small amount of prostate tissue. ?Interstitial laser coagulation (ILC). This procedure uses a laser to destroy and remove a small amount of prostate tissue. ?Transurethral electrovaporization (TUVP). This procedure uses electrodes to destroy and remove a small amount of prostate tissue. ?Prostatic urethral lift. This procedure inserts an implant to push the lobes of the prostate away from the urethra. Follow these instructions at home: Take tnmr-akq-wjnjwpn and prescription medicines only as told by your health care provider. Monitor your symptoms for any changes. Contact your health care provider with any changes. Avoid drinking large amounts of liquid before going to bed or out in public. Avoid or reduce how much caffeine or alcohol you drink. Give yourself time when you urinate. Keep all follow-up visits. This is important. Contact a health care provider if: You have unexplained back pain. Your symptoms do not get better with treatment. You develop side effects from the medicine you are taking. Your urine becomes very dark or has a bad smell. Your lower abdomen becomes distended and you have trouble passing urine. Get help right away if: You have a fever or chills. You suddenly cannot urinate. You feel light-headed or very dizzy, or you faint. There are large amounts of blood or clots in your urine. Your urinary problems become hard to manage. You develop moderate to severe low back or flank pain. The flank is the side of your body between the ribs and the hip. These symptoms may be an emergency. Get help right away. Call 911. Do not wait to see if the symptoms will go away. Do not drive yourself to the hospital. Summary Benign prostatic hyperplasia (BPH) is an enlarged prostate that is caused by the normal aging process. It is not caused by cancer. An enlarged prostate can press on the urethra. This can make it hard to pass urine. This condition is more likely to develop in men older than 50 years. Get help right away if you suddenly cannot urinate. This information is not intended to replace advice given to you by your health care provider. Make sure you discuss any questions you have with your health care provider. Document Revised: 09/27/2021 Document Reviewed: 09/27/2021 [employer] Patient Education 2022 [employer]. Follow Up Care 01/23/2023 14:26:12 With:LIZETH WOODALL, Calvin Watson, URL Address: [facility] [address], [place] [address] [phone] When: Unknown Comments:6 mos w/ PSA [facility] 04-29-2023 Note Chief Complaint Referral *Elevated PSA HPI Staff Referral for elevated PSA by Dr. Wilson. Pt is a new pt. Never before seen in our office. PSA 10/26/22- 3.43 12/06/22- 2.4 & 10.4% 04/23/23- 1.86 Per referral papers, c/o hesitancy w/o nocturia, polyuria or hematuria. Tx'd w/abx for 3wks, prior to PSA F/T. Denies Family Hx of Prostate Cancer. Former Smoker. Numb feeling to head of penis since Cardiac Cath in Feb. Weaker stream in past 6m. Mild intermittent difficulty getting stream started at times. Denies pain/burning and visible blood. Frequency during day depends on coffee intake. Voids 4-5x/day. Does not get up through the night. History of Present Illness Tests reviewed: reviewed referral records, PSAs I have reviewed the previous health record information and history for this patient from external providers. I have reviewed and verified the staff HPI to be accurate for this encounter. Review of Systems PHQ Score Initial Depression Screen Score: 0 SCORE ROS - Provider Constitutional: denies weight loss, denies hot flashes. Eyes: denies eye problems. Gastrointestinal: denies nausea, denies vomiting. Cardiovascular: denies chest pain or angina. Integumentary: no dryness Musculoskeletal: denies musculoskeletal symptoms. ENMT: denies otolaryngeal symptoms. Respiratory: no shortness of breath. Heme/Lymph: denies easy bleeding tendency, denies easy bruising tendency. Psychiatric: no confusion, no anxiety. Genitourinary: See HPI. Physical Exam Vitals & Measurements HR: 64(Peripheral) RR: 16 BP: 128/68 HT: 75 in HT: 189.9 cm WT: 75.5 kg WT: 166.1 lb BMI: 20.94 General Appearance: alert, no distress, well nourished, well developed male. Head: normocephalic . Eyes: normal orbit and globe. ENMT: normal examination of external ears. Chest: Lungs CTA, respirations non labored. Cardiovascular: regular rate and rhythm. Abdomen: soft, non distended, no tenderness, no mass or organomegaly, no hernia. Genitourinary: normal scrotum, normal testes, normal urethra, normal epididymis, normal vas deferens/spermatic cord. Flank Pain: none. Bladder: nonpalpable. Penis: normal shaft, normal glans. Prostate: normal prostate, estimated weight 40 gms, no hard nodule observed. Lymph Nodes: unremarkable palpation of the cervical area. Skin: warm, dry, no bruising. Psychiatric: cooperative, affect appropriate for age, normal judgement, euthymic mood. Assessment/Plan Patrick is a 63 yo male new pt referred by Dr. Wilson for increased PSA. 1. BPH with obstruction/lower urinary tract symptoms (N40.1: Benign prostatic hyperplasia with lower urinary tract symptoms) PSA 08/09/20 - 1.17 08/18/21 - 0.56 10/26/22 - 3.43 12/05/22 - 2.4 & 10.4% 04/23/23 - 1.86 IPSS 5. Cardiac Cath in Feb. States he feel this has affected his bladder sensation. Occasionally his stream stops before he is finished voiding. States his stream has weakened but attributes this to age. ANGEL: 40g, benign No fam hx of prostate ca. Reports his PCP gave him a 3 week course of abx twice and his PSA decreased. Discussed he likely has chronic prostatitis secondary to poor urination. Recommended pt to start timed voids q2-3hr during waking hours whether the urge to void is present or not to help prevent infections. Also recommended pt to take prostate medication to help improve urinary sxs. Will continue to monitor PSA level to ensure it does not rise. Pt states his PCP checks this and will ensure our office receives a copy of PSA level. -Start timed voids -Begin Alfuzosin. Discussed the medication side effects, and the patient will monitor closely for these, as well as for symptom improvement. If severe side effects occur, the medication should be stopped and the office notified. -F/u in 6 mos w/ PSA 2. Former smoker (Z87.891: Personal history of nicotine dependence) Risk factor for urothelial ca. Follow-up With When Contact Information Calvin WALKER MD, URL [facility] [address] [place] [address]- [phone] Additional Instructions: 6 mos w/ PSA Patient Education Benign Prostatic Hyperplasia Bailee Gill, personally scribed for Dr. Walker on 04/29/2023 12:14:31. . Documentation recorded by the scribe, Bailee Daniel, accurately reflects the services(s) I performed and decisions made by me. Authenticated by Dr. Walker on 04/29/2023 12:16:05. 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 Medications atorvastatin 80 mg Tab Breztri Aerosphere inhalation aerosol [facility] ASPIRIN EC 81 MG TABLET, 0 Lopressor 25 mg oral tablet, 25 mg= 1 tab(s), Oral, Daily Allergies No Known Medication Allergies Social History T (more content not included)... [facility] Comment on above: Result Comment: Elec tronically Signed By: Calvin WALKER MD\.br\Date and Time Signed: 04/29/23 12:16 EST\.br\Electronically Co-Signed By: Bailee Daniel\.br\Date and Time Co-Signed: 04/29/23 12:14 EST 04-23-2023 Evaluation note Encounter Date Diagnosis Assessment Notes Mar, ASHD (arteriosclerot ic heart disease) (ICD-10 - I25.10) This patient is stable without activity related CP, dyspnea or lightheadedness. They are instructed to continue exercise and AHA diet plan. Continue secondary prevention measures. Mar, Mucopurulent chronic bronchitis (ICD-10 - J41.1) Continue abstinence from tobacco products. SMoking cessation x 2 years Yearly LDCT w/ Pulmonary medicine Denies CP, change in sputum production or hemoptysis Mar, Elevated cholesterol (ICD-10 - E78.00) Instructed on diet and exercise with continued statin therapy.Discussed the beneficial effects of lowering cholesterol in reducing the risk for cerebrovascular and cardiovascular disease. Mar, Increased prostate specific antigen (PSA) velocity (ICD-10 - R97.20) Continue to monitor PSA - all values < 4.0 - recheck today - scheduled to see in AprilMar, Solitary pulmonary nodule (ICD-10 - R91.1) LDCT w/o suspicious nodules - 10/2022 Pulmonary nodule w/o suspicious findings COntinue LDCT Mar, Benign prostatic hyperplasia with lower urinary tract symptoms (ICD-10 - N40.1) Symptoms tolerable w/ weaker stream and nocturia x 1 Denies dysuria or hematuria. Mar, Poor urinary stream (ICD-10 - R39.12) Mar, Nicotine dependence, cigarettes, in remission (ICD-10 - F17.211) COntinue abstinence Yearly LDCT Mar, High risk medication use (ICD-10 - Z79.899) Mar, Other Healthy diet and exercise. Reviewed age-appropriate preventive testing recommended. [employer] Other 09-07-2023 Evaluation note* Encounter Date Diagnosis Assessment Notes Treatment Notes Treatment Clinical Notes Nov, Increased prostate specific antigen (PSA) velocity (ICD-10 - R97.20) [employer] Other 08-18-2023 Evaluation note* Encounter Date Diagnosis Assessment Notes Treatment Notes Treatment Clinical Notes Oct, Solitary pulmonary nodule (ICD-10 - R91.1) LDCT w/o suspicious nodules - 10/2022Oct, Nicotine dependence, cigarettes, in remission (ICD-10 - F17.211) [employer] Other 07-31-2023 Evaluation note* Encounter Date Diagnosis Assessment Notes Treatment Notes Treatment Clinical Notes Sep, ASHD (arteriosclerotic heart disease) (ICD-10 - I25.10) This patient is stable without activity related CP, dyspnea or lightheadedness. They are instructed to continue exercise and AHA diet plan. Sep, Wellness examination (ICD-10 - Z00.00) Healthy diet and exercise. Reviewed age-appropriate preventive testing recommended. Sep, Mucopurulent chronic bronchitis (ICD-10 - J41.1) On hold for lung transplant due to inability to complete immunizations Respiratory status unchanged - stable w/ triple therapy - GALEN used once daily - no ER visits for AE Sep, Elevated cholesterol (ICD-10 - E78.00) Instructed on diet and exercise with continued statin therapy.Discussed the beneficial effects of lowering cholesterol in reducing the risk for cerebrovascular and cardiovascular disease. Sep, Centrilobular emphysema (ICD-10 - J43.2) On hold for lung transplant due to inability to complete immunizations Respiratory status unchanged - stable w/ triple therapy - GALEN used once daily - no ER visits for AE Sep, NSVT (nonsustained ventricular tachycardia) (ICD-10 - I47.29) Denies CP, palpitations or lightheadedness. f/u Cardiology Secondary to myocardial ischemia Sep, Benign prostatic hyperplasia with lower urinary tract symptoms (ICD-10 - N40.1) Symptoms tolerable Yearly PSA and ANGEL Sep, Right groin pain (ICD-10 - R10.31) No s/s hernia or orchitis. Reassure and monitor for now Sep, Nicotine dependence, cigarettes, in remission (ICD-10 - F17.211) Continue abstinence Sep, Screening PSA (prostate specific antigen) (ICD-10 - Z12.5) [employer] Other 07-15-2022 NotePatient Discussion/Summary You were seen today for evaluation for bronchoscopic lung volume reduction. I will get your CT from08/2021 uploaded for computer analysis. You have a new nodule in your right middle lobe, we'll haveto look into this more before a firm decision is made about the procedure. I will Dr. Valverde know about our clinic visit. I will call after your CT has been analyzed. Provider Impressions 61 year old male former smoker (quit in 12/2020, 50 PY history) with CAD (S/P C with MEKHI in 02/2021) with very severe COPD (FEV1 26% of predicted 08/2021) who has been referred to me for evaluationfor bronchoscopic lung volume reduction. He symptomatic due to his COPD, there are several issues that need to be addressed to continue for assessment with BLVR candidacy. His CT from 09/11/2021 is most significant for a 1cm 4L LN (which appears stable from 04/2021) but also shows a new 0.9 cm RML nodule (which was not present on 04/2021's scan). This nodule has not been worked up and it is unclear at this time if it represents a malignancy. Secondly, he has not participated in pulmonary rehabilitation, which is a prerequisite for BLVR. 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 I discussed this issues with the patient and stated the most pressing issue at the time - the development of a suspicious new lung nodule. I will get his CT from 08/2021 uploaded for StratX analysis to ascertain which lobes would be suitable target. If it is the RML, further work up is contraindicated. If other lobes are deemed to be suitable targets, a more in-depth risk-benefit discussion is warranted as the RML nodule could very well represent a malignancy till proven other nix. 1) Severe COPD: Upload 08/2021 CT for StratX analysis; recommend pulm reheb locally 2) RML nodule: 0.9 cm in size, new when compared to 04/2021 CT. I discussed this in depth with the patient and will let his referring maxillofacial prosthodontist know as well so it can be worked up closer to home. I will contact the patient after I receive the StratX report. CC: Dr. Valverde - (telephone); (fax) Chief Complaint A telephone visit (audio only) between the patient (at the originating site) and the provider (at the distant site) was utilized to provide this telehealth service. Verbal consent was requested and obtained from PATRICK LIRIANO on this date, 10/06/2021 02:40 PM , fora telehealth visit. New patient Ref by Dr. Wilson AND Dr. Valverde for Consult [facility] Valve testing Virtual [employer]: [phone] History of Present IllnessDue to the COVID-19 pandemic, this clinical encounter was conducted via telephone. Verbal consent was obtained. Name and birthday were used to confirm the patient's identity. I confirmed with the patient that he was in a private apartment to safely discuss her healthcare information. 61 year old male former smoker (quit in 12/2020, 50 PY history) with CAD (S/P C with MEKHI in 02/2021) with very severe COPD (FEV1 26% of predicted 08/2021) who has been referred to me for evaluationfor bronchoscopic lung volume reduction. Shortness of breath is his main symptom. Has to walk around 50 feet on level ground before he gets dyspneic. Does not use supplemental O2 or PAP devices. Last hospitalized for AECOPD in 12/2020, he was not intubated during that admission. Denies any chest pain, new shortness of breath, or new coughat this time. Has an occasional cough, faitly dry. Has been referred to pulmonary rehab - hasn't started yet. Currently not on systemic corticosteroids Current medications for COPD: Yadiztralthea Albuterol (using about twice daily) Current on Plavix due to MEKHI in 02/2021. No other surgeries or procedures performed on chest wall or lungs with the exception of the [facility] in 2020. No personal history of cancer. 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 Lives in [place], [place]. Dad and sister had lung cancer - both . Referral contact/referring maxillofacial prosthodontist: Dr. Valverde - (telephone); (fax) Not allergic to nickel, titanium, nitinol, or silicone. No history of stroke or VTE. Review of Systems With the exception of what is mentioned in the HPI, a 10-point comprehensive review of system is negative. Active Problems COPD (chronic obstructive pulmonary disease) with emphysema (492.8) (J43.9) History of asthma (V12.69) (Z87.09) Past Medical History History of cardiac disorder (V12.50) (Z86.79) Surgical History History of Cardiac catheterization History of Cardiac catheterization with stent placement History of Colonoscopy History of Endoscopy History of Finger surgical procedure Family History No pertinent family history Family history of Family history of Malignant neoplasm of overlapping sites of lung, unspecified laterality Family hist (more content not included)... TouchworksEvaluation + Plan note Future Appointments Appointment Date:10/28/2023 10:45:00 AM Scheduled Provider:Calvin WALKER MD Location:[facility] Appointment Type:URO Office Visit Diagnostic Tests Pending * PSA Total 2/5/24 [facility] evaluation noteNo InformationNoresearch [facility] [employer] 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 Medical History Centrilobular emphysema Medical History NSVT (nonsustained ventricular t achycardia) Medical History Oropharyngeal dysphagia Medical History Vitamin D deficiency Medical History Hypercalcemia Medical History Solitary pulmonary nodule Medical History Adenomatous polyp of sigmoid col on Medical History Benign prostatic hyp erplasia with lower urinary tract symptoms Medical History ASHD (arteriosclerotic heart dis ease) Medical History Nicotine dependence, cigarettes, in remission Medical History Pruritic intertrigo Medical History Orchitis Medical History MARK (dyspnea on exertion) Medical History Pulmonary emphysema, unspecified emphysema type Medical History Coronary artery disease Surgical History DX BRONCHOSCOPE/WASH 2021 Surgical History PRQ CARD STENT W/ANGIO 1 VSL 20 21 Surgical History COLONOSCOPY 2019 Surgical History LEFT FOREARM FX REPIAR Surgical History VASECTOMY Surgical History ORIF RIGHT LONG FINGER 2018 Hospitalization History SEE SURGICAL HX [facility] Other Hisckrj general Narrative - Reported* Type Description Date Medical History emphysema Medical History COPD 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 Medical History Centrilobular emphysema Medical History NSVT (nonsustained ventricular t achycardia) Medical History Oropharyngeal dysphagia Medical History Vitamin D deficiency Medical History Hypercalcemia Medical History Solitary pulmonary nodule Medical History Adenomatous polyp of sigmoid col on Medical History Benign prostatic hyp erplasia with lower urinary tract symptoms Medical History ASHD (arteriosclerotic heart dis ease) Medical History Nicotine dependence, cigarettes, in remission Medical History Pruritic intertrigo Medical History Orchitis Medical History MARK (dyspnea on exertion) Medical History Pulmonary emphysema, unspecified emphysema type Medical History Coronary artery disease Surgical History DX BRONCHOSCOPE/WASH 2021 Surgical History PRQ CARD STENT W/ANGIO 1 VSL 20 21 Surgical History COLONOSCOPY 11/2018 Surgical History LEFT FOREARM FX REPIAR Surgical History VASECTOMY Surgical History ORIF RIGHT LONG FINGER 2018 Hospitalization History SEE SURGICAL HX [employer] Other History of Present illness Narrative* Visit Type: This is the initial visit for the patient. * Location: [place] [address]. * Accompanied by: girlfriend Sue. * Organ for transplant: lung. * ADLs: Fully Independent, showers take longer, gets out of breath. * Instrumental ADLs: Partially Independent, takes his time, gets out of breath, back pain, winded lifting doing something physical. * Level of Activity: Active, does as much as he can but cant do what he use to. * DME: none. * Knowledge of Health: toe/finer nails are getting thick fungal, some toes going numb, stint in lowerpart of heart. * Why do you have end stage organ disease? 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 * Patient verbalizes understanding of transplant / VAD: risk of rejection, risk of infection, risk ofcomplications and risk of . * Patient verbalizes understanding of recovery and follow up from transplant / VAD regarding length of stay, verbalizes understanding of recovery and follow up from transplant / VAD regarding appointments, verbalizes understanding of recovery and follow up from transplant / VAD regarding labs and verbalizes understanding of recovery and follow up from transplant / VAD regarding rehabilitation. * Patient has identified goals of transplant / VAD? wants to enjoy life not endure it, get back to beable to service his car maybe even work again,. * Any Potential Donors? n/a. * Overall compliance: good, 4 pills and 2 inhalers. * Compliance with medications: good. * Managed by: patient, bottles. * Understanding of medication: good, named off the medications and knows what they are for. * Compliance with appointments: good, stated never misses/rescheduled. * How does patient handle health problems? sit around for a few minutes, gather thoughts, hurting or if too much, will contact the office. * Lung * Pulmonary Rehab: active, 2x a week. * O2 Therapy Compliance? no. not needed * Medical and Clinic Appointment Compliant? yes. * : no * Education: HS Diploma, Patient is literate, Patient is computer literate, but Patient does not have[employer] access . 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 * Patient's current employment: Not working disabled: . * Employment History:. 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 * Will patient have paid status from employment during recovery? no. none * Spouse/SO current employment: unemployed * Will spouse/SO have paid status from employment during recovery? no. SO fighting disability, getting a letter about not being able to return to work from a doctor, terminating empolyee status due to medical Patient has financial concerns Patient is able to meet current monthly expenses mortgage, car note, friends and mom is helping, had a savings but it is gone, cut a lot of services, like internet, tv, working on dissbility * Resources: [employer] * Primary Insurance: Self , Medicaid * Medicaid: yes. * When? 1998. * In a Relationship: yes. How Long? 19 years. * Spouse/SO Name: Sue Krishna. Age: 54. Health: fighting disabiltiy, severe depression social anxiety,4 bulging hernatiaed disks, COPD, still smokes. * Other Caregiver Responsibilities: none. * Children: # Biological: 1. * ? 1 child. has a dtr but hasn t talked to her since last year * Raised By: one biological parent milli got when he was 6 . * Did the patient have contact with the other parent? yes. saw him 6 weeks in the summer * Father ? yes. Age? 79. Cause of : lung cancer. * Living Parent #1 Name: Zoë. Age: 82. Health: decent, just had surgery, had an annurism surgery. * Lives: local. * How Much Contact? daily. * Siblings: # Biological: sister but she passed from cancer . * Primary Support Name: Sue. * Do they have other caregiver responsibilities (child or eldercare)? no. * Do they have their own conditions which may prevent them from providing care for you? yes. pain in back maybe. * Are they available on short notice? yes. * Are they reliable? yes. * Are they responsible? yes. * Are they able to understand and process new information? yes. * Do they have reliable transportation or will you allow them to use you vehicle? yes. * Are they currently involved in your care? yes. * Secondary Support: Phone: [phone] to Patient: Mom * Do they have their own conditions which may prevent them from providing care for you? yes. hearing aids, surgery, age,. * Housing: Owns home. * Type of Home: house, ranch, # of stairs 1 step up into and 3 steps into the kitchen basement . * Distance to [facility]: 1 hour and a half. * Pets: 3 monkeys small,. * Does Patient Feel Safe in Home? yes. * # Licensed Drivers in the Home: 2. * Does Patient Drive? yes. * # Reliable Vehicles: 2. * Does Patient use Public Transportation? no. * Does Patient use Medical Transportation? no. * The patient reports his/her mood as: not too bad, a little disappointed to not be able to do with he use to, high spirited. * Reported Mental Health Diagnosis: none * Family History of Mental Health Concerns: none reported * What are patient's psychosocial stressors? sue, worried about bills, doesn t want to lose house, everyday things, what can i get rid of or sell to bring in money. * Cognition: No cognitive deficits reported or observed. * Current Medications: none. * OTC Meds: advil once in a while, multivitamin * Counseling: never * Patient has not been hospitalized for mental health. * Referral to Transplant Psych? yes. * Mental Health Follow Up Required no. * History of Suicide Ideation: No * History of Suicide Attempt: No * History of Suicide Ideation in the past 3 months: No. * Patient's Reported Trauma History: none reported * What are patient's coping behaviors? crossword puzzles, sudoku, go camping for the weekend, be outside, eileen in the [employer], gathering, lin. * Methodist/Spirituality: none. * Current Tobacco User? No. * Former Tobacco User? Yes. Describe past tobacco use and date quit: started smoking at 10 on and off, byuing at 14, up to 2 ppd but not everyday, december2020 quit * Current Alcohol User? No. not reporerd not reported * Former Alcohol User? Yes. Describe past alcohol use and date quit: quit in back in 1999 every once in a while would stop after work and have a beer, drank a bit more during divorce never drank everyday * Has patient ever gone to CD treatment? No. * Attends AA meetings? never * Do support people drink alcohol? Yes. * If yes, describe support people's use: mom drinks every once in a while. * Is alcohol kept in the home? Yes. * Does Patient need to sign a CD contract? No. * Current Illegal / Unprescribed Drug User? No. * Former Illegal / Unprescribed Drug User? No. * Has patient ever gone to CD treatment? No. * Attends AA/NA meetings? never * Do support people use illegal drugs? No. * Are illegal drugs kept in the home? No. * Does Patient need to sign a CD contract? No. * Prescription Drug Abuse: patient has not experienced feelings of addiction, patient has not experienced symptoms of withdrawal and patient has not experienced any side effects. * Legal Issues: patient has had no arrests * Patient is not currently on probation or parole. * Mcc: No * Citizenship: [place] Citizen: Yes * Advance Directives: no documents provided * has a will but not living [id number] [address] Work Phone: History of Present illness Narrative* Visit Type: This is the initial visit for the patient. * Location: [place] [id number]. * Accompanied by: Sue girlfriend. * Organ for transplant: lung. * Ethnicity: White: Not Specified/ Unknown. * ADLs: Fully Independent, Showers okay it just takes longer, gets out of breath. * Instrumental ADLs: Partially Independent, takes his time, gets out of breath, back pain, winded lifting doing something physical. * Level of Activity: Active, does as much as he can but can't do what he use to. * DME: none. * Knowledge of Health: Good, toe/finger nails are getting thick, possible fungal, some toes going numb, stint in lower part of heart. * Why do you have end stage organ disease? 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 * Knowledge of transplant / VAD: Patient is able to make an informed decision. * Patient verbalizes understanding of transplant / VAD: risk of rejection, risk of infection, risk ofcomplications and risk of . * Patient verbalizes understanding of recovery and follow up from transplant / VAD regarding length of stay, verbalizes understanding of recovery and follow up from transplant / VAD regarding appointments, verbalizes understanding of recovery and follow up from transplant / VAD regarding labs and verbalizes understanding of recovery and follow up from transplant / VAD regarding rehabilitation. * Patient has identified goals of transplant / VAD? yes, wants to enjoy life not endure it, get back to be able to service his car maybe even work again. * Any Potential Donors? n/a. * Overall compliance: good, 4 pills and 2 inhalers. * Compliance with medications: good. * Managed by: patient, uses bottles. * Understanding of medication: good, named off the medications and knows what they are for. * Compliance with appointments: good, stated never misses/rescheduled. * How does patient handle health problems? sit around for a few minutes, gather thoughts, hurting or if too much, will contact the office. * Lung * Pulmonary Rehab: active, 2x a week. * O2 Therapy Compliance? no. not needed * Medical and Clinic Appointment Compliant? yes. * : no * Education: HS Diploma, Patient is literate, Patient is computer literate, but Patient does not have[employer]Motion access . 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 * Patient's current employment: Not working disabled: . * Employment History:. 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 * Will patient have paid status from employment during recovery? no. none * Spouse/SO current employment: unemployed * Will spouse/SO have paid status from employment during recovery? no. none SO fighting disability, getting a letter about not being able to return to work from a doctor, terminating employee status due to medical Patient has financial concerns Patient is able to meet current monthly expenses mortgage, car note, friends and mom is helping, had a savings but it is gone, cut a lot of services, like internet, tv, working on dissbility * Resources: [employer] * Primary Insurance: Self , Medicaid * Medicaid: yes. * : yes. When? 1998. * In a Relationship: yes. How Long? 19 years. Describe Relationship: good. * Spouse/SO Name: Sue Krishna. Age: 53. Health: severe depression social anxiety, 4 bulging herniated disks, COPD, still smokes. * Other Caregiver Responsibilities: none. * Spouse/Significant others reaction to donation: n/a. * Children: # Biological: 2 children, once . * ? 1 child. has a dtr but hasn t talked to her since last year * Raised By: one biological parent milli got when he was 6 . * Did the patient have contact with the other parent? yes. saw him 6 weeks in the summer * Father ? yes. Age? 79. Cause of : lung cancer. * Living Parent #1 Name: Zoë. Age: 82. Health: decent, just had surgery, had an annurism surgery. * Lives: local. * How Much Contact? daily. * Siblings: # Biological: sister but she passed from cancer . * Support & Recovery Plan: Both primary and secondary supports are not adequate. * Primary Support Name: Sue. Age: 54 Relationship to Patient: SO unemployed. * If so, is it paid time off? no. * If not, will this impact your finances? no. * Did they attend education classes? yes. * Do they have other caregiver responsibilities (child or eldercare)? no. * Do they have their own conditions which may prevent them from providing care for you? yes. back pain and mental health concerns. * Are they available on short notice? yes. * Are they reliable? yes. * Are they responsible? yes. * Are they able to understand and process new information? yes. * Do they have reliable transportation or will you allow them to use you vehicle? yes. * Are they currently involved in your care? yes. * Secondary Support: * Name: Zoë Liriano. Wwa: 81Relationship to Patient: Mom * Can they take time off work? no. * If so, is it paid time off? no. * If not, will this impact your finances? no. * Did they attend education classes? no. * Do they have other caregiver responsibilities (child or eldercare)? no. * Do they have their own conditions which may prevent them from providing care for you? yes. hearing aids, surgery, age,. * Are they available on short notice? yes. * Are they reliable? yes. * Are they responsible? yes. * Are they able to understand and process new information? yes. * Do they have reliable transportation or will you allow them to use you vehicle? yes. * Are they currently involved in your care? no. * Comments: sw spoke to mom on 03/02. * Housing: Patient does have adequate housing, Owns home. * Type of Home: house, ranch, # of stairs 1 step up into and 3 steps into the kitchen basement . * Distance to [facility]: 1 hour and a half. * Pets: 3 monkeys that are small. * Does Patient Feel Safe in Home? yes. * Transportation: Patient does have adequate transportation. * # Licensed Drivers in the Home: 2. * Does Patient Drive? yes. * # Reliable Vehicles: 2. * Does Patient use Public Transportation? no. * Does Patient use Medical Transportation? no. * The patient reports his/her mood as: not too bad, a little disappointed to not be able to do with he use to, high spirited. * Reported Mental Health Diagnosis: none * Family History of Mental Health Concerns: none reported * What are patient's psychosocial stressors? Sue, worried about bills, doesn t want to lose house, everyday things, what can I get rid of or sell to bring in money. * Cognition: No cognitive deficits reported or observed. * Current Medications: none. * OTC Meds: Advil once in a while, multivitamin * Past Medications: none. * Counseling: never * Patient has not been hospitalized for mental health. * Referral to Transplant Psych? yes. * Mental Health Follow Up Required no. * History of Suicide Ideation: No * History of Suicide Attempt: No * History of Suicide Ideation in the past 3 months: No. * Patient's Reported Trauma History: none reported * What are patient's coping behaviors? crossword puzzles, sodoku, camping for the weekend, be outside, eileen in the [employer] sold camper, gatherings, lin. * Methodist/Spirituality: none. * Attitude toward Interviewer: cooperative and appropriate. * Eye Contact: Patient maintained good eye contact throughout appointment. * Appearance: The patient was neatly groomed, appropriately dressed and adequately nourished. * Affect: appropriate. * Thought Process: appropriate. * Current Tobacco User? No. * Former Tobacco User? Yes. Describe past tobacco use and date quit: started smoking at 10 on and off, buying at 14, up to 2 ppd but not everyday, December2020 quit * Current Alcohol User? No. not reported not reported * Former Alcohol User? Yes. Describe past alcohol use and date quit: quit in back in 1999 every once in a while would stop after work and have a beer, drank a bit more during divorce never drank everyday * Has patient ever gone to CD treatment? No. * Attends AA meetings? never * Do support people drink alcohol? Yes. * If yes, describe support people's use: mom drinks every once in a while. * Is alcohol kept in the home? Yes. * Does Patient need to sign a CD contract? No. * Current Illegal / Unprescribed Drug User? No. * Former Illegal / Unprescribed Drug User? No. * Has patient ever gone to CD treatment? No. * Attends AA/NA meetings? never * Do support people use illegal drugs? No. * Are illegal drugs kept in the home? No. * Does Patient need to sign a CD contract? No. * Prescription Drug Abuse: patient has not experienced feelings of addiction, patient has not experienced symptoms of withdrawal and patient has not experienced any side effects. * Does Patient Meet the Criteria for Alcohol Use Disorder? No. Does Patient Meet [place]OT[facility] guidelines? Yes * Does Patient Does Patient Meet the Criteria for Illegal Drug Use Disorder? No. Does Patient Meet [place]OTC guidelines? Yes * Legal Issues: patient has had no arrests * Patient is not currently on probation or parole. * Mcc: No * Citizenship: [place] Citizen: Yes * Advance Directives: no documents provided * has a will but not living will and nothing in the system [id number] [address] Work Phone: Hospital course Narrative No data available for this section [facility] progress note No data available for this section [facility] Summary Purpose Family History No Family History Records FoundUnknown Family Member Name Dates Details : Father, Sister Status:Active Malignant neoplasm of overla pping sites of lung, unspecified laterality: Father, Sister Status:Active No pertinent family history: Mother(V49.89, Z78.9) Status:Active Unknown Family Member Name Dates Details : Father, Sister Status:Active Malignant neoplasm of overla pping sites of lung, unspecified laterality: Father, Sister Status:Active No pertinent family history: Mother(V49.89, Z78.9) Status:Active Unknown Family Member Name Dates Details : Father, Sister Status:Active Malignant neoplasm of overla pping sites of lung, unspecified laterality: Father, Sister Status:Active No pertinent family history: Mother(V49.89, Z78.9) Status:Active Unknown Family Member Name Dates Details : Father, Sister Status:Active Malignant neoplasm of overla pping sites of lung, unspecified laterality: Father, Sister Status:Active No pertinent family history: Mother(V49.89, Z78.9) Status:Active Unknown Family Member Name Dates Details : Father, Sister Status:Active Malignant neoplasm of overla pping sites of lung, unspecified laterality: Father, Sister Status:Active No pertinent family history: Mother(V49.89, Z78.9) Status:Active Unknown Family Member Name Dates Details : Father, Sister Status:Active Malignant neoplasm of overla pping sites of lung, unspecified laterality: Father, Sister Status:Active No pertinent family history: Mother(V49.89, Z78.9) Status:Active Unknown Family Member Name Dates Details : Father, Sister Status:Active Malignant neoplasm of overla pping sites of lung, unspecified laterality: Father, Sister Status:Active No pertinent family history: Mother(V49.89, Z78.9) Status:Active Relationship Condition Age at Onset Recorded Date/T emy father Malignant neoplasm of lung Unknown family member Malignant neoplasm of lung Unknown family member Malignant neoplasm Unknown grandparent Diabetes mellitus Unknown father Family history of lung cancer Unknown Malignant neoplasm Unknown Advance Directives No Advanced Directives Records Found Advance Directive Response Recorded Date/ Time Advance Directives No November 11:46am Chief Complaint and Reason for Visit Chief Complaint Wellness Reason for Visit ASHD (arteriosclerot ic heart disease) Benign prostatic hyperplasia with lower urinary tract symptoms Chronic bronchitis Colon polyp Hypercalcemia Nicotine addiction NSVT (nonsustained ventricular tachycardia) Additional Source Comments (unrecognized sect ion and content) No Status Records FoundNo Status Records FoundNo Status Records FoundNo Status Records FoundNo Status Records FoundNo Status Records Found INFORMATION SOURCE (unrecogn ized section and content) DATE CREATED AUTHOR 03/22/2021 [facility] DATE CREATED AUTHOR AUTHOR'S ORGANIZ ATION 03/03/2022 [employer] DATE CREATED AUTHOR AUTHOR'S ORGANIZ ATION 05/11/2022 [facility] DATE CREATED AUTHOR AUTHOR'S ORGANIZ ATION 07/01/2022 [facility] DATE CREATED AUTHOR AUTHOR'S ORGANIZ ATION 06/25/2023 [facility] DATE CREATED AUTHOR AUTHOR'S ORGANIZ ATION 10/28/2023 [facility] REASON FOR VISIT (unrecogniz ed section and content) 4 month Follow upNo Informat ionreminderLab workLab ResultsUrology UpdateLab results6 month Follow up Patient Care team informatio n (unrecognized section and content) Team Status: Active Member Role Status Dates Paulino Wilson DO Primary Care Provider Active Team Status: Inactive Member Role Status Dates Paulino Wilson DO Primary Care Provide r, Attending Provider Active Start: October 15, 2023 End: October 15, 2023 Goals (unrecognized section and content) Goals may be documented in a n alternate section FOR RECORDS PERTAINING TO PATIENTS WHO ARE OR HAVE BEEN ENROLLED IN A CHEMICAL DEPENDENCY/SUBSTANCEABUSE PROGRAM, SOME INFORMATION MAY BE OMITTED. This clinical summary was aggregated from multiple sources. Caution should be exercised in using it in the provision of clinical care. This summary normalizes information from multiple sources, and as a consequence, information in this document may materially change the coding, format and clinical context of patient data. In addition, data may be omitted in some cases. CLINICAL DECISIONS SHOULD BE BASED ON THE PRIMARY CLINICAL RECORDS. [facility] [employer] [facility]. provides no warranty or guarantee of the accuracy or completeness of information in this document.
[2023-12-23 14:07] LABS: Prostate Specific Antigen Dx 0.73 ng/mL (<=4.00)
== END 2023-12-23 12:01 | disposition home or self-care (01) ==
PROVIDERS: PCP Internal Medicine; Visit Provider Urology
DX: N40.1 Benign prostatic hyperplasia with lower urinary tract symptoms (principal)
CPT/HCPCS: 36415; 84153

== ENCOUNTER 2024-04-20 11:26 | Outpatient (OUT) | payer MEDICARE, SELFPAY ==
--- OUTSIDE RECORDS SUMMARY | 2024-04-20 11:33 | XMS_ITS | CCD ---
Author Organization [facility] Care Team Providers Care Clinical Rn Manager Name Role Phone ELTAHAWY, EHAB A Attending Unavailable ELTAHAWY, EHAB A Admitting Unavailable SELF, REFERRED Referring Unavailable BALL, PAULINO Primary Care Unavailable Pending Provider Unavailable Unavailable Unavailable Unavailable Hunter Smith Attending Unavai lable Sam, Dr. Princess Brown Referring Unavailab le Pending, Provider Primary Care Unavailable JESENIA, Dr. PAULINO BRISENO Admitting Unav ailable YOUNG, Dr. PAULINO BRISENO Attending Unav ailable Donato, Dr. Moises Urena Referring Unavailab le Pending, [...] Unavailable ZIEBER, DR NOEMI Watson Consulting Unavailable SEGUNDO, DR ECHAVARRIA Primary Care Unavailable BALL, DR ECHAVARRIA Admitting Unavailable BALL, DR ECHAVARRIA Attending Unavailable SEGUNDO, DR ECHAVARRIA Primary Care Unavailable MISC, DR STRANGE Consulting Unavailable MISC, DR STRANGE Admitting Unavailable MISC, DR STRANGE Attending Unavailable JUAN, DR NOEMI Watson Consulting Unavailable SAMSA ., PRINCESS Attending Unavailable WEST, DR OJ Adler Consulting Unavailable SEGUNDO, DR ECHAVARRIA Primary Care Unavailable SAMSA ., PRINCESS Admitting Unavailable SAMSA ., PRINCESS Consulting Unavailable SEGUNDO, DR ECHAVARRIA Primary Care Unavailable MISC, DR STRANGE Consulting Unavailable MISC, DR STRANGE Admitting Unavailable MISC, DR STRANGE Attending Unavailable SEGUNDO, DR ECHAVARIRA Primary Care Unavailable SAMSA ., PRINCESS Attending Unavailable SAMSA ., PRINCESS Admitting Unavailable TIMMIDarlene, DR VELAZQUEZ Admitting Unavailable SEGUNDO, DR ECHAVARRIA Primary Care Unavailable TIMMIS, DR VELAZQUEZ Attending Unavailable Paulino Wilson Unavailable PAULINO WILSON Primary Care Physician MARGARET CASTILLO Attending Unavailable Calvin WALKER Attending Unavailable Calvin WALKER Attending Unavailable PAULINO WILSON Referring Unavailable Calvin WALKER Attending Unavailable Allergies Allergy Classification Reported Allergen(s) Allergy Type Date of Onset Reaction(s) Facility (1 source) No Known Medication Allergies; Translations: [No Known Medication Allergies] Propensity to adverse reactions (disorder) [facility] Repository Medications Current Medications Medication Drug Class(es) Dates Sig (Normalized) Sig (Original) [id number] 200 actuat albuterol 0.09 mg/actuat metered dose [...] : 21-Feb-2021 Active take 2 puff(s) by mo ut every four hours as needed for cough Albuterol Sulfate HFA 108 (90 Base) MCG/ACT INHALE 2 PUFFS BY MOUTH EVERY 4 HOURS NEEDED FOR COUGH OR SHORTNESS OF BREATH Active take 2 puff(s) by mo ut every four hours as needed for cough Albuterol Sulfate HFA 108 (90 Base) MCG/ACT INHALE 2 PUFFS BY MOUTH EVERY 4 HOURS NEEDED FOR COUGH OR SHORTNESS OF BREATH Active take 2 puff(s) by mo [facility] every four hours as needed for cough Albuterol Sulfate HFA 108 (90 Base) MCG/ACT INHALE 2 PUFFS BY MOUTH EVERY 4 HOURS NEEDED FOR COUGH OR SHORTNESS OF BREATH Active 24 hr alfuzosin hydrochloride 10 mg extended release oral tablet (3 sources) alpha-Adrenergic Michael Start: 04-29-2023 End: 04-23-2024 take 1 tablet by mouth once daily alfuzosin 10 mg ER Tab 10 mg = 1 tab(s), Oral, Daily, X 90 day(s), # 90 tab(s), Refills(s) 3, Pharmacy: [facility]/pharmacy #[id number], 189.9, cm, 04/29/23 11:25:00 EST, Height/Length Dosing, 75.5, kg, 04/29/23 11:25:00 EST, Weight Dosing Start Date: 04/29/23 Stop Date: 04/23/24 Status: Ordered aspirin 81 mg delayed release oral tablet (18 sources) Platelet Aggregation Inhibitor, Nonsteroidal Anti-inflammatory Drug Start: 10-15-2023 take 81 mg by mouth once daily Aspirin Active 81 MG PO Daily October 15, 2023 12:00am Start: 04-29-2023 [facility] ASPIRIN EC 81 MG TABLET [facility] ASPIRIN EC 81 MG TABLET Start Date: 04/29/23 Status: Ordered Start: 02-22-2021 take 1 tablet by mouth once da ariadne Aspirin Low Dose 81 MG Oral Tablet Delayed Release TAKE 1 TABLET BY MOUTH EVERY DAY Quantity: 90 Refills: 0 Ordered: 16-Aug-2021 DO Start : 22-Feb-2021 Active atorvastatin 80 mg oral tablet (18 sources) HMG-CoA Reductase Inhibitor Start: 04-29-2023 take 80 mg by mouth once daily Atorvastatin Active 80 MG PO Daily October 15, 2023 12:00am Start: 02-22-2021 take 1 tablet by gene th once daily Atorvastatin Calcium 80 MG Oral Tablet TAKE 1 TABLET BY MOUTH EVERY DAY Quantity: 90 Refills: 0 Ordered: 16-Aug-2021 DO Start : 22-Feb-2021 Active Breztri Aerosphere inhalation aerosol (2 sources) Start: 04-29-2023 Breztri Aerosp here inhalation aerosol Refill(s) 0 Start Date: 04/29/23 Status: Ordered metoprolol tartrate 25 mg oral tablet (18 sources) beta-Adrenergic Michael Start: 10-15-2023 take 25 mg by mouth twice daily Metoprolol Tartrate Active 25 MG PO Twice daily October 15, 2023 12:00am Start: 04-29-2023 take 1 tablet by mouth once da ariadne Lopressor 25 mg oral tablet 25 mg = 1 tab(s), Oral, Daily, Refills(s) 0 Start Date: 04/29/23 Status: Ordered Start: 01-11-2021 take 1 tablet by gene th twice daily at mealtime Metoprolol Tartrate 25 [...] disease (20 sources) Atherosclerotic heart disease of [place] coronary artery without angina pectoris; Translations: [Atherosclerosis of coronary artery without angina pectoris] Onset: 1 Chronic Disorders of lipid metabolism (11 sources) Hyperlipidemia, unspecified; Translations: [Hypercholesterolemia] Onset: 2 Chronic Essential hypertension (1 source) Essential (primary) hypertension; Translations: [Essential (primary) hypertension] Onset: 2 Chronic Genitourinary symptoms and ill-defined conditions (1 source) Poor urinary stream Episodic Hyperplasia of prostate (20 sources) Lower urinary tract symptoms due to [...] Long-term current use of inhaled steroid; 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] Episodic Other aftercare (1 source) 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 Episodic Other and unspecified [...] of mental health and substance abuse codes (10 sources) Personal history of nicotine dependence; Translations: [...] Onset: 09-11-2021 Episodic Other aftercare (1 source) 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; Translations: [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] Onset: 01-30-2022 Episodic Other aftercare (1 source) skilled nursing (current) use of aspirin; 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] Onset: 01-30-2022 Episodic [...] Test Name Value Interpretation Reference Range Facility Ambulatory Visit Summaryon 1 Ambulatory Visit Summary Ambulatory Visit Summary PATRICK LIRIANO :1960 Visit Date:12/27/2023 Ambulatory Visit Instructions Your Diagnosis BPH with obstruction/lower urinary tract symptoms Former smoker Your Care Team Attending Physician - Calvin WALKER MD Primary Care Physician - PAULINO WILSON DO This Is Your Medications List Contact prescribing physician if questions or concerns Misc Prescription ([facility] ASPIRIN EC 81 MG TABLET) alfuzosin (alfuzosin 10 mg ER Tab) atorvastatin (atorvastatin 80 mg Tab) budesonide/formoterol/gly copyrrolate (Breztri Aerosphere inhalation aerosol) metoprolol (Lopressor 25 mg oral tablet) Procedures Performed Arm, Cardiac catheter, Finger. Discharge Vitals Temperature (Temporal Artery) 37 ?C Heart Rate (Peripheral) 62 Respiratory Rate 16 Blood Pressure 107/65 Height 189.9 cm Height 75 in Weight 75 kg Weight 165 lb BMI 20.8 What to do next Scheduled Follow-Up Appointments Saturday 9:45 AM EDT With: Calvin WALKER MD Where: [facility] [address] [id number]- You Need to Schedule the Following Appointments Follow Up with LIZETH WOODALL, Calvin Watson, URL When: Where: [address] [place] [address]- Medications What How Much When Instructions Unchanged alfuzosin (alfuzosin 10 mg ER Tab) 1 Tablets By Mouth Every day Duration: 90 Days Contact prescribing physician if questions or concerns Unchanged atorvastatin (atorvastatin 80 mg Tab) Contact prescribing physician if questions or concerns Unchanged budesonide/ formoterol/ glycopyrrolate (Breztri Aerosphere inhalation aerosol) Contact prescribing physician if questions or concerns Unchanged metoprolol (Lopressor 25 mg oral tablet) 1 Tablets By Mouth Every day Contact prescribing physician if questions or concerns Unchanged Misc Prescription ([facility] ASPIRIN EC 81 MG TABLET) 0 Contact prescribing physician if questions or concerns Allergies No Known Medication Allergies Problems Ongoing - Any problem that you are currently receiving treatment for. 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 Please share your experience with us by completing your survey. We appreciate your feedback and thank you for choosing us for your care. Education Materials Benign Prostatic Hyperplasia Benign prostatic hyperplasia (BPH) [...] test uses sound waves to electronically produce (more content not included)... Normal [facility] Urology Office/Clinic Noteon 12-27-2023 Urology Office/Clinic Note Urology Office/Clinic Note Chief Complaint BPH with obstruction /LUTS HPI Staff 6 mos w/ PSA. Previous dx: BPH with obstruction/LUTS, former smoker. Started on Alfuzosin at prior OV PSA 12/23/23 - 0.73 Dysuria: denies Incomplete bladder emptying: denies Hematuria: denies Frequency: denies Urgency: denies Nocturia: denies Stream: no straining or intermittency Leaking: denies Post void dripping: denies Wearing pads/ Depends: denies Urge incontinence: denies Stress incontinence: denies Incontinence without Sensory Awareness: denies Abdominal pain: denies Flank pain: denies Sexual complaints: denies History of Present Illness Tests reviewed: reviewed PSA. I have reviewed the previous health record information and history for this patient from Dr. Walker. I have reviewed and verified the staff HPI to be accurate for this encounter. There have been no associated fever, chills, flank pain, or blood in the urine. Denies any urinary infections since last encounter. Review of Systems PHQ Score Initial [...] See HPI. Physical Exam Vitals & Measurements T: 37 ?C(Temporal Artery) HR: 62(Peripheral) RR: 16 BP: 107/65 HT: 75 in HT: 189.9 cm WT: 75 kg WT: 165 lb BMI: 20.8 General Appearance: alert, no distress, well nourished, well developed male. Assessment/Plan 1. BPH with obstruction/lower urinary tract symptoms (N40.1: Benign prostatic hyperplasia with lower urinary tract symptoms) PSA 08/09/20 - 1.17 08/18/21 - 0.56 10/26/22 - 3.43 12/05/22 - 2.4 & 10.4% 04/23/23 - 1.86 12/23/23 - 0.73 Prior IPSS 5. No fam hx of prostate ca. Cardiac Cath in Feb. States he feel this has affected his bladder sensation. Started on Alfuzosin 10mg ER qd at last visit. ANGEL 04/29/23: ~40g, benign Decrease in PSA is favorable. Will cont to monitor. Pt states he is pleased since starting Alfuzosin. Stream can be weak at times but this is not bothersome. Emptying well. Nocturia 0x. Denies infections since last visit. Pt does admit to high intake of coffee, denies hx of kidney stones. -Cont med wo changes -Follow up in 1 year w/ PSA [PCP orders] 2. Former smoker (Z87.891: Personal history of nicotine dependence) No urine sample today to check for microscopic hematuria. Risk factor for urothelial ca. Follow-up With When Contact Information LIZETH WOODALL, Calvin Watson, URL [address] [id number]- Additional Instructions: 1 year w/ PSA Patient Education Benign Prostatic Hyperplasia I, Farrah Maria, personally scribed for Dr. Walker on 12/27/2023 11:29:24. . Documentation recorded by the scribe, Farrah Maria, accurately reflects the services(s) I performed and decisions made by me. Authenticated by Dr. Walker on 12/27/2023 11:33:00. 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 Medications alfuzosin 10 mg ER Tab, 10 mg= 1 tab(s), Oral, Daily, 3 refills atorvastatin 80 mg Tab Breztri Aerosphere inhalation aerosol [facility] ASPIRIN EC 81 MG TABLET, 0 Lopressor 25 mg oral tablet, 25 mg= 1 tab(s), Oral, Daily Allergies No Known Medication Allergies Social History Tobacco Former smoker, quit more than 30 days ago Tobacco Use:. Never Smokeless Tobacco Use:. Cigarettes, Household tobacco concerns: No. Yes, 12/27/2023 Immunizations Vaccine Date Status Comments SARSCoV2 mRNA(oekukxmjb-sdrk-zdijg s) vac 04/04/2022 Recorded 2023-04-29: TPV60 SARSCoV2 mRNA(lnoxzulla-vpye-yffla s) vac 03/14/2022 Recorded 2023-04-29: TPV60 influenza virus vaccine, inactivated 03/11/2022 Recorded Normal [facility] Comment on above: Result Comment: Elec tronically Signed By: Calvin WALKER MD\.br\Date and Time Signed: 12/27/23 11:33 EDT\.br\Electronically Co-Signed By: Farrah Maria\.br\Date and Time Co-Signed: 12/27/23 11:30 EDT Office Visiton 06-20-2023 Follow-up visit [id number] Brad Liriano 1960 M Date Provider Department Center 06/20/2023 MARGARET WRAY CARD [facility] Family History Problem Relation Age of Onset No Known Problems Mother No Known Problems Father Family Status - Relation Status Age at Mother Father Level of Service:83547 AL OFFICE/OUTPATIENT ESTABLISHED LOW MDM 20 MIN Reason for Visit and Comments: Coronary Artery Disease [187] Hypertension [200907] Normal [facility] Physician Referralon 024 Physician Referral [id number] Normal [facility] Screenson 04-30-2023 Screens [id number]#[id number] Normal [facility] Patient Educationon 04-29-19 Patient Education Urology Benign Prostatic Hyperplasia Benign [...] Follow these instructions at home: ? Take ldcp-nwt-snkhprr and prescription medicines only as told by [...] the medicine (more content not included)... Normal [facility] Lab Reportson 04-27-2023 Lab Reports [id number]#[id number] Normal [facility] MG MAMM DIAGNOSTIC 3D MATT CA Don 06-26-2022 MG MAMM DIAGNOSTIC 3D MATT CAD Patient: PATRICK LIRIANO Exam Date: 06/26/2022 : 1960 Gender:M Ordering : DR PAULINO WILSON D.O. Admission #: [id number] Family : Order #: [id number] CLICK HERE TO VIEW EXAM RADIOLOGY REPORT [...] Treatments None Family Cancers None LOCATION: [facility] BREAST COMPOSITION: Almost entirely fatty. FINDINGS: [...] Conrad M.D. on 06/26/2022 at 13:25 Normal [facility] US BREAST LEFT LIMITEDon US BREAST LEFT LIMITED Patient: PATRICK LIRIANO Exam Date: 06/26/2022 : 1960 Gender:M Ordering : DR PAULINO WILSON D.O. Admission #: [id number] Family : Order #: [id number] CLICK HERE TO VIEW EXAM RADIOLOGY REPORT [...] Treatments None Family Cancers None LOCATION: [facility] BREAST COMPOSITION: Almost entirely fatty. FINDINGS: [...] on 06/26/2022 at 13:25 Normal [facility] HLA CLASS I SP AB ID, HDon 1 HLA CLASS I SP AB ID,HD SEE COMMENT Normal [facility] Comment on above: Result Comment: HLA- CLASS I SP ANTIBODY IDENTIFICATION, HIGH DEFINITION SEE SEPARATE REPORT. Test performed at [facility], [address]th Floor [id number] [place] [address] Performed By: #### I GA #### [facility] [address] [facility] [place] [address] HLA CLASS II SP AB ID, HDon 03-23-2022 HLA CLASS II SP AB ID,HD SEE COMMENT Normal [facility] Comment on above: Result Comment: HLA- CLASS II SP ANTIBODY IDENTIFICATION, HIGH DEFINITION SEE SEPARATE REPORT. Test performed at [facility], 6th Floor [address] [place] [address] Performed By: #### I GA #### [facility] [address] [facility] [place] [address] HLA CLASS II SP AB ID,HD SEE COMMENT Normal [facility] Comment on above: Result Comment: HLA- CLASS II SP ANTIBODY IDENTIFICATION, HIGH DEFINITION SEE SEPARATE REPORT. Test performed at [facility], 6th Floor [address] [place] [address] Performed By: #### H LHD2 #### [facility] [address] [place] [id number] HLA-A,B,C LRon 03-23-2022 HLA-A LOCUS LR TYPE SEE COMMENT Normal [facility] Comment on above: Result Comment: HLA- A LOCUS, LOW RESOLUTION TYPE SEE SEPARATE REPORT. Performed By: #### H AVTO #### [facility] [address] [place] [id number] HLA-B LOCUS LR TYPE SEE COMMENT Normal [facility] Comment on above: Result Comment: HLA- B LOCUS, LOW RESOLUTION TYPE SEE SEPARATE REPORT. Performed By: #### H AVTO #### [facility] [address] [place] [id number] HLA-C LOCUS LR TYPE SEE COMMENT Normal [facility] Comment on above: Result Comment: HLA- C LOCUS, LOW RESOLUTION TYPE SEE SEPARATE REPORT. Test performed at [facility], [address]th Floor [address] [place] [address] Performed By: #### H AVTO #### [facility] [address] [place] [id number] HLA-DPB1 HR TYPINGon HLA-DPB1 HR TYPING SEE COMMENT Normal [facility] Comment on above: Result Comment: HLA- DPB1 HIGH RESOLUTION TYPING SEE SEPARATE REPORT. Test performed at [facility], 6th Floor [address] [place] [address] Performed By: #### S YPHR #### [facility] [address] [place] [id number] HLA-DQB1 HR TYPINGon 022 HLA-DQB1 HR TYPING SEE COMMENT Normal [facility] Comment on above: Result Comment: HLA- DQB1 HIGH RESOLUTION TYPING SEE SEPARATE REPORT. Test performed at [facility], 6th Floor [address] [place] [address] Performed By: #### D QBHT #### [facility] [address] [place] [address] HLA-DRB1/3/4/5 AND DQB1 LR T YPINGon 03-23-2022 HLA-DRB1/3/4/5 & DQB1 LR TYPING SEE COMMENT Normal [facility] Comment on above: Result Comment: HLA- DRB1/3/4/5 AND DQB1 LOW RESOLUTION TYPING SEE SEPARATE REPORT. Test performed at [facility], 6th [id number] [place] [address] Performed By: #### T ETAB #### [facility] [place], [place] [id number] HEP B VIRAL DNA, ULTRA QUANT PCRon 03-08-2022 HBV DNA PCR COMMENT SEE BELOW Normal [facility] Comment on above: Result Comment: Repo rtable [...] the Molecular Diagnostic Laboratory, Department of Pathology, [facility]. Performed By: #### I GA #### [facility] [address] [place] [address] HBV DNA QUANT PCR IU/ML Not detected Normal Not Detected [facility] Comment on above: Performed By: #### I GA #### [facility] [address] [place] [address] HBV DNA QUANT PCR LOG NOT CALCULATED Normal [facility] Comment on above: Performed By: #### I GA #### [facility] [address] [place] [address] HISTOPLASMA ABS,(CF/ID)on HISTOPLASMA,ABS (ID) Not detected Normal Not Detected [facility] Comment on above: Result Comment: No H istoplasma antibodies were detected. This result does not exclude Histoplasma infection. Performed by [facility], [address] [place] [address] [email or web address], Garfield Torrez MD, PHD - Lab. Director Performed By: #### I GA #### [facility] [address] [place] [address] HISTOPLASMOSIS MYCELIA <1:8 Normal <1:8 [facility] Comment on above: Result Comment: INTR EPRETIVE INFORMATION: Histoplasma Mycelia Antibodies by CF A titer of 1:8 or greater is generally considered presumptive evidence of histoplasmosis. A titer of 1:32 or greater or rising titers indicate strong presumptive evidence of histoplasmosis. Cross reactions, usually at lower titers, may occur with other fungal diseases. Performed By: #### I GA #### [facility] [address] [place] [address] HISTOPLASMOSIS YEAST <1:8 Normal <1:8 [facility] Comment on above: Result Comment: INTE RPRETIVE INFORMATION: Histoplasma Yeast Antibodies by CF A titer of 1:8 or greater is generally considered presumptive evidence of histoplasmosis. A titer of 1:32 or greater or rising titers indicate strong presumptive evidence of histoplasmosis. Cross reactions, usually at lower titers, may occur with other fungal diseases. Performed By: #### I GA #### [facility] [address] [place] [address] CMV IGM ABon 03-07-2022 CMV IGM AB <30.00 Normal [facility] Comment on above: Result Comment: REFE RENCE [...] or more weeks. Performed By: #### C MVM2 #### [facility] [address] [place] [address] STREP PNEUMO IGG AB 23 SEROT YPESon 03-07-2022 SEROTYPE 1 <0.1 Low >1.3 [facility] Comment on above: Performed By: #### H IV #### [facility] [address] [place] [address] SEROTYPE 10A[34] 0.1 ug/mL Low >1.3 [facility] Comment on above: Performed By: #### H IV #### [facility] [address] [place] [address] SEROTYPE 11A[43] <0.1 Low >1.3 [facility] Comment on above: Performed By: #### H IV #### [facility] [address] [place] [address] SEROTYPE 12F <0.1 Low >1.3 [facility] Comment on above: Performed By: #### H IV #### [facility] [address] [place] [address] SEROTYPE 14 <0.1 Low >1.3 [facility] Comment on above: Performed By: #### H IV #### [facility] [address] [place] [address] SEROTYPE 15B[54] <0.1 Low >1.3 [facility] Comment on above: Performed By: #### H IV #### [facility] [address] [place] [address] SEROTYPE 17F <0.1 Low >1.3 [facility] Comment on above: Performed By: #### H IV #### [facility] [address] [place] [address] SEROTYPE 18C[56] <0.1 Low >1.3 [facility] Comment on above: Performed By: #### H IV #### [facility] [address] [place] [address] SEROTYPE 19A[57] 0.1 ug/mL Low >1.3 [facility] Comment on above: Performed By: #### H IV #### [facility] [address] [place] [address] SEROTYPE 19F 0.2 ug/mL Low >1.3 [facility] Comment on above: Performed By: #### H IV #### [facility] [address] [place] [address] SEROTYPE 2 <0.1 Low >1.3 [facility] Comment on above: Performed By: #### H IV #### [facility] [address] [place] [address] SEROTYPE 20 <0.1 Low >1.3 [facility] Comment on above: Performed By: #### H IV #### [facility] [address] [place] [address] SEROTYPE 22F <0.1 Low >1.3 [facility] Comment on above: Performed By: #### H IV #### [facility] [address] [place] [address] SEROTYPE 23F <0.1 Low >1.3 [facility] Comment on above: Performed By: #### H IV #### [facility] [address] [place] [address] SEROTYPE 3 0.3 ug/mL Low >1.3 [facility] Comment on above: Performed By: #### H IV #### [facility] [address] [place] [address] SEROTYPE 33F[70] <0.1 Low >1.3 [facility] Comment on above: Result Comment: *Thi s test was developed and its performance characteristics determined by [employer]. It has not been cleared or approved by the U.S. Food and Drug Administration. Performed At: [facility] [address] [place] [address] Vise Hand: Ciaran Baxter Ph.D., BCLD (ABB) CLIA#: [id number] Phone: Performed By: #### H IV #### [facility] [address] [place] [address] SEROTYPE 4 <0.1 Low >1.3 [facility] Comment on above: Performed By: #### H IV #### [facility] [address] [place] [address] SEROTYPE 5 <0.1 Low >1.3 [facility] Comment on above: Performed By: #### H IV #### [facility] [address] [place] [address] SEROTYPE 6B[26] <0.1 Low >1.3 [facility] Comment on above: Performed By: #### H IV #### [facility] [address] [place] [address] SEROTYPE 7F[51] <0.1 Low >1.3 [facility] Comment on above: Performed By: #### H IV #### [facility] [address] [place] [address] SEROTYPE 8 <0.1 Low >1.3 [facility] Comment on above: Performed By: #### H IV #### [facility] [address] [place] [address] SEROTYPE 9N <0.1 Low >1.3 [facility] Comment on above: Performed By: #### H IV #### [facility] [address] [place] [address] SEROTYPE 9V[68] <0.1 Low >1.3 [facility] Comment on above: Performed By: #### H IV #### [place] [address] [place] [address] DIPHTHERIA ABon 03-06-2022 DIPHTHERIA AB 0.27 IU/mL Normal <0.10 [facility] [place] Comment on above: Result Comment: Inte rpretation: Non-Protective <0.10 Protective >=0.10 For research use only. Performed By: #### H IV #### [facility] [address] [place] [address] H. INFLUENZA B AB, IGGon H. INFLUENZA B AB, IGG 0.1 ug/mL Normal [facility] Comment on above: Result Comment: INTE RPRETIVE [...] developed and its performance characteristics determined by [employer]. It has not been cleared or approved by the US Food and Drug Administration. This test was performed in a CLIA certified laboratory and is intended for clinical purposes. Performed By: [facility] [address] [place] [address] Vise Hand: Garfield Torrez MD, PhD Performed By: #### H IV #### [facility] [address] [place] [address] TETANUS ABon 03-06-2022 TETANUS AB >7.00 Normal <0.10 [facility] Comment on above: Result Comment: Inte rpretation: Non-Protective <0.10 Protective >=0.10 Results for this test are for research purposes only by the assay's washing machine mechanic. The performance characteristics of this product have not been established. Results should not be used as a diagnostic procedure without confirmation of the diagnosis by another medically established diagnostic product or procedure. Performed By: #### T ETAB #### [facility] [address] [place], [place] [id number] TOXO IGMon 03-04-2022 TOXOPLASMA IGM <3.0 Normal <=7.9 [facility] Comment on above: Result Comment: INTE [...] post-infection. This test is performed using the [employer] LIAISON. As suggested by the CDC, any [...] the amount of antibody present. Performed By: [facility] [address] [place] [address] Vise Hand: Garfield Torrez MD, PhD Performed By: #### H IV #### [facility] [address] [place] [address] T-SPOT TBon 03-03-2022 NIL[NEG]CONTROL SPOT COUNT Passed Normal [facility] Comment on above: Performed By: #### I GA #### [facility] [address] [place] [address] PANEL A SPOT COUNT 0 Normal [facility] Comment on above: Performed By: #### I GA #### [facility] [address] [place] [address] PANEL B SPOT COUNT 0 Normal [facility] Comment on above: Performed By: #### I GA #### [facility] [address] [place] [address] POS CONTROL SPOT COUNT Passed Normal [facility] Comment on above: Performed By: #### I GA #### [facility] [address] [place] [address] T-SPOT.TB INTERP Negative Normal Normal Valu e: Negative [facility] Comment on above: Result Comment: A ne [...] test. Performed By: #### I GA #### [facility] [address] [place] [address] Generalized Anxiety Disorder -7on 03-02-2022 Adult depression screening assessment In Remission (0-4) [facility] [address] Work Phone: Generalized Anxiety Disorder-7 2 1 [facility] [address] Work Phone: [phone] Generalized Anxiety Disorder-7 1-Several days [facility] [address] Work Phone: Generalized Anxiety Disorder-7 0-Not at all [facility] [address] Work Phone: [phone] HCV RNA BY PCR [VIRAL LOAD]o n 03-02-2022 HCV RNA, PCR Not detected Normal [facility] Comment on above: Result Comment: REF VALUE NOT DETECTED Performed By: #### T ETAB #### [facility] [place], [place] [id number] HCV RNA,PCR, LOG NOT CALCULATED Normal [facility] Comment on above: Result Comment: Repo rtable Range: 15-100,000,000 IU/mL. The lauren HCV is an in vitro nucleic acid amplification test for both the detection and quantitation of hepatitis C virus (HCV) RNA, in human EDTA plasma or serum, of HCV antibody positive or HCV-infected individuals on the lauren [employer]/8800 Systems. Dual probes are used to detect [...] the Molecular Diagnostic Laboratory, Department of Pathology, [facility]. Performed By: #### T ETAB #### [facility] [place], [place] [id number] SIPATon 03-02-2022 SIPAT 21-39 Minimally Acceptable Candidate [facility] [address] Work Phone: [phone] SIPAT 1) Good Understanding [facility] [place] [address] Work Phone: [phone] SIPAT 1) Good [facility] [address] Work Phone: [phone] SIPAT 2) Good [facility] [address] Work Phone: [phone] SIPAT 3) Late [facility] [address] Work Phone: [phone] SIPAT 8) Poor [facility] [address] Work Phone: [phone] SIPAT 6) Limited [facility] [place] [address] Work Phone: [phone] SIPAT 3) Limited [facility] [address] Work Phone: [phone] SIPAT 0) None [facility] [place] [address] Work Phone: [phone] SIPAT 0) No Clinical Depression [facility] [place] [address] Work Phone: [phone] SIPAT 0) No Clinical Anxiety [facility] [place] [address] Work Phone: [phone] SIPAT 1) Minimal [facility] [place] [address] Work Phone: [phone] SIPAT 2) Minor [facility] [address] Work Phone: [phone] SIPAT 2) Mild [facility] [place] [address] Work Phone: [phone] SIPAT 2) No Problematic Al cohol Use [facility] [place] [address] Work Phone: [phone] SIPAT 1) Low Risk [facility] [address] Work Phone: [phone] SIPAT 1) Past Use [facility] [place] [address] Work Phone: [phone] ABO/RH GROUP TESTon 03-01-20 22 ABO TYPE A Normal [facility] Comment on above: Performed By: #### A DONNA #### [facility] [address] [place] [address] RH TYPE Positive Normal [facility] Comment on above: Performed By: #### A DONNA #### [facility] [address] [place] [address] Antibody Assay, Diphtheriaon 03-01-2022 C. diphtheriae Ab IA Qn (S) 0.27 {IU/mL} <0.10 [facility] Work Phone: Comment on above: Interpretation: Non- Protective <0.10 Protective >=0.10 For research use only. Blood Typing (ABO + Rho D)on 03-01-2022 ABO group Nom (Bld) A [facility] [facility] Work Phone: Rh immune globulin screen (Bld) [Interp] Positive [facility] [facility] Work Phone: CBC AND DIFFERENTIALon 03-01 % AUTOMATED IMMATURE GRAN 0.3 % Normal 0.0 - 0.9 [facility] Comment on above: Result Comment: Cathleen ture Granulocyte Count (IG) includes promyelocytes, myelocytes and metamyelocytes but does not include bands. Percent differential counts (%) should be interpreted in the context of the absolute cell counts (cells/L). Performed By: #### I GA #### [facility] [address] [place] [address] Basophils (Bld) [#/Vol] 0.07 10*3/uL Normal 0.00 - 0.10 [facility] Comment on above: Performed By: #### I GA #### [facility] [address] [place] [address] Basophils/100 WBC (Bld) 0.6 % Normal 0.0 - 2.0 [facility] Comment on above: Performed By: #### I GA #### [facility] [address] [place] [address] Eosinophils (Bld) [#/Vol] 0.26 10*3/uL Normal 0.00 - 0.70 [facility] Comment on above: Performed By: #### I GA #### [facility] [address] [place] [address] Eosinophils/100 WBC (Bld) 2.3 % Normal 0.0 - 6.0 [facility] Comment on above: Performed By: #### I GA #### [facility] [address] [place] [address] Erythrocyte distribution width (RBC) [Ratio] 13.0 % Normal 11.5 - 14.5 [facility] Comment on above: Performed By: #### I GA #### [facility] [address] [place] [address] Hematocrit (Bld) [Volume fraction] 47.9 % Normal 41.0 - 52.0 [facility] Comment on above: Performed By: #### I GA #### [facility] [address] [place] [address] Hemoglobin (Bld) [Mass/Vol] 15.6 g/dL Normal 13.5 - 17.5 [facility] Comment on above: Performed By: #### I GA #### [facility] [address] [place] [address] Lymphocytes (Bld) [#/Vol] 2.53 10*3/uL Normal 1.20 - 4.80 [facility] Comment on above: Performed By: #### I GA #### [facility] [address] [place] [address] Lymphocytes/100 WBC (Bld) 22.8 % Normal 13.0 - 44.0 [facility] Comment on above: Performed By: #### I GA #### [facility] [address] [place] [address] MCHC (RBC) [Mass/Vol] 32.6 g/dL Normal 32.0 - 36.0 [facility] Comment on above: Performed By: #### I GA #### [facility] [address] [place] [address] MCV (RBC) [Entitic vol] 92 fL Normal 80 - 100 [facility] Comment on above: Performed By: #### I GA #### [facility] [address] [place] [address] Monocytes (Bld) [#/Vol] 0.82 10*3/uL Normal 0.10 - 1.00 [facility] Comment on above: Performed By: #### I GA #### [facility] [address] [place] [address] Monocytes/100 WBC (Bld) 7.4 % Normal 2.0 - 10.0 [facility] Comment on above: Performed By: #### I GA #### [facility] [address] [place] [address] Neutrophils (Bld) [#/Vol] 7.37 10*3/uL Normal 1.20 - 7.70 [facility] Comment on above: Performed By: #### I GA #### [facility] [address] [place] [address] Neutrophils/100 WBC (Bld) 66.6 % Normal 40.0 - 80.0 [facility] Comment on above: Performed By: #### I GA #### [facility] [address] [place] [address] NUCLEATED RBC 0.0 /100 WBC Normal 0.0-0.0 [facility] Comment on above: Performed By: #### I GA #### [facility] [address] [place] [address] Platelets (Bld) [#/Vol] 355 10*3/uL Normal 150 - 450 [facility] Comment on above: Performed By: #### I GA #### [facility] [address] [place] [address] RBC 5.20 x10E12/L Normal 4.50 - 5.90 [facility] Comment on above: Performed By: #### I GA #### [facility] [address] [place] [address] WBC (Bld) [#/Vol] 11.1 10*3/uL Normal 4.4 - 11.3 [facility] Comment on above: Performed By: #### I GA #### [facility] [address] [place] [address] CMV IGG AND IGM ABon 022 CMV IGG AB Non-Reactive Normal NONREACTIVE [facility] [place] Comment on above: Performed By: #### T ETAB #### [facility] [place], [place] [id number] CMV IGM ABon 03-01-2022 CMV IgM IA Qn <30.00 [facility] [facility] Work Phone: Comment on above: REFERENCE [...] in two or more weeks. COMPREHENSIVE PANELon 12-08- 2022 Albumin [Mass/Vol] 4.8 g/dL Normal 3.4 - 5.0 [facility] Comment on above: Performed By: #### S YPHR #### [facility] [address] [place] [address] ALP [Catalytic activity/Vol] 128 U/L Normal 33 - 136 [facility] Comment on above: Performed By: #### S YPHR #### [facility] [address] [place] [address] ALT [Catalytic activity/Vol] 28 U/L Normal 10 - 52 [facility] Comment on above: Result Comment: Lorena ents treated with Sulfasalazine may generate falsely decreased results for ALT. Performed By: #### S YPHR #### [facility] [address] [place] [address] Anion gap [Moles/Vol] 14 mmol/L Normal 10 - 20 [facility] Comment on above: Performed By: #### S YPHR #### [facility] [address] [place] [address] AST [Catalytic activity/Vol] 23 U/L Normal 9 - 39 [facility] Comment on above: Performed By: #### S YPHR #### [facility] [address] [place] [address] Bilirubin [Mass/Vol] 1.0 mg/dL Normal 0.0 - 1.2 [facility] Comment on above: Performed By: #### S YPHR #### [facility] [address] [place] [address] Calcium [Mass/Vol] 11.4 mg/dL High 8.6 - 10.6 [facility] Comment on above: Performed By: #### S YPHR #### [facility] [address] [place] [address] Chloride [Moles/Vol] 100 mmol/L Normal 98 - 107 [facility] Comment on above: Performed By: #### S YPHR #### [facility] [address] [place] [address] Creatinine [Mass/Vol] 0.88 mg/dL Normal 0.50 - 1.30 [facility] Comment on above: Performed By: #### S YPHR #### [facility] [address] [place] [address] eGFR MALE >90 Normal >90 [facility] Comment on above: Result Comment: CALC ULATIONS OF ESTIMATED GFR ARE PERFORMED USING THE 2020 CKD-EPI STUDY REFIT EQUATION WITHOUT THE RACE VARIABLE FOR THE IDMS-TRACEABLE CREATININE METHODS. https://jasn.asnjournals.org/content/early/ASN.23845380 88 Performed By: #### S YPHR #### [facility] [address] [place] [address] Glucose [Mass/Vol] 96 mg/dL Normal 74 - 99 [facility] Comment on above: Performed By: #### S YPHR #### [facility] [address] [place] [address] HCO3 (Bld) [Moles/Vol] 29 mmol/L Normal 21 - 32 [facility] Comment on above: Performed By: #### S YPHR #### [facility] [address] [place] [address] Potassium [Moles/Vol] 4.4 mmol/L Normal 3.5 - 5.3 [facility] Comment on above: Performed By: #### S YPHR #### [facility] [address] [place] [address] Protein [Mass/Vol] 7.8 g/dL Normal 6.4 - 8.2 [facility] Comment on above: Performed By: #### S YPHR #### [facility] [address] [place] [address] Sodium [Moles/Vol] 139 mmol/L Normal 136 - 145 [facility] Comment on above: Performed By: #### S YPHR #### [facility] [address] [place] [address] Urea nitrogen [Mass/Vol] 13 mg/dL Normal 6 - 23 [facility] Comment on above: Performed By: #### S YPHR #### [facility] [address] [place] [address] CRP, HIGH SENSITIVITYon 12-0 8-2022 CRP, HIGH SENSITIVITY 4.0 mg/L Abnormal [facility] Comment on above: Result Comment: hsCR P INTERPRETATION mg/L < 1.0 LOW RELATIVE RISK OF CVD 1.0-3.0 AVERAGE RELATIVE RISK OF CVD > 3.0 HIGH RELATIVE RISK OF CVD Source: NELY TJael Colindres. et al. CIRCULATION 2003; 107:499-511. Performed By: #### S [facility] #### [facility] [address] [place] [address] CRP, High Sensitivityon 12-0 CRP High sensitivity method [Mass/Vol] 4.0 mg/L Abnormal [facility] [facility] Work Phone: Comment on above: SOURCE: hsCRP INTERP RETATION mg/L < 1.0 LOW RELATIVE RISK OF CVD 1.0-3.0 AVERAGE RELATIVE RISK OF CVD > 3.0 HIGH RELATIVE RISK OF CVD Source:NELY, T. A. et al. CIRCULATION 2003;107:499-511. Complete Blood Count + [facility], incon 03-01-2022 Basophils/100 WBC (Bld) 0.6 % 0.0 - 2.0 [facility] [facility] Work Phone: Erythrocyte distribution width (RBC) [Ratio] 13.0 % See Below [facility] Work Phone: Comment on above: Reference Range: 11. 5 - 14.5 Hematocrit (Bld) [Volume fraction] 47.9 % See Below [facility] Work Phone: Comment on above: Reference Range: 41. 0 - 52.0 Hemoglobin (Bld) [Mass/Vol] 15.6 g/dL See Below [facility] [facility] Work Phone: Comment on above: Reference Range: 13. 5 - 17.5 Lymphocytes/100 WBC (Bld) 22.8 % See Below [facility] [facility] Work Phone: Comment on above: Reference Range: 13. 0 - 44.0 MCHC (RBC) [Mass/Vol] 32.6 g/dL See Below [facility] [facility] Work Phone: Comment on above: Reference Range: 32. 0 - 36.0 MCV (RBC) [Entitic vol] 92 fL 80 - 100 [facility] [facility] Work Phone: Monocytes/100 WBC (Bld) 7.4 % 2.0 - 10.0 [facility] [facility] Work Phone: Neutrophils/100 WBC (Bld) 66.6 % See Below [facility] Work Phone: Comment on above: Reference Range: 40. 0 - 80.0 Platelets (Bld) [#/Vol] 355 10*3/uL 150 - 450 [facility] Work Phone: RBC (Bld) [#/Vol] 5.20 {x10E12/L} See Below [facility] [facility] Work Phone: Comment on above: Reference Range: 4.5 0 - 5.90 WBC (Bld) [#/Vol] 11.1 10*3/uL 4.4 - 11.3 [facility] [facility] Work Phone: Complete Blood Count + Differential 0.07 {x10E9/L} See Below [facility] [facility] Work Phone: Comment on above: Reference [...] Differential 0.3 % 0.0 - 0.9 [facility] Work Phone: Comment on above: Immature Granulocyte Count (IG) includes promyelocytes, myelocytes and metamyelocytes but does not include bands. Percent differential counts (%) should be interpreted in the context of the absolute cell counts (cells/L). Complete Blood Count + Differential 0.0 {/100_WBC} 0.0-0.0 [facility] Work Phone: DRUG SCREEN,URINE WITH REFLE X TO CONFIRMATIONon 03-01-2022 AMPHETAMINE SCREEN,U Canceled Normal [facility] Comment on above: Order Comment: TEST DRUG SCREEN,URINE WITH REFLEX TO CONFIRMATION WAS CANCELLED, :42 pt couldnt void. Result Comment: CUTO FF LEVEL: 500 NG/ML Cross-reactivity has been reported with high concentrations of the following drugs: buproprion, chloroquine, chlorpromazine, ephedrine, mephentermine, fenfluramine, phentermine, phenylpropanolamine, pseudoephedrine, and propranolol. Performed By: #### H IV #### [facility] [address] [place] [address] BARBITURATES SCREEN,U Canceled Normal [facility] Comment on above: Order Comment: TEST DRUG SCREEN,URINE WITH REFLEX TO CONFIRMATION WAS CANCELLED, :42 pt couldnt void. Result Comment: CUTO FF LEVEL: 200 NG/ML Performed By: #### H IV #### [facility] [address] [place] [address] BENZODIAZEPINES SCREEN,U Canceled Normal [facility] Comment on above: Order Comment: TEST DRUG SCREEN,URINE WITH REFLEX TO CONFIRMATION WAS CANCELLED, :42 pt couldnt void. Result Comment: CUTO FF LEVEL: 200 NG/ML Performed By: #### H IV #### [facility] [address] [place] [address] CANNABINOIDS SCREEN,U Canceled Normal [facility] Comment on above: Order Comment: TEST DRUG SCREEN,URINE WITH REFLEX TO CONFIRMATION WAS CANCELLED, :42 pt couldnt void. Result Comment: CUTO FF LEVEL: 50 NG/ML Performed By: #### H IV #### [facility] [address] [place] [address] COCAINE METABOLITE SCREEN,U Canceled Normal [facility] Comment on above: Order Comment: TEST DRUG SCREEN,URINE WITH REFLEX TO CONFIRMATION WAS CANCELLED, :42 pt couldnt void. Result Comment: CUTO FF LEVEL: 150 NG/ML Performed By: #### H IV #### [facility] [address] [place] [address] DRUG SCREEN COMMENT Canceled Normal [facility] Comment on above: Order Comment: [...] directors. Performed By: #### H IV #### [facility] [address] [place] [id number] FENTANYL SCREEN,URINE Canceled Normal [facility] Comment on above: Order Comment: TEST DRUG SCREEN,URINE WITH REFLEX TO CONFIRMATION WAS CANCELLED, :42 pt couldnt void. Result Comment: CUTO FF LEVEL: 5 NG/ML Performed By: #### H IV #### [facility] [address] [place] [id number] METHADONE SCREEN,U Canceled Normal [facility] Comment on above: Order Comment: TEST DRUG SCREEN,URINE WITH REFLEX TO CONFIRMATION WAS CANCELLED, :42 pt couldnt void. Result Comment: CUTO FF LEVEL: 150 NG/ML The metabolite T-kkrih-cjmawuhaxlyzjp (LAAM) is not detected by this method in concentrations that would be found in the urine of patients on LAAM therapy. Performed By: #### H IV #### [facility] [address] [place] [id number] OPIATES SCREEN,U Canceled Normal [facility] Comment on above: Order Comment: TEST DRUG SCREEN,URINE WITH REFLEX TO CONFIRMATION WAS CANCELLED, :42 pt couldnt void. Result Comment: CUTO FF LEVEL: 300 NG/ML The opiate screen does not detect fentanyl, meperidine, or tramadol. Oxycodone is not consistently detected (refer to Oxycodone Screen, Urine result). Performed By: #### H IV #### [facility] [address] [place] [id number] OXYCODONE SCREEN,U Canceled Normal [facility] Comment on above: Order Comment: TEST DRUG SCREEN,URINE WITH REFLEX TO CONFIRMATION WAS CANCELLED, :42 pt couldnt void. Result Comment: CUTO FF LEVEL: 100 NG/ML This test will accurately detect both oxycodone and oxymorphone. Performed By: #### H IV #### [facility] [address] [place] [address] PCP SCREEN,U Canceled Normal [facility] Comment on above: Order Comment: TEST DRUG SCREEN,URINE WITH REFLEX TO CONFIRMATION WAS CANCELLED, :42 pt couldnt void. Result Comment: CUTO FF LEVEL: 25 NG/ML Cross-reactivity has been reported with dextromethorphan. Performed By: #### H IV #### [facility] [address] [place] [address] EBV PANELon 03-01-2022 VCA IGM ANTIBODY Negative Normal NEGATIVE [facility] Comment on above: Performed By: #### T ETAB #### [facility] [address] [place], [place] [id number] EBV EA-D IGG ANTIBODY Negative Normal NEGATIVE [facility] Comment on above: Performed By: #### T ETAB #### [facility] [address] [place], [place] [id number] EBV INTERPRETATION SEE BELOW Normal [facility] Comment on above: Result Comment: . EB V INTERPRETATION CHART . VCA-IGG VCA-IGM NA-IGG EA-IGG . PRIMARY ACUTE +/- +/- - +/- LATE ACUTE + +/- +/- +/- RECOVERING + - - + PREVIOUS INFECTION + - +/- - Performed By: #### T ETAB #### [facility] [address] [place], [place] [id number] EBV NA-1 IGG ANTIBODY Positive Abnormal NEGATIVE [facility] Comment on above: Performed By: #### T ETAB #### [facility] [address] [place], [place] [id number] VCA IGG ANTIBODY Positive Abnormal NEGATIVE [facility] Comment on above: Performed By: #### T ETAB #### [facility] [address] [place], [place] [id number] FERRITINon 03-01-2022 FERRITIN 435 ug/L High 20 - 300 [facility] Comment on above: Performed By: #### H IV #### [facility] [address] [place] [address] Ferritin, Serumon 03-01-2022 Ferritin [Mass/Vol] 435 ug/L above high threshold 20 - 300 [facility] 1800 Work Phone: Comment on above: SOURCE: H. Influenza B Ab, IgGon H. influenzae B IgG (S) [Mass/Vol] 0.1 ug/mL [facility] 1800 Work Phone: Comment on above: INTERPRETIVE [...] developed and its performance characteristics determined by [facility]. It has not been cleared or approved by the US Food and Drug Administration. This test was performed in a CLIA certified laboratory and is intended for clinical purposes.Performed By: [facility] [place] [address] [id number] Director: Garfield Torrez MD, PhD HEMOGLOBIN A1Con 03-01-2022 Glucose [Mass/Vol] 114 mg/dL Normal [facility] Comment on above: Performed By: #### S YPHR #### [facility] [address] [place] [address] HbA1c (Bld) [Mass fraction] 5.6 % Normal [facility] Comment on above: Result Comment: Diag nosis of Diabetes-Adults Non-Diabetic: < or = 5.6% Increased risk for developing diabetes: 5.7-6.4% Diagnostic of diabetes: > or = 6.5% . Monitoring of Diabetes Age (y) Therapeutic Goal (%) Adults: >18 <7.0 Pediatrics: 13-18 <7.5 7-12 <8.0 0- 6 7.5-8.5 [place] [employer]. Diabetes Care 33(S1), Mar 2009. Performed By: #### S YPHR #### [facility] [address] [place] [address] HEPATITIS A AB-TOTALon 03-01 HEPATITIS A AB-TOTAL Non-Reactive Normal NONREACTIVE [facility] Comment on above: Result Comment: Biot in interference may cause falsely elevated results. Patients taking a Biotin dose of up to 5 mg/day should refrain from taking Biotin for 24 hours before sample collection. Providers may contact their local laboratory for further information. Performed By: #### H AVTO #### [facility] [address] [place] [address] HEPATITIS B CORE AB-TOTALon 03-01-2022 HEP. B CORE AB-TOTAL Non-Reactive Normal NONREACTIVE [facility] Comment on above: Result Comment: Resu lts from patients taking biotin supplements or receiving high-dose biotin therapy should be interpreted with caution due to possible interference with this test. Providers may contact their local laboratory for further information. Performed By: #### S YPHR #### [facility] [address] [place] [address] HEPATITIS B SURF ABon 2021 HEP B SURF AB <3.1 Normal <10 [facility] [place] Comment on above: Result Comment: INTE RPRETIVE CRITERIA: <10 mIU/mL....NONREACTIVE >=10 mIU/mL...REACTIVE . Biotin interference may cause falsely decreased results. Patients taking a Biotin dose of up to 5 mg/day should refrain from taking Biotin for 24 hours before sample collection. Providers may contact their local laboratory for further information. Performed By: #### S YPHR #### [facility] [address] [place] [address] HEPATITIS B SURFACE AGon HEP.B SURFACE AG Non-Reactive Normal NONREACTIVE [facility] Comment on above: Result Comment: Biot in interference may cause falsely decreased results. Patients taking a Biotin dose of up to 5 mg/day should refrain from taking Biotin for 24 hours before sample collection. Providers may contact their local laboratory for further information. Performed By: #### T ETAB #### [facility] [address] [place], [place] [id number] HEPATITIS C ABon 03-01-2022 HEPATITIS C AB Non-Reactive Normal NONREACTIVE [facility] Comment on above: Result Comment: Resu lts from patients taking biotin supplements or receiving high-dose biotin therapy should be interpreted with caution due to possible interference with this test. Providers may contact their local laboratory for further information. Performed By: #### S YPHR #### [facility] [address] [place] [address] HIV 1/2 ANTIGEN/ANTIBODY SCR EEN WITH REFLEX TO CONFIRMATIONon 03-01-2022 HIV 1/2 AG/AB SCREEN Non-Reactive Normal NONREACTIVE [facility] Comment on above: Result Comment: HIV Ag/Ab [...] load). Performed By: #### H IV #### [facility] [address] [place] [address] HIV 1+2 Ab Qn (S) Non-Reactive See Below [employer]was 1800 Work Phone: Comment on above: SOURCE: [...] CLASS I SP AB ID,HD Canceled Normal [facility] Comment on above: Order Comment: TEST HLA CLASS I SP AB ID, HD WAS CANCELLED, 03/01/2022 19:28 Tests orderedunder wron visit. Lab will reorder. Please do not recollect.. Performed By: #### H IV #### [facility] [address] [place] [address] HLA CLASS II SP AB ID, HDon 03-01-2022 HLA CLASS II SP AB ID,HD Canceled Normal [facility] Comment on above: Order Comment: TEST HLA CLASS II SP AB ID, HD WAS CANCELLED, 03/01/2022 19:28 Tests orderedunder wron visit. Lab will reorder. Please do not recollect.. Performed By: #### T ETAB #### [facility] [place], [place] [id number] HLA-A,B,C LRon 03-01-2022 HLA-A LOCUS LR TYPE Canceled Normal [facility] Comment on above: Order Comment: TEST HLA-A,B,C LR WAS CANCELLED, 03/01/2022 19:28 Tests ordered under wronvisit. Lab will reorder. Please do not recollect.. Performed By: #### A DONNA #### [facility] [address] [place] [id number] HLA-B LOCUS LR TYPE Canceled Normal [facility] Comment on above: Order Comment: TEST HLA-A,B,C LR WAS CANCELLED, 03/01/2022 19:28 Tests ordered under wronvisit. Lab will reorder. Please do not recollect.. Performed By: #### A DONNA #### [facility] [address] [place] [address] HLA-C LOCUS LR TYPE Canceled Normal [facility] Comment on above: Order Comment: TEST HLA-A,B,C LR WAS CANCELLED, 03/01/2022 19:28 Tests ordered under wronvisit. Lab will reorder. Please do not recollect.. Performed By: #### A DONNA #### [facility] [address] [place] [address] HLA-DPB1 HR TYPINGon HLA-DPB1 HR TYPING Canceled Normal [facility] Comment on above: Order Comment: TEST HLA-DPB1 HR TYPING WAS CANCELLED, 03/01/2022 19:28 Tests ordered underwron visit. Lab will reorder. Please do not recollect.. Performed By: #### A DONNA #### [facility] [address] [place] [address] HLA-DQB1 HR TYPINGon HLA-DQB1 HR TYPING Canceled Normal [facility] Comment on above: Order Comment: TEST HLA-DQB1 HR TYPING WAS CANCELLED, 03/01/2022 19:28 Tests ordered underwron visit. Lab will reorder. Please do not recollect.. Performed By: #### A DONNA #### [facility] [address] [place] [address] HLA-DRB1/3/4/5 AND DQB1 LR T YPINGon 03-01-2022 HLA-DRB1/3/4/5 & DQB1 LR TYPING Canceled Normal [facility] Comment on above: Order Comment: TEST HLA-DRB1/3/4/5 AND DQB1 LR TYPING WAS CANCELLED, 03/01/2022 19:28 Testsordered under wron visit. Lab will reorder. Please do not recollect.. Performed By: #### A DONNA #### [facility] [address] [place] [address] HSV IGG1 AND IGG2 ABon 03-01 HSV I IGG AB 0.7 INDEX Normal [facility] Comment on above: Result Comment: REF VALUES NEGATIVE <0.9 EQUIVOCAL >=0.90 <=1.10 POSITIVE >1.10 Performed By: #### A DONNA #### [facility] [address] [place] [address] HSV II IGG AB <0.2 Normal [facility] [place] Comment on above: Result Comment: POTE CINDY FOR CROSS-REACTIVITY BETWEEN HSV I AND HSV II EXISTS. REF VALUES NEGATIVE <0.9 EQUIVOCAL >=0.90 <=1.10 POSITIVE >1.10 Performed By: #### A DONNA #### [facility] [address] [place] [address] Hemoglobin A1Con 03-01-2022 Glucose [Mass/Vol] 114 mg/dL MG[facility]ul [facility] Work Phone: HbA1c (Bld) [Mass fraction] 5.6 % [facility] 1800 Work Phone: Comment on above: Diagnosis of Diabete s-Adults Non-Diabetic: < or = 5.6% Increased risk for developing diabetes: 5.7-6.4% Diagnostic of diabetes: > or = 6.5%. Monitoring of Diabetes Age (y) Therapeutic Goal (%) Adults: >18 <7.0 Pediatrics: 13-18 <7.5 7-12 <8.0 0- 6 7.5-8.5 [place] [employer]. Diabetes Care 33(S1), Mar 2009. Hep B Virus Quant PCRon HBV DNA MARTINEZ+probe [Log units/Vol] NOT CALCULATED [facility] [facility] Work Phone: HBV DNA MARTINEZ+probe Ql SEE BELOW [facility] Work Phone: Comment on above: Reportable Range: 10 -1,000,000,000 IU/mL.The lauren HBV test is in vitro nucleic acid amplification test for the quantitation of hepatitis B virus (HBV) DNA in human EDTA plasma or serum of HBV-infected individuals on the lauren [employer]88[employer] Systems. A single probe is used to [...] the [facility] Laboratory, Department of Pathology, [facility]. HBV DNA MARTINEZ+probe Qn Not detected See Below [facility] [employer] 1800 Work Phone: Comment on above: SOURCE: Reference Ra nge: Not Detected Hepatitis A Antibody, Totalo n 03-01-2022 HAV Ab IA Ql (S) Non-Reactive See Below [facility] 1800 Work Phone: Comment on above: SOURCE: Reference Ra nge: NONREACTIVE Biotin interference may cause falsely elevated results. Patients taking a Biotin dose of up to 5 mg/day should refrain from taking Biotin for 24 hours before sample collection. Providers may contact their local laboratory for further information. Hepatitis B Surface Antibody on 03-01-2022 HBV surface Ag IA Ql <3.1 <10 [facility] 1800 Work Phone: Comment on above: SOURCE: INTERPRETIVE CRITERIA:<10 mIU/mL....NONREACTIVE >=10 mIU/mL...REACTIVE . Biotin interference may cause falsely decreased results. Patients taking a Biotin dose of up to 5 mg/day should refrain from taking Biotin for 24 hours before sample collection. Providers may contact their local laboratory for further information. Hepatitis C Antibody Teston 03-01-2022 Hepatitis C Antibody Test Non-Reactive See Below [facility] 1800 Work Phone: Comment on above: SOURCE: [...] [Mass/Vol] 256 mg/dL Normal 70 - 400 [facility] Comment on above: Result Comment: MONO CLONAL PROTEINS MAY CAUSE FALSELY LOW RESULTS IN THIS ASSAY. SERUM PROTEIN ELECTROPHORESIS SHOULD BE DONE THE FIRST TEST TO EVALUATE MONOCLONAL GAMMOPATHY. Performed By: #### I GA #### [facility] [address] [place], [place] Lab Specimen Source Normal [facility] Comment on above: Performed By: #### I GA #### [facility] [address] [place], [place] Performed By: #### H IV #### [facility] [address] [place], [place] Performed By: #### S YPHR #### [facility] [address] [place], [place] Performed By: #### H AVTO #### [facility] [address] [place], [place] Performed By: #### T ETAB #### [facility] [place], [place] [id number] Performed By: #### A DONNA #### [facility] [address] [place], [place] IGEon 03-01-2022 IGE 57 IU/mL Normal 0 - 214 [facility] Comment on above: Performed By: #### A DONNA #### [facility] [address] [place], [place] IGG SUBCLASSESon 12-08-2022 IGG SUBCLASS 2 158 mg/dL Normal 150 - 640 [facility] Comment on above: Performed By: #### T ETAB #### [facility] [address] [place], [place] [id number] IGG SUBCLASS 1 548 mg/dL Normal 490 - 1140 [facility] Comment on above: Performed By: #### T ETAB #### [facility] [address] [place], [place] [id number] IgG [Mass/Vol] 739 mg/dL Normal 700 - 1600 [facility] Comment on above: Result Comment: MONO CLONAL PROTEINS MAY CAUSE FALSELY LOW RESULTS IN THIS ASSAY. SERUM PROTEIN ELECTROPHORESIS SHOULD BE DONE THE FIRST TEST TO EVALUATE MONOCLONAL GAMMOPATHY. Performed By: #### T ETAB #### [facility] [address] [place], [place] [id number] IGG SUBCLASS 3 62 mg/dL Normal 11 - 85 [facility] Comment on above: Performed By: #### T ETAB #### [facility] [address] [place], [place] [phone] IGG SUBCLASS 4 28 mg/dL Normal 3 - 200 [facility] Comment on above: Result Comment: DUE TO INHERENT IMPRECISION OF METHODS, THE SUM OF COMPONENTS MAY DIFFER FROM TOTAL IGG BY MUCH 20%. Performed By: #### T ETAB #### [facility] [address] [place], [place] [id number] IGMon 03-01-2022 IgM [Mass/Vol] 63 mg/dL Normal 40 - 230 [facility] Comment on above: Result Comment: MONO CLONAL PROTEINS MAY CAUSE FALSELY LOW RESULTS IN THIS ASSAY. SERUM PROTEIN ELECTROPHORESIS SHOULD BE DONE THE FIRST TEST TO EVALUATE MONOCLONAL GAMMOPATHY. Performed By: #### H IV #### [facility] [address] [place] [address] IRON + TIBCon 03-01-2022 % SATURATION 34 % Normal 25 - 45 [facility] Comment on above: Performed By: #### I GA #### [facility] [address] [place] [address] Iron [Mass/Vol] 141 ug/dL Normal 35 - 150 [facility] Comment on above: Performed By: #### I GA #### [facility] [address] [place] [address] TIBC 414 ug/dL Normal 240 - 445 [facility] Comment on above: Performed By: #### I GA #### [facility] [address] [place] [address] Immunoglobulin A Level, Seru mon 03-01-2022 IgA [Mass/Vol] 256 mg/dL 70 - 400 [facility] 1800 Work Phone: Comment on above: SOURCE: MONOCLONAL P ROTEINS MAY CAUSE FALSELY LOWRESULTS IN THIS ASSAY. SERUM PROTEINELECTROPHORESIS SHOULD BE DONE THEFIRST TEST TO EVALUATE MONOCLONAL GAMMOPATHY. Immunoglobulin E Level, Seru [facility] 03-01-2022 IgE Qn 57 {IU/mL} 0 - 214 [facility] 1800 Work Phone: Comment on above: SOURCE: Immunoglobulin M Level, Seru [facility] 03-01-2022 IgM [Mass/Vol] 63 mg/dL 40 - 230 [facility] 1800 Work Phone: Comment on above: SOURCE: MONOCLONAL P ROTEINS MAY CAUSE FALSELY LOWRESULTS IN THIS ASSAY. SERUM PROTEINELECTROPHORESIS SHOULD BE DONE THEFIRST TEST TO EVALUATE MONOCLONAL GAMMOPATHY. LIPID PANEL (CORONARY RISK 2 )on 03-01-2022 Cholesterol [Mass/Vol] 128 mg/dL Normal 0 - 199 [facility] Comment on above: Result Comment: . AGE [...] dosing. Performed By: #### I GA #### [facility] [address] [place] [address] Cholesterol in HDL [Mass/Vol] 56.0 mg/dL Normal [facility] Comment on above: Result Comment: . AGE VERY LOW LOW NORMAL HIGH 0-19 Y < 35 < 40 40-45 ---- 20-24 Y ---- < 40 >45 ---- >24 Y ---- < 40 40-60 >60 . Performed By: #### I GA #### [facility] [address] [place] [address] Cholesterol in LDL [Mass/Vol] 58 mg/dL Normal 0 - 99 [facility] Comment on above: Result Comment: . NEAR BORD AGE DESIRABLE OPTIMAL HIGH HIGH VERY HIGH 0-19 Y 0 - 109 --- 110-129 >/= 130 ---- 20-24 Y 0 - 119 --- 120-159 >/= 160 ---- >24 Y 0 - 99 100-129 130-159 160-189 >/=190 . Performed By: #### I GA #### [facility] [address] [place] [address] Cholesterol in VLDL [Mass/Vol] 14 mg/dL Normal 0 - 40 [facility] Comment on above: Performed By: #### I GA #### [facility] [address] [place] [address] Cholesterol.total/C holesterol in HDL [Mass ratio] 2.3 {ratio} Normal [facility] Comment on above: Result Comment: REF VALUES DESIRABLE < 3.4 HIGH RISK > 5.0 Performed By: #### I GA #### [facility] [address] [place] [address] Triglyceride [Mass/Vol] 72 mg/dL Normal 0 - 149 [facility] Comment on above: Result Comment: . AGE [...] to Metamizole dosing. Performed By: #### I MT #### [facility] [address] [place] [address] Laboratory - Chemistry and C hemistry - challengeon 03-01-2022 Albumin BCP dye [Mass/Vol] 4.8 g/dL 3.4 - 5.0 [facility] 1800 Work Phone: ALP [Catalytic activity/Vol] 128 U/L 33 - 136 [facility] 1800 Work Phone: ALT With P-5'-P [Catalytic activity/Vol] 28 U/L 10 - 52 [facility] [employer] Work Phone: Comment on above: Patients treated wit h Sulfasalazine may generate falsely decreased results for ALT. Anion gap [Moles/Vol] 14 mmol/L 10 - 20 [facility] 1799 Work Phone: AST With P-5'-P [Catalytic activity/Vol] 23 U/L 9 - 39 [facility] 1800 Work Phone: Bilirubin [Mass/Vol] 1.0 mg/dL 0.0 - 1.2 [facility] 1799 Work Phone: Calcium [Mass/Vol] 11.4 mg/dL above high threshold 8.6 - 10.6 [facility] 1800 Work Phone: Chloride [Moles/Vol] 100 mmol/L 98 - 107 [facility] 1800 Work Phone: CO2 [Moles/Vol] 29 mmol/L 21 - 32 [facility] 1800 Work Phone: Creatinine [Mass/Vol] 0.88 mg/dL See Below [facility] 1799 Work Phone: Comment on above: Reference Range: 0.5 0 - 1.30 Glucose [Mass/Vol] 96 mg/dL 74 - 99 [facility] 1799 Work Phone: Comment on above: SOURCE: IgG [Mass/Vol] 739 mg/dL 700 - 1600 [facility] 1799 Work Phone: Comment on above: SOURCE: MONOCLONAL P ROTEINS MAY CAUSE FALSELY LOWRESULTS IN THIS ASSAY. SERUM PROTEINELECTROPHORESIS SHOULD BE DONE THEFIRST TEST TO EVALUATE MONOCLONAL GAMMOPATHY. Iron [Mass/Vol] 141 ug/dL 35 - 150 [facility] 1799 Work Phone: Comment on above: SOURCE: Iron binding capacity [Mass/Vol] 414 ug/dL 240 - 445 [facility] 1799 Work Phone: Potassium [Moles/Vol] 4.4 mmol/L 3.5 - 5.3 [facility]99 Work Phone: Protein [Mass/Vol] 7.8 g/dL 6.4 - 8.2 MG-Pul m [facility] 1799 Work Phone: Sodium [Moles/Vol] 139 mmol/L 136 - 145 MG-Pul m [facility] 1799 Work Phone: Urea nitrogen [Mass/Vol] 13 mg/dL 6 - 23 [facility] 1799 Work Phone: Laboratory - Coagulationon 1 05-02-2021 INR Coag (PPP) [Relative time] 1.1 {INR} 0.9 - 1.1 [facility] 1799 Work Phone: PT Coag (PPP) [Time] 12.2 s 9.8 - 13.4 [facility] 1799 Work Phone: Laboratory - HLA antigenson 03-01-2022 HLA-A locus Nom (Bld/Tiss) Canceled [facility] 1800 Work Phone: [phone] HLA-A+B+C (class I) Ab (S) Canceled [facility] [place] 1800 Work Phone: [phone] HLA-B locus Nom (Bld/Tiss) Canceled [facility] 1800 Work Phone: [phone] HLA-C locus Nom (Bld/Tiss) Canceled [facility] 1800 Work Phone: [phone] HLA-DP+DQ+DR (class II) Ab (S) Canceled [facility] [place] 1800 Work Phone: [phone] HLA-DP2 Ql (Bld/Tiss) Canceled [facility] 1800 Work Phone: [phone] HLA-DQB1 High resolution Nom (Bld/Tiss) Canceled [facility] [place] 1800 Work Phone: [phone] HLA-DR+DQ Nom (Bld/Tiss) Canceled [facility] 1800 Work Phone: [phone] Laboratory - Microbiology an d Antimicrobial susceptibilityon 03-01-2022 EBV capsid IgG IA Qn (S) Positive Abnormal NEGATIVE [facility] 1800 Work Phone: [phone] EBV capsid IgM IA Qn (S) Negative NEGATIVE [facility] 1800 Work Phone: [phone] EBV early IgM IA Qn (S) Negative NEGATIVE [facility] 1800 Work Phone: EBV nuclear IgG IA Qn (S) Positive Abnormal NEGATIVE [facility] 1800 Work Phone: H. capsulatum Ab Immune diff (S) [Titer] Not detected See Below [facility] 1800 Work Phone: Comment on above: Reference Range: Not DetectedNo Histoplasma antibodies were detected. This result does not exclude Histoplasma infection.Performed by [facility], [address] [place] [id number] [email or web address], Garfield Torrez MD, PHD - Lab. Director H. capsulatum mycelial phase Ab CF (S) [Titer] <1:8 <1:8 [facility] 1800 Work Phone: Comment on above: INTREPRETIVE INFORMA TION: Histoplasma Mycelia Antibodies by [employer] EQUIPMENT TEST ENGINEER titer of 1:8 or greater is generally considered presumptive evidence of histoplasmosis. A titer of 1:32 or greater or rising titers indicate strong presumptive evidence of histoplasmosis. Cross reactions, usually at lower titers, may occur with other fungal diseases. H. capsulatum yeast phase Ab CF (S) [Titer] <1:8 <1:8 [facility] 1800 Work Phone: [phone] Comment on above: INTERPRETIVE INFORMA TION: Histoplasma Yeast Antibodies by AGRICULTURAL EQUIPMENT TEST ENGINEER titer of 1:8 or greater is generally considered presumptive evidence of histoplasmosis. A titer of 1:32 or greater or rising titers indicate strong presumptive evidence of histoplasmosis. Cross reactions, usually at lower titers, may occur with other fungal diseases. HCV RNA MARTINEZ+probe Qn Not detected [facility] 1800 Work Phone: [phone] Comment on above: SOURCE: REF VALUENOT DETECTED S. pneumoniae [place] type 1 IgG (S) [Mass/Vol] <0.1 below low threshold >1.3 [facility] 1800 Work Phone: [phone] S. pneumoniae [place] type 10A IgG (S) [Mass/Vol] 0.1 ug/mL below low threshold >1.3 [facility] 1800 Work Phone: [phone] S. pneumoniae [place] type 11A IgG (S) [Mass/Vol] <0.1 below low threshold >1.3 [facility] 1800 Work Phone: [phone] S. pneumoniae [place] type 12F IgG (S) [Mass/Vol] <0.1 below low threshold >1.3 [facility] 1800 Work Phone: [phone] S. pneumoniae [place] type 14 IgG (S) [Mass/Vol] <0.1 below low threshold >1.3 [facility] 1800 Work Phone: S. pneumoniae [place] type 15B IgG (S) [Mass/Vol] <0.1 below low threshold >1.3 [facility] 1800 Work Phone: S. pneumoniae [place] type 17F IgG (S) [Mass/Vol] <0.1 below low threshold >1.3 [facility] 1800 Work Phone: S. pneumoniae [place] type 18C IgG (S) [Mass/Vol] <0.1 below low threshold >1.3 [facility] 1800 Work Phone: S. pneumoniae [place] type 19A IgG (S) [Mass/Vol] 0.1 ug/mL below low threshold >1.3 [facility] 1800 Work Phone: S. pneumoniae [place] type 19F IgG (S) [Mass/Vol] 0.2 ug/mL below low threshold >1.3 [facility] 1800 Work Phone: S. pneumoniae [place] type 2 IgG (S) [Mass/Vol] <0.1 below low threshold >1.3 [facility] 1800 Work Phone: S. pneumoniae [place] type 20A IgG (S) [Mass/Vol] <0.1 below low threshold >1.3 [facility] 1800 Work Phone: S. pneumoniae [place] type 22F IgG (S) [Mass/Vol] <0.1 below low threshold >1.3 [facility] 1800 Work Phone: S. pneumoniae [place] type 23F IgG (S) [Mass/Vol] <0.1 below low threshold >1.3 [facility] 1800 Work Phone: S. pneumoniae [place] type 3 IgG (S) [Mass/Vol] 0.3 ug/mL below low threshold >1.3 [facility] 1800 Work Phone: S. pneumoniae [place] type 33F IgG (S) [Mass/Vol] <0.1 below low threshold >1.3 [facility] 1800 Work Phone: Comment on above: *This test was kunal richter and its performance characteristics determined by [employer]. It has not been cleared or approved by the U.S. Food and Drug Administration. Performed At:[facility] [place], [place] [address]Laboratory Director: Ciaran Baxter Ph.D., BCLD (ABB)CLIA#: [id number]: S. pneumoniae [place] type 4 IgG (S) [Mass/Vol] <0.1 below low threshold >1.3 [facility] 1800 Work Phone: S. pneumoniae [place] type 5 IgG (S) [Mass/Vol] <0.1 below low threshold >1.3 [facility] 1800 Work Phone: S. pneumoniae [place] type 6B IgG (S) [Mass/Vol] <0.1 below low threshold >1.3 [facility] 1800 Work Phone: S. pneumoniae [place] type 7F IgG (S) [Mass/Vol] <0.1 below low threshold >1.3 [facility] 1800 Work Phone: S. pneumoniae [place] type 8 IgG (S) [Mass/Vol] <0.1 below low threshold >1.3 [facility] 1800 Work Phone: S. pneumoniae [place] type 9N IgG (S) [Mass/Vol] <0.1 below low threshold >1.3 [facility] 1800 Work Phone: S. pneumoniae [place] type 9V IgG (S) [Mass/Vol] <0.1 below low threshold >1.3 [facility] 1800 Work Phone: Lipid Panelon 03-01-2022 Cholesterol [Mass/Vol] 128 mg/dL 0 - 199 MG-Pulm anydo[facility]er [employer] Work Phone: Comment on above: SOURCE: . [...] guidelines reference: NCEP ATPIII Guidelines, NAYE 2001, 258:7366-97. Venipuncture immediately after or during the administration of Metamizole may lead to falsely low results. Testing should be performed immediately prior to Metamizole dosing. Cholesterol in HDL [Mass/Vol] 56.0 mg/dL MG-Pulm [employer] Work Phone: Comment on above: . AGE VERY LOW LOW N ORMAL HIGH 0-19 Y < 35 < 40 40-45 ---- 20- 24 Y ---- < 40 >45 ---- >24 Y ---- < 40 40-60 >60. Cholesterol in LDL [Mass/Vol] 58 mg/dL 0 - 99 MG-Pul[facility] Work Phone: Comment on above: . NEAR BORD AGE ANDREA RABLE OPTIMAL HIGH HIGH VERY HIGH 0-19 Y 0 - 109 --- 110-129 >/= 130 ---- 20-24 Y 0 - 119 --- 120-159 >/= 160 ---- >24 Y 0 - 99 100-129 130-159 160-189 >/=190. Cholesterol.total/C holesterol in HDL [Mass ratio] 2.3 {ratio} MG[facility] Work Phone: Comment on above: REF VALUESDESIRABLE < 3.4HIGH RISK > 5.0 Triglyceride [Mass/Vol] 72 mg/dL 0 - 149 MG[facility] Work Phone: Comment on above: . AGE [...] Panel 14 mg/dL 0 - 40 MG[facility]Pul[facility] Work Phone: MAGNESIUMon 03-01-2022 Magnesium [Mass/Vol] 1.74 mg/dL Normal 1.60 - 2.40 [facility] Comment on above: Performed By: #### T ETAB #### [facility] [address] [place] [address] [id number] MUMPS IGG ANTIBODYon 022 MUMPS IGG ANTIBODY Positive Normal [facility] Comment on above: Result Comment: INTE RPRETATIVE [...] results in serological assays. Performed By: #### Bernadine THOMPSON #### [facility] [address] [place] [address] Magnesium, Serumon 2 Magnesium [Mass/Vol] 1.74 mg/dL See Below MG-Pulm [facility] Work Phone: Comment on above: SOURCE: Reference Ra nge: 1.60 - 2.40 Mumps IgG Antibodyon 022 MuV IgG (S) [Titer] Positive MG-Pu lm [facility] Work Phone: Comment on above: INTERPRETATIVE [...] alteredresults in serological assays. NICOTINEANDMETABOLITES,Uon 1 05-02-2021 5-BP-TVIMHAIZ,U Canceled Normal [facility] Comment on above: Order Comment: TEST NICOTINE AND METABOLITES,U WAS CANCELLED, 03/01/2022 13:42 pt couldnt void. Performed By: #### I GA #### [facility] [address] [place] [address] ANABASINE,U Canceled Normal [facility] Comment on above: Order Comment: TEST NICOTINE AND METABOLITES,U WAS CANCELLED, 03/01/2022 13:42 pt couldnt void. Performed By: #### I GA #### [facility] [address] [place] [address] COTININE,U Canceled Normal [facility] Comment on above: Order Comment: TEST NICOTINE AND METABOLITES,U WAS CANCELLED, 03/01/2022 13:42 pt couldnt void. Performed By: #### I GA #### [facility] [address] [place] [address] NICOTINE,U Canceled Normal [facility] Comment on above: Order Comment: TEST NICOTINE AND METABOLITES,U WAS CANCELLED, 03/01/2022 13:42 pt couldnt void. Performed By: #### I GA #### [facility] [address] [place] [address] No Panel Informationon 03-01 NOT CALCULATED MG-Pul[facility] [facility] Work Phone: Comment on above: Reportable Range: 15 -100,000,000 IU/mL.The lauren HCV is an in vitro nucleic acid amplification test for both the detection and quantitation of hepatitis C virus (HCV) RNA, in human EDTA plasma or serum, of HCV antibody positive or HCV-infected individuals on the lauren [employer]/8800 Systems. Dual probes are used to detect [...] the [facility], Department of Pathology, [facility]. 28 mg/dL 3 - 200 [facility] [facility] Work Phone: [phone] Comment on above: DUE TO INHERENT IMPR ECISION OF METHODS, THE SUM OF COMPONENTS MAY DIFFER FROM TOTAL IGG BY MUCH 20%. 62 mg/dL 11 - 85 MG[facility] Work Phone: [phone] mg/dL 150 - 640 [facility] [facility] Work Phone: [phone] mg/dL 490 - 1140 [facility] Work Phone: <0.2 [facility] Work Phone: [phone] Comment on above: POTENTIAL FOR CROSS- REACTIVITY BETWEENHSV I AND HSV II EXISTS.REF VALUESNEGATIVE <0.9EQUIVOCAL >=0.90 <=1.10POSITIVE >1.10 0.7 {INDEX} [facility] [facility] Work Phone: [phone] Comment on above: REF VALUESNEGATIVE < 0.9EQUIVOCAL >=0.90 <=1.10POSITIVE >1.10 SEE BELOW [facility] [facility] Work Phone: [phone] Comment on above: . EBV INTERPRETATION CHART. VCA-IGG VCA-IGM NA-IGG EA-IGG. PRIMARY ACUTE +/- +/- - +/-LATE ACUTE + +/- +/- +/-RECOVERING + - - +PREVIOUS INFECTION + - +/- - 34 % 25 - 45 [facility] [facility] Work Phone: >90 >90 [facility] [facility] Work Phone: [phone] Comment on above: CALCULATIONS OF AMADOU MATED GFR ARE PERFORMED USING THE 2020 CKD-EPI STUDY REFIT EQUATION WITHOUT THE RACE VARIABLE FOR THE IDMS-TRACEABLE CREATININE METHODS.https://jasn.asnjournals.org/content/early/ASN. 5985582910 PT/INRon 03-01-2022 PT Coag (PPP) [Time] 12.2 s Normal 9.8 - 13.4 [facility] Comment on above: Performed By: #### S YPHR #### [facility] [address] [place] [address] PT, INR 1.1 Normal 0.9 - 1.1 [facility] Comment on above: Performed By: #### S YPHR #### [facility] [address] [place] [address] RUBELLA IGG ABon 03-01-2022 RUBELLA IGG AB Positive Normal [facility] Comment on above: Result Comment: INTE [...] assays. Performed By: #### A DONNA #### [facility] [address] [place] [address] RUBEOLA IGG ABon 03-01-2022 RUBEOLA IGG AB Positive Normal [facility] Comment on above: Result Comment: INTE [...] assays. Performed By: #### A DONNA #### [facility] [address] [place] [address] Rubella IgG Antibodyon 03-01 Rubella virus IgG IA Ql Positive [employer] Work Phone: Comment on above: INTERPRETATIVE COMME [...] 03-01 MeV IgG IA Ql (S) Positive [facility] 1800 Work Phone: Comment on above: INTERPRETATIVE [...] 03-01-2022 SYPHILIS TOTAL AB Non-Reactive Normal NONREACTIVE [facility] Comment on above: Result Comment: No s ignificant level of Treponema pallidum antibody detected. Repeat testing in 2 to 4 weeks may be considered if early infection or incubating syphilis infection is suspected. Performed By: #### S YPHR #### [facility] [address] [place] [address] T. pallidum IgG+IgM IA Ql (S) Non-Reactive See Below [facility] Work Phone: Comment on above: SOURCE: Reference Ra nge: NONREACTIVENo significant level of Treponema pallidum antibody detected. Repeat testing in 2 to 4 weeks may be considered if early infection or incubating syphilis infection is suspected. T-SPOT. TBon 03-01-2022 T-SPOT. TB Passed [facility] [facility] Work Phone: T-SPOT. TB 0 1 [facility] Work Phone: T-SPOT. TB Negative See Below [facility] [facility] Work Phone: Comment on above: Reference [...] 3.5 pg/mL 2.3 - 4.2 [facility] [facility] Work Phone: Comment on above: SOURCE: T4 - Free Thyroxine, Serumon 03-01-2022 Free T4 [Mass/Vol] 1.42 ng/dL See Below MG-Pul m [facility] Work Phone: Comment on above: SOURCE: Reference Ra nge: 0.78 - 1.48 Thyroxine Free testing is performed using different testing methodology at [facility]3] than at other [facility]. Direct result comparisons should only be made within the same method. THYROXINE,FREEon 03-01-2022 THYROXINE,FREE 1.42 ng/dL Normal 0.78 - 1.48 [facility] Comment on above: Result Comment: Thyr oxine Free testing is performed using different testing methodology at [facility]3] than at other [facility]. Direct result comparisons should only be made within the same method. Performed By: #### I GA #### [facility] [address] [place] TOXO IGGon 03-01-2022 TOXOPLASMA IGG Non-Reactive Normal NONREACTIVE [facility] Comment on above: Performed By: #### S YPHR #### [facility] [address] [place] [address] TRIIODOTHYRONINE,FREEon TRIIODOTHYRONINE,FR EE 3.5 pg/mL Normal 2.3 - 4.2 [facility] Comment on above: Performed By: #### H IV #### [facility] [address] [place] [address] TSHon 03-01-2022 TSH Qn 4.76 m[IU]/L High 0.44 - 3.98 [facility] [place] Comment on above: Result Comment: TSH testing is performed using different testing methodology at [facility]3] than at other [facility]. Direct result comparisons should only be made within the same method. Performed By: #### T ETAB #### [facility] [address] [place], [place] [id number] TSH - Thyroid Stimulating Ho rmone, Serumon 03-01-2022 TSH Qn 4.76 m[IU]/L above high threshold See Below MG[facility]Pul[facility] Work Phone: Comment on above: SOURCE: Reference Ra nge: 0.44 - 3.98 TSH testing is performed using different testing methodology at [facility]3] than at other [facility]. Direct result comparisons should only be made within the same method. Tetanus Abon 03-01-2022 C. tetani IgG IA Qn (S) >7.00 <0.10 [facility] Work Phone: Comment on above: Interpretation: Non- Protective <0.10 Protective >=0.10 Results for this test are for research purposes only by the assay's washing machine mechanic. The performance characteristics of this product have not been established. Results should not be used as a diagnostic procedure without confirmation of the diagnosis by another medically established diagnostic product or procedure. Toxoplasma IgM, Serumon T. gondii IgM IA Qn (S) <3.0 <=7.9 [facility] Work Phone: Comment on above: INTERPRETIVE [...] months post-infection.This test is performed using the Dia[employer] LIAISON. As suggested by the CDC, any [...] of the amount of antibody present.Performed By: [facility] [place] [address] [id number] Director: Garfield Torrez MD, PhD Transplant Recipient Darrell avalos 03-01-2022 Transplant Recipient Assessment Assessment Visit Type: This is the initial visit for the patient. Location: [place] [address]. Accompanied by: Sue girlfriend. Organ for transplant: [...] organ disease? 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 Knowledge of transplant / [...] have Internet access . 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 Patient's current employment: Not working disabled: . Employment History:. 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 Will patient [...] of services, like internet, tv, working on [employer]: [employer] Primary Insurance: Self , Medicaid Medicaid: yes. [...] care? yes. Secondary Support: Name: Zoë Liriano. Cwz: 82Relationship to Patient: Mom Can they take time off work? no. If so, is it paid time off? no. If not, will this impact your finances? no. Did they attend education (more content not included)... Normal [facility] URINALYSISon 03-01-2022 Appearance (U) Canceled Normal [facility] Comment on above: Order Comment: TEST URINALYSIS WAS CANCELLED, 03/01/2022 13:42 pt couldnt void. Performed By: #### S YPHR #### [facility] [address] [place] [address] ASCORBIC ACID Canceled Normal [facility] [place] Comment on above: [...] hours. Performed By: #### S YPHR #### [facility] [address] [place] [address] Bilirubin Ql (U) Canceled Normal [facility] Comment on above: Order Comment: TEST URINALYSIS WAS CANCELLED, 03/01/2022 13:42 pt couldnt void. Performed By: #### S YPHR #### [facility] [address] [place] [address] Color (U) Canceled Normal [facility] Comment on above: Order Comment: TEST URINALYSIS WAS CANCELLED, 03/01/2022 13:42 pt couldnt void. Performed By: #### S YPHR #### [facility] [address] [place] [address] Glucose Ql (U) Canceled Normal [facility] Comment on above: Order Comment: TEST URINALYSIS WAS CANCELLED, 03/01/2022 13:42 pt couldnt void. Performed By: #### S YPHR #### [facility] [address] [place] [address] Hemoglobin Ql (U) Canceled Normal [facility] Comment on above: Order Comment: TEST URINALYSIS WAS CANCELLED, 03/01/2022 13:42 pt couldnt void. Performed By: #### S YPHR #### [facility] [address] [place] [address] Ketones Ql (U) Canceled Normal [facility] Comment on above: Order Comment: TEST URINALYSIS WAS CANCELLED, 03/01/2022 13:42 pt couldnt void. Performed By: #### S YPHR #### [facility] [address] [place] [address] Leukocyte esterase Test strip Ql (U) Canceled Normal [facility] Comment on above: Order Comment: TEST URINALYSIS WAS CANCELLED, 03/01/2022 13:42 pt couldnt void. Performed By: #### S YPHR #### [facility] [address] [place] [address] Nitrite Ql (U) Canceled Normal [facility] Comment on above: Order Comment: TEST URINALYSIS WAS CANCELLED, 03/01/2022 13:42 pt couldnt void. Performed By: #### S YPHR #### [facility] [address] [place] [address] pH Canceled Normal [facility] Comment on above: Order Comment: TEST URINALYSIS WAS CANCELLED, 03/01/2022 13:42 pt couldnt void. Performed By: #### S YPHR #### [facility] [address] [place] [address] Protein Ql (U) Canceled Normal [facility] Comment on above: Order Comment: TEST URINALYSIS WAS CANCELLED, 03/01/2022 13:42 pt couldnt void. Performed By: #### S YPHR #### [facility] [address] [place] [address] Specific gravity (U) [Rel density] Canceled Normal [facility] Comment on above: Order Comment: TEST URINALYSIS WAS CANCELLED, 03/01/2022 13:42 pt couldnt void. Performed By: #### S YPHR #### [facility] [address] [place] [address] UROBILINOGEN Canceled Normal [facility] Comment on above: Order Comment: TEST URINALYSIS WAS CANCELLED, 03/01/2022 13:42 pt couldnt void. Performed By: #### S YPHR #### [facility] [address] [place] [address] VARICELLA ZOSTER IGG ABon VARICELLA ZOSTER IGG AB Positive Normal NEGATIVE [facility] Comment on above: Result Comment: INTE RPRETATIVE [...] assays. Performed By: #### A DONNA #### [facility] [address] [place] [address] Varicella Zoster IgG Antibod yon 03-01-2022 VZV IgG IA Ql (S) Positive NEGATIVE [facility] Work Phone: Comment on above: INTERPRETATIVE [...] PATIENTDOB Date of : 1960 PATIENTROOM Room: [place] Procedure Room 8 PROV Attending MD: Paulino Betancur MD, [id number] ENDOPROCEDURENAME Procedure: Bronchoscopy INDICATION Indications: Emphysema, Bronchoscopic lung volume reduction PRIMARYPROVIDER Providers: Paulnio Betancur MD (Doctor), Kenzie Cabrera RN (Nurse), Pankaj Tejeda Stove Tender (Stove Tender), Peggy Hurtado MD (Fellow) EDREFPROVIDER Referring MD: [...] physician, the nurse, the anesthesiologist and the ends breakage clerk in the procedure room. Mental Status Examination: [...] normal; there are no endobronchial lesions. The Chartis System was used to assess for collateral [...] transplant). CPT_CODES Procedure Code(s): --- Professional --- 32807, Bronchoscopy, rigid or flexible, including fluoroscopic guidance, when performed; with balloon occlusion, with assessment of air leak, with administration of occlusive substance (eg, fibrin glue), if performed ICD_CODES Diagnosis Code(s): --- Professional --- J43.9, Emphysema, unspecified CODINGSTSC CPT copyright 2020 [employer]. All rights reserved. The codes documented in this report are preliminary and upon silk printer review may be revised to meet current [...] 2 - (more content not included)... Normal [facility] No Panel Informationon 01-30 [email or web address] ={[email or web address]} [facility] Work Phone: [facility] Work Phone: CBC AUTO DIFFon 01-27-2022 BASO # 0.1 103/ul Normal 0.0-0.1 [facility] Comment on above: Performed By: #### C BC ####[facility] [address] [place], [place] [address]Dr. Evon Quesada Basophils/100 WBC (Bld) 0.5 % Normal 0.2-2.0 [facility] Comment on above: Performed By: #### C BC ####[facility] [address] [place], [place] [address]Dr. Evon Quesada EO # 0.3 103/ul Normal 0.0-0.7 [facility] Comment on above: Performed By: #### C BC ####[facility] [address] [place], [place] [address]Dr. Evon Quesada Eosinophils/100 WBC (Bld) 2.8 % Normal 0.9-7.0 [facility] Comment on above: Performed By: #### C BC ####[facility] [address] [place] [id number]. Evon Quesada Erythrocyte distribution width (RBC) [Ratio] 13.1 % Normal 11.0-15.0 [facility] Comment on above: Performed By: #### C BC ####[facility] [address] [place] [id number]. Evon Quesada Hematocrit (Bld) [Volume fraction] 42.4 % Normal 42.0-54.0 [facility] Comment on above: Performed By: #### C BC ####[facility] [address] [place], [place] [address]Dr. Evon Quesada Hemoglobin (Bld) [Mass/Vol] 13.9 g/dL Critically low 14.0-18.0 [facility] Comment on above: Performed By: #### C BC ####[facility] [address] [place], [place] [address]Dr. Evon Dipak IG # 0.03 10e3/ul Normal 0.00-0.03 [facility] Comment on above: Performed By: #### C BC ####[facility] [address] [place], [place] [address]Dr. Evon Quesada IG % 0.3 % Normal 0.0-0.5 [facility] Comment on above: Performed By: #### C BC ####[facility] [address] [place], [place] [address]Dr. Evon Quesada LYMPH # 1.8 103/ul Normal 1.2-3.8 [facility] Comment on above: Performed By: #### C BC ####[facility] Take[address] [place], [place] [address]Dr. Mirtakierra Quesada Lymphocytes/100 WBC (Bld) 15.6 % Critically low 20.5-60.0 [facility] Comment on above: Performed By: #### C BC ####[facility] [address] [place], [place] [address]Dr. Mirtakierra Quesada MANUAL DIFF REQ NO Normal [facility] Comment on above: Performed By: #### C BC ####[facility] [address] [place] [address]Yx. Evon Quesada MCH (RBC) [Entitic mass] 30.2 pg Normal 25.9-34.0 [facility] Comment on above: Performed By: #### C BC ####[facility] [address] [place] [address]Dr. Evon Quesada MCHC (RBC) [Mass/Vol] 32.8 g/dL Normal 29.9-35.2 [facility] Comment on above: Performed By: #### C BC ####[facility] [address] [place], [place] [address]Dr. Evon Quesada MCV (RBC) [Entitic vol] 92.0 fL Normal 80.0-94.0 [facility] Comment on above: Performed By: #### C BC ####[facility] [address] [place], [place] [address]Dr. Evon Quesada MONO # 1.3 103/ul Critically high 0.3-0.8 [facility] Comment on above: Performed By: #### C BC ####[facility] [address] [place], [place] [address]Dr. Evon Quesada Monocytes/100 WBC (Bld) 11.1 % Normal 1.7-12.0 [facility] Comment on above: Performed By: #### C BC ####[facility] [address] [place], [place] [address]Dr. Evon Quesada NEUT # 7.9 103/ul Critically high 1.4-6.5 [facility] Comment on above: Performed By: #### C BC ####[facility] [address] [place], [place] [address]Dr. Evon Quesada Neutrophils/100 WBC (Bld) 69.7 % Normal 43.0-75.0 [facility] Comment on above: Performed By: #### C BC ####[facility] [address] [place], [place] [address]Dr. Evon Quesada Platelet mean volume (Bld) [Entitic vol] 10.1 fL Normal 9.5-13.5 [facility] Comment on above: Performed By: #### C BC ####[facility] [address] [place], [place] [address]Oj. Evon Quesada PLT 333 103/ul Normal 150-450 [facility] Comment on above: Performed By: #### C BC ####[facility] [address] [place], [place] [address]Vc. Evon Quesada RBC 4.61 106/ul Critically low 4.70-6.10 [facility] Comment on above: Performed By: #### C BC ####[facility] [address] [place], [place] [address]Ky. Evon Quesada WBC 11.3 103/ul Critically high 4.0-11.0 [facility] Comment on above: Performed By: #### C BC ####[facility] [address] [place], [place] [address]Kh. Evon Quesada [facility]-19 [facility]on SARS-CoV-2 (COVID-19) RNA MARTINEZ+probe Ql (Unsp spec) Not detected Normal NOT DETECTED [facility] Comment on above: Result Comment: This test is not yet approved or cleared by the [place] FDA. When there are no FDA-approved or cleared tests available, and other criteria are met, FDA can make tests available under an emergency access mechanism called an Emergency Use Authorization (EUA). The EUA for this test is supported by the [place] of Health and Human Service's (HHS's) declaration [...] consistent with SARS-CoV-2. Performed By: #### C VDTBH #### [facility] [address] [place], [place] [address] Dr. Evon Quesada PROF CHEM 8 (BAS METB)on Anion gap [Moles/Vol] 7.1 mmol/L Normal [facility] Comment on above: Performed By: #### B MP #### [facility] [address] [place] [address] Dr. Evon Quesada Calcium [Mass/Vol] 10.2 mg/dL Critically high 8.5-10.1 [facility] Comment on above: Performed By: #### B MP #### [facility] [address] [place] [address] [address] Evon Quesada Chloride [Moles/Vol] 100 mmol/L Normal 98-107 [facility] Comment on above: Performed By: #### B MP #### [facility] [address] [place] [address] Dr. Evon Quesada CO2 [Moles/Vol] 33.2 mmol/L Critically high 21.0-32.0 [facility] Comment on above: Performed By: #### B MP #### [facility] [address] [place] [address] Dr. Evon Quesada Creatinine [Mass/Vol] 0.74 mg/dL Normal 0.70-1.30 [facility] Comment on above: Performed By: #### B MP #### [facility] [address] [place] [address] Dr. Evon Quesada EGFR-AF GABONESE >60 Normal >=60 [facility] Comment on above: Performed By: #### B MP #### [facility] [address] [place] [address] Dr. Evon Quesada EGFR-NON AF GABONESE >60 Normal >=60 [facility] Comment on above: Performed By: #### B MP #### [facility] [address] [place] [address] Dr. Evon Quesada Glucose [Mass/Vol] 96 mg/dL Normal 74-106 [facility] Comment on above: Performed By: #### B MP #### [facility] [address] [place] [address] Dr. Evon Quesada Potassium [Moles/Vol] 4.3 mmol/L Normal 3.5-5.1 [facility] Comment on above: Performed By: #### B MP #### [facility] [address] [address] [address] Evon Quesada Sodium [Moles/Vol] 136 mmol/L Normal 136-145 [facility] Comment on above: Performed By: #### B MP #### [facility] [address] [address] [address] Evon Quesada Urea nitrogen [Mass/Vol] 16.0 mg/dL Normal 7.0-18.0 [facility] Comment on above: Performed By: #### B MP #### [facility] [address] [address] [address] Evon Quesada Urea nitrogen/Creatinine [Mass ratio] 21.6 mg/mg Normal [facility] Comment on above: Performed By: #### B MP #### [facility] [address] [address] [address] Evon Quesada NM LUNG PERF QUANTon [...] CONRAD Date: 2021-12-05 12:03 Normal [facility] XR CHEST 2 Von 12-05-2021 [...] CONRAD Date: 2021-12-05 11:52 Normal [facility] PET CT SKULL BASE MID [...] by: OJ CALI Date: 2021-10-30 13:20 Normal [facility] ARTERIAL BLOOD GAS,CO-OXon 0 09-11-2021 BASE EXCESS-BLOOD 1.2 mmol/L Normal -2.0 - 3.0 [facility] Comment on above: Performed By: #### H IV #### [facility] [address] [place] [address] BICARB, CALCULATED 26.0 mmol/L Normal 22.0 - 26.0 [facility] Comment on above: Performed By: #### H IV #### [facility] [address] [place] [address] CO HGB 1.6 % Abnormal [facility] Comment on above: Result Comment: REF VALUES NONSMOKERS 0.5-1.5% SMOKERS 0.5-10.0% Performed By: #### H IV #### [facility] [address] [place] [address] DEOXY HGB 3.2 % Normal 0.0 - 5.0 [facility] Comment on above: Performed By: #### H IV #### [facility] [address] [place] [address] Hemoglobin (Bld) [Mass/Vol] 15.0 g/dL Normal 13.5 - 17.5 [facility] Comment on above: Performed By: #### H IV #### [facility] [address] [place] [address] MET HGB 0.9 % Normal 0.0 - 1.5 [facility] Comment on above: Performed By: #### H IV #### [facility] [address] [place] [address] OXY HGB 94.4 % Normal 94.0 - 98.0 [facility] Comment on above: Performed By: #### H IV #### [facility] [address] [place] [address] Oxygen (Bld) [Partial pressure] 77 mm[Hg] Low 85 - 95 [facility] Comment on above: Performed By: #### H IV #### [facility] [address] [place] [address] PATIENT TEMPERATURE 37.0 degrees C Normal [facility] Comment on above: Result Comment: NOTE : PATIENT RESULTS ARE NOT CORRECTED FOR TEMPERATURE. Performed By: #### H IV #### [facility] [address] [place] [address] PCO2 41 mmHg Normal 38 - 42 [facility] Comment on above: Performed By: #### H IV #### [facility] [address] [place] [address] pH (Bld) 7.41 [pH] Normal 7.38 - 7.42 [facility] Comment on above: Performed By: #### H IV #### [facility] [address] [place] [address] SO2 97 % Normal 94 - 100 [facility] Comment on above: Performed By: #### H IV #### [facility] [address] 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 COMPARISON: None ACCESSION NUMBER(S): [id number] ORDERING CLINICIAN: HUNTER SMITH TECHNIQUE: Helical data [...] From the Fleischner Society 2017, Radiology. 2017 Joce;284 (1):228-243.) [id number] 2. There is a 0.3 [...] on 08/11/2021 at 6:52 p.m. using the [employer] system. I personally reviewed the images/study and I agree with the findings as stated. This study was interpreted at [place], [place]. Electronically signed by: Walter HELTON MD Normal [facility] Covid-19 PCR (CVDTBH)on 08-23 SARS-CoV-2 (COVID-19) RNA MARTINEZ+probe Ql (Unsp spec) Not detected Normal NOT DETECTED [facility] Comment on above: Result Comment: This test is not yet approved or cleared by the [place] FDA. When there are no FDA-approved or cleared tests available, and other criteria are met, FDA can make tests available under an emergency access mechanism called an Emergency Use Authorization (EUA). The EUA for this test is supported by the [place] of Health and Human Service's (HHS's) declaration [...] SARS-CoV-2. Performed By: #### C VDTB #### [facility] [address] [address] [address] Evon Quesada CBC AUTO DIFFon 08-18-2021 BASO # 0.1 103/ul Normal 0.0-0.1 [facility] Comment on above: Performed By: #### C BC ####[facility] [address] [address]Dr. Evon Quesada Basophils/100 WBC (Bld) 0.5 % Normal 0.2-2.0 [facility] Comment on above: Performed By: #### C BC ####[facility] [address] [address]11DrJael Quesada EO # 0.2 103/ul Normal 0.0-0.7 [facility] Comment on above: Performed By: #### C BC ####[facility] [address] [address]Dr. Evon Quesada Eosinophils/100 WBC (Bld) 1.5 % Normal 0.9-7.0 [facility] Comment on above: Performed By: #### C BC ####[facility] [address] [address]Dr. Evon Quesada Erythrocyte distribution width (RBC) [Ratio] 13.3 % Normal 11.0-15.0 [facility] Comment on above: Performed By: #### C BC ####[facility] [address] [id number]. Evon Quesada Hematocrit (Bld) [Volume fraction] 42.6 % Normal 42.0-54.0 [facility] Comment on above: Performed By: #### C BC ####[facility] [address] [address]Dr. Evon Quesada Hemoglobin (Bld) [Mass/Vol] 13.9 g/dL Critically low 14.0-18.0 [facility] Comment on above: Performed By: #### C BC ####[facility] [address] [address]Dr. Evon Quesada IG # 0.11 10e3/ul Critically high 0.00-0.03 [facility] [place] [facility] Comment on above: Performed By: #### C BC ####[facility] [address] [address]Dr. Evon Quesada IG % 0.7 % Critically high 0.0-0.5 [facility] Comment on above: Performed By: #### C BC ####[facility] [address] [address]Dr. Evon Quesada LYMPH # 2.3 103/ul Normal 1.2-3.8 [facility] Comment on above: Performed By: #### C BC ####[facility] [address] [address]Dr. Evon Quesada Lymphocytes/100 WBC (Bld) 15.8 % Critically low 20.5-60.0 [facility] Comment on above: Performed By: #### C BC ####[facility] [address] [address]Dr. Evon Quesada MANUAL DIFF REQ NO Normal [facility] Comment on above: Performed By: #### C BC ####[facility] [address] [id number]. Evon Quesada MCH (RBC) [Entitic mass] 30.7 pg Normal 25.9-34.0 [facility] Comment on above: Performed By: #### C BC ####[facility] [address] [address]Dr. Evon Quesada MCHC (RBC) [Mass/Vol] 32.6 g/dL Normal 29.9-35.2 [facility] Comment on above: Performed By: #### C BC ####[facility] [address] [address]Dr. Evon Quesada MCV (RBC) [Entitic vol] 94.0 fL Normal 80.0-94.0 [facility] Comment on above: Performed By: #### C BC ####[facility] [address] [place], [place] [address]Dr. Mirtakierra Quesada MONO # 1.7 103/ul Critically high 0.3-0.8 [facility] Comment on above: Performed By: #### C BC ####[facility] [address] [place], [place] [address]Dr. Mirtakierra Quesada Monocytes/100 WBC (Bld) 11.3 % Normal 1.7-12.0 [facility] Comment on above: Performed By: #### C BC ####[facility] [address] [place], [place] [address]Dr. Evon Quesada NEUT # 10.4 103/ul Critically high 1.4-6.5 The [facility] Comment on above: Performed By: #### C BC ####[facility] [address] [place], [place] [address]Dr. Evon Quesada Neutrophils/100 WBC (Bld) 70.2 % Normal 43.0-75.0 [facility] Comment on above: Performed By: #### C BC ####[facility] [address] [place], [place] [address]Dr. Evon Quesada Platelet mean volume (Bld) [Entitic vol] 10.1 fL Normal 9.5-13.5 [facility] Comment on above: Performed By: #### C BC ####[facility] [address] [place], [place] [address]Uc. Mirtakierra Quesada PLT 366 103/ul Normal 150-450 [facility] Comment on above: Performed By: #### C BC ####[facility] [address] [place], [place] [address]Eq. Evon Quesada RBC 4.53 106/ul Critically low 4.70-6.10 [facility] Comment on above: Performed By: #### C BC ####[facility] [address] [place], [place] [address]Kw. Evon Quesada WBC 14.7 103/ul Critically high 4.0-11.0 [facility] Comment on above: Performed By: #### C BC ####[facility] [address] [place], [place] [address]Qo. Evon Quesada LIPID PROFILEon 08-18-2021 CHOL-HDL RATIO NORM SEE BELOW Normal [facility] Comment on above: Result Comment: 3.3 - 4.4 LOW RISK 4.4 - 7.1 AVERAGE RISK 7.1 - 11.0 MODERATE RISK >11.0 HIGH RISK Performed By: #### L IPID, CMP #### [facility] [address] [address] [address] Evon Quesada Cholesterol [Mass/Vol] 117 mg/dL Normal <=200 [facility] Comment on above: Performed By: #### L IPID, CMP #### [facility] [address] [address] [address] Evon Quesada Cholesterol in HDL [Mass/Vol] 56 mg/dL Normal 40-60 [facility] Comment on above: Performed By: #### L IPID, CMP #### [facility] [address] [address] [address] Evon Quesada Cholesterol in LDL [Mass/Vol] 49.8 mg/dL Normal [facility] Comment on above: Performed By: #### L IPID, CMP #### [facility] [address] [address] [address] Evon Quesada Cholesterol.total/C holesterol in HDL [Mass ratio] 2.1 {ratio} Normal [facility] Comment on above: Performed By: #### L IPID, CMP #### [facility] [address] [address] [address] Evon Quesada HDL NORMAL > or = 60 mg/dl - LO W CARDIOVASCULAR RISK <40 mg/dl - HIGH CARDIOVASCULAR RISK Normal [facility] Comment on above: Performed By: #### L IPID, CMP #### [facility] [address] [address] [address] Evon Quesada LDL CALC NORMAL SEE BELOW Normal [facility] Comment on above: Result Comment: <100 mg/dl OPTIMAL 100 - 129 mg/dl NEAR OR ABOVE OPTIMAL 130 - 159 mg/dl BORDERLINE HIGH 160 - 189 mg/dl HIGH >190 mg/dl VERY HIGH Performed By: #### L IPID, CMP #### [facility] [address] [address] [address] Evon Quesada Triglyceride [Mass/Vol] 56 mg/dL Normal <=150 [facility] Comment on above: Performed By: #### L IPID, CMP #### [facility] [address] [address] [address] Evon Quesada VLDL CALC 11.2 mg/dL Normal [facility] Comment on above: Performed By: #### L IPID, CMP #### [facility] [address] [address] [address] Evon Quesada PROF 14(COMP METB)on 022 Albumin [Mass/Vol] 3.6 g/dL Normal 3.4-5.0 [facility] Comment on above: Performed By: #### L IPID, CMP #### [facility] [address] [address] [address] Evon Quesada Albumin/Globulin [Mass ratio] 1.0 {ratio} Normal [facility] Comment on above: Performed By: #### L IPID, CMP #### [facility] [address] [address] [address] Evon Quesada ALP [Catalytic activity/Vol] 108 U/L Normal 46-116 [facility] Comment on above: Performed By: #### L IPID, CMP #### [facility] [address] [address] [address] Evon Quesada ALT [Catalytic activity/Vol] 38 U/L Normal 16-63 [facility] Comment on above: Performed By: #### L IPID, CMP #### [facility] [address] [address] [address] Evon Quesada Anion gap [Moles/Vol] 10.7 mmol/L Normal [facility] Comment on above: Performed By: #### L IPID, CMP #### [facility] [address] [address] [address] Evon Quesada AST [Catalytic activity/Vol] 35 U/L Normal 15-37 [facility] Comment on above: Performed By: #### L IPID, CMP #### [facility] [address] [address] [address] Evon Quesada Bilirubin [Mass/Vol] 0.7 mg/dL Normal 0.2-1.0 [facility] Comment on above: Performed By: #### L IPID, CMP #### [facility] [address] [address] [address] Evon Quesada Calcium [Mass/Vol] 10.4 mg/dL Critically high 8.5-10.1 [facility] Comment on above: Performed By: #### L IPID, CMP #### [facility] [address] [address] [address] Evon Quesada Chloride [Moles/Vol] 102 mmol/L Normal 98-107 [facility] Comment on above: Performed By: #### L IPID, CMP #### [facility] [address] [address] [address] Evon Quesada CO2 [Moles/Vol] 30.1 mmol/L Normal 21.0-32.0 [facility] Comment on above: Performed By: #### L IPID, CMP #### [facility] [address] [address] [address] Evon Quesada Creatinine [Mass/Vol] 0.79 mg/dL Normal 0.70-1.30 [facility] Comment on above: Performed By: #### L IPID, CMP #### [facility] [address] [address] [address] Evon Quesada EGFR-AF GABONESE >60 Normal >=60 [facility] Comment on above: Performed By: #### L IPID, CMP #### [facility] [address] [address] [address] Evon Quesada EGFR-NON AF GABONESE >60 Normal >=60 [facility] Comment on above: Performed By: #### L IPID, CMP #### [facility] [address] [address] [address] Evon Quesada Globulin (S) [Mass/Vol] 3.7 g/dL Normal [facility] Comment on above: Performed By: #### L IPID, CMP #### [facility] [address] [address] [address] Evon Quesada Glucose [Mass/Vol] 99 mg/dL Normal 74-106 [facility] Comment on above: Performed By: #### L IPID, CMP #### [facility] [address] [address] [address] Evon Quesada Potassium [Moles/Vol] 4.8 mmol/L Normal 3.5-5.1 [facility] Comment on above: Performed By: #### L IPID, CMP #### [facility] [address] [address] [address] Evon Quesada Protein [Mass/Vol] 7.3 g/dL Normal 6.4-8.2 [facility] Comment on above: Performed By: #### L IPID, CMP #### [facility] [address] [address] [address] Evon Quesada Sodium [Moles/Vol] 138 mmol/L Normal 136-145 [facility] Comment on above: Performed By: #### L IPID, CMP #### [facility] [address] [address] [address] Evon Quesada Urea nitrogen [Mass/Vol] 12.0 mg/dL Normal 7.0-18.0 [facility] Comment on above: Performed By: #### L IPID, CMP #### [facility] [address] [place], [place] [address] Dr. Evon Quesada Urea nitrogen/Creatinine [Mass ratio] 15.2 mg/mg Normal [facility] Comment on above: Performed By: #### L IPID, CMP #### [facility] [address] [place], [place] [address] Dr. Evon Quesada HEMOGLOBINon 07-07-2021 Hemoglobin (Bld) [Mass/Vol] 13.3 g/dL Critically low 14.0-18.0 [facility] Comment on above: Performed By: #### H GB ####[facility] [address] [place], [place] [address]Dr. Evon Quesada CREATININE BLOODon Creatinine [Mass/Vol] 0.64 mg/dL Low 0.70-1.30 [facility] Comment on above: Order Comment: No: D o not add to previous draw Performed By: #### 2 5656 #### [facility] [address] [place] [address], [place] GFR/1.73 sq M.predicted among blacks MDRD (S/P/Bld) [Vol rate/Area] mL/min/{1.73_m2} Normal >60 [facility] Comment on above: Order Comment: No: D o not add to previous draw Performed By: #### 2 5656 #### [facility] [address] [place] [address], [place] GFR/1.73 sq M.predicted among non-blacks MDRD (S/P/Bld) [Vol rate/Area] mL/min/{1.73_m2} Normal >60 [facility] Comment on above: Order Comment: No: D o not add to previous draw Performed By: #### 2 5656 #### [facility] [address] [place] [address], [place] Cardiovascular Lab Reporton 02-23-2021 Cardiovascular Lab Report [facility] Patient Name: Patrick Liriano [facility] MR #: [id number] Physician: Almas Mcallister Department of M.D. Medicine Service Date: 02/22/2021 Division of Birthdate: 1960 Cardiology Room #: [id number] Adult Cardiovascular Services [facility] [address] [place], [place] [address] Cardiovascular Laboratory Report FINAL IMPRESSIONS: 1. Severe [...] for a minimum of 6 months preferably mcfp. 3. Aggressive cardiovascular risk factor modification. 4. Guideline directed medical therapy for coronary artery disease should include high-intensity statin therapy, beta michael, +/- an angiotensin-converting enzyme inhibitor. 5. Follow up with Dr. Mcallister in the [facility] in the next 3-4 weeks. 6. Follow [...] femoral vein and artery was obtained. A 6-German 11 cm sheath was placed in each. [...] to proceed with an interventional procedure. A 6-German XB3.5 guide catheter was advanced over J-wire [...] the procedure. All catheters were removed. A 6-German MynxGrip closure device was deployed per protocol, [...] INDICATI (more content not included)... Normal [facility] Vital Signs Date Time Vital Sign Value Performing Clinician Facility 12-27-2023 10:26-0400 Blood Pressure Location Calvin [facility] 12-27-2023 10:26-0400 Body temperature 98.6 [degF] Calvin WALK[facility] 12-27-2023 10:26-0400 Diastolic blood pressure 65 mm[Hg] Calvin WALK[facility] 12-27-2023 10:26-0400 Heart rate 62 /min Calvin WALK[facility] 12-27-2023 10:26-0400 Respiratory rate 16 /min Calvin WALK[facility] 12-27-2023 10:26-0400 Systolic blood pressure 107 mm[Hg] Calvin WALKER [facility] 10-15-2023 10:45-0400 Body height 190.5 cm [facility] 10-15-2023 10:45-0400 Body mass index (BMI) [Ratio] 20.9 kg/m2 [facility] 10-15-2023 10:45-0400 Body weight 75.92 kg [facility] 10-15-2023 10:45-0400 Diastolic blood pressure 83 mm[Hg] [facility] 10-15-2023 10:45-0400 Heart rate 78 /min [facility] 10-15-2023 10:45-0400 Respiratory rate 12 /min [facility] [place] 10-15-2023 10:45-0400 Systolic blood pressure 127 mm[Hg] [facility] 04-29-2023 11:22-0500 Blood Pressure Location Calvin WALKER [facility] 04-29-2023 11:22-0500 Diastolic blood pressure 68 mm[Hg] Calvin WALKER [facility] 04-29-2023 11:22-0500 Heart rate 64 /min Calvin WALKER [facility] 04-29-2023 11:22-0500 Respiratory rate 16 /min Calvin WALKER [facility] 04-29-2023 11:22-0500 Systolic blood pressure 128 mm[Hg] Calvin WALKER [facility] 04-23-2023 10:30-0500 Body height 190.5 cm Paulino Ball Other [facility] [facility] [email or web address] Other 04-23-2023 10:30-0500 Body mass index (BMI) [Ratio] 20.72 kg/m2 Paulino Ball Other [email or web address] Other 04-23-2023 10:30-0500 Body weight 75.21 kg Paulino Ball Other [email or web address] Other 04-23-2023 10:30-0500 Diastolic blood pressure 73 mm[Hg] Paulino Ball Other [facility] [facility] [email or web address] Other 04-23-2023 10:30-0500 Respiratory rate 12 /min Paulino Ball Other [email or web address] Other 04-23-2023 10:30-0500 Systolic blood pressure 119 mm[Hg] Paulino Ball Other [employer] Other 10-22-2022 11:00-0400 Body height 190.5 cm Paulino Ball Other [employer] Other 10-22-2022 11:00-0400 Body mass index (BMI) [Ratio] 21.25 kg/m2 [facility] Other [facility] Other 10-22-2022 11:00-0400 Body weight 77.11 kg Paulino [employer] Other [facility] Other 10-22-2022 11:00-0400 Diastolic blood pressure 71 mm[Hg] [facility] Other [facility] Other 10-22-2022 11:00-0400 Respiratory rate 16 /min [facility] Other [facility] Other 10-22-2022 11:00-0400 Systolic blood pressure 142 mm[Hg] [facility] Other [facility] Other 03-02-2022 14:14-0500 1 1 Hiral Guy [employer] Work Phone: FK-Jpqkkxqjyb-ZLU [place] Work Phone: Comment on above: PHQ-9 TS Encounters Encounter Date Encounter Type Care Provider Facility Start: 01-01-2025 ambulatory Calvin WALKER Facili ty:[facility] Start: 12-27-2023 End: 12-27-2023 ambulatory Calvin WALKER Facility:[facility] Start: 12-27-2023 End: 12-27-2023 Patient encounter procedure Calvin WALKER [facility] Start: 10-15-2023 End: 10-15-2023 ambulatory [facility] Work Phone: Start: 10-15-2023 End: 10-15-2023 Patient encounter procedure [facility] Physician [facility] Work Phone: Start: 06-20-2023 End: 06-20-2023 ambulatory [facility] Start: 04-29-2023 End: 04-29-2023 ambulatory Calvin WALKER Facility:[facility] [place] Start: 04-29-2023 End: 04-29-2023 Patient encounter procedure Calvin WALKER [facility] Start: 04-24-2023 End: 04-24-2023 ambulatory Paulino Wilson Other [facility] Other Start: 04-24-2023 Telephone encounter Paulino Ball [facility] Start: 04-23-2023 End: 04-23-2023 ambulatory Paulino Ball Other [facility] Other Start: 04-23-2023 Office outpatient vi sit 25 minutes Paulino Ball [facility] Start: 04-05-2023 ambulatory Calvin WALKER Facility :[facility] [place] Start: 01-31-2023 End: 01-31-2023 ambulatory Paulino Ball Other [facility] Other Start: 01-31-2023 Telephone encounter Paulino Ball [facility] [employer] Start: 12-07-2022 End: 12-07-2022 ambulatory Paulino Ball Other [facility] Other Start: 12-07-2022 Telephone encounter Paulino Ball [facility] Start: 11-29-2022 End: 11-29-2022 ambulatory Paulino Ball Other [facility] Other Start: 11-29-2022 Telephone encounter Paulino Ball [facility] Start: 11-11-2022 End: 11-11-2022 ambulatory Paulino Ball Other [facility] Other Start: 11-11-2022 Telephone encounter Paulino Ball [facility] Start: 11-09-2022 End: 11-09-2022 ambulatory Paulino Segundo Other [facility] Other Start: 11-09-2022 Telephone encounter Paulino GARCÍA [facility] Start: 10-22-2022 End: 10-22-2022 ambulatory Paulino Wilson Other [facility] Other Start: 10-22-2022 Encounter for genera l adult medical examination without abnormal findings Paulino Segundo [facility] Start: 10-22-2022 Periodic preventive med est patient 40-64yrs Paulino Segundo [facility] Start: 06-26-2022 End: 06-27-[address] PAULINO WILSON Facility: Start: 03-23-2022 ambulatory Provider Pending Facili ty:[facility] Start: 03-21-2022 Chart Update Gela Jaquez DO Work Phone: [facility] [facility] Work Phone: Start: 03-01-2022 ambulatory Provider Pending Facili ty:[facility] Start: 03-01-2022 LUNGSW, Provider: Hiral Guy, Status: Pen, Time: 11:00 AM Gela Jaquez DO Work Phone: [facility] [facility] Work Phone: Start: 03-01-2022 Patient encounter procedure Hiral Guy [employer] Work Phone: [facility] [place] [facility] Work Phone: Start: 03-01-[address] GELA JAQUEZ Facility:[facility] Start: 03-01-2022 EDUCLUNG, Provider: LUNG TRANSPLANT EDUCATION,NURSE, Status: Pen, Time: 10:00 AM Gela Jaquez DO Work Phone: [facility] Work Phone: Start: 02-22-2022 AUDIT Gela Jaquez DO Work Phone: [facility] [facility] Work Phone: Start: 02-01-2022 Result Review Provider Lorri hernandez Work Phone: [facility] Work Phone: Start: 02-01-2022 Encounter for other preprocedural examination DR DOCTOR GREER [facility] Start: 01-30-2022 End: 01-30-[address] PAULINO BETANCUR Facility:[facility] Start: 01-27-2022 End: 01-28-[address] PAULINO WILSON Facility:[facility] Start: 01-27-2022 End: 01-28-2022 Encounter for other preprocedural examination DR PAULINO WILSON Facility:[facility] Start: 12-05-2021 End: 12-06-[address] PAULINO WILSON Facility: Start: 11-06-[address] PAULINO WILSON [facility] ty:[facility]1 Start: 10-28-2021 End: 10-29-2021 ambulatory PRINCESS VALVERDE . Facility:[facility] Start: 09-11-2021 ambulatory Hunter Smith Facility:[facility] Start: 09-11-2021 ambulatory Hunter Amor Steeleasaralbernadine Facility:[facility] Start: 09-11-2021 Patient encounter procedure Martina Rodríguez Work Phone: [facility] Work Phone: Start: 09-08-2021 End: 09-09-[address] PAULINO WILSON Facility:[facility] Start: 08-29-2021 AUDIT Hunter palmer MD Work Phone: [facility] Work Phone: Start: 08-28-2021 Encounter for genera l adult medical examination without abnormal findings DR PAULINO WILSON [facility] Start: 08-18-2021 End: 08-19-[address] PAULINO WILSON Facility:[facility] Start: 08-18-2021 End: 08-19-2021 Encounter for general adult medical examination without abnormal findings DR PAULINO WILSON Facility:[facility] Start: 08-17-2021 Adult health examination Sarthak Wilson Other [facility] Other Start: 08-08-[address] PAULINO WILSON Facilalthea ty:[facility]1 Start: 08-05-[address] CAROLINE Mathis ty:[facility] Start: 07-28-[address] CAROLINE Mathis ty:[facility] Start: 07-07-2021 End: 07-08-[address] PAULINO WILSON Facility:[facility] Start: 02-22-2021 End: 02-23-2021 ambulatory AB [facility] Facility:[facility] Start: 03-30-2019 Problem, abnormal examination Paulino Segundo Other [email or web address] Other Patient encounter status Provide r AMAProvider Work Phone: [facility] Work Phone: Procedures Date Procedure Procedure Detail Performing Clinician Start: 08-18-[address] CAROLINE THOMAS Comment on above: Performed By: #### P [facility] #### [facility] [address] [place] [address] Dr. Evon Quesada Start: 12-18-2017 Screening for [...] Status: Pen, Time: 2:00 PM NPV, Provider: Salcedo,Mary, Status: Pen, Time: 2:00 PM [facility] Work Phone: Start: 09-22-2021 VIRNPVHOME, Provider : Hunter Smith, Status: Pen, Time: 1:40 PM VIRNPVHOME, Provider: Hunter Smith, Status: Pen, Time: 1:40 PM [facility] Work Phone: Start: 09-11-2021 ABG, Provider: [facility] FLR PFT RM1,PULM, Status: Pen, Time: 12:15 PM ABG, Provider: [facility] FLR PFT RM1,PULM, Status: Pen, Time: 12:15 PM [facility] Work Phone: Start: 09-11-2021 PFT, Provider: [facility] RM1,PULM, Status: Pen, Time: 11:15 AM PFT, Provider: [facility] FLR PFT RM1,PULM, Status: Pen, Time: 11:15 AM [facility] Work Phone: Start: 09-11-2021 PST, Provider: [facility] FLR PFT [place],PULM, Status: Pen, Time: 10:45 AM PST, Provider: [facility] FLR PFT [place],PULM, Status: Pen, Time: 10:45 AM [facility] Work Phone: Immunizations Immunization Date Immunization Notes Care Provider Fa cilibhavna 04-04-2022 SARS-CoV-2 mRNA (tovsdpnootx-edty-rfopj se) vaccine Calvin WALKER [facility] Comment on above: Result Comment: 202305: TPV60 03-14-2022 SARS-CoV-2 mRNA (gcuugpoxvyp-msqf-eecay se) vaccine Calvin WALKER [facility] Comment on above: Result Comment: 202305: TPV60 03-11-2022 influenza virus vaccine, unspecified formulation Calvin LIZETH [facility] Payers Date Payer Category Payer Medicare [id number] 2023 Unknown [id number] 2022 Medicaid [id number] 1959 Self-pay [id number] 1959 Unknown [id number] 1959 Unknown [id number] 2.16.8 40.1.727623.3.579.2.647 1959 Unknown [id number] 2.16. 840.1.324619.3.579.2.356 1959 Unknown [id number] 2.16. 840.1.987585.3.579.2.356 1959 Unknown [id number] 2.16. 840.1.182758.3.579.2.356 1959 Unknown [id number] 2.16. 840.1.815016.3.579.2.356 1959 Unknown [id number] 2.16. 840.1.383681.3.579.2.356 1959 Unknown [id number] 2.16. 840.1.852745.3.579.2.356 1959 Unknown [id number] 2.16.84 0.1.725431.3.579.2.593 1959 Unknown [id number] 2.16.84 0.1.569310.3.579.2.593 1959 Unknown [id number] 2.16.84 0.1.997375.3.579.2.593 1959 Unknown [id number] 2.16.84 0.1.300443.3.579.2.593 1959 Unknown [id number] 2.16.84 0.1.264023.3.579.2.593 1959 Unknown [id number] 2.16.84 0.1.797096.3.579.2.593 1959 Unknown [id number] 2.16.84 0.1.504244.3.579.2.593 1959 Unknown [id number] 2.16.84 0.1.325735.3.579.2.593 1959 Unknown [id number] 2.16.84 0.1.548086.3.579.2.593 1959 Unknown [id number] 2.16.84 0.1.799985.3.579.2.593 1959 Unknown [id number] 2.16.84 0.1.355436.3.579.2.593 1959 Unknown [id number] 2.16.8 40.1.070669.3.579.2.727 1959 Unknown [id number] 2.16.8 40.1.586154.3.579.2.727 1959 Unknown [id number] 2.16.8 40.1.884753.3.579.2.727 1959 Unknown [id number] 2.16.8 40.1.562901.3.579.2.727 Self-pay Self Pay [id number] Unknown Unknown [id number] Unknown [id number] 2.16.84 0.1.966342.3.579.2.593 Social History Date Type Detail Facility [facility] Work Phone: Comment on above: quit 12/2020; on short term disabi lity; Sex Assigned At [facility] Start: 04-29-2023 End: 12-27-2023 Tobacco smoking status Ex-smoker (finding) [facility] Tobacco smoking status Never [facility] Start: 12-01-2018 Tobacco smoking stat us NHIS Smoker (finding) [facility] Start: 1960 Sex Assigned At Male [facility] Functional Status Date Assessment Result Facility 12-27-2023 Functional Status N/A [facility] 04-29-2023 Functional Status N/A [facility] Clinical Notes 10-06-2021 to 12-27-2023 Note Date & Type Note Facility 12-27-2023 Hospital Discharge instructions Patient Education 12/27/2023 11:22:53 Benign Prostatic Hyperplasia Benign Prostatic Hyperplasia Benign [...] urethra. Follow these instructions at home: Take ztxt-lmb-sqkduhp and prescription medicines only as told by [...] provider. Document Revised: 09/27/2021 Document Reviewed: 09/27/2021 Elsevier Patient Education 2023 [employer]. Follow Up Care 04/29/2023 12:19:52 With:LIZETH WOODALL, Calvin Watson, URL Address: [address] [place] [address]- When: Unknown [facility] 12-27-2023 Note Patient Education Urology Benign Prostatic Hyperplasia Benign [...] Follow these instructions at home: ? Take khsy-vhs-coiwima and prescription medicines only as told by [...] better with treatment. ? You develop side effec (more content not included)... [facility] 06-20-2023 Note Patient here for 1 y [...] All other systems reviewed and are negative. [facility] 06-20-2023 Note Cardiovascular Medic [facility] SUBJECTIVE Chief Complaint Patient presents with [...] lung disease (CMS/HCC) Coronary artery disease involving holy cross coronary artery of holy cross heart without angina pectoris Primary hypertension Mixed [...] at bedtime., Disp: 90 tablet, Rfl: 3 oopowvnzdo-atjxdrje-ocuxuojoyb 160-9-4.8 mcg/actuation HFA aerosol inhaler, Breztri Aerosphere 160 mcg-9mcg-4.8mcg/actuation HFA aerosol inhaler INHALE [...] for a minimum of 6 months preferably mcfp. 3. Aggressive cardiovascular risk factor modification. 4. Guideline directed medical therapy for coronary artery disease should include high-intensit (more content not included)... [facility] 04-29-2023 Hospital Discharge instructions Patient Education 04/29/2023 [...] urethra. Follow these instructions at home: Take vfom-diz-etqlchs and prescription medicines only as told by [...] provider. Document Revised: 09/27/2021 Document Reviewed: 09/27/2021 [employer] Patient Education 2022 Stratio. Follow Up Care 01/23/2023 14:26:12 With:LIZETH WOODALL, Calvin Watson, URL Address: [facility] [address] [place] [address]- [phone] When: Unknown Comments:6 mos w/ PSA [facility] 04-29-2023 Note Chief Complaint Referral *Elevated PSA [...] WALKER MD, URL [facility] [address], [place] [address]- [phone] Additional Instructions: 6 mos w/ PSA Patient Education Benign Prostatic Hyperplasia I, Bailee Daniel, personally scribed for Dr. Walker on 04/29/2023 12:14:31. . Documentation recorded by the kaceyibeBailee, accurately reflects the services(s) I performed and [...] Social History T (more content not included)... [facility] Comment on above: Result Comment: Elec [...] and exercise. Reviewed age-appropriate preventive testing recommended. [facility] Other 09-07-2023 Evaluation note* Encounter Date Diagnosis Assessment Notes Treatment Notes Treatment Clinical Notes Nov, Increased prostate specific antigen (PSA) velocity (ICD-10 - R97.20) [facility] Other 08-18-2023 Evaluation note* Encounter Date Diagnosis Assessment Notes Treatment Notes Treatment Clinical Notes Oct, Solitary pulmonary nodule (ICD-10 - R91.1) LDCT w/o suspicious nodules - 10/2022Oct, Nicotine dependence, cigarettes, in remission (ICD-10 - F17.211) [facility] Other 07-31-2023 Evaluation note* Encounter Date Diagnosis [...] PSA (prostate specific antigen) (ICD-10 - Z12.5) [facility] Other 07-15-2022 NotePatient Discussion/Summary You were seen [...] 12/2020, 50 PY history) with CAD (S/P LHC with MEKHI in 02/2021) with very severe [...] the future, he'll need clearance from his critical power technician to beable to be off the Plavix [...] the patient and will let his referring product engineer know as well so it can be [...] Dr. Wilson AND Dr. Valverde for Consult [place] Valve testing [facility]: [phone] History of Present IllnessDue to the COVID-19 [...] on systemic corticosteroids Current medications for COPD: Breztri, Albuterol (using about twice daily) Current on Plavix due to MEKHI in 02/2021. No other surgeries or procedures performed on chest wall or lungs with the exception of the [facility] 2020. No personal history of cancer. 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 Lives in [place], [place]. Dad and sister had lung cancer - both . Referral contact/referring product engineer: Dr. Valverde - (telephone); (fax) Not allergic [...] Date:10/28/2023 10:45:00 AM Scheduled Provider:Calvin WALKER MD Location:[facility] Appointment Type:URO Office Visit Diagnostic Tests Pending * PSA Total 04/29/23 [facility] evaldtlxdi + Plan note Future Appointments Appointment Date:01/01/2025 09:45:00 AM Scheduled Provider:Calvin WALKER MD Location:[facility] Appointment Type:URO Office Visit [facility] evalsveefw noteNo InformationNoWho Works Around You [employer] Other Evaluation note* Diagnosis Onset Date Resolution Status ASHD (arteriosclerotic heart disease) acute Benign prostatic hyperplasia with lower urinary tract symptoms acute Chronic bronchitis acute Colon polyp 2019 acute Hypercalcemia acute Nicotine addiction acute NSVT (nonsustained ventricular tachycardia) acute [facility] Work Phone: Hiszgir general Narrative - Reported* Type Description Date Medical History emphysema Medical History COPD Medical History skilled nursing current use of inhaled steroid Medical History [...] FINGER 2018 Hospitalization History SEE SURGICAL HX [facility] Other Hischse general Narrative - Reported* Type Description Date Medical History emphysema Medical History COPD Medical History skilled nursing current use of inhaled steroid Medical History [...] FINGER 2018 Hospitalization History SEE SURGICAL HX [facility] Other History of Present illness Narrative* Visit Type: This is the initial visit for the patient. * Location: [place] [address]. * Accompanied by: girlfriend Sue. * Organ [...] end stage organ disease? 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 * Patient verbalizes understanding of [...] is computer literate, but Patient does not haveInternet access . 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 * Patient's current employment: Not working disabled: . * Employment History:. 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 * Will [...] of services, like internet, tv, working on [employer] * Resources: [employer] * Primary Insurance: Self , Medicaid * [...] your care? yes. * Secondary Support: Phone: [phone] to Patient: Mom * Do they have their own conditions which may prevent them from providing care for you? yes. hearing aids, surgery, age,. * Housing: Owns home. * Type of Home: house, ranch, # of stairs 1 step up into and 3 steps into the kitchen basement . * Distance to [facility]: 1 hour and a half. [...] the weekend, be outside, eileen in the garage sold camper, gathering, lin. * Bahai/Spirituality: none. * Current Tobacco User? No. * [...] not currently on probation or parole. * Skilled Nursing: No * Citizenship: [place] Citizen: Yes * Advance Directives: no documents provided * has a will but not living [facility] [employer] Work Phone: History of Present illness Narrative* Visit Type: This is the initial visit for the patient. * Location: [place] [address]. * Accompanied by: Sue girlfriend. * Organ [...] organ disease? 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 * Knowledge of transplant [...] is computer literate, but Patient does not haveuTest access . 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 * Patient's current employment: Not working disabled: . * Employment History:. 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 * Will [...] of services, like internet, tv, working on [employer] * Resources: [employer] * Primary Insurance: Self , Medicaid * [...] * Secondary Support: * Name: Zoë Liriano. Ctm: 82Relationship to Patient: Mom * Can they [...] the kitchen basement . * Distance to [facility]: 1 hour and a half. [...] the weekend, be outside, eileen in the garage sold camper, gatherings, lin. * Bahai/Spirituality: none. * Attitude toward Interviewer: cooperative and [...] not currently on probation or parole. * Skilled Nursing: No * Citizenship: [place] Citizen: Yes * Advance Directives: no documents provided * has a will but not living will and nothing in the system [facility] [place] [address] Work Phone: Hospital course Narrative No data available for this section [facility] progress note No data available for this section [facility] Summary Purpose Family History No Family [...] section and content) DATE CREATED AUTHOR 03/22/2021 [facility] DATE CREATED AUTHOR AUTHOR'S ORGANIZ ATION 03/03/2022 [employer] DATE CREATED AUTHOR AUTHOR'S ORGANIZ ATION 05/11/2022 [facility] DATE CREATED AUTHOR AUTHOR'S ORGANIZ ATION 07/01/2022 [facility]ital DATE CREATED AUTHOR AUTHOR'S ORGANIZ ATION 06/25/2023 [facility] DATE CREATED AUTHOR AUTHOR'S ORGANIZ ATION 01/09/2024 [facility] REASON FOR VISIT (unrecogniz ed section and [...] BE BASED ON THE PRIMARY CLINICAL RECORDS. [employer] provides no warranty or guarantee of the accuracy or completeness of information in this document.
[2024-04-20 12:17] LABS: Basophils Percent Auto 0.4 % (0.2-2.0); Eosinophils Absolute Auto 0.3 10^3/uL (0.0-0.7); Eosinophils Percent Auto 3.1 % (0.9-7.0); Hematocrit 41.8 % (42.0-54.0); Hemoglobin 13.5 g/dL (14.0-18.0); Immature Granulocytes Abs Auto 0.07 10^3/uL (0.00-0.03); Immature Granulocytes Pct Auto 0.7 % (0.0-0.5); Lymphocytes Percent Auto 19.1 % (20.5-60.0); Mean Corpuscular HGB Conc 32.3 g/dL (29.9-35.2); Mean Corpuscular Hemoglobin 30.3 pg (25.9-34.0); Mean Corpuscular Volume 93.7 fL (80.0-94.0); Mean Platelet Volume 10.3 fL (9.5-13.5); Monocytes Percent Auto 9.5 % (1.7-12.0); Neutrophils Absolute Auto 7.2 10^3/uL (1.4-6.5); Neutrophils Percent Auto 67.2 % (43.0-75.0); Platelet Count 393 10^3/uL (150-450); Red Blood Count 4.46 10^6/uL (4.70-6.10); White Blood Count 10.7 10^3/uL (4.0-11.0)
[2024-04-20 12:28] LABS: Alanine Aminotransferase 41 U/L (16-63); Albumin Level 3.3 g/dL (3.4-5.0); Alkaline Phosphatase 110 U/L (46-116); Anion Gap 8.2; Aspartate Amino Transferase 24 U/L (15-37); BUN Creatinine Ratio 17.9; Bilirubin Total 0.5 mg/dL (0.2-1.0); Calcium 9.6 mg/dL (8.5-10.1); Chloride 106 mmol/L (98-107); Chol HDL Ratio 2.2; Cholesterol 103 mg/dL (<=200); Estimated GFR (African America >60 (>=60 mL/min/1.73m^2); Estimated GFR (Non-African Ame >60 (>=60 mL/min/1.73m^2); Globulin 3.3 g/dL; Glucose 103 mg/dL (74-106); HDL Cholesterol 46 mg/dL (40-60); LDL Cholesterol Calculated 51.8 mg/dL; Potassium 4.2 mmol/L (3.5-5.1); Sodium 141 mmol/L (136-145); Total Protein 6.6 g/dL (6.4-8.2); Triglycerides 26 mg/dL (<=150); VLDL CHOLESTEROL 5.2 mg/dL
== END 2024-04-20 11:27 | disposition home or self-care (01) ==
LOC: LAB 11:28
PROVIDERS: PCP Internal Medicine; Visit Provider Internal Medicine
DX: I25.10 Atherosclerotic heart disease of native coronary artery without angina pectoris (principal); E78.00 Pure hypercholesterolemia, unspecified; E83.52 Hypercalcemia
CPT/HCPCS: 36415; 80053; 80061; 85025

== ENCOUNTER 2025-02-17 12:03 | Outpatient (OUT) | payer MEDICARE, SELFPAY ==
--- OUTSIDE RECORDS SUMMARY | 2025-02-10 10:00 | XMS_ITS | Encounter Summary ---
Author Organization [facility] Address [address], [address] [place] [address] Care Team Providers Care Content Director Name Role Phone Paulino Wilson DO Primary Care Provider [phone] Reason for Visit * ReasonCommentsFollow-upPatient presents for a follow up for COPD. Patient denies tobacco use today. Patient complains of SOB with exertion. Patient states his breathing has slightly worsened since his last visit. Patient re ports using his rescue inhaler a couple times per day. Encounter Details DateTypeDepartmentCare Team (Latest Contact Info)Dgqupvybyaw69/19/2025 10:00 AM ESTOffice Visit [facility] [address] [place] [address] [address] [place] [address] Sumanth Burt DO [address] [place] [address] Centrilobular emphysema (Primary Dx); Multiple pulmonary nodules; History of tobacco abuse; alf (current) use of inhaled steroids Social History Tobacco UseTypesPacks/DayYears UsedDateSmoking Tobacco: BigsdlVjjvtdmvvm692 12/1970 - mokeless Tobacco: Never Tobacco Cessation:Counseling Given: Not Answered Sex and Gender InformationValueDate RecordedSex Assigned at YbpizStyt46/31/2025 2:52 PM EDTLegal DvfVwzy4005/04/2012 12:01 PM ESTGender MkrvpxccKxri52/31/2025 2:52 PM EDTSexual NbnfzqilsdbZjphcasr32/31/2025 2:52 PM EDTOccupationIndustryJob Start DateJob End 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, pet controlNot on fileNot on fileNot on filedocumented as of this encounter Last Filed Vital Signs Vital SignReadingTime TakenCommentsBlood Qsqcdied371/6802/10/2025 9:55 AM EST Bgppd669102/10/2025 10:00 AM WADWtlokyhmici73.9 ??C (96.6 ??F)02/10/2025 9:55 AM ESTRespiratory Smjj297804/12/2024 9:55 AM ESTOxygen Tdmdihcicv90%02/10/2025 10:00 AM ESTon room air/restingInhaled Oxygen Concentration--Jiwiwr06.7 kg (173 lb 9.6 oz)02/10/2025 9:55 AM KXGVngzkx500.5 cm (6' 3 )02/10/2025 9:55 AM ESTBody Mass Index21.7104/12/2024 9:55 AM ESTdocumented in this encounter Patient Instructions * Patient Instructions* Sumanth Burt DO - 02/10/2025 10:24 AM EST Get the low dose CT scan done. Continue Breztri. Contact the office if any questions or concerns. documented in this encounter Progress Notes * Sumanth Burt DO - 02/10/2025 10:14 AM EST Images from the original note were not included. Date of encounter: 02/10/25 Patrick Danielle 1960 (65 y.o.) [address] [place] [address] Patrick Danielle was seen today in the office by me. Below is my assessment and plan of the patient: Assessment & Plan Centrilobular emphysema Patient is doing okay at this time, but does notice a slow overall decline in his stamina and symptom control. We have already looked into alternative measures in the past such as endobronchial valves, but he was not a candidate due to collateral flow. Ohtuvayre was not covered by his prior insurance, and he will be changing insurances again at the beginning of the new year. Biologic therapy (Dupixent, Nucala) is even more expensive than Ohtuvayre - would also need to check CBC to see if eosinophil count is high enough to qualify. Due to the question in insurance coverage, the patient electedto continue with Breztri for now and follow-up in 4 months to see how he does over the winter. He was instructed he can contact the office sooner if needed.Orders: albuterol sulfate HFA (PROVENTIL;VENTOLIN;PROAIR) 108 (90 Base) MCG/ACT inhaler; Inhale 2 puffs into the lungs every 4 hours as needed for Shortness of Breath Dwozsoo-Swzwbwrwueg-Lhdmgtnilh (BREZTRI AEROSPHERE) 160-9-4.8 MCG/ACT AERO; Inhale 2 puffs into thelungs 2 times daily Rinse after use Multiple pulmonary nodules LDCT 11/11/2023 shows stability of multiple pulmonary nodules, largest 5 mm, when compared to prior LDCT 11/08/2022. They will be monitored with LDCT, which the patient needs to schedule. History of tobacco abuse The patient was evaluated for low-dose CT (LDCT) for lung cancer screening. Current Medicare-accepted eligibility criteria were reviewed. - Age 50-77 years: Patient's age = 65 y.o. - Asymptomatic (no signs or symptoms of lung cancer): Yes - Tobacco Use Smoking status: Former Packs/day: 0.00 Years: 1 pack/day for 50.0 years (50.0 ttl pk-yrs) Types: Cigarettes Start date: 12/1970 Quit date: 12/2020 Years since quittin.1 Smokeless tobacco: Never Based on the above, he is a candidate for LDCT screening. LDCT screening was strongly recommended. It was ordered by PCP. Patient needs to get it scheduled. 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 Planned follow-up: Return in about 4 months (around 06/10/2025). Data: Alpha-1 Antitrypsin (AAT) -Screening Date: 07/27/2021. -Genotype: M/M. PFT -Date: 06/27/2021 -FEV1/FVC: 30% -FEV1: 20% -FVC: 50% -Bronchodilator response: Partial in FVC -RV: 293% -T% -DLCO: 26% -Flow-volume loop: Very severe. Subjective: Patrick Danielle was previously established with me at [facility] and is now establishing with me at [facility]. He was last seen by me on 05/19/2024. His records from [facility] were reviewed. The patient has not had any exacerbations since last visit. He states his breathing is maintained on Breztri without anyadverse effects. He does note a slow decline in his overall stamina and function. LDCT was due over the summer, it was ordered by his PCP. Patient admitted that he did not schedule the LDCT and was prompted by his insurance company about getting it done. He states he is getting it scheduled for theupcoming month. HPI Follow-up Additional comments: Patient presents for a follow up for COPD. Patient denies tobacco use today. Patient complains of SOB with exertion. Patient states his breathing has slightly worsened since his last visit. Patient reports using his rescue inhaler a couple times per day. Last edited by Kieran Kulkarni MA on 02/10/2025 10:05 AM. Review of systems: Review of Systems Constitutional: Positive for fatigue. Negative for fever. HENT: Negative for congestion. Respiratory: Positive for shortness of breath (With activity). Negative for cough and wheezing. Cardiovascular: Negative for chest pain. Neurological: Negative for weakness. Exam: BP 122/68 (BP Site: Left Upper Arm, Patient Position: Sitting, BP Cuff Size: Medium Adult) Pulse 73 Temp (!) 96.6 ??F (35.9 ??C) (Infrared) Resp 18 Ht 1.905 m (6' 3 ) Wt 78.7 kg (173 lb 9.6oz) SpO2 93% Comment: on room air/resting BMI 21.70 kg/m?? Physical Exam Constitutional: Appearance: Normal appearance. HENT: Mouth/Throat: Mouth: Mucous membranes are moist. Pharynx: Oropharynx is clear. Comments: Edentulous. Mallampati II. No oral candidiasis. Pulmonary: Comments: Normal effort. Diminished breath sounds throughout. Very faint expiratory wheeze on forced exhalation. No rhonchi or crackles. Abdominal: General: Abdomen is flat. Skin: General: Skin is warm and dry. Neurological: Mental Status: He is alert. Psychiatric: Mood and Affect: Mood normal. Behavior: Behavior normal. Medical history: Past Medical History: Diagnosis Date BPH (benign prostatic hyperplasia) CAD (coronary artery disease) Centrilobular emphysema History of tobacco abuse HLD (hyperlipidemia) HTN (hypertension) Hypercalcemia 02/10/2025 Multiple pulmonary nodules Polyp of colon 02/10/2025 Comment on above: 11/2018 - polypectomy, repeat in 5 years 11/2018 - polypectomy (repeat 5 years), 06/2024 (repeat 6mo) Vitamin D deficiency Past Surgical History: Procedure Laterality Date BRONCHOSCOPY 01/30/2022 CARDIAC CATHETERIZATION Left 02/23/2021 FINGER SURGERY Right ORIF TONSILLECTOMY No Known Allergies Current Outpatient Medications Medication Sig Dispense Refill Multiple Vitamins-Minerals (MULTIVITAMIN-MINERALS PO) Take 1 tablet by mouth daily alfuzosin (UROXATRAL) 10 MG extended release tablet Take 1 tablet by mouth daily metoprolol tartrate (LOPRESSOR) 25 MG tablet Take 1 tablet by mouth 2 times daily atorvastatin (LIPITOR) 80 MG tablet Take 1 tablet by mouth daily aspirin 81 MG EC tablet Take 1 tablet by mouth daily albuterol sulfate HFA (PROVENTIL;VENTOLIN;PROAIR) 108 (90 Base) MCG/ACT inhaler Inhale 2 puffs intothe lungs every 4 hours as needed for Shortness of Breath 54 g 4 Uljrlba-Wecvcyacqui-Vgphrwives (BREZTRI AEROSPHERE) 160-9-4.8 MCG/ACT AERO Inhale 2 puffs into the lungs 2 times daily Rinse after use 32.1 g 4 No current facility-administered medications for this visit. Immunization History Administered Date(s) Administered COVID-19, Inactive, PFIZER PEDERSEN top, DO NOT Dilute, (age 12 y+) 03/14/2022, 04/04/2022 COVID-19, [place] Vaccine, Vaccine Unspecified 04/04/2022 Influenza, FLUARIX, FLULAVAL, FLUZONE (age 6 mo+) and AFLURIA, (age 3 y+), Quadv PF, 0.5mL 03/11/2022 Social History Tobacco Use Smoking status: Former Current packs/day: 0.00 Average packs/day: 1 pack/day for 50.0 years (50.0 ttl pk-yrs) Types: Cigarettes Start date: 12/1970 Quit date: 12/2020 Years since quittin.1 Smokeless tobacco: Never Substance Use Topics Alcohol use: Not on file Family History Problem Relation Age of Onset Lung Cancer Father Esophageal Cancer Sister Diabetes type 2 Maternal Grandfather Pancreatic Cancer Paternal Grandmother An electronic signature was used to authenticate this note. 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
--- NOTE | 2025-02-17 12:08 | CT_ITS ---
The [address] [address] Patient Name: NAKIA LIRIANO MRN: [id number] date: 1960 Sex: M Assigned Patient Location: CT Current Patient Location: CT Accession/Order Number: [id number] Exam Date: 02/17/2025 12:16 Report Date: 02/17/2025 16:22 At the request of: JERICHO RAYMOND DO Procedure: CT lung screening low-dose CT lung screening low-dose 02/17/2025 12:20 PM SIGN AND SYMPTOMS: ^History Tobacco Dependence TECHNIQUE: Multidetector CT axial slices of the chest were obtained without IV contrast. Multiplanar reformats were performed and viewed on a separate workstation and reviewed to further define anatomy and possible pathology. CT was performed with one or more of the following dose reduction techniques: Automated exposure control, adjustment of the mA and/or kV according to patient size, or use of iterative reconstruction technique. COMPARISON: 11/11/2023. FINDINGS: Lower neck: Thyroid gland within normal limits, no supraclavicle adenopathy. Vessels: Atherosclerotic changes are noted in the aortic arch, origins of the great vessels, and within the coronary arteries. Mediastinum and Harper: Within normal limits. Heart: Normal size. No pericardial effusion. Airways: Within normal limits Lungs: There is scarring in the lung apices similar to the prior exam. Bullous emphysematous changes are redemonstrated. There is a 5 mm noncalcified nodule within the left lower lobe on series 4 image 212. This is unchanged. There is a 2 mm noncalcified nodule anteriorly in the left upper lobe on series 4 image 82. This is unchanged. Pleura: Within normal limits. Chest Wall: Within normal limits. Upper Abdomen: Within normal limits. Bones: Degenerative changes are noted in the thoracic spine. CT/CT lung screening low-dose IMPRESSION: Lung RADS version 1.0 cm by category: 2 benign appearance or behavior) Recommendation: Follow-up with annual low-dose screening chest CT in 12 months is recommended. Impression dictated by: Marciano Matamoros M.D. 02/17/2025 4:22 PM Dictation Location: [place] [address] Electronically authenticated by: [id number] Y Date: 02/17/2025 16:22
--- OUTSIDE RECORDS SUMMARY | 2025-02-17 12:08 | XMS_ITS | Clinical Summary ---
Author Organization [facility] Address [address] [place] [address] Care Team Providers Care Dressage Judge Name Role Phone Paulino Wilson DO Primary Care Provider [phone] Allergies No known active allergies Medications MedicationSigDispense QuantityRefillsLast FilledStart DateEnd DateStatus albuterol 90 mcg/actuation inhaler Active nfmblljaua-fpotckja-evmbqlsskb 160-9-4.8 mcg/actuation HFA aerosol inhaler Breztri Aerosphere 160 mcg-9mcg-4.8mcg/actuation HFA aerosol inhaler INHALE 2 PUFFS BY MOUTH TWICE A DAY *RINSE MOUTH AFTER USE*Active metoprolol tartrate (Lopressor) 25 mg tablet Indications:Coronary artery disease, unspecified vessel or lesion type, unspecified whether angina present, unspecified whether huslia or transplanted heartTAKE 1 TABLET BY MOUTH IN THE MORNING AND 1 TABLET AT BEDTIME 180 tablet 5Active atorvastatin (Lipitor) 80 mg tablet Indications:Coronary artery disease due to lipid rich plaqueTAKE 1 TABLET BY MOUTH EVERYDAY AT BEDTIME 90 tablet 5Active aspirin 81 mg EC tablet Indications:Coronary artery disease due to lipid rich plaqueTAKE 1 TABLET BY MOUTH EVERY DAY DIRECTED 90 tablet 5Active atorvastatin (Lipitor) 80 mg tablet Indications:Coronary artery disease due to lipid rich plaqueTAKE 1 TABLET BY MOUTH AT BEDTIME 90 tablet Discontinued aspirin 81 mg EC tablet Indications:Coronary artery disease due to lipid rich plaqueTAKE 1 TABLET BY MOUTH ONCE DAILY DIRECTED 90 tablet Discontinued Active Problems ProblemNoted DateDiagnosed DatePrimary ypiztfrjkmrs19/01/2024Mixed lsoijthofagpod85/01/2024oronary artery disease involving huslia coronary artery of huslia heart without angina /23/2022Nonsustained ventricular noougckeqxi68/22/2021Fracture of phalanx of lijkik4504/07/2018Chronic obstructive lung qepigsb7804/03/2018 Encounters DateTypeDepartmentCare GmvoEjimlidiqmr65/25/2025Ref[facility] [place] [address] [place] [address] Almas Mcallister MD Coronary artery disease due to lipid rich plaquefrom Last 3 Months Family History Medical HistoryRelationNameCommentsNo Known ProblemsFatherNo Known Problems MotherRelationNameStatusCommentsFatherMother Social History Tobacco UseTypesPacks/DayYears UsedDateSmoking Tobacco: FormerCigarettes Smokeless Tobacco: Never Tobacco Cessation:Counseling Given: Not Answered Alcohol UseStandard Drinks/WeekCommentsNot Currently0 (1 standard drink = 0.6 oz pure alcohol)UT Safety & EnvironmentAnswerDate RecordedFear of Current or Ex-PartnerNot on file05/16/2023Emotionally AbusedNot on file05/16/2023hysically AbusedNot on file05/16/2023Sexually AbusedNot on file05/16/2023hysically or Sexually AbusedNot on file05/16/2023Sex and Gender InformationValueDate Recorded Sex Assigned at BirthNot on fileLegal HhtHupw0909/21/2021 12:10 AM EDTGender IdentityNot on fileSexual OrientationNot on file Last Filed Vital Signs Vital SignReadingTime TakenCommentsBlood Ezvjntdb741/6703 9:46 AM EDT Mzenu518906/15/2024 9:46 AM EDTTemperature--Respiratory Rate--Oxygen Krshnughjn80% 06/15/2024 9:46 AM EDTInhaled Oxygen Concentration--Ouiblx72.1 kg (170 lb) 06/15/2024 9:46 AM RDQGgcphi991.5 cm (6' 3 )06/15/2024 9:46 AM EDTBody Mass Index21.25006/15/2024 9:46 AM EDT Plan of Treatment Health MaintenanceDue DateLast DoneCommentsCT Raceznrbzaqt1959Colonoscopy 1960Colorectal Cancer Uvmxzgrxe1959FIT-DNA1959FIT1960 FOBT1960 7956Xcxcprkffflfp1959Depression Kxgumiltk76/26/1971Pneumococcal Vaccine: 50+ Years (1 of 2 - PCV)1978Adult Pcdsrhc0501/17/1981Zoster Vaccines (1 of 2)2009Fall Risk Zsodidvao50/26/2024COVID-19 Vaccine (1 - season)5004/04/2022, 03/14/2022Influenza Vaccine (#1)2024 03/11/2022HIB VaccinesAged OutNo longer eligible based on patient's age to complete this topicHPV VaccinesAged OutNo longer eligible based on patient's age to complete this topicIPV VaccinesAged OutNo longer eligible based on patient's age to complete this topicMeningococcal B VaccineAged OutNo longer eligible based on patient's age to complete this topicMeningococcal VaccineAged OutNo longer eligible based on patient's age to complete this topicRotavirus Vaccines Aged OutNo longer eligible based on patient's age to complete [place] [address] Care Teams Team MemberRelationshipSpecialtyStart DateEnd Date Paulino Wilson DO [address] [place] [address] SHJ - Ljkecos05/24/22
--- OUTSIDE RECORDS SUMMARY | 2025-02-17 12:08 | XMS_ITS | Clinical Summary ---
Author Organization [facility] Address [address] [place] [address] Care Team Providers Care Lead C Developer Name Role Phone Unavailable Primary Care Provider Unavailabl e Social History Tobacco UseTypesPacks/DayYears UsedDateSmoking Tobacco: Never AssessedSex and Gender InformationValueDate RecordedSex Assigned at BirthNot on fileLegal Sex Male06/06/2022 11:35 PM EDTGender IdentityNot on fileSexual OrientationNot on file Last Filed Vital Signs Vital SignReadingTime TakenCommentsBlood Pyeodtzy028/7005 12:00 PM EDT Pulse--Temperature--Respiratory Rate--Oxygen Saturation--Inhaled Oxygen Concentration--Atfxrh89.5 kg (151 lb)07/26/2021 12:00 PM SRJRavwad423.5 cm (6' 3 )07/26/2021 12:00 PM EDTBody Mass Index18.8707/26/2021 12:00 PM EDT Plan of Treatment Not on file
--- OUTSIDE RECORDS SUMMARY | 2025-02-17 12:08 | XMS_ITS | Clinical Summary ---
Author Organization [facility] Address [address] 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 Name Role Phone Unavailable Primary Care Provider Unavailabl e Social History Tobacco UseTypesPacks/DayYears UsedDateSmoking Tobacco: Never AssessedPHQ-2 AnswerDate RecordedPatient Health Questionnaire-2 Bjkqm89105/03/2021ex and Gender InformationValueDate RecordedSex Assigned at BirthNot on fileLegal SexMale 02/17/2022 2:02 PM ESTGender IdentityNot on fileSexual OrientationNot on file Last Filed Vital Signs Vital SignReadingTime TakenCommentsBlood Pressure--Pulse--Temperature-- Respiratory Rate--Oxygen Saturation--Inhaled Oxygen Concentration--Ooftcf36.5 kg (155 lb 6.8 oz)01/30/2022 9:44 AM GDFHjqkpm323.5 cm (6' 3 )01/30/2022 9:44 AM ESTBody Mass Index19.43104/01/2021 9:44 AM EST Plan of Treatment Health MaintenanceDue DateLast DoneCommentsCT Vtvhubsxytvn1959Colonoscopy 1960Colorectal Cancer Umduaaftw1959FIT-DNA (Cologuard)1960FIT 1960 6356Wlhvhgnsmebme1959Yearly Adult Segztznp1959MMR Vaccines (1 of 1 - Standard series)01/18/1960Pneumococcal Vaccine (1 of 2 - PCV)1978 DTaP/Tdap/Td Vaccines (1 - Tdap)1981PSA Prostate Cancer Screening 2009RSV High Risk: (Elderly (60+) or Population) (1 - Risk 50-74 years 1-dose series)2009Zoster Vaccines (1 of 2)2009Influenza Vaccine (#1)5COVID-19 Vaccine (1 - season)2024Lipid Panel 712/10/2021Irritable Bowel MndhmpvgZhzekcwhsidx24/08/2022Hepatitis C FjxehithiUwhwgiutj85/08/2022HIB VaccinesAged OutNo longer eligible based on patient's age to complete this topicHPV VaccinesAged OutNo longer eligible based on patient's age to complete this topicHepatitis A VaccinesAged OutNo longer eligible based on patient's age to complete this topicHepatitis B VaccinesAged OutNo longer eligible based on patient's age to complete this topicIPV Vaccines Aged OutNo longer eligible based on patient's age to complete this topic Meningococcal VaccineAged OutNo longer eligible based on patient's age to complete this topicRotavirus VaccinesAged OutNo longer eligible based on patient's age to complete this topic Procedures Procedure NamePriorityDate/TimeAssociated DiagnosisCommentsHEPATITIS C ANTIBODY Cyzpaom9003/01/2022 1:43 PM EST LIPID AILUOIgmufrk56/08/2022 1:43 PM EST LUDBDEPACTDLCrviwji04/08/2022 9:49 AM EST from Last 3 Months or Most Recently Relevant to Health Maintenance Results * Hepatitis C Antibody (03/01/2022 1:43 PM EST)ComponentValueRef RangeTest MethodAnalysis TimePerformed AtPathologist SignatureHepatitis C AbNONREACTIVE NONREACTIVEUHGRIFFIN MEMORIAL [facility] LABComment: Results from patients taking biotin supplements or receiving high-dose biotin therapy should be interpreted with caution due to possible interference with this test. Providers may contact their local laboratory for further information. Specimen (Source)Anatomical Location / LateralityCollection Method / Volume Collection TimeReceived Time03/01/2022 1:43 PM EST03/01/2022 4:17 PM EST Narrative Authorizing ProviderResult TypeResult StatusRobert Steve IYER BLOOD ORDERABLESFinal ResultPerforming OrganizationAddressCity/State/ZIP CodePhone Number [facility] [address] [address] [place] [address] * Lipid Panel (03/01/2022 1:43 PM EST)ComponentValueRef RangeTest MethodAnalysis TimePerformed AtPathologist IwahniihrKpyqlhxdome2556 - 199 mg/dLGE[facility] Comment: . ?AGE ?DESIRABLE ?? BORDERLINE HIGH ?? HIGH 0-19 Y 0 - 169 170 - 199 >/= 200 20-24 Y 0 - 189 190 - 224 >/= 225 >24 Y 0 - 199 200 - 239 >/= 240 All ranges are based on fasting samples. Specific therapeutic targets will vary based on patient-specific cardiac risk. . Pediatric guidelines reference:Pediatrics 2011, 128(S5). Adult guidelines reference: NCEP ATPIII Guidelines, ??NAYE 2001, 258:2486-97 . Venipuncture immediately after or during the administration of Metamizole may lead to falsely low results. Testing should be performed immediately prior to Metamizole dosing. HDL56.0mg/dLGE[facility]ER J[facility] LABComment: . ?AGE ?VERY LOW ?? LOW ? NORMAL ?HIGH ?? 0-19 Y < 35 < 40 40-45 ---- 20-24 Y ---- < 40 >45 ---- >24 Y ---- < 40 40-60 >60 . Cholesterol/HDL Ratio2.3[facility] LABComment: REF VALUES DESIRABLE < 3.4 HIGH RISK > 5.0 YUS795 - 99 mg/dLGE[facility] LABComment: . ? NEAR ?BORD ?AGE ?DESIRABLE ??OPTIMAL ?HIGH ? HIGH ? VERY HIGH 0-19 Y 0 - 109 --- 110-129 >/= 130 ---- 20-24 Y 0 - 119 --- 120-159 >/= 160 ---- >24 Y 0 - 99 100-129 130-159 160-189 >/=190 . EHIP296 - 40 mg/dL[facility] XTXQrixlhefsxesc284 - 149 mg/dLGE[facility] LABComment: . ?AGE ?DESIRABLE ?? BORDERLINE HIGH ?? HIGH ? VERY HIGH 0 D-90 D ?19 - 174 ? ---- ? ---- ?---- 91 D- 9 Y 0 - 74 [...] be performed immediately prior to Metamizole dosing. Specimen (Source)Anatomical Location / LateralityCollection Method / Volume Collection TimeReceived Time03/01/2022 1:43 PM EST03/01/2022 4:17 PM EST Narrative Authorizing ProviderResult TypeResult StatusRobert Steve Jaquez DOL BLOOD ORDERABLESFinal ResultPerforming OrganizationAddressCity/State/[facility] CodePhone Number [place] [phone] * Bronchoscopy (01/30/2022 9:49 AM EST)Anatomical RegionLateralityModality EndoscopySpecimen (Source)Anatomical Location / LateralityCollection Method / VolumeCollection TimeReceived Time01/30/2022 9:49 AM EST Narrative 05/03/2022 8:34 PM EST Patient Name: Patrick Danielle Procedure Date: 01/30/2022 9:49 AM Date of : 1960 Room: [place] Procedure Room 8 Attending MD: Paulino Betancur MD, [id number] Procedure: ? Bronchoscopy Indications: ? Emphysema, Bronchoscopic lung volume reduction Providers: ? Paulino Betancur MD (Doctor), Kenzie Cabrera RN ? (Nurse), Pankaj Tejeda, Electrotyper Apprentice ? (Electrotyper Apprentice), Peggy Hurtado MD (Fellow) Referring MD: ?Sumanth Burt DO (Referring MD) Medicines: ? General Anesthesia, See the Anesthesia note for ? documentation of the administered medications Complications: ? No immediate complications Procedure: ? Pre-Anesthesia Assessment: ? - A History and Physical has been performed. Patient ? meds and allergies have been reviewed. The risks and ? benefits of the procedure and the sedation options and ? risks were discussed with the patient. All questions ? were answered and informed consent was obtained. ? Patient identification and proposed procedure were ? verified prior to the procedure by the physician, the ? nurse, the anesthesiologist and the house calls nurse practitioner in the ? procedure room. Mental Status Examination: alert and ? oriented. Airway Examination: Please refer to ? anesthesia staff note. Respiratory Examination: poor ? air movement. CV Examination: RRR, no murmurs, no S3 ? or S4. ASA Grade Assessment: III - A patient with ? severe systemic disease. After reviewing the risks and ? benefits, the patient was deemed in satisfactory ? condition to undergo the procedure. The anesthesia ? plan was to use general anesthesia. Immediately prior ? to administration of medications, the patient was ? re-assessed for adequacy to receive sedatives. The ? heart rate, respiratory rate, oxygen saturations, ? blood pressure, adequacy of pulmonary ventilation, and ? response to care were monitored throughout the ? procedure. The physical status of the patient was ? re-assessed after the procedure. ? After obtaining informed consent, the therapeutic ? bronchoscope was introduced through the mouth, via the ? endotracheal tube (the patient was intubated for the ? procedure) and advanced to the tracheobronchial tree. ? The procedure was accomplished without difficulty. The ? patient tolerated the procedure well. The total ? duration of the procedure was 31 minutes. Findings: ? The endotracheal tube is in good position. The trachea is of normal ? caliber. The sarita is sharp. The tracheobronchial tree was examined to ? at least the first subsegmental level. Bronchial mucosa and anatomy are ? normal; there are no endobronchial lesions. ? The Chartis System was used to assess for collateral ventilation in the ? target lobe by sequentially occluding the left upper and lower lobe ? bronchi. Airflow was maintained after balloon occlusion, indicating a ? non-intact interlobar fissure with collateral ventilation. Endobronchial ? valves could not be placed due to collateral ventilation. Estimated Blood Loss: ? Estimated blood loss was minimal. Impression: ?- Emphysema ? - Chartis System evaluation demonstrated the presence ? of collateral ventilation in the target lobe. ? Bronchoscopic lung volume reduction could not be ? performed. ? - No specimens collected. Recommendation: ?- The patient will be observed post-procedure, until ? all discharge criteria are met. ? - Follow up with referring physician. ? - Referral for evaluations for surgical options for ? severe emphysema (e.g. LVRS, lung transplant). Procedure Code(s): ? --- Professional --- ? 41528, Bronchoscopy, rigid or flexible, including ? fluoroscopic guidance, when performed; with balloon ? occlusion, with assessment of air leak, with ? administration of occlusive substance (eg, fibrin ? glue), if performed Diagnosis Code(s): ? --- Professional --- ? J43.9, Emphysema, unspecified CPT copyright 2021 [employer]. All rights reserved. The codes documented in this report are preliminary and upon business division chair review may be revised to meet current compliance requirements. Attending Participation: ? I was present and participated during the entire procedure, including ? non-kiser portions. Paulino Betancur MD 02/01/2022 10:45:05 AM This report has been signed electronically. Number of Addenda: 0 Note Initiated On: 01/30/2022 9:49 AM Patient Profile: ? This is a 62 year old male. Refer to note in patient chart for ? documentation of history and physical. The attending physician ? independently verified the history and physical at 1009 on 01/30/2022. ? The patient's ECOG performance status grade is 2 - ambulatory and ? capable of all self care but unable to carry out any work activities; up ? and about more than 50% of waking hours. Procedure Note Paulino Betancur MD - 04/27/2024 Patient Name: Patrick Danielle Procedure Date: 01/30/2022 9:49 AM Date of : 1960 Room: [place] Procedure Room 8 Attending MD: Paulino Betancur MD, [id number] Procedure: Bronchoscopy Indications: Emphysema, Bronchoscopic lung volume reduction Providers: Paulino Betancur MD (Doctor), Kenzie Cabrera RN (Nurse), Pankaj Tejeda Electrotyper Apprentice (Electrotyper Apprentice), Peggy Hurtado MD (Fellow) Referring MD: Sumanth Burt DO (Referring MD) Medicines: General Anesthesia, See the Anesthesia note for documentation of the administered medications Complications: No immediate complications Procedure: Pre-Anesthesia Assessment: - A History and Physical has been performed.Patient meds and allergies have been reviewed. The risksand benefits of the procedure and the sedation optionsand risks were discussed with the patient. Allquestions were answered and informed consent was obtained. Patient identification and proposed procedure were verified prior to the procedure by the physician,the nurse, the anesthesiologist and the house calls nurse practitioner inthe procedure room. Mental Status Examination: alertand oriented. Airway Examination: Please refer to anesthesia staff note. Respiratory Examination:poor air movement. CV Examination: RRR, no murmurs, noS3 or S4. ASA Grade Assessment: III - A patient with severe systemic disease. After reviewing the risksand benefits, the patient was deemed in satisfactory condition to undergo the procedure. The anesthesia plan was to use general anesthesia. Immediatelyprior to administration of medications, the patient was re-assessed for adequacy to receive sedatives. The heart rate, respiratory rate, oxygen saturations, blood pressure, adequacy of pulmonary ventilation,and response to care were monitored throughout the procedure. The physical status of the patient was re-assessed after the procedure. After obtaining informed consent, the therapeutic bronchoscope was introduced through the mouth, viathe endotracheal tube (the patient was intubated forthe procedure) and advanced to the tracheobronchialtree. The procedure was accomplished without difficulty.The patient tolerated the procedure well. The total duration of the procedure was 31 minutes. Findings: The endotracheal tube is in good position. The trachea is of normal caliber. The sarita is sharp. The tracheobronchial tree was examinedto at least the first subsegmental level. Bronchial mucosa and anatomyare normal; there are no endobronchial lesions. The Chartis System was used to assess for collateral ventilation inthe target lobe by sequentially occluding the left upper and lower lobe bronchi. Airflow was maintained after balloon occlusion, indicating a non-intact interlobar fissure with collateral ventilation.Endobronchial valves could not be placed due to collateral ventilation. Estimated Blood Loss: Estimated blood loss was minimal. Impression: - Emphysema - Chartis System evaluation demonstrated thepresence of collateral ventilation in the target lobe. Bronchoscopic lung volume reduction could not be performed. - No specimens collected. Recommendation: - The patient will be observed post-procedure,until all discharge criteria are met. - Follow up with referring physician. - Referral for evaluations for surgical options for severe emphysema (e.g. LVRS, lung transplant). Procedure Code(s): --- Professional --- 97170, Bronchoscopy, rigid or flexible, including fluoroscopic guidance, when performed; with balloon occlusion, with assessment of air leak, with administration of occlusive substance (eg, fibrin glue), if performed Diagnosis Code(s): --- Professional --- J43.9, Emphysema, unspecified CPT copyright 2021 [employer]. All rights reserved. The codes documented in this report are preliminary and upon business division chair reviewmay be revised to meet current compliance requirements. Attending Participation: I was present and participated during the entire procedure, including non-kiser portions. Paulino Betancur MD 02/01/2022 10:45:05 AM This report has been signed electronically. Number of Addenda: 0 Note Initiated On: 01/30/2022 9:49 AM Patient Profile: This is a 62 year old male. Refer to note in patient chart for documentation of history and physical. The attending physician independently verified the history and physical at 1009 on 01/30/2022. The patient's ECOG performance status grade is 2 - ambulatory and capable of all self care but unable to carry out any work activities;up and about more than 50% of waking hours. Authorizing ProviderResult TypeResult StatusSumanth Burt DOENDOSCOPY PROCEDURE ORDERABLESEdited Result - Final from Last 3 Months or Most Recently Relevant to Health Maintenance
--- OUTSIDE RECORDS SUMMARY | 2025-02-17 12:08 | XMS_ITS | Clinical Summary ---
Author Organization [facility] Address 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 Name Role Phone Paulino Wilson DO Primary Care Provider [phone] Allergies No known active allergies Medications MedicationSigDispense QuantityRefillsLast FilledStart DateEnd DateStatus Multiple Vitamins-Minerals (MULTIVITAMIN-MINERALS PO) Take 1 tablet by mouth daily5Active alfuzosin (UROXATRAL) 10 MG extended release tablet Take 1 tablet by mouth daily5Active metoprolol tartrate (LOPRESSOR) 25 MG tablet Take 1 tablet by mouth 2 times dailyActive atorvastatin (LIPITOR) 80 MG tablet Take 1 tablet by mouth dailyActive aspirin 81 MG EC tablet Take 1 tablet by mouth dailyActive albuterol sulfate HFA (PROVENTIL;VENTOLIN;PROAIR) 108 (90 Base) MCG/ACT inhaler Indications:Centrilobular emphysema (HCC)Inhale 2 puffs into the lungs every 4 hours as needed for Shortness of Breath 54 g 5Active Oyesxac-Docnednzdwg-Nsjhrtewsb (BREZTRI AEROSPHERE) 160-9-4.8 MCG/ACT AERO Indications:Centrilobular emphysema (HCC)Inhale 2 puffs into the lungs 2 times daily Rinse after use 32.1 g 5Active albuterol sulfate HFA (PROVENTIL;VENTOLIN;PROAIR) 108 (90 Base) MCG/ACT inhaler Inhale 2 puffs into the lungs every 4 hours as needed for Shortness of Breath or Eoufrdwp12/19/2025Discontinued(REORDER) BREZTRI AEROSPHERE 160-9-4.8 MCG/ACT AERO Inhale 2 puffs into the lungs in the morning and 2 puffs in the evening. 02/10/2025Discontinued(REORDER) Active Problems ProblemNoted DateDiagnosed DateLong term (current) use of inhaled steroids 02/10/2025 Assessment & Plan (02/10/2025 11:23 AM EST): The patient was counseled to rinse and gargle after use of his steroid- containing inhaler to reducethe risk of oral candidiasis and other potential adverse effects. Centrilobular emphysema Assessment & Plan (02/10/2025 11:23 AM EST): Patient is doing okay at this time, [...] hours as needed for Shortness of Breath Rdqldri-Jdvuqtjixff-Dgdjmzhpof (BREZTRI AEROSPHERE) 160-9-4.8 MCG/ACT AERO; Inhale 2 puffs into thelungs 2 times daily Rinse after use Multiple pulmonary nodules Assessment & Plan (02/10/2025 11:23 AM EST): LDCT 11/11/2023 shows stability of multiple pulmonary nodules, largest 5 mm, when compared to prior LDCT 11/08/2022. They will be monitored with LDCT, which the patient needs to schedule. History of tobacco abuse Assessment & Plan (02/10/2025 11:23 AM EST): The patient was evaluated for low-dose CT [...] PCP. Patient needs to get it scheduled. Encounters DateTypeDepartmentCare BrzxLctshrxxvlv55/19/2025 10:00 AM ESTOffice Visit [facility] [address], [address] [place] [address] Sumanth Burt DO Centrilobular emphysema (Primary Dx); Multiple pulmonary nodules; History of tobacco abuse; halfway (current) use of inhaled steroidsfrom Last 3 Months Immunizations ImmunizationAdministration DatesNext DueCOVID-19, [place] Vaccine, Vaccine Fcteojqqqgw08/11/2023Influenza, FLUARIX, FLULAVAL, FLUZONE (age 6 mo+) and AFLURIA, (age 3 y+), Quadv PF, 0.5mL03/11/2022 Family History Medical HistoryRelationNameCommentsLung CancerFatherDiabetes type 2Maternal GrandfatherPancreatic CancerPaternal GrandmotherEsophageal CancerSisterRelation NameStatusCommentsFatherMaternal GrandfatherPaternal GrandmotherSister Social History Tobacco UseTypesPacks/DayYears UsedDateSmoking Tobacco: QctsshXeoqucjvlp754 12/1970 - mokeless Tobacco: Never Tobacco Cessation:Counseling Given: Not Answered Sex and Gender InformationValueDate RecordedSex Assigned at LndipWlsr17/31/2025 2:52 PM EDTLegal YrhQfgs6405/04/2012 12:01 PM ESTGender VyynxskdGmqi37/31/2025 2:52 PM EDTSexual EoeiyiodjigFrkubonq97/31/2025 2:52 PM EDTOccupationIndustryJob Start DateJob End 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, pet controlNot on fileNot on fileNot on file Last Filed Vital Signs Vital SignReadingTime TakenCommentsBlood Fqtrdqqk952/6802/10/2025 9:55 AM EST Blrfv478702/10/2025 10:00 AM CNMFsndvkgjxrv25.9 ??C (96.6 ??F)02/10/2025 9:55 AM ESTRespiratory Aueu434104/12/2024 9:55 AM ESTOxygen Hqgpxkmlio34%02/10/2025 10:00 AM ESTon room air/restingInhaled Oxygen Concentration--Zymsat87.7 kg (173 lb 9.6 oz)02/10/2025 9:55 AM YKRZyztli292.5 cm (6' 3 )02/10/2025 9:55 AM ESTBody Mass Index21.7104/12/2024 9:55 AM EST Plan of Treatment DateTypeDepartmentCare Team (Latest Contact Info)Cywzquaitzd88/17/2026 10:00 AM EDTOffice Visit [facility] [address], [address] [place] [address] Sumanth Burt, [address] [place] [address] [address] [place] [phone] 4 MO F/U COPDHealth MaintenanceDue DateLast FpokHuwbbmpqTszcvb21/26/1969 Depression Hyjigj3701/17/1971Hepatitis C xndjfx6301/17/1977DTaP/Tdap/Td vaccine (1 - Tdap)01/17/19782244Npaqcvsbpqp72/26/2004Colorectal Cancer Msarxx9401/18/2004FIT/FOBT: Average risk01/18/2004Fecal-DNA (Cologuard): Average risk01/18/2004 [address]igmoidoscopy/CT peqmuhgdyjdp18/26/2004Pneumococcal 50+ years Vaccine (1 of 1 - PCV)2009Shingles vaccine (1 of 2)2009Lung Cancer Screening &/or Nguxrrpdey91/20/202306/AA shdmif0201/18/2024nnual Wellness Visit (Medicare Advantage)03/25/2024Flu vaccine (#1)/OVID-19 Vaccine ( - season)/01/2023, 04/04/2022, 03/14/2022 Respiratory Syncytial Virus (RSV) or age 60 yrs+ (1 - 1-dose 75+ series)2034Hepatitis A vaccineAged OutNo longer eligible based on patient's age to complete this topicHepatitis B vaccineAged OutNo longer eligible based on patient's age to complete this topicHib vaccineAged OutNo longer eligible based on patient's age to complete this topicMeningococcal (ACWY) vaccineAged OutNo longer eligible based on patient's age to complete this topicMeningococcal B vaccineAged OutNo longer eligible based on patient's age to complete this topicPolio vaccineAged OutNo longer eligible based on patient's age to [place] [address] [place] [address] Advance Directives NameRelationshipHealthcare Agent RelationshipCommunicationMary WhitePrimary Decision Maker* Care Teams Team MemberRelationshipSpecialtyStart DateEnd Date Paulino Wilson DO [address] [place] [address] PCP - GeneralInternal Fdwfymmd88/9/25
--- OUTSIDE RECORDS SUMMARY | 2025-02-17 12:08 | XMS_ITS | CCD ---
Author Organization [facility] Care Team Providers Care Web Site Administrator Name Role Phone ELTAHAWY, EHAB A Attending Unavailable ELTAHAWY, EHAB A Admitting Unavailable SELF, REFERRED Referring Unavailable BALL, PAULINO Primary Care Unavailable Pending Provider Unavailable Unavailable Unavailable Unavailable Hunter Smith Attending Unavai labsae Burt, Dr. Princess Brown Referring Unavailab le Pending, Provider Primary Care Unavailable YOUNG, Dr. PAULINO BRISENO Admitting Unav ailable YOUNG, [...] Admitting Unavailable MISC, DR STRANGE Attending Unavailable ZIEBER, DR NOEMI Watson Consulting Unavailable SAMSA ., PRINCESS Attending Unavailable WATERSMEET, DR OJ Adlre Consulting Unavailable BALL, DR ECHAVARRIA Primary Care Unavailable SAMSA ., PRINCESS Admitting Unavailable SAMSA ., PRINCESS Consulting Unavailable SEGUNDO, DR ECHAVARRIA Primary Care Unavailable MISC, DR STRANGE Consulting Unavailable MISC, DR STRANGE Admitting Unavailable MISC, DR STRANGE Attending Unavailable BALL, DR ECHAVARRIA Primary Care Unavailable SAMSA ., PRINCESS Attending Unavailable SAMSA ., PRINCESS Admitting Unavailable TIMMIS, DR VELAZQUEZ Admitting Unavailable BALL, DR ECHAVARRIA Primary Care Unavailable TIMMIS, DR VELAZQUEZ Attending Unavailable Paulino Wilson Unavailable PAULINO WILSON Primary Care Physician MARGARET CASTILLO Attending Unavailable ALMAS MCALLISTER Attending Unavailable Paulino Wilson DO Primary Care Provider [phone] Viri Aponte MD Attending Provider Paulino Wilson Primary Care Unavailable Asaad, Immely Attending Unavailable Asaad, Imad Admitting Unavailable Paulino Wilson DO Primary Care Provider Paulino Wilson DO Attending Provider [phone] Calvin WALKER Attending Unavailable aClvin WALKER Attending Unavailable Allergies Allergy ClassificationReported Allergen(s)Allergy TypeDate of OnsetReaction(s) Facility (1 source)No Known Medication Allergies; Translations: [No Known Medication Allergies]Propensity to adverse reactions (disorder)[facility] Repository Medications Current Medications MedicationDrug Class(es)DatesSig (Normalized)Sig (Original)[id number] 200 actuat albuterol 0.09 mg/actuat metered dose inhaler (20 sources)beta2-Adrenergic AgonistStart: 70-11-0174iesn 1 puff(s) by inhalation every six hours as needed for wheezingAlbuterol Sulfate (Ventolin Hfa) 90 mcg/actuation HFA aerosol inhaler Active 2 PUFF INHALATION Every 6 hours as needed for shortness of breath or wheezing September 23, 2024 12:38pm Complies with drug therapyStart: 05-16-2023 End: 34-00-2288itsk 2 puff(s) by mouth every four hours as needed for cough Albuterol Sulfate (Ventolin Hfa) 90 mcg/actuation HFA aerosol inhaler Discontinued 0 .ROUTE .COMPLEX May 16, 2023 3:38pm September 23, 2024 12:38pm INHALE 2 PUFFS BY MOUTH EVERY 4 HOURS NEEDED FOR COUGH OR SHORTNESS OF BREATHStart: 05-16-2023 End: 30-28-7301gtkc 1 puff(s) by inhalation every four hours as neededAlbuterol Sulfate 90 mcg/actuation HFA aerosol inhaler Discontinued 2 PUFF INHALATION Every 4 hoursas needed May 16, 2023 1:00am May 16, 2023 3:38pm Start: 21-13-1355obgn 2 puff(s) by mouth every four hours as needed for cough Albuterol Sulfate HFA 108 (90 Base) MCG/ACT Inhalation Aerosol Solution INHALE 2 PUFFS BY MOUTH EVERY 4 HOURS NEEDED FOR COUGH OR SHORTNESS OF BREATH Quantity: 8 Refills: 0 Ordered: 09-Aug-2021 DOStart : 21-Feb-2021 Activetake 2 puff(s) by mouth every four hours as needed for coughAlbuterol Sulfate HFA 108 (90 Base) MCG/ACT INHALE 2 PUFFS BY MOUTH EVERY 4 HOURS NEEDED FOR COUGH OR SHORTNESS OF BREATH Activetake 2 puff(s) by mouth every four hours as needed for coughAlbuterol Sulfate HFA 108 (90 Base) MCG/ACT INHALE 2 PUFFS BY MOUTH EVERY 4 HOURS NEEDED FOR COUGH OR SHORTNESS OF BREATH Activetake 2 puff(s) by mouth every four hours as needed for coughAlbuterol Sulfate HFA 108 (90 Base) MCG/ACT INHALE 2 PUFFS BY MOUTH EVERY 4 HOURS NEEDED FOR COUGH OR SHORTNESS OF BREATH Gchscf98 hr alfuzosin hydrochloride 10 mg extended release oral tablet (6 sources)alpha-Adrenergic BlockerStart: 04-29-2023 End: 97-70-7603jsoe 1 tablet by mouth once daily at mealtimeAlfuzosin 10 mg tablet extended release 24 hr Active 10 MG PO Daily October 15, 2023 12:00am administer after the same meal each day Complies with drug therapy aspirin 81 mg delayed release oral tablet (20 sources)Platelet Aggregation Inhibitor, Nonsteroidal Anti-inflammatory Drug Start: 95-62-6091tcjd 1 tablet by mouth once dailyAspirin 81 mg tablet,delayed release (DR/EC) Active 81 MG PO Daily October 15, 2023 12:00am Complieswith drug therapyStart: 24-49-0269LES ASPIRIN EC 81 MG TABLET [facility] ASPIRIN EC 81 MG TABLET Start Date: 04/29/23 Status: OrderedStart: 67-18-6197ckfn 1 tablet by mouth once dailyAspirin Low Dose 81 MG Oral Tablet Delayed Release TAKE 1 TABLET BY MOUTH EVERY DAY Quantity: 90 Refills: 0 Ordered: 16-Aug-2021 DO Start : 22-Feb-2021 Activeatorvastatin 80 mg oral tablet (20 sources)HMG-CoA Reductase InhibitorStart: 85-35-5274cnyd 1 tablet by mouth once dailyAtorvastatin 80 mg tablet Active 80 MG PO Daily October 15, 2023 12:00am Complies with drug therapyStart: 62-70-9391vnez 1 tablet by mouth once dailyAtorvastatin Calcium 80 MG Oral Tablet TAKE 1 TABLET BY MOUTH EVERY DAY Quantity: 90 Refills: 0 Ordered: 16-Aug-2021 DO Start : 22-Feb-2021 ActiveBreztri Aerosphere inhalation aerosol (2 sources)Start: 08-07-4818Ngeovkq Aerosphere inhalation aerosol Refill(s) 0 Start Date: 04/29/23 Status: Dktxfom121 actuat budesonide 0.16 mg/actuat / formoterol fumarate 0.0048 mg/actuat / glycopyrrolate 0.009 mg/actuat metered dose inhaler (18 sources)Corticosteroid, beta2-Adrenergic AgonistStart: 06-09-2024 End: 91-17-1655Ysilrppzas-Glycopyr-Formoterol (Breztri Aerosphere) 160-9-4.8 mcg/actuation HFA aerosol inhaler Active 2 INH INHALATION Twice daily 10.7 September 23, 2024 1:23pm Complies with drug therapyStart: 90-37-5934dtkf 2 puff(s) by mouth twice dailyBreztri Aerosphere 160-9-4.8 MCG/ACT Inhalation Aerosol INHALE 2 PUFFS BY MOUTH TWICE A DAY *RINSE MOUTH AFTER USE* Quantity: 11 Refills: 0 Ordered: 28-Jul-2021 DO Start : 27-Jul-2021 Activetake 2 puff(s) by inhalation twice dailyBrelali Aerosphere 160-9-4.8 MCG/ACT 2 puffs Inhalation Twice a day Activemetoprolol tartrate 25 mg oral tablet (20 sources)beta-Adrenergic BlockerStart: 96-95-5798zzif 1 tablet by mouth twice dailyMetoprolol Tartrate 25 mg tablet Active 25 MG PO Twice daily October 15, 2023 12:00am Complies with drug therapyStart: 58-13-4317yghe 1 tablet by mouth once dailyLopressor 25 mg oral tablet 25 mg = 1 tab(s), Oral, Daily, Refills(s) 0 Start Date: 04/29/23 Status: OrderedStart: 02-59-0221wjfh 1 tablet by mouth twice daily at mealtimeMetoprolol Tartrate 25 MG Oral Tablet TAKE 1 TABLET BY MOUTH TWICE A DAY WITH FOOD Quantity: 180 Refills: 0 Ordered: 09-Aug-2021 DO Start : 11-Jan-2021 PeoracTrovtbacyfnc-Qvczskrk-Akopex (Multivitamin 50 Plus) tablet (2 sources)Start: 24-96-3884Ejxumuchvyhr-Minerals-Lutein (Multivitamin 50 Plus) tablet Active 1 TAB PO Daily June 09, 2024 12:00am Complies with drug therapy Start: 10-39-8233Ehmfbuexkqoo-Minerals-Lutein (Multivitamin 50 Plus) tablet Active 1 TAB PO Daily June 09, 2024 12:00am Completed/Discontinued Medications MedicationDrug Class(es)DatesSig (Normalized)Sig (Original)Acetaminophen / HYDROcodone (8 sources)Opioid AgonistHYDROcodone-Acetaminophen Not-Taking/PRNHYDROcodone- Acetaminophen Not-TakingCephalexin (8 sources)Cephalosporin AntibacterialCephalexin Not-Taking/PRNCephalexin Not-Takingclopidogrel 75 mg oral tablet (7 sources)P2Y12 Platelet InhibitorStart: 16-43-6643vxhq 1 tablet by mouth once dailyClopidogrel Bisulfate 75 MG Oral Tablet TAKE 1 TABLET BY MOUTH EVERY DAY Quantity: 90 Refills: 0 Ordered: 16-Aug-2021 DO Start : 22-Feb-2021 Active Tiotropium-Olodaterol (4 sources)Anticholinergic, beta2-Adrenergic AgonistStart: 12-01-2018 End: 42-97-0755Zafutyqqui-Olodaterol (Stiolto Respimat) 2.5-2.5 mcg/actuation Mist Discontinued 2 PUFF INHALATION Daily December 01, 2018 12:00am June 09, 2024 12:08pmStart: 89-65-8833Vugzimkyid-Olodaterol (Stiolto Respimat) 2.5- 2.5 mcg/actuation Mist Active 2 PUFF INHALATION Daily November 30, 2018 11:00pmStart: 53-32-0656Aquuikdyks-Olodaterol (Stiolto Respimat) 2.5-2.5 mcg/actuation Mist Active 2 PUFF INHALATION Daily December 01, 2018 12:00amSod Picosulf-Mag Ox-Citric Ac (2 sources)Start: 05-11-2024 End: 87-69-8756kzgu 1 dose by mouth once dailySod Picosulf-Mag Ox-Citric Ac (Clenpiq) 10 mg-3.5 gram- 12 gram/175 mL solution Discontinued 175 MLPO Daily 350 0 May 11, 2024 1:00am June 09, 2024 12:07pm Take first dose at 3pm evening before colonoscopy; second dose at 9 pm night before colonoscopy sulfamethoxazole 800 mg / trimethoprim 160 mg oral tablet (7 sources)Dihydrofolate Reductase Inhibitor Antibacterial, Sulfonamide AntimicrobialStart: 48-99-2214ityb 1 tablet by mouth every twelve hoursBactrim DS 800-160 MG 1 tablet Orally Twice a day for 21 days Oct, Not-Taking/PRN Problems Active Problems Problem ClassificationProblemDateDocumented DateEpisodic/ChronicAbdominal pain (1 source)Right lower quadrant painEpisodicAcute bronchitis (5 sources)Acute bronchitis; Translations: [Acute bronchitis due to other specified organisms]EpisodicCardiac dysrhythmias (15 sources)Supraventricular tachycardia; Translations: [Supraventricular tachycardia] Resolved: 879241-35-6183QrjrwtkArunlmb obstructive pulmonary disease and bronchiectasis (20 sources)Pulmonary emphysema; Translations: [Other emphysema]Onset: 01-19-2016 Resolved: 07-45-3552NoubmdxCxsxzhdk atherosclerosis and other heart disease (20 sources)Atherosclerotic heart disease of [place] coronary artery without angina pectoris; Translations: [Atherosclerosis of coronary artery without angina pectoris]Onset: 97-18-9346KqalxvwSmomgos on above:PCI/stent 02/2022 Disorders of lipid metabolism (19 sources)Hyperlipidemia, unspecified; Translations: [Hypercholesterolemia] Onset: 88-94-2931ItfogrbJctqoohhe hypertension (3 sources)Essential (primary) hypertension; Translations: [Essential (primary) hypertension]Onset: 95-38-5796McsxjreEwwpdmibbkysi symptoms and ill-defined conditions (1 source)Poor urinary streamEpisodicHyperplasia of prostate (20 sources)Lower urinary tract symptoms due to benign prostatic hypertrophy; Translations: [Benign prostatic hyperplasia with lower urinary tract symptoms] Onset: 67-27-9706NdmodquFlhlxmzwhjuf conditions of male genital organs (13 sources)Orchitis and epididymitis; Translations: [Epididymo-orchitis]Onset: 44-65-2828WwaurfrzCupbfiioltuo breast conditions (12 sources)Hypertrophy of breast; Translations: [Gynecomastia]Onset: 06-26-2022 EpisodicNutritional deficiencies (13 sources)Vitamin D deficiency; Translations: [Vitamin D deficiency, unspecified]ChronicOther aftercare (8 sources)Long-term current use of inhaled steroid; Translations: [residential (current) use of inhaled steroids]EpisodicOther aftercare (1 source)Other half-way (current) drug therapyEpisodicOther and unspecified benign neoplasm (8 sources)Benign neoplasm of colon; Translations: [Benign neoplasm of sigmoid colon]EpisodicOther and unspecified benign neoplasm (5 sources)Benign neoplasm of sigmoid colon; Translations: [Benign neoplasm of sigmoid colon]EpisodicOther circulatory disease (7 sources)H/O: heart disorder; Translations: [Personal history of unspecified circulatory disease]EpisodicOther gastrointestinal disorders (13 sources)Oropharyngeal dysphagia; Translations: [Dysphagia, oropharyngeal phase]EpisodicOther gastrointestinal disorders (4 sources)Stool DNA-based colorectal cancer screening positive; Translations: [Other fecal abnormalities]87-69-5764EzuevwhxRsuoyis on above:Problem List clean-up per request of Phys. EHR CmteOther inflammatory condition of skin (13 sources)Intertrigo; Translations: [Erythema intertrigo]EpisodicOther lower respiratory disease (7 sources)H/O: asthma; Translations: [Personal history of other diseases of respiratory system]EpisodicOther lower respiratory disease (7 sources)Solitary pulmonary nodule; Translations: [Solitary pulmonary nodule] Onset: 66-77-8449JtgaasbzMstao lower respiratory disease (8 sources)Dyspnea on exertion; Translations: [Other forms of dyspnea]Episodic Other lower respiratory disease (5 sources)Dyspnea; Translations: [Other forms of dyspnea]EpisodicOther lower respiratory disease (8 sources)Solitary nodule of lung; Translations: [Solitary pulmonary nodule] EpisodicOther lower respiratory disease (4 sources)Nodule of lung; Translations: [Solitary pulmonary nodule]10-14-2023 EpisodicComment on above:LDCT: no suspicious nodules - 10/2022, 10/2023Other nutritional; endocrine; and metabolic disorders (13 sources)Hypercalcemia; Translations: [Hypercalcemia]09-10-8639YxiisruMlikg nutritional; endocrine; and metabolic disorders (3 sources)Hypercalcemia; Translations: [Hypercalcemia]26-87-4661KsusmlvMgrbo screening for suspected conditions (not mental disorders or infectious disease) (17 sources)Encounter for screening for malignant neoplasm of prostate; Translations: [Elevated prostate specific antigen [PSA]]Onset: 08-28-2021 EpisodicComment on above:PSA: 0.56 - 07/2021, 2.4 (10%) - 11/2022, 1.86 - 03/2023 PSA: 0.56 - 07/2021, 2.4 (10%) - 11/2022, 1.86 - 03/2023, 0.73 - 4Residual codes; unclassified (2 sources)H/O: tissue/organ recipient; 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]ChronicResidual codes; unclassified (5 sources)Immunization refused ; Translations: [Immunization not carried out because of patient refusal]EpisodicScreening and history of mental health and substance abuse codes (10 sources)Personal history of nicotine dependence; Translations: [Nicotine dependence]Onset: 05-24-3002RyxpehxcSzgksvhfh-related disorders (20 sources)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; Translations: [Nicotine dependence, cigarettes, with unspecified nicotine-induced disorders]Onset: 68-51-3737Ggigwja Comment on above:Quit 2020Unclassified (1 source)CONTACT W/AND (SUSP) EXPOS COVID-19; Translations: [CONTACT W/AND (SUSP) EXPOS COVID-19]Onset: 32-62-6264Icjkprsckqdu (6 sources)Other ventricular tachycardia; Translations: [Other ventricular tachycardia]Onset: 01-10-2022 Past or Other Problems Problem ClassificationProblemDateDocumented DateEpisodic/ChronicCancer of bronchus; lung (1 source)Personal history of other malignant neoplasm of bronchus and lung; Translations: [Personal history of malignant neoplasm of bronchus and lung] Onset: 34-76-4872FabntqgyTlncpqmx atherosclerosis and other heart disease (1 source)Presence of aortocoronary bypass graft; Translations: [Presence of aortocoronary bypass graft]Onset: 23-33-1325LlgozmjkPjyiwbbqwz and other anemia (5 sources)Anemia; Translations: [Anemia, unspecified] Resolved: 46-67-3451VburkxjxL Codes: Adverse effects of medical drugs (5 sources)Adverse effect of antiasthmatics, initial encounter; Translations: [Adverse effect of antiasthmatics, initial encounter]Onset: 89-62-4934Cdeyegov Immunizations and screening for infectious disease (5 sources)Contact with and (suspected) exposure to other viral communicable diseases; Translations: [Contact with and (suspected) exposure to COVID-19] Resolved: 22-42-3692SxjxywdyRiwpkfwhqjmua (1 source)Generalized enlarged lymph nodes; Translations: [Generalized enlarged lymph nodes]Onset: 47-04-3540UvmweeotSsotl aftercare (1 source)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 antithrombotics/antiplatelets; Translations: [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antithrombotics/antiplatelets]Onset: 80-40-1917GaptmypcJmxhu aftercare (1 source)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 aspirin; Translations: [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 aspirin]Onset: 46-83-1622WrypvzlyQldzf and unspecified benign neoplasm (5 sources)Polyp of colon; Translations: [Polyp of colon]Onset: 03-25-2018 16-87-1721LzoxmxmhWocghso on above:11/2018 - polypectomy, repeat in 5 years11/2018 - polypectomy (repeat 5 years), 06/2024 (repeat 6mo)Other and unspecified benign neoplasm (3 sources)Polyp of colon; Translations: [Benign neoplasm of colon]Onset: 284006-79-7558QvovhcooSdoju lower respiratory disease (5 sources)Chest pain on breathing; Translations: [Chest pain on breathing] Resolved: 83-40-8273JatmzxojRsixb nutritional; endocrine; and metabolic disorders (5 sources)Abnormal weight loss; Translations: [Abnormal weight loss]Onset: 99-49-5392OhejhlphNrdyb nutritional; endocrine; and metabolic disorders (5 sources)Body mass index less than 20; Translations: [Body mass index (BMI) 19.9 or less, adult]Onset: 59-45-5784XmpzpjjrGpebe upper respiratory disease (5 sources)Disorder of pharynx; Translations: [Other diseases of pharynx]Onset: 07-81-6798XenwcyzeKtcoj upper respiratory infections (5 sources)Acute tracheitis without obstruction; Translations: [Acute tracheitis without obstruction] Resolved: 74-34-2028UxfqhrphQbmiucwsy (except that caused by tuberculosis or sexually transmitted disease) (5 sources)Pneumonia; Translations: [Pneumonia, unspecified organism] Resolved: 68-71-9731ThimrbdfIpwyjyiu codes; unclassified (5 sources)Tobacco user; Translations: [Tobacco use]Onset: 74-64-6230Cgbecdlt Unclassified (6 sources)NSVT (nonsustained ventricular tachycardia); Translations: [NSVT (nonsustained ventricular tachycardia)]Unclassified (1 source)NSVT (nonsustained ventricular tachycardia) I47.29Unclassified (1 source)Other ventricular tachycardia; Translations: [Other ventricular tachycardia]Onset: 06-15-2024 Results Test NameValueInterpretationReference RangeFacilChaim 06-23-2024L Specimen: [id number] Received: 06/23/24 Status: TIAN Charlie Num: [id number] Spec Type: Surgical Subm Dr: Viri Aponte MD Tissues: A Colon Biopsy (ASCENDING POLYP) B Colon Biopsy (TRANSVERSE POLYP) C Colon Biopsy (DESCENDING POLYP) D Colon Biopsy (SIGMOID POLYPS) E Colon Biopsy (RECTAL POLYPS) Procedures: Isabel STODDARD/Micro L4/5 Age/ Patient Sex Location Account Attending Physician Patrick Liriano/[facility] [id number] Viri Aponte MD SPEC NUM: [id number] RECD: 06/23/24 STATUS: TIAN CHARLIE NUM: [id number] ANA: 06/23/[address]: Viri Aponte MD ENTERED: 06/23/24 [facility] DR: SPEC TYPE: Surgical DEPT: S ENTERED BY: [id number] RECV BY: [id number] ORDERED: HE/10, Gross/Micro L4/5 ORDERED: , Gross/Micro L4/5 Pathological Diagnosis A. Ascending polyp: ? Tubular adenoma (diminutive). ? Negative for carcinoma B. Transverse polyp: ? Fragments of tubular adenoma ? Fragments of dietary material are noted ? Negative for carcinoma C. Descending polyp: ? Tubular adenoma ? Negative for carcinoma D. Sigmoid polyps: ? Fragments of tubular adenomas ? Fragments of dietary material are noted ? Negative for carcinoma E. Rectal polyps: ? Fragments of tubular adenoma and hyperplastic polyps ? Negative for carcinoma Specimen: [id number] Received: 06/23/24 Status: TIAN Shell Num: [id number] Spec Type: Surgical Subm Dr: Viri Aponte MD Tissues: A Colon Biopsy (ASCENDING POLYP) B Colon Biopsy (TRANSVERSE POLYP) C Colon Biopsy (DESCENDING POLYP) D Colon Biopsy (SIGMOID POLYPS) E Colon Biopsy (RECTAL POLYPS) Procedures: , Gross/Micro L4/5 Patient: Patrick Liriano [id number] (Continued) Specimen: [id number] Received: 06/23/24 (Continued) Signed (signature on file) Juan Pablo Gupta MD 06/24/24 0954 Specimen: [id number] Received: 06/23/24 Status: TIAN Shell Num: [id number] Spec Type: Surgical Subm Dr: Viri Aponte MD Tissues: A Colon Biopsy (ASCENDING POLYP) B Colon Biopsy (TRANSVERSE POLYP) C Colon Biopsy (DESCENDING POLYP) D Colon Biopsy (SIGMOID POLYPS) E Colon Biopsy (RECTAL POLYPS) Procedures: /Josefina, Gross/Micro L4/5 Patient: Patrick Liriano [id number] (Continued) Specimen: [id number] Received: 06/23/24 (Continued) Clinical Information History colon polyps Gross Description Part A is received in formalin labeled with the patients name, date of , and ascending polyp is a mtz-newell, focally erythematous, friable, 0.4 cm in greatest dimension tissue bit. The specimen is entirely submitted in a single cassette. (1, ns, [id number] A) JG Part B is received in formalin labeled with the patients name, date of , and transverse polyp are 2 mtz-newell, focally erythematous, friable, 0.2 and 0.4 cm in greatest dimension polypoid fragments. The specimen is entirely submitted in a single cassette. (1, ns, [id number] B) JG Part C is received in formalin labeled with the patients name, date of , and descending polyp are 2 mtz-newell, focally erythematous, friable, 0.2 and 0.4 cm in greatest dimension polypoid fragments. The specimen is entirely submitted in a single cassette. (1, ns, [id number] C) JG Part D is received in formalin labeled with the patients name, date of , and sigmoid polyps are mtz-newell, focally erythematous, friable polypoid fragments, 2 x 1.2 x 0.3 cm in aggregate. The specimen is filtered and entirely submitted in a single cassette. (1, ns, [id number] D) JG Part E is received in formalin labeled with the patients name, date of , and rectal polyps are mtz-newell, focally erythematous, friable polypoid fragments, 0.8 x 0.5 x 0.3 cm in aggregate. The specimen is filtered and entirely submitted in a single cassette. (1, ns, [id number] E) CPT Codes 61406 x 5 (more content not included)...[facility] Physician GroupOffice Visiton 50-29-9300Mppqkx-up [id number] Patrick Liriano Ayanna 1960 M Date Provider Department Center 06/15/2024 Emely-ALMAS MCALLISTER [facility]ARD [facility] Family History Problem Relation Age of Onset No Known Problems Mother No Known Problems Father Family Status - Relation Status Age at Mother Father Level of Service:16128 [facility] ESTABLISHED MOD [facility] 29 [facility]ld[facility] [#/Vol]on 04-20-2024 Basophils (Bld) [#/Vol]Automated basophil count0.0-0.1FGreene Memorial HospitalBasophils/100 WBC Auto (Bld)on 06-65-5428Midbejral/100 WBC (Bld)Automated basophil %0.2-2.0[facility] CenterCholesterol in LDL Calc [Mass/Vol]on 50-38-6350Fnabqupdvxy in LDL [Mass/Vol]Cholesterol in LDL [Mass/volume] in Serum or Plasma by calculationFairfield Medical Center Comment on above:<100 mg/dl FRNKRUK883-434 mg/dl NEAR OR ABOVE GXARKXF617-085 mg/dl BORDERLINE EGIZ146-624 mg/dl HIGH>190 mg/dl VERY HIGHCholesterol in VLDL Calc [Mass/Vol]on 48-15-2321Wwhcesftabd in VLDL [Mass/Vol]Cholesterol in VLDL [Mass/volume] in Serum or Plasma by calculationFairfield Medical Center Eosinophils/100 WBC Auto (Bld)on 19-10-7964Zkxnbbajlst/100 WBC (Bld)Automated eosinophil %0.9-7.0[facility] CenterErythrocyte distribution width Auto (RBC) [Ratio]on 23-71-9086Uynxrfmkyit distribution width (RBC) [Ratio]Erythrocyte distribution width [Ratio] by Automated count11.0-15.0 [facility] CenterEstimated glomerular filtration rate (GFR) non- Americanon 75-70-5169JEA/1.73 sq M.predicted among non-blacks MDRD (S/P/Bld) [Vol rate/Area]Estimated glomerular filtration rate (GFR) non->=60 mL/min/1.73m 2FGreene Memorial HospitalGlobulin Calc (S) [Mass/Vol]on 1959Wvijhcko (S) [Mass/Vol]Serum globulin measurement by calculation (mass/volume)[facility] CenterHematocrit Auto (Bld) [Volume fraction]on 11-87-5764Jmxhwasxeo (Bld) [Volume fraction]Hematocrit [Volume Fraction] of Blood by Automated skhrtKwb80.0-54.0[facility] CenterHemoglobin [Mass/volume] in Bloodon 42-77-2825Zpmvzvtagi (Bld) [Mass/Vol]Hemoglobin [Mass/volume] in OyzqpSnj35.0-18.0[facility] CenterLaboratory - Chemistry and Chemistry - challengeon 04-20-2024 Albumin [Mass/Vol]3.3 g/dLLow3.4-5.0[facility] CenterALP [Catalytic activity/Vol]110 U/R84-584TycvsqlnvFairfield Medical CenterALT [Catalytic activity/Vol]41 U/O42-35RokzkzbrnFairfield Medical CenterAST [Catalytic activity/Vol]24 U/L54-00QvregsvtzFairfield Medical CenterBilirubin [Mass/Vol]0.5 mg/dL0.2-1.0[facility] CenterCalcium [Mass/Vol]9.6 mg/dL8.5-10.1FGreene Memorial HospitalChloride [Moles/Vol]106 mmol/L 98-107[facility] CenterCholesterol [Mass/Vol]103 mg/dL<=200 [facility] CenterCholesterol in HDL [Mass/Vol]46 mg/dL40-60 [facility] Medical CenterComment on above:> or =60 mg/dl - LOW CARDIOVASCULAR RISK<40 mg/dl - HIGH CARDIOVASCULAR RISKCO2 [Moles/Vol]31.0 mmol/L21.0-32.0[facility] CenterCreatinine [Mass/Vol]0.95 mg/dL 0.70-1.30[facility] CenterGFR/1.73 sq M.predicted MDRD (S/P/Bld) [Vol rate/Area]mL/min/{1.73_m2}>=60 mL/min/1.73m 2FGreene Memorial HospitalGlucose [Mass/Vol]103 mg/tL11-838SvrfajfncFairfield Medical Center Potassium [Moles/Vol]4.2 mmol/L3.5-5.1FGreene Memorial HospitalProtein [Mass/Vol]6.6 g/dL6.4-8.2FMercy Health St. Vincent Medical Centerodium [Moles/Vol]141 mmol/E425-414WihnhtbpzFairfield Medical CenterTriglyceride [Mass/Vol]26 mg/dL <=150[facility] CenterUrea nitrogen [Mass/Vol]17.0 mg/dL7.0-18.0 [facility] CenterUrea nitrogen/Creatinine [Mass ratio]17.9 mg/mg [facility] CenterLaboratory - Hematology and Cell countson 82-31-8377Lmgztjdb granulocytes/100 WBC (Bld)0.7 %High0.0-0.5FGreene Memorial HospitalLeukocytes [#/volume] corrected for nucleated erythrocytes in Blood by Automated counon 63-19-4752OVK corrected for nucl RBC Auto (Bld) [#/Vol]Leukocytes [#/volume] corrected for nucleated erythrocytes in Blood by Automated coun4.0-11.0[facility] CenterLymphocytes Auto (Bld) [#/Vol]on 24-71-5744Uxkvxwaijgp (Bld) [#/Vol]Lymphocytes [#/volume] in Blood by Automated count1.2-3.8[facility] CenterLymphocytes/100 WBC Auto (Bld)on 81-17-2512Vxyjhbltiwu/100 WBC (Bld)Lymphocytes/100 leukocytes in Blood by Automated qirxwKut50.5-60.0[facility] CenterMCH Auto (RBC) [Entitic mass]on 06-91-8568SZX (RBC) [Entitic mass]MCH [Entitic mass] by Automated count25.9-34.0[facility] CenterMCHC Auto (RBC) [Mass/Vol]on 78-28-3978GZAL (RBC) [Mass/Vol]MCHC [Mass/volume] by Automated count29.9-35.2FGreene Memorial HospitalMCV Auto (RBC) [Entitic vol]on 83-21-5727LEU (RBC) [Entitic vol]MCV [Entitic volume] by Automated count 80.0-94.0[facility] CenterMonocytes Auto (Bld) [#/Vol]on 79-52-7882Wlkxgnfhh (Bld) [#/Vol]Automated blood monocyte countHigh0.3-0.8 [facility] CenterMonocytes/100 WBC Auto (Bld)on 04-20-2024 Monocytes/100 WBC (Bld)Automated monocyte %1.7-12.0[facility] CenterNeutrophils Auto (Bld) [#/Vol]on 05-51-0516Smuvacnnukc (Bld) [#/Vol] Neutrophils [#/volume] in Blood by Automated countHigh1.4-6.5FGreene Memorial HospitalNeutrophils/100 WBC Auto (Bld)on 06-80-3838Uavbbmlunyq/100 WBC (Bld)Automated neutrophil %43.0-75.0[facility] CenterNo Panel Informationon 08-65-6097Sfbagqjfpnc # (Auto)0.3 10 3/uL0.0-0.7FGreene Memorial HospitalImmature Granulocyte # (Auto)0.07 10 3/uLHigh0.00-0.03[facility] CenterPlatelet mean volume Auto (Bld) [Entitic vol]on 05-40-8387Svewxyoy mean volume (Bld) [Entitic vol]Platelet mean volume [Entitic volume] in Blood by Automated count9.5-13.5FGreene Memorial Hospital Platelets Auto (Bld) [#/Vol]on 92-06-9361Ddyoiqgtf (Bld) [#/Vol]Platelets [#/volume] in Blood by Automated goxpb380-745CaayezzxmFairfield Medical Center RBC Auto (Bld) [#/Vol]on 30-02-7174IOO (Bld) [#/Vol]Erythrocytes [#/volume] in Blood by Automated countLow4.70-6.10[facility] Memorialerum or plasma albumin/globulin mass ratioon 12-28-3636Btflsvj/Globulin [Mass ratio] Serum or plasma albumin/globulin mass ratioFairfield Medical Center Serum or plasma anion gap determinationon 45-63-2107Gyksg gap [Moles/Vol]Serum or plasma anion gap determinationKettering Health Greene Memorialerum or plasma total cholesterol/high density lipoprotein (HDL) cholesterol mass sang 56-91-8313Izazacixlbe.total/Cholesterol in HDL [Mass ratio]Serum or plasma total cholesterol/high density lipoprotein (HDL) cholesterol mass Madison HealthComment on above:3.3 - 4.4 LOW RISK4.4 - 7.1 AVERAGE RISK7.1 - 11.0 MODERATE RISK>11.0 HIGH RISKAmbulatory Visit Summaryon 12-27-2023 Ambulatory Visit SummaryAmbulatory Visit Summary PATRICK LIRIANO :1960 Visit Date:12/27/2023 [...] ER Tab) atorvastatin (atorvastatin 80 mg Tab) budesonide/formoterol/glycopyrrolate (Breztri Aerosphere inhalation aerosol) metoprolol (Lopressor 25 [...] Calvin WALKER MD Where: [facility] [address] [place] [address]- You Need to Schedule the Following Appointments Follow Up with Calvin WALKER MD, URL When: Where: [address] [place] [phone]- Medications What How Much When Instructions Unchanged alfuzosin (alfuzosin 10 mg ER Tab) 1 Tablets By Mouth Every day Duration: 90 Days Contactprescribing physician if questions or concerns Unchanged atorvastatin (atorvastatin 80 mg Tab) Contact prescribing physician if questions or concerns Unchanged budesonide/ formoterol/ glycopyrrolate (Breztri Aerosphere inhalation aerosol) Contact prescribing physician if questions or concerns Unchanged metoprolol (Lopressor 25 mg oral tablet) 1 Tablets By Mouth Every day Contact prescribingphysician if questions or concerns Unchanged Misc Prescription [...] gland that is caused by the normal agingprocess. The prostate may get bigger as a man gets older. The condition is not caused by cancer. The prostate is a walnut-sized gland that is involved in the production of semen. It is located in front of the rectum and below the bladder. The bladder stores urine. The urethra carries stored urine ou t of the body. An enlarged prostate can press on the urethra. This can make it harder to pass urine. The buildup of urine in the bladder can cause infection. Back pressure and infection may progress to bladder damage and kidney (renal) failure. What are the causes? This condition is part of the normal aging process. However, not all men develop problems from thiscondition. If the prostate enlarges away from the [...] waves to electronically produce (more content not included)...[facility] HospitalUrology Office/Clinic Noteon 25-11-7815Ipkrezy Office/Clinic NoteUrology Office/Clinic Note Chief Complaint BPH with obstruction [...] Contact Information LIZETH WOODALL, Calvin Watson, URL [address] [place] [address]- Additional Instructions: 1 year w/ PSA Patient Education Benign Prostatic Hyperplasia IFarrah, personally scribed for Dr. Walker on 12/27/2023 [...] 12/27/2023 Immunizations Vaccine Date Status Comments SARSCoV2 mRNA(eznesmsij-qwij-cmtrkc) vac 04/04/2022 Recorded 2023-04-29: TPV60 SARSCoV2 mRNA(hhwxdgqxn-tojj-ohefww) vac 03/14/2022 Recorded 2023-04-29: TPV60 influenza virus vaccine, inactivated 03/11/2022 [facility] CenterComment on above:Result Comment: Electronically Signed By: Calvin WALKER MD\.br\Date and Time Signed: 12/27/23 11:33 EDT\.br\Electronically Co-Signed By: Farrah Maria\.br\Date and Time Co-Signed: 12/26/2410:30 EDTOffice Visiton 94-04-4478Umiftx-up [id number] Patrick Liriano 1960 M Date Provider Department Center 06/20/2023 MARGARET WRAY [facility] Family History Problem Relation Age of Onset No Known Problems Mother No Known Problems Father Family Status - Relation Status Age at Mother Father Level of Service:08835 [facility] OFFICE/OUTPATIENT ESTABLISHED LOW MDM 20 MIN Reason for Visit and Comments: Coronary Artery Disease [187] Hypertension [383572][facility] CenterMG [facility] 3D MATT CADon 46-47-0422OU MAMM DIAGNOSTIC 3D MATT CADPatient: PATRICK LIRIANO. Exam Date: 06/26/2022 : 1960 Gender:M Ordering : DR PAULINO WILSON D.O. Admission #: [id number] Family : Order #: [id number] CLICK HERE TO VIEW EXAM RADIOLOGY REPORT [...] Treatments None Family Cancers None LOCATION: [facility] BREAST COMPOSITION: Almost entirely fatty. FINDINGS: [...] by: Noemi Conrad M.D. on 06/26/2022 at 13:25[facility] Memorial HospitalUS BREAST LEFT LIMITEDon 99-93-8027VI BREAST LEFT LIMITEDPatient: PATRICK LIRIANO Exam Date: 06/26/2022 : 1960 Gender:M Ordering : DR PAULINO WILSON D.O. Admission #: [id number] Family : Order #: [id number] CLICK HERE TO VIEW EXAM RADIOLOGY REPORT [...] Treatments None Family Cancers None LOCATION: [facility] BREAST COMPOSITION: Almost entirely fatty. FINDINGS: [...] by: Noemi Conrad M.D. on 06/26/2022 at 13:25[facility] Memorial HospitalHLA CLASS I SP AB ID, HDon [id number] CLASS I SP AB ID,HDSEE COMMENT [facility] HospitalComment on above:Result Comment: HLA-CLASS I SP ANTIBODY IDENTIFICATION, HIGH DEFINITION SEE SEPARATE REPORT. Test performed at [facility] Histocompatibility and Immunogenetics Laboratory [facility], 6th Floor [address] [place], [place] [address]Performed By: #### IGA #### [facility] [address] [facility] [place], [place] [address]WWK CLASS II SP AB ID, on 78-15-4026FLH CLASS II SP AB ID,HDSEE COMMENTRiver's Edge HospitalComment on above:Result Comment: HLA-CLASS II SP ANTIBODY IDENTIFICATION, HIGH DEFINITION SEE SEPARATE REPORT. Test performed at [facility] Histocompatibility and Immunogenetics Laboratory [facility], 6th Floor [address] [place], [place] [address]Performed By: #### IGA #### [facility] [address] [facility] [place], [place] [address]EMJ CLASS II SP AB ID,HDSEE COMMENTRiver's Edge HospitalComment on above:Result Comment: HLA-CLASS II SP ANTIBODY IDENTIFICATION, HIGH DEFINITION SEE SEPARATE REPORT. Test performed at [facility] Histocompatibility and Immunogenetics Laboratory [facility], 6th Floor [address] [place], [place] [address]Performed By: #### HLHD2 #### [facility] [address] [place], [place] [address]IMS-T,B,C LRon 49-50-9551YWQ-A LOCUS LR TYPESEE COMMENTNoSt. Vincent General Hospital DistrictComment on above:Result Comment: HLA-A LOCUS, LOW RESOLUTION TYPE SEE SEPARATE REPORT.Performed By: #### HAVTO #### [facility] [address] [place], [place] [address]JMR-T LOCUS LR TYPESEE COMMENTRiver's Edge HospitalComment on above:Result Comment: HLA-B LOCUS, LOW RESOLUTION TYPE SEE SEPARATE REPORT.Performed By: #### HAVTO #### [facility] [address] [place], [place] [address]BWA-Y LOCUS LR TYPESEE COMMENTNoNorthern Colorado Long Term Acute HospitalComment on above:Result Comment: HLA-C LOCUS, LOW RESOLUTION TYPE SEE SEPARATE REPORT. Test performed at [facility] Histocompatibility and Immunogenetics Laboratory [facility], 6th Floor [address] [place], [place] [address]Performed By: #### HAVTO #### [facility] [address] [place], [place] [address]BGV-XCW3 HR TYPINGon 68-38-1983WFW-DPB1 HR TYPINGSEE COMMENT [facility] HospitalComment on above:Result Comment: HLA-DPB1 HIGH RESOLUTION TYPING SEE SEPARATE REPORT. Test performed at [facility] Histocompatibility and Immunogenetics Laboratory [facility], 6th Floor [address] [place], [place] [address]Performed By: #### SYPHR #### [facility] [address] [place], [place] [address]KNF-[id number] HR TYPINGon 12-68-7245SXC-DQB1 HR TYPINGSEE COMMENT [facility] Edge HospitalComvon [facility] on above:Result Comment: HLA-DQB1 HIGH RESOLUTION TYPING SEE SEPARATE REPORT. Test performed at [facility] Histocompatibility and Immunogenetics Laboratory [facility], 6th Floor [address] [place], [place] [address]Performed By: #### DQBHT #### [facility] [address] [place], [place] [address]BWQ-WZP3/3/4/5 AND DQB1 LR TYPINGon 74-51-2326INN-DRB1/3/4/5 & DQB1 LR TYPINGSEE COMMENTNoNorthern Colorado Long Term Acute HospitalComment on above: Result Comment: HLA-DRB1/3/4/5 AND DQB1 LOW RESOLUTION TYPING SEE SEPARATE REPORT. Test performed at [facility] Histocompatibility and Immunogenetics Laboratory [facility], 6th Floor [address] [place] [address]Iffufqiol By: #### TETAB #### [facility] [place], [place] [id number] B VIRAL DNA, ULTRA QUANT PCRon 72-53-0866ROM DNA PCR COMMENTSEE BELOWNoNorthern Colorado Long Term Acute HospitalComment on above:Result Comment: Reportable Range: 10-1,000,000,000 IU/mL. The lauren HBV test [...] the Molecular Diagnostic Laboratory, Department of Pathology, [facility].Performed By: #### IGA #### [facility] [address] [place], [place] [address]CKC DNA QUANT PCR IU/MLNot detectedNormalNot DetectedEast Orange General HospitalComment on above:Performed By: #### IGA #### [facility] [address] [place], [place] [address]PAX DNA QUANT PCR LOGNOT CALCULATEDNormalUH Kessler Institute For RehabilitationComment on above:Performed By: #### IGA #### [facility] [address] [place], [place] [address]VSNPJCOUQGL ABS,(CF/ID)on 36-93-8379EJESMGXQKTG,ABS (ID)Not detectedNormalNot DetectedEast Orange General HospitalComment on above:Result Comment: No Histoplasma antibodies were detected. This result does not exclude Histoplasma infection. Performed by [employer], [address] [place] [address] www.[employer], Garfield Torrez MD, PHD - Lab. DirectorPerformed By: #### IGA #### [facility] [address] [place], [place] [address]VNQZVAIEHQOYHN MYCELIA<1:8Normal<1:8[facility] General HospitalComment on above:Result Comment: INTREPRETIVE INFORMATION: Histoplasma Mycelia Antibodies by CF A titer of 1:8 or greater is generally considered presumptive evidence of histoplasmosis. A titer of 1:32 or greater or rising titers indicate strong presumptive evidence of histoplasmosis. Cross reactions, usually at lower titers, may occur with other fungal diseases.Performed By: #### IGA #### [facility] [address] [place], [place] [address]PCPSFXQJLDPKVT YEAST<1:8Normal<1:8[facility] Comment on above:Result Comment: INTERPRETIVE INFORMATION: Histoplasma Yeast Antibodies by CF A titer of 1:8 or greater is generally considered presumptive evidence of histoplasmosis. A titer of 1:32 or greater or rising titers indicate strong presumptive evidence of histoplasmosis. Cross reactions, usually at lower titers, may occur with other fungal diseases.Performed By: #### IGA #### [facility] [address] [place], [place] [address]DBJ IGM ABon 33-99-0838OGK IGM AB<30.00NormalUEast Orange Va Medical CenterComment on above:Result Comment: REFERENCE RANGE: <30.00 AU/mL . Interpretive criteria: <30.00 [...] and IgM testing in two or more weeks.Performed By: #### CMVM2 #### [facility] [address] [place] [id number] PNEUMO IGG AB 23 SEROTYPESon 03-07-2022 SEROTYPE 1<0.1Low>1.3[facility] General HospitalComment on above:Performed By: #### HIV #### [facility] [address] [place], [place] [address]ZGJXZNSI 10A[34]0.1 ug/mLLow>1.3[facility] Comment on above:Performed By: #### HIV #### [facility] [address] [place], [place] [address]WRAKIFXH 11A[43]<0.1Low>1.3[facility] General HospitalComment on above:Performed By: #### HIV #### [facility] [address] [place], [place] [address]PVOMUUBS 12F<0.1Low>1.3[facility] General HospitalComment on above:Performed By: #### HIV #### [facility] [address] [place], [place] [address]YXUWUPZG 14<0.1Low>1.3[facility] HospitalComment on above:Performed By: #### HIV #### [facility] [address] [place], [place] [address]UJYMZBMD 15B[54]<0.1Low>1.3[facility] General HospitalComment on above:Performed By: #### HIV #### [facility] [address] [place], [place] [address]CFSWMFVC 17F<0.1Low>1.3[facility] General HospitalComment on above:Performed By: #### HIV #### [facility] [address] [place], [place] [address]VRKHDVMO 18C[56]<0.1Low>1.3[facility] HospitalComment on above:Performed By: #### HIV #### [facility] [address] [place], [place] [address]VLYUGVJE 19A[57]0.1 ug/mLLow>[address] [place] [address] Comment on above:Performed By: #### HIV #### [facility] [address] [place], [place] [address]HTPAPLXP 19F0.2 ug/mLLow>1.[address] [place] [address] Comment on above:Performed By: #### HIV #### [facility] [address] [place], [place] [address]MWQVZHJX 2<0.1Low>1.3[facility] HospitalComment on above:Performed By: #### HIV #### [facility] [address] [place], [place] [address]LZTLPDFW 20<0.1Low>1.3[facility] HospitalComment on above:Performed By: #### HIV #### [facility] [address] [place], [place] [address]TRHJKUOD 22F<0.1Low>1.3[facility] HospitalComment on above:Performed By: #### HIV #### [facility] [address] [place], [place] [address]LXVZFQOZ 23F<0.1Low>1.3[facility] HospitalComment on above:Performed By: #### HIV #### [facility] [address] [place], [place] [address]FINDWMBO 30.3 ug/mLLow>1.3UH [facility] For RehabilitationComment on above:Performed By: #### HIV #### [facility] [address] [place], [place] [address]UVWZARMK 33F[70]<0.1Low>1.3[facility] HospitalComment on above:Result Comment: *This test was developed and its performance characteristics determined by [employer]. It has not been cleared or approved by the U.S. Food and Drug Administration. Performed At: [facility] [address] [place] [address] Plumber: Ciaran Baxter Ph.D., BCLD (ABB) CLIA#: [id number] Phone: Performed By: #### HIV #### [facility] [address] [place], [place] [address]UEPKAKZC 4<0.1Low>1.3[facility] HospitalComment on above:Performed By: #### HIV #### [facility] [address] [place], [place] [address]RJIKAYMJ 5<0.1Low>1.3[facility] HospitalComment on above:Performed By: #### HIV #### [facility] [address] [place], [place] [address]FATSERCY 6B[26]<0.1Low>1.3[facility] HospitalComment on above:Performed By: #### HIV #### [facility] [address] [place], [place] [address]KWSTBSOH 7F[51]<0.1Low>1.3[facility] HospitalComment on above:Performed By: #### HIV #### [facility] [address] [place], [place] [address]AFJJLMMQ 8<0.1Low>1.3[facility] HospitalComment on above:Performed By: #### HIV #### [facility] [address] [place], [place] [address]THEWISGM 9N<0.1Low>1.3[facility] HospitalComment on above:Performed By: #### HIV #### [facility] [address] [place], [place] [address]QGDUDVGS 9V[68]<0.1Low>1.3[facility] HospitalComment on above:Performed By: #### HIV #### [facility] [address] [place], [place] [address]XNZMCCDJJI ABon 49-60-7209YNLEOKAAEQ AB0.27 IU/mLNormal<0.10 [facility] HospitalComvon [facility] on above:Result Comment: Interpretation: Non-Protective <0.10 Protective >=0.10 For research use only.Performed By: #### HIV #### [facility] [address] [place], [place] [address]W. INFLUENZA B AB, IGGon 03-06-2022H. INFLUENZA B AB, IGG0.1 ug/mLNormalEast Orange General HospitalComment on above:Result Comment: INTERPRETIVE INFORMATION: H. Influenzae b Ab, IgG Less [...] developed and its performance characteristics determined by [employer]. It has not been cleared or approved by the US Food and Drug Administration. This test was performed in a CLIA certified laboratory and is intended for clinical purposes. Performed By: [employer] [address] [place] [address] Plumber: Garfield Torrez MD, PhDPerformed By: #### HIV #### [facility] [address] [place], [place] [address]IETXMAZ ABon 50-54-1447KWJZAAP AB>7.00Normal<0.10[facility] HospitalComment on above:Result Comment: Interpretation: Non-Protective <0.10 Protective >=0.10 Results for this test are for research purposes only by the assay's machine tank operator. The performance characteristics of this product have not been established. Results should not be used as a diagnostic procedure without confirmation of the diagnosis by another medically established diagnostic product or procedure.Performed By: #### TETAB #### [facility] [place], [place] [address]PATO IGMon 75-74-7258LAOGTVDBDX IGM<3.0Normal<=7.9[facility] HospitalComment on above:Result Comment: INTERPRETIVE INFORMATION: Toxoplasma Ab, IgM 7.9 AU/mL or [...] additional information, refer to the CDC website: www.cdc.gov/parasites/toxoplasmosis/health_professionals/index.html . The magnitude of the measured result is not indicative of the amount of antibody present. Performed By: [employer] [address] [place] [address] Plumber: Garfield Torrez MD, PhDPerformed By: #### HIV #### [facility] [address] [place], [place] [address]L-KBBY TBon 03-71-8507ZID[NEG]CONTROL SPOT COUNTPassedNormal [facility] HospitalComment on above:Performed By: #### IGA #### [facility] [address] [place], [place] [address]NCDMF A SPOT [id number] Park Medical Center - GranbyComment on above:Performed By: #### IGA #### [facility] [address] [place], [place] [address]IPZXH B SPOT WSWRY5DsqksmPOMiddle Park Medical Center - GranbyComment on above:Performed By: #### IGA #### [facility] [address] [place], [place] [address]URT CONTROL SPOT COUNTPassedRiver's Edge Hospital Comment on above:Performed By: #### IGA #### [facility] [address] [place], [place] [address]A-WADC.TB INTERPNegativeNormalNormal Value: NegativeEast Orange General HospitalComment on above:Result Comment: A negative test result does not exclude the [...] should not be interpreted as a quantitative test.Performed By: #### IGA #### [facility] [address] [place], [place] [address]Lonlifmomwm Anxiety Disorder-7on 32-81-5865Ojsjg depression screening assessmentIn Remission (0-4)EC-Irhnuvievu-KLT [facility] [address] Work Phone: [phone] Anxiety Disorder-72 8AB-Zkaefjawbr-SRD [facility] [address] Work Phone: [phone] Anxiety Vcvyuqsi-51-Xpgwyaa days ZI-Vwzheouhrm-HKL [place] [address] Work Phone: [phone] Anxiety Rpftqlso-33-Mbm at all VH-Uuuoserkeo-ATD [facility] [address] Work Phone: HCV RNA BY PCR [VIRAL LOAD]on 26-21-9228TTL RNA, PCR Not detectedNoNorthern Colorado Long Term Acute HospitalComment on above:Result Comment: REF VALUE NOT DETECTEDPerformed By: #### TETAB #### [facility] [place], [place] [address]VVI RNA,PCR, LOGNOT CALCULATEDNoNorthern Colorado Long Term Acute HospitalComment on above:Result Comment: Reportable Range: 15-100,000,000 IU/mL. The lauren HCV is an in vitro nucleic acid amplification test for both the detection and quantitation of hepatitis C virus (HCV) RNA, in human EDTA plasma or serum, of HCV antibody positive or HCV-infected individuals on the lauren [employer]/8800 Systems. Dual probes are used to detect [...] the Molecular Diagnostic Laboratory, Department of Pathology, [facility].Performed By: #### TETAB #### [facility] [place], [place] [address]FDGOCpw 16-12-4141XVOPC25-39 Minimally Acceptable RylpbzgewSH-Lbusmhdnzh-PQN [place] [address] Work Phone: [phone] Good XfzvndisyxzquCB-Favcxdxijb-OHH [place] [address] Work Phone: [phone] HeqbUV-Pmsahdzifv-HFS [place] [address] Work Phone: [phone] LcmsKO-Eawegciquq-UVI [place] [address] Work Phone: [phone]) JzqdBR-Jrpebqiufy-IPC [facility] [address] Work Phone: [phone]) KiddDP-Yyolgstrgf-UMQ [place] [address] Work Phone: [phone]) RpxrtbmQK-Hjtuzzjcfn-AKO [place] [address] Work Phone: [phone]) HuqstecJY-Rivleegexo-ZUD [facility] [address] Work Phone: [phone]) AikpXG-Bbnfdlqlyp-HHX [place] [address] Work Phone: [phone]) No Clinical PcdlvfzkebRT-Qhiarhnazt-UBW [place] 1800 Work Phone: [phone]) No Clinical VzvvspsPZ-Utwtdpfmxj-AYG [place] 1800 Work Phone: [phone]) JsxljctSF-Pgegdwczyk-TUT [place] [address]99 Work Phone: [phone]) XckaqFO-Ypjuesjlab-DJJ [place] [address]99 Work Phone: [phone]) XainLW-Ffjwpmambb-DQI [place] 1799 Work Phone: [phone]) No Problematic Alcohol VvwLZ-Ihozodqygw-YAG [place] [address]99 Work Phone: [phone]) Low GfkfRG-Lqmxxdchxq-OHD [place] [address]99 Work Phone: [phone]) Past JhoZZ-Hglbbrwmla-BQL [place] [address]99 Work Phone: ABO/RH GROUP TESTon [id number] TYPEANoNorthern Colorado Long Term Acute HospitalComment on above:Performed By: #### ABORG #### [place] [id number] [place], [place] [address]MQ TYPEPositiveNoNorthern Colorado Long Term Acute HospitalComment on above:Performed By: #### ABORG #### [facility] [address] [facility] [address] [place], [place] [address]Jgqdwuyt Assay, Diphtheriaon 03-01-2022. diphtheriae Ab IA Qn (S)0.27 {IU/mL}<0.10MG-Pulm [facility] [address]99 Work Phone: [phone] on above:Interpretation: Non-Protective <0.10 Protective >=0.10 For research use only.Blood Typing (ABO + Rho D)on 03-01-2022 ABO group Nom (Bld)AMG-Pulm [facility] [facility]99 Work Phone: [phone] immune globulin screen (Bld) [Interp]PositiveMG- Pulm [facility]-[place] 1799 Work Phone: [phone] AND DIFFERENTIALon 03-01-2022% AUTOMATED IMMATURE GRAN0.3 %Normal0.0 - 0.9[facility] HospitalComment on above:Result Comment: Immature Granulocyte Count (IG) includes promyelocytes, myelocytes and metamyelocytes but does not include bands. Percent differential counts (%) should be interpreted in the context of the absolute cell counts (cells/L).Performed By: #### IGA #### [facility] [address] [place], [place] [address]Sbmdjlzms (Bld) [#/Vol]0.07 10*3/uLNormal0.00 - 0.10[facility] HospitalComment on above:Performed By: #### IGA #### [facility] [address] [place], [place] [address]Lbsaikdxl/100 WBC (Bld)0.6 %Normal0.0 - 2.0[facility] HospitalComment on above:Performed By: #### IGA #### [facility] [address] [place], [place] [address]Pzhuhgtvjir (Bld) [#/Vol]0.26 10*3/uLNormal0.00 - 0.70[facility] HospitalComment on above:Performed By: #### IGA #### [facility] [address] [place], [place] [address]Ukwgsynqizr/100 WBC (Bld)2.3 %Normal0.0 - 6.0[facility] HospitalComment on above:Performed By: #### IGA #### [facility] [address] [place], [place] [address]Oaqrmfmrwhg distribution width (RBC) [Ratio]13.0 %Qdqlix44.5 - 14.5[facility] HospitalComment on above:Performed By: #### IGA #### [facility] [address] [place], [place] [address]Caasqhfjim (Bld) [Volume fraction]47.9 %Vefndt15.0 - 52.0[facility] HospitalComment on above:Performed By: #### IGA #### [facility] [address] [place], [place] [address]Coedkufatl (Bld) [Mass/Vol]15.6 g/uQSbvklg76.5 - 17.5UH Osuna Medical CenterComment on above:Performed By: #### IGA #### [facility] [address] [place], [place] [address]Gssasecegls (Bld) [#/Vol]2.53 10*3/uLNormal1.20 - 4.80[facility] HospitalComment on above:Performed By: #### IGA #### [facility] [address] [place], [place] [address]Chsmwsypesh/100 WBC (Bld)22.8 %Dyhhdg58.0 - 44.0[facility] HospitalComment on above:Performed By: #### IGA #### [facility] [address] [place], [place] [address]SFXC (RBC) [Mass/Vol]32.6 g/hCTfyocl17.0 - 36.0[facility] HospitalComment on above:Performed By: #### IGA #### [facility] [address] [place], [place] [address]KBJ (RBC) [Entitic vol]92 lWNolbtm25 - 100[facility] HospitalComment on above:Performed By: #### IGA #### [facility] [address] [place], [place] [address]Yplczmpiy (Bld) [#/Vol]0.82 10*3/uLNormal0.10 - 1.00[facility] HospitalComment on above:Performed By: #### IGA #### [facility] [address] [place], [place] [address]Iigojwhtp/100 WBC (Bld)7.4 %Normal2.0 - 10.0[facility] HospitalComment on above:Performed By: #### IGA #### [facility] [address] [place], [place] [address]Ljxxoskihbh (Bld) [#/Vol]7.37 10*3/uLNormal1.20 - 7.70[facility] HospitalComment on above:Performed By: #### IGA #### [facility] [address] [place], [place] [address]Qwkztrplbgf/100 WBC (Bld)66.6 %Ctcuag40.0 - 80.0[facility] HospitalComment on above:Performed By: #### IGA #### [facility] [address] [place], [place] [address]MDAUGFBJJ RBC0.0 /100 WBCNormal0.0-0.0[facility] HospitalComment on above:Performed By: #### IGA #### [facility] [address] [place], [place] [address]Nxvlyjknc (Bld) [#/Vol]355 10*3/jZDrotpm783 - 450[facility] HospitalComment on above:Performed By: #### IGA #### [facility] [address] [place], [place] [address]JYT7.20 x10E12/LNormal4.50 - 5.90[facility] Comment on above:Performed By: #### IGA #### [facility] [address] [place], [place] [address]ECG (Bld) [#/Vol]11.1 10*3/uLNormal4.4 - 11.3[facility] HospitalComment on above:Performed By: #### IGA #### [facility] [address] [place], [place] [address]BRJ IGG AND IGM ABon 24-25-9772EWH IGG ABNon-ReactiveNormal NONREACTIVEEast Orange General HospitalComment on above:Performed By: #### TETAB #### [facility] [address] [place] [id number] IGM ABon [id number] IgM IA Qn<30.00MG-Pulm [facility] [place] [address] Work Phone: Comment on above:REFERENCE RANGE: <30.00 AU/mL. Interpretive criteria: <30.00 AU/mL No antibody detected 30.00-34.99 AU/mL Equivocal > or = 35.00 AU/mL Antibody detected.Results from any one IgM assay shouldnot beused as a sole determinant of a current or recentinfection. Because an IgM test can yield falsepositive results and low level IgM antibody maypersist for more than 12 months post infection,reliance on a single test result could be misleading.Acute infection is best diagnosed by demonstratingthe conversion of IgG from negative to positive.If an acute infection is suspected, considerobtaininga new specimen and submit for bothIgG and IgM testing in two or more weeks.COMPREHENSIVE PANELon 12-15-7134Wzerlqi [Mass/Vol]4.8 g/dLNormal 3.4 - 5.0[facility] HospitalComment on above:Performed By: #### SYPHR #### [facility] [address] [place], [place] [address]IUQ [Catalytic activity/Vol]128 U/MObofdk13 - 136[facility] HospitalComment on above:Performed By: #### SYPHR #### [facility] [address] [place], [place] [address]HMM [Catalytic activity/Vol]28 U/DZunlvt30 - 52[facility] HospitalComment on above:Result Comment: Patients treated with Sulfasalazine may generate falsely decreased results for ALT.Performed By: #### SYPHR #### [facility] [address] [place], [place] [address]Orlbo gap [Moles/Vol]14 mmol/GWhtmtg59 - 20[facility] HospitalComment on above:Performed By: #### SYPHR #### [facility] [address] [place], [place] [address]ILN [Catalytic activity/Vol]23 U/LNormal9 - 39[facility] HospitalComment on above:Performed By: #### SYPHR #### [facility] [address] [place], [place] [address]Cuoswdulh [Mass/Vol]1.0 mg/dLNormal0.0 - 1.2[facility] HospitalComment on above:Performed By: #### SYPHR #### [facility] [address] [place], [place] [address]Bmtvutg [Mass/Vol]11.4 mg/dLHigh8.6 - 10.6[facility] HospitalComment on above:Performed By: #### SYPHR #### [facility] [address] [place], [place] [address]Wydrdqfd [Moles/Vol]100 mmol/FQeqqhq64 - 107[facility] HospitalComment on above:Performed By: #### SYPHR #### [facility] [address] [place], [place] [address]Pjxfljhvqt [Mass/Vol]0.88 mg/dLNormal0.50 - 1.30[facility] HospitalComment on above:Performed By: #### SYPHR #### [facility] [address] [place], [place] [address]wUYT MALE>90Normal>90[facility] HospitalComment on above:Result Comment: CALCULATIONS OF ESTIMATED GFR ARE PERFORMED USING THE 2020 CKD-EPI STUDY REFIT EQUATION WITHOUT THE RACE VARIABLE FOR THE IDMS-TRACEABLE CREATININE METHODS. https://jasn.asnjournals.org/content/early//ASN.3855173559Wbiukdpgq By: #### SYPHR #### [facility] [address] [place], [place] [address]Oolvkud [Mass/Vol]96 mg/gGGsqmke17 - 99[facility] HospitalComment on above:Performed By: #### SYPHR #### [facility] [address] [place], [place] [address]LZY5 (Bld) [Moles/Vol]29 mmol/MNwqghn20 - 32[facility] HospitalComment on above:Performed By: #### SYPHR #### [facility] [address] [place], [place] [address]Zbquajxkb [Moles/Vol]4.4 mmol/LNormal3.5 - 5.3[facility] HospitalComment on above:Performed By: #### SYPHR #### [facility] [address] [place], [place] [address]Azfanei [Mass/Vol]7.8 g/dLNormal6.4 - 8.2[facility] HospitalComment on above:Performed By: #### SYPHR #### [facility] [address] [place], [place] [address]Djtlsq [Moles/Vol]139 mmol/ONdvala971 - 145[facility] HospitalComment on above:Performed By: #### SYPHR #### [facility] [address] [place], [place] [address]Ahue nitrogen [Mass/Vol]13 mg/dLNormal6 - 23[facility] HospitalComment on above:Performed By: #### SYPHR #### [facility] [address] [place], [place] [address]JYU, HIGH SENSITIVITYon 90-65-1849BOT, HIGH SENSITIVITY4.0 mg/LAbnormalUH [facility]essler Institute For RehabilitationComment on above:Result Comment: hsCRP INTERPRETATION mg/L < 1.0 LOW RELATIVE RISK OF CVD 1.0-3.0 AVERAGE RELATIVE RISK OF CVD > 3.0 HIGH RELATIVE RISK OF CVD Source: MCKAY, T. A. et al. CIRCULATION 2003; 107:499-511.Performed By: #### SYPHR #### [facility] [address] [place], [place] [address]PXZ, High Sensitivityon 82-85-5689PPQ High sensitivity method [Mass/Vol]4.0 mg/LAbnormalMG-Pulm [facility] 1800 Work Phone: Comment on above:SOURCE: hsCRP INTERPRETATION mg/L < 1.0 LOW RELATIVE RISK OF CVD 1.0-3.0 AVERAGE RELATIVE RISK OF CVD > 3.0 HIGH RELATIVE RISK OF CVD Source:MCKAY, T. A. et al. CIRCULATION 2003;107:499-511.Complete Blood Count + Differentialon 48-66-9412Vffppvxbw/100 WBC (Bld)0.6 %0.0 - 2.0MG-Pulm [facility]- [place] 1800 Work Phone: Erythrocyte distribution width (RBC) [Ratio]13.0 %See BelowMG-Pulm Sleep-[place] 1800 Work Phone: Comment on above:Reference Range: 11.5 - 14.5 Hematocrit (Bld) [Volume fraction]47.9 %See BelowMG-Pulm Sleep-[place] 1800 Work Phone: [phone] on above:Reference Range: 41.0 - 52.0 Hemoglobin (Bld) [Mass/Vol]15.6 g/dLSee BelowMG-Pulm [facility]-[place] 1800 Work Phone: [phone] on above:Reference Range: 13.5 - 17.5 Lymphocytes/100 WBC (Bld)22.8 %See BelowMG-Pulm [facility]-[place] 1800 Work Phone: [phone] on above:Reference Range: 13.0 - 44.0MCHC (RBC) [Mass/Vol]32.6 g/dLSee BelowMG-Pulm Sleep-[place] [address] Work Phone: [phone] on above:Reference Range: 32.0 - 36.0MCV (RBC) [Entitic vol]92 fL80 - 100MG-Pulm [facility]-[place] 1800 Work Phone: [phone]/100 WBC (Bld)7.4 %2.0 - 10.0MG-Pulm [facility]- [place] 1800 Work Phone: [phone]/100 WBC (Bld)66.6 %See BelowMG-Pulm Sleep- [place] [address] Work Phone: [phone] on above:Reference Range: 40.0 - 80.0Platelets (Bld) [#/Vol]355 10*3/uL150 - 450MG-Pulm [facility]-[place] 1800 Work Phone: [phone] (Bld) [#/Vol]5.20 {x10E12/L}See BelowMG-Pulm Sleep-[place] 1800 Work Phone: [phone] on above:Reference Range: 4.50 - 5.90WBC (Bld) [#/Vol]11.1 10*3/uL4.4 - 11.3MG-Pulm [facility] 1800 Work Phone: [phone] Blood Count + Differential0.07 {x10E9/L}See BelowMG-Pul Sleep-[place] 1800 Work Phone: Comment on above:Reference Range: 0.00 - 0.10Complete Blood Count + Differential0.26 {x10E9/L}See BelowMG-Pul Sleep-[place] 1800 Work Phone: Comment on above:Reference Range: 0.00 - 0.70Complete Blood Count + Differential0.82 {x10E9/L}See BelowMG-Pul Sleep-[place] [address] Work Phone: Comment on above:Reference Range: 0.10 - 1.00Complete Blood Count + Differential2.53 {x10E9/L}See BelowMG-Pul Sleep-[place] 1800 Work Phone: Comment on above:Reference Range: 1.20 - 4.80Complete Blood Count + Differential7.37 {x10E9/L}See BelowMG-Pul Sleep-[place] [address] Work Phone: Comment on above:Reference Range: 1.20 - 7.70Complete Blood Count + Differential2.3 %0.0 - 6.0MG-Pul [facility]-[place] [address] Work Phone: Complete Blood Count + Differential0.3 %0.0 - 0.9MG- [facility] [address] Work Phone: Comment on above:Immature Granulocyte Count (IG) includes promyelocytes, myelocytes and metamyelocytes but does not include bands. Percent differential counts (%) should be interpreted in the context of the absolute cell counts (cells/L).Complete Blood Count + Differential0.0 {/100_WBC}0.0-0.0MG-Pul [facility] [address] Work Phone: DRUG SCREEN,URINE WITH REFLEX TO CONFIRMATIONon 38-54-0553APMYXENLTLB SCREEN,[facility], AvonComment on above:Order Comment: TEST DRUG SCREEN,URINE WITH REFLEX TO CONFIRMATION WAS CANCELLED, :42 ptcouldnt void.Result Comment: CUTOFF LEVEL: 500 NG/ML Cross-reactivity has been reported with high concentrations of the following drugs: buproprion, chloroquine, chlorpromazine, ephedrine, mephentermine, fenfluramine, phentermine, phenylpropanolamine, pseudoephedrine, and propranolol.Performed By: #### HIV #### [facility] [address] [place], [place] [address]NGWNUIHQGRGT SCREEN,[facility], AvonComment on above:Order Comment: TEST DRUG SCREEN,URINE WITH REFLEX TO CONFIRMATION WAS CANCELLED, :42 ptcouldnt void.Result Comment: CUTOFF LEVEL: 200 NG/MLPerformed By: #### HIV #### [facility] [address] [place], [place] [address]LHNSLFMDYDHGKNX SCREEN,[facility], AvonComment on above:Order Comment: TEST DRUG SCREEN,URINE WITH REFLEX TO CONFIRMATION WAS CANCELLED, :42 ptcouldnt void.Result Comment: CUTOFF LEVEL: 200 NG/MLPerformed By: #### HIV #### [facility] [address] [place], [place] [address]IUPYLBNFJBZN SCREEN,[facility], AvonComment on above:Order Comment: TEST DRUG SCREEN,URINE WITH REFLEX TO CONFIRMATION WAS CANCELLED, :42 ptcouldnt void.Result Comment: CUTOFF LEVEL: 50 NG/MLPerformed By: #### HIV #### [facility] [address] [place], [place] [address]KUIMIDE METABOLITE SCREEN,[facility], AvonComment on above:Order Comment: TEST DRUG SCREEN,URINE WITH REFLEX TO CONFIRMATION WAS CANCELLED, :42 ptcouldnt void.Result Comment: CUTOFF LEVEL: 150 NG/MLPerformed By: #### HIV #### [facility] [address] [place], [place] [address]EKBR SCREEN COMMENTCanMadelia Community Hospital Comment on above:Order Comment: TEST DRUG SCREEN,URINE WITH REFLEX TO CONFIRMATION WAS CANCELLED, :42 ptcouldnt void.Result Comment: Drug screen results are presumptive and [...] should be directed to the laboratory medical directors.Performed By: #### HIV #### [facility] [address] [place] [id number] SCREEN,URINECancelNorth Memorial Health HospitalComment on above:Order Comment: TEST DRUG SCREEN,URINE WITH REFLEX TO CONFIRMATION WAS CANCELLED, :42 ptcouldnt void.Result Comment: CUTOFF LEVEL: 5 NG/MLPerformed By: #### HIV #### [facility] [address] [place], [place] [address]WTWVWJOXP SCREEN,[facility] [place] Comment on above:Order Comment: TEST DRUG SCREEN,URINE WITH REFLEX TO CONFIRMATION WAS CANCELLED, :42 ptcouldnt void.Result Comment: CUTOFF LEVEL: 150 NG/ML The metabolite F-jjltm-tqjoytkadggcsl (LAAM) is not detected by this method in concentrations that would be found in the urine of patients on LAAM therapy.Performed By: #### HIV #### [facility] [address] [place], [place] [address]OZGAOZB SCREEN,[facility] [place] Comment on above:Order Comment: TEST DRUG SCREEN,URINE WITH REFLEX TO CONFIRMATION WAS CANCELLED, :42 ptcouldnt void.Result Comment: CUTOFF LEVEL: 300 NG/ML The opiate screen does not detect fentanyl, meperidine, or tramadol. Oxycodone is not consistently detected (refer to Oxycodone Screen, Urine result).Performed By: #### HIV #### [facility] [address] [place], [place] [address]AHCDNOYNF SCREEN,[facility] [place] Comment on above:Order Comment: TEST DRUG SCREEN,URINE WITH REFLEX TO CONFIRMATION WAS CANCELLED, :42 ptcouldnt void.Result Comment: CUTOFF LEVEL: 100 NG/ML This test will accurately detect both oxycodone and oxymorphone.Performed By: #### HIV #### [facility] [address] [place], [place] [address]MPN SCREEN,[facility], AvonComment on above:Order Comment: TEST DRUG SCREEN,URINE WITH REFLEX TO CONFIRMATION WAS CANCELLED, :42 ptcouldnt void.Result Comment: CUTOFF LEVEL: 25 NG/ML Cross-reactivity has been reported with dextromethorphan.Performed By: #### HIV #### [facility] [address] [place], [place] [address]QYQ PANELon 39-33-4773QYI IGM ANTIBODYNegativeNormalNEGATIVE [facility] HospitalComment on above:Performed By: #### TETAB #### [facility] [address] [place], [place] [id number] EA-D IGG ANTIBODYNegativeNormalNEGATIVEEast Orange General HospitalComment on above:Performed By: #### TETAB #### [facility] [address] [place], [place] [id number] INTERPRETATIONSEE Phillips Eye InstituteComment on above:Result Comment: . EBV INTERPRETATION CHART . VCA-IGG VCA-IGM NA-IGG EA-IGG . PRIMARY ACUTE +/- +/- - +/- LATE ACUTE + +/- +/- +/- RECOVERING + - - + PREVIOUS INFECTION + - +/- -Performed By: #### TETAB #### [facility] [address] [place], [place] [id number] NA-1 IGG ANTIBODYPositiveAbnormalNEGATIVEEast Orange General HospitalComment on above:Performed By: #### TETAB #### [facility] [address] [place], [place] [id number] IGG ANTIBODYPositiveAbnormalNEGATIVEEast [facility] General HospitalComment on above:Performed By: #### TETAB #### [facility] [address] [place], [place] [id number] 74-73-9376AJSJIERV606 ug/LHigh20 - 300[facility] HospitalComment on above:Performed By: #### HIV #### [facility] [address] [place], [place] [address]Wxstylhn, Serumon 05-31-7372Lssseeqf [Mass/Vol]435 ug/Labove high jgociidlk33 - 300[facility] [address] Work Phone: Comment on above:SOURCE:H. Influenza B Ab, IgGon 03-01-2022H. influenzae B IgG (S) [Mass/Vol]0.1 ug/mLMG-Pulm [facility] [address] Work Phone: Comment on above:INTERPRETIVE INFORMATION: H. Influenzae b Ab, IgG Less than 1.0 ug/mL ...... Antibody concentrationnot protective. 1.0 ug/mL or greater ..... Antibodies to H. Influenzae b detected. Suggestive of protection.Responder status is determined according to the ratio of post-vaccination concentration to pre-vaccination concentration of Haemophilus influenza b antibody, IgG as follows: 1. If the post-vaccination concentration is less than 3.0 ug/mL, the patient is considered to be a non- responder. 2. If the post-vaccination concentration is greater than or equal to 3.0 ug/mL, a patient with a ratio of greater than or equal to 4 is a good responder, a ratio of 2-4 is a weak responder, and a ratio of less than 2 is considered a non-responder. This test was developed and its performance characteristics determined by [employer]. It has not been cleared or approved by the [place] Food and Drug Administration. This test was performed in a CLIA certified laboratory and is intended for clinical purposes.Performed By: [facility] [place] [id number] Director: Enrique Torrez MD, PhDHEMOGLOBIN A1Con 20-23-9834Ilkesrm [Mass/Vol]114 mg/dL NormalEast Orange General HospitalComment on above:Performed By: #### SYPHR #### [facility] [address] [place], [place] [address]OeN8m (Bld) [Mass fraction]5.6 %NormalEast Orange General HospitalComment on above:Result Comment: Diagnosis of Diabetes-Adults Non-Diabetic: < or = 5.6% Increased risk for developing diabetes: 5.7-6.4% Diagnostic of diabetes: > or = 6.5% . Monitoring of Diabetes Age (y) Therapeutic Goal (%) Adults: >18 <7.0 Pediatrics: 13-18 <7.5 7-12 <8.0 0- 6 7.5-8.5 [employer]. Diabetes Care 33(S1), Mar 2009.Performed By: #### SYPHR #### [facility] [address] [place], [place] [address]SSSWMLQUR A AB-TOTALon 70-68-8119EPWXVUNPM A AB-TOTAL Non-ReactiveNormalNONREACTIVEEast Orange General HospitalComment on above:Result Comment: Biotin interference may cause falsely elevated results. Patients taking a Biotin dose of up to 5 mg/day should refrain from taking Biotin for 24 hours before sample collection. Providers may contact their local laboratory for further information.Performed By: #### HAVTO #### [facility] [address] [place], [place] [address]XMURKERCP B CORE AB-TOTALon 48-31-1446AHH. B CORE AB-TOTAL Non-ReactiveNormalNONREACTIVEEast Orange General HospitalComment on above:Result Comment: Results from patients taking biotin supplements or receiving high-dose biotin therapy should be interpreted with caution due to possible interference with this test. Providers may contact their local laboratory for further information.Performed By: #### SYPHR #### [facility] [address] [place], [place] [address]SMYMYKAPY B SURF ABon 25-42-4559AHC B SURF AB<3.1Normal<10[facility] HospitalComment on above:Result Comment: INTERPRETIVE CRITERIA: <10 mIU/mL....NONREACTIVE >=10 mIU/mL...REACTIVE . Biotin interference may cause falsely decreased results. Patients taking a Biotin dose of up to 5 mg/day should refrain from taking Biotin for 24 hours before sample collection. Providers may contact their local laboratory for further information.Performed By: #### SYPHR #### [facility] [address] [place], [place] [address]EYISKNJRD B SURFACE AGon 49-69-2753UGW.B SURFACE AG Non-ReactiveNormalNONREACTIVEEast Orange General HospitalComment on above:Result Comment: Biotin interference may cause falsely decreased results. Patients taking a Biotin dose of up to 5 mg/day should refrain from taking Biotin for 24 hours before sample collection. Providers may contact their local laboratory for further information.Performed By: #### TETAB #### [facility] [address] [place] [id number] C ABon 58-33-1546SSEBBFTIA C ABNon-Reactive NormalNONREACTIVEEast Orange General HospitalComment on above:Result Comment: Results from patients taking biotin supplements or receiving high-dose biotin therapy should be interpreted with caution due to possible interference with this test. Providers may contact their local laboratory for further information.Performed By: #### SYPHR #### [facility] [address] [place], [place] [address]YSA 1/2 ANTIGEN/ANTIBODY SCREEN WITH REFLEX TO CONFIRMATIONon 79-70-9592YNL 1/2 AG/AB SCREENNon-ReactiveNormalNONREACTIVEEast Orange General HospitalComment on above:Result Comment: HIV Ag/Ab screen is performed using the Siemens PraXcell HIV Ag/Ab Combo assay which detects the presence of HIV p24 antigen as well as antibodies to HIV-1 (Group M and O) and HIV-2. . No laboratory evidence of HIV infection. If acute HIV infection is suspected, consider testing for HIV RNA by PCR (viral load).Performed By: #### HIV #### [facility] [address] [place], [place] [address]EKN 1+2 Ab Qn (S)Non-ReactiveSee BelowMG-Pulm [facility] [facility] Work Phone: Comment on above:SOURCE: Reference Range: NONREACTIVE HIV Ag/Ab screen is performed using the Siemens e[employer] HIV Ag/Ab Combo assay which detects the presence of HIV p24 antigen as well as antibodies to HIV-1 (GroupM and O) and HIV-2..No laboratory evidence of HIV infection. If acute HIV infection is suspected, consider testing for HIV RNA by PCR (viral load).HLA CLASS I SP AB ID, HDon [id number] CLASS I SP AB ID,HDCanceledRiver's Edge HospitalComment on above:Order Comment: TEST HLA CLASS I SP AB ID, HD WAS CANCELLED, 03/01/2022 19:28 Tests orderedunder wron visit. Lab will reorder. Please do not recollect..Performed By: #### HIV #### [facility] [address] [place], [place] [address]OBP CLASS II SP AB ID, HDon [id number] CLASS II SP AB ID,HDCanceledRiver's Edge HospitalComment on above:Order Comment: TEST HLA CLASS II SP AB ID, HD WAS CANCELLED, 03/01/2022 19:28 Tests orderedunder wron visit. Lab will reorder. Please do not recollect..Performed By: #### TETAB #### [facility] [place], [place] [id number]-A,B,C LRon [id number]-A LOCUS LR TYPECanceled [facility]'s Edge HospitalComment on above:Order Comment: TEST HLA-A,B,C LR WAS CANCELLED, 03/01/2022 19:28 Tests ordered under wronvisit. Labwill reorder. Please do not recollect..Performed By: #### ABORG #### [facility] [address] [place], [place] [address]AYG-Q LOCUS LR TYPECancelNorth [facility] Health Hospital Comment on above:Order Comment: TEST HLA-A,B,C LR WAS CANCELLED, 03/01/2022 19:28 Tests ordered under wronvisit. Labwill reorder. Please do not recollect.. Performed By: #### ABORG #### [facility] [address] [place], [place] [address]GHH-U LOCUS LR TYPECancelNorth [facility] Health Hospital Comment on above:Order Comment: TEST HLA-A,B,C LR WAS CANCELLED, 03/01/2022 19:28 Tests ordered under wronvisit. Labwill reorder. Please do not recollect.. Performed By: #### ABORG #### [facility] [address] [place], [place] [address]QDM-BMN6 HR TYPINGon [id number]-DPB1 HR TYPINGCanceled River's Edge HospitalComment on above:Order Comment: TEST HLA-DPB1 HR TYPING WAS CANCELLED, 03/01/2022 19:28 Tests ordered underwron visit. Lab will reorder. Please do not recollect..Performed By: #### ABORG #### [facility] [address] [place], [place] [address]RVD-WQK7 HR TYPINGon [id number]-DQB1 HR TYPINGCanceled River's Edge HospitalComment on above:Order Comment: TEST HLA-DQB1 HR TYPING WAS CANCELLED, 03/01/2022 19:28 Tests ordered underwron visit. Lab will reorder. Please do not recollect..Performed By: #### ABORG #### [facility] [address] [place], [place] [address]WUG-RYY8/3/4/5 AND DQB1 LR TYPINGon [id number]-DRB1/3/4/5 & DQB1 LR TYPINGCanceledRiver's Edge HospitalComment on above:Order Comment: TEST HLA-DRB1/3/4/5 AND DQB1 LR TYPING WAS CANCELLED, 03/01/2022 19:28 Testsordered under wron visit. Lab will reorder. Please do not recollect.. Performed By: #### ABORG #### [facility] [address] [place], [place] [address]QDP IGG1 AND IGG2 ABon [id number] I IGG AB0.7 INDEXNormal [facility] HospitalComment on above:Result Comment: REF VALUES NEGATIVE <0.9 EQUIVOCAL >=0.90 <=1.10 POSITIVE >1.10Performed By: #### ABORG #### [facility] [address] [place], [place] [address]IFP II IGG AB<0.2NormalEast Orange General HospitalComment on above:Result Comment: POTENTIAL FOR CROSS-REACTIVITY BETWEEN HSV I AND HSV II EXISTS. REF VALUES NEGATIVE <0.9 EQUIVOCAL >=0.90 <=1.10 POSITIVE >1.10Performed By: #### ABORG #### [facility] [address] [place], [place] [address]Dujseczgfm A1Con 50-13-5736Qtmvjrs [Mass/Vol]114 mg/dLMG-Pulm [facility] Work Phone: HbA1c (Bld) [Mass fraction]5.6 %MG-Pulm [facility] 1800 Work Phone: Comment on above:Diagnosis of Diabetes-Adults Non- Diabetic: < or = 5.6% Increased risk for developing diabetes: 5.7-6.4% Diagnostic of diabetes: > or = 6.5%. Monitoring of Diabetes Age (y) Therapeutic Goal (%) Adults: >18 <7.0 Pediatrics: 13-18 <7.5 7-12 <8.0 0- 6 7.5-8.5 [place] [employer]. Diabetes Care 33(S1), Mar 2009.Hep B Virus Quant PCRon 11-19-8400KPI DNA MARTINEZ+probe [Log units/Vol]NOT CALCULATEDMG-Pulm [facility] [facility] Work Phone: HBV DNA MARTINEZ+probe QlSEE BELOWMG-Pulm [facility] 1800 Work Phone: Comment on above:Reportable Range: 10-1,000,000,000 IU/mL.The lauren HBV test is in vitro nucleic acid amplification test for the quantitation of hepatitis B virus (HBV) DNA in human EDTA plasma or serum of HBV-infected individuals on the lauren [employer]0/8800 Systems. A single probe is used to [...] the number of copies, the test result willbe reported as DETECTED BUT NOT QUANTIFIED .The lauren HBV test is intended for use as an aid in the management of patients with chronic HBV infection undergoing anti-viral therapy. The test can be used to measure HBV DNA levels at baseline and during treatment to aid in assessing response to treatm ent. The results from lauren HBV must be interpreted within the context of all relevant clinical andlaboratory findings. The luaren HBV is not intended for use as a screening test for the presence of HBV in blood or blood products or as a diagnostic test to confirm the presence of HBV infection. This test is approved by the US Food and Drug Administration, and its performance characteristics verified by the [facility] Diagnostic Laboratory, Department of Pathology, [facility].HBV DNA MARTINEZ+probe QnNot detected See BelowMG-Pulm [facility] 1800 Work Phone: Comment on above:SOURCE: Reference Range: Not Detected Hepatitis A Antibody, Totalon [id number] Ab IA Ql (S)Non-ReactiveSee BelowMG- Pulm [facility] 1800 Work Phone: Comment on above:SOURCE: Reference Range: NONREACTIVE Biotin interference may cause falsely elevated results. Patients taking a Biotin dose of up to 5 mg/day should refrain from taking Biotin for 24 hours before sample collection. Providers may contact their local laboratory for further information.Hepatitis B Surface Antibodyon 64-50-2431YGX surface Ag IA Ql<3.1<10 MG-[facility] Work Phone: Comment on above:SOURCE: INTERPRETIVE CRITERIA:<10 mIU/mL....NONREACTIVE >=10 mIU/mL...REACTIVE . Biotin interference may cause falsely decreased results. Patients taking a Biotin dose of up to 5 mg/day should refrain from taking Biotin for 24 hours before sample collection. Providers may contact their local laboratory for further information.Hepatitis C Antibody Teston [id number] C Antibody TestNon-ReactiveSee BelowMG-Pul [facility] Work Phone: Comment on above:SOURCE: Reference Range: NONREACTIVE Results from patients taking biotin supplements or receiving high-dose biotin therapy should be interpreted with caution due to possible interference with this test. Providers may contact their local laboratory for further information. SOURCE: Reference Range: NONREACTIVESOURCE: Reference Range: NONREACTIVE Biotin interference may cause falsely decreased results. Patients taking a Biotin dose of up to 5 mg/day should refrain from taking Biotin for 24 hours before sample collection. Providers may contact their local laboratory for further information.IGAon 35-68-0618MdS [Mass/Vol]256 mg/qPHoohal00 - 400[facility] HospitalComment on above:Result Comment: MONOCLONAL PROTEINS MAY CAUSE FALSELY LOW RESULTS IN THIS ASSAY. SERUM PROTEIN ELECTROPHORESIS SHOULD BE DONE THE FIRST TEST TO EVALUATE MONOCLONAL GAMMOPATHY.Performed By: #### IGA #### [facility] [address] [place], [place] [address]Lab Specimen SourceNoNorthern Colorado Long Term Acute HospitalComment on above:Performed By: #### IGA #### [facility] [address] [place], [place] [address]Performed By: #### HIV #### [facility] [address] [place], [place] [address]Performed By: #### SYPHR #### [facility] [address] [place], [place] [address]Tsgzsiwpv By: #### HAVTO #### [facility] [address] [place], [place] [address]Unqiijmhx By: #### TETAB #### [facility] [address] [place], [place] [address]Wogpywgjv By: #### ABORG #### [facility] [address] [place], [place] [address]YQDei 31-29-3487RQD78 IU/mLNormal0 - 214[facility] HospitalComment on above:Performed By: #### ABORG #### [facility] [address] [place], [place] [address]TXY SUBCLASSESon 49-37-5982WDJ SUBCLASS 2158 mg/vRLekzbr248 - 640[facility] HospitalComment on above:Performed By: #### TETAB #### [facility] [address] [place], [place] [id number] SUBCLASS 1548 mg/zWZpfzzr929 - 1140[facility] HospitalComment on above:Performed By: #### TETAB #### [facility] [address] [place], [place] [address]WtD [Mass/Vol]739 mg/jHRsxdgo993 - 1600[facility] HospitalComment on above:Result Comment: MONOCLONAL PROTEINS MAY CAUSE FALSELY LOW RESULTS IN THIS ASSAY. SERUM PROTEIN ELECTROPHORESIS SHOULD BE DONE THE FIRST TEST TO EVALUATE MONOCLONAL GAMMOPATHY.Performed By: #### TETAB #### [facility] [address] [place], [place] [id number] SUBCLASS 362 mg/dPOqlrkn43 - 85[facility] HospitalComment on above:Performed By: #### TETAB #### [facility] [address] [place], [place] [id number] SUBCLASS 428 mg/dLNormal3 - 200[facility] HospitalComment on above:Result Comment: DUE TO INHERENT IMPRECISION OF METHODS, THE SUM OF COMPONENTS MAY DIFFER FROM TOTAL IGG BY MUCH 20%.Performed By: #### TETAB #### [facility] [address] [place], [place] [id number] 43-17-7243XrD [Mass/Vol]63 mg/iHKgndyc48 - 230[facility] HospitalComment on above:Result Comment: MONOCLONAL PROTEINS MAY CAUSE FALSELY LOW RESULTS IN THIS ASSAY. SERUM PROTEIN ELECTROPHORESIS SHOULD BE DONE THE FIRST TEST TO EVALUATE MONOCLONAL GAMMOPATHY.Performed By: #### HIV #### [facility] [address] [place], [place] [address]DANI + TIBCon 03-01-2022% ECTVXYAFOS46 %Nylvhm43 - 45[facility] HospitalComment on above:Performed By: #### IGA #### [facility] [address] [place], [place] [address]Uodj [Mass/Vol]141 ug/lPMynbep09 - 150[facility] HospitalComment on above:Performed By: #### IGA #### [facility] [address] [place], [place] [address]HDYO519 ug/nOJpywei100 - 445[facility] Comment on above:Performed By: #### IGA #### [facility] [address] [place], [place] [address]Hfbnttunxhygyb A Level, Serumon 60-08-9428YoS [Mass/Vol]256 mg/dL70 - 400MG-[facility]ul[facility] Work Phone: Comment on above:SOURCE: MONOCLONAL PROTEINS MAY CAUSE FALSELY LOWRESULTS IN THIS ASSAY. SERUM PROTEINELECTROPHORESIS SHOULD BE DONE THEFIRST TEST TO EVALUATE MONOCLONAL GAMMOPATHY.Immunoglobulin E Level, Serum on 60-57-3294BrI Qn57 {IU/mL}0 - 214[facility] Work Phone: Comment on above:SOURCE:Immunoglobulin M Level, Serum on 80-11-0539BjM [Mass/Vol]63 mg/dL40 - 230MG-[facility] 1800 Work Phone: Comment on above:SOURCE: MONOCLONAL PROTEINS MAY CAUSE FALSELY LOWRESULTS IN THIS ASSAY. SERUM PROTEINELECTROPHORESIS SHOULD BE DONE THEFIRST TEST TO EVALUATE MONOCLONAL GAMMOPATHY.LIPID PANEL (CORONARY RISK 2) on 62-86-8459Zybtmhlgckx [Mass/Vol]128 mg/dLNormal0 - 199[facility] HospitalComment on above:Result Comment: . AGE DESIRABLE BORDERLINE HIGH HIGH [...] guidelines reference: NCEP ATPIII Guidelines, NAYE 2001, 258:2846-97 . Venipuncture immediately after or during the administration of Metamizole may lead to falsely low results. Testing should be performed immediately prior to Metamizole dosing.Performed By: #### IGA #### [facility] [address] [place], [place] [address]Ibtwghmriph in HDL [Mass/Vol]56.0 mg/dLNormMiddle Park Medical Center - GranbyComment on above:Result Comment: . AGE VERY LOW LOW NORMAL HIGH 0-19 Y < 35 < 40 40-45 ---- 20-24 Y ---- < 40 >45 ---- >24 Y ---- < 40 40-60 >60 .Performed By: #### IGA #### [facility] [address] [place], [place] [address]Mizrvuqpnsr in LDL [Mass/Vol]58 mg/dLNormal0 - 99[facility] HospitalComment on above:Result Comment: . NEAR BORD AGE DESIRABLE OPTIMAL HIGH HIGH VERY HIGH 0-19 Y 0 - 109 --- 110-129 >/= 130 ---- 20-24 Y 0 - 119 --- 120-159 >/= 160 ---- >24 Y 0 - 99 100-129 130-159 160-189 >/=190 .Performed By: #### IGA #### [facility] [address] [place], [place] [address]Lyhtiyvqhbl in VLDL [Mass/Vol]14 mg/dLNormal0 - 40[facility] HospitalComment on above:Performed By: #### IGA #### [facility] [address] [place], [place] [address]Psjlimkecwr.total/Cholesterol in HDL [Mass ratio]2.3 {ratio} NormalEast Orange General HospitalComment on above:Result Comment: REF VALUES DESIRABLE < 3.4 HIGH RISK > 5.0Performed By: #### IGA #### [facility] [address] [place], [place] [address]Iwwdiupdfdqe [Mass/Vol]72 mg/dLNormal0 - 149[facility] HospitalComment on above:Result Comment: . AGE DESIRABLE BORDERLINE HIGH HIGH [...] should be performed immediately prior to Metamizole dosing.Performed By: #### IGA #### [facility] [address] [place], [place] [address]Dqiqwyvsvb - Chemistry and Chemistry - challengeon 03-01-2022 Albumin BCP dye [Mass/Vol]4.8 g/dL3.4 - 5.0MG-Pulm [facility] Work Phone: ALP [Catalytic activity/Vol]128 U/L33 - 136MG-[facility]ul[facility] Work Phone: ALT With P-5'-P [Catalytic activity/Vol]28 U/L10 - 52 [facility] Work Phone: Comment on above:Patients treated with Sulfasalazine may generate falsely decreased results for ALT.Anion gap [Moles/Vol]14 mmol/L10 - 20MG-[facility] 1799 Work Phone: AST With P-5'-P [Catalytic activity/Vol]23 U/L9 - 39 [facility] 1799 Work Phone: [phone] [Mass/Vol]1.0 mg/dL0.0 - 1.2MG-[facility]ul [facility] [place] 1799 Work Phone: [phone] [Mass/Vol]11.4 mg/dLabove high threshold8.6 - 10.6MG-Pul -[place] 1799 Work Phone: [phone] [Moles/Vol]100 mmol/L98 - 107MG-[facility] [place] 1799 Work Phone: [phone] [Moles/Vol]29 mmol/L21 - 32MG-[facility]-[place] 1799 Work Phone: [phone] [Mass/Vol]0.88 mg/dLSee BelowMG-[facility]ulOne[facility] [place] [place] 1799 Work Phone: [phone] on above:Reference Range: 0.50 - 1.30Glucose [Mass/Vol]96 mg/dL74 - 99MG-[facility] 1799 Work Phone: Comment on above:SOURCE:IgG [Mass/Vol]739 mg/dL700 - 1600MG-[facility] 1799 Work Phone: [phone] on above:SOURCE: MONOCLONAL PROTEINS MAY CAUSE FALSELY LOWRESULTS IN THIS ASSAY. SERUM PROTEINELECTROPHORESIS SHOULD BE DONE THEFIRST TEST TO EVALUATE MONOCLONAL GAMMOPATHY.Iron [Mass/Vol]141 ug/dL35 - 150[facility] 1799 Work Phone: Comment on above:SOURCE:Iron binding capacity [Mass/Vol]414 ug/dL240 - 445MG[facility] 1799 Work Phone: Potassium [Moles/Vol]4.4 mmol/L3.5 - 5.3MG-[facility] [place] 1799 Work Phone: Protein [Mass/Vol]7.8 g/dL6.4 - 8.2MG-[facility] [place] 1799 Work Phone: Sodium [Moles/Vol]139 mmol/L136 - 145MG-[facility] [place] 1799 Work Phone: [phone] nitrogen [Mass/Vol]13 mg/dL6 - 23MG-[facility]- [place] 1799 Work Phone: Laboratory - Coagulationon 98-52-6113YKQ Coag (PPP) [Relative time]1.1 {INR}0.9 - 1.1MG-[facility]-[place] 1799 Work Phone: PT Coag (PPP) [Time]12.2 s9.8 - 13.4MG-[facility]- [place] 1799 Work Phone: [phone] - HLA antigenson 85-27-0264LSA-A locus Nom (Bld/Tiss)AqutedjaKZ-Qfzlzuynap-NJL [place] 1799 Work Phone: [phone]-N+B+C (class I) Ab (S)WtlnawzdKI-Hxpzubguhw-CPH [place] 1799 Work Phone: [phone]-L locus Nom (Bld/Tiss)GbxzmvpjBO-Kjelsoyrwa-TUL [place] 1799 Work Phone: [phone]-K locus Nom (Bld/Tiss)VvlxaaxsNJ-Jwyfrfuesf-XNC [place] 1799 Work Phone: NMK-SK+DQ+DR (class II) Ab (S)Canceled LF-Fcadzguvvn-HXT [place] 1799 Work Phone: [phone]-NZ0 Ql (Bld/Tiss)AjhozotfVV-Rsollpavnu-SGQ [place] 1799 Work Phone: [phone]-LKY6 High resolution Nom (Bld/Tiss)Canceled AX-Ekqllzsicx-NKN [place] 1799 Work Phone: [phone]-DU+DQ Nom (Bld/Tiss)QyujvzlrYL-Jxgnxwkdgq-XTM [place] 1800 Work Phone: Laboratory - Microbiology and Antimicrobial susceptibilityon 18-35-7425IIK capsid IgG IA Qn (S)PositiveAbnormalNEGATIVEMG- Pul[facility] 1800 Work Phone: [phone] capsid IgM IA Qn (S)NegativeNEGATIVEMG-PulM [facility] 1800 Work Phone: [phone] early IgM IA Qn (S)NegativeNEGATIVEMG-PulM [facility] 1800 Work Phone: [phone] nuclear IgG IA Qn (S)PositiveAbnormalNEGATIVEMG- PulH[facility] 1800 Work Phone: [phone]. capsulatum Ab Immune diff (S) [Titer]Not detected See Below-PulHilton Head Hospital 1800 Work Phone: [phone] on above:Reference Range: Not DetectedNo Histoplasma antibodies were detected. This result does not exclude Histoplasma infection.Performed by [employer], [address] [place] [id number] www.[employer], Garfield Torrez MD, PHD - Lab. DirectorH. capsulatum mycelial phase Ab CF (S) [Titer]<1:8<1:8MG-[place] [address] Work Phone: [phone] on above:INTREPRETIVE INFORMATION: Histoplasma Mycelia Antibodies by HIGHWAY ENGINEER titer of 1:8 or greater is generally considered presumptive evidence of histoplasmosis. A titer of 1:32 or greater or rising titers indicate strong presumptive evidence of histoplasmosis. Cross reactions, usually at lower titers, may occur with other fungal diseases.H. capsulatum yeast phase Ab CF (S) [Titer]<1:8<1:8MG-[facility]ulH[facility] 1800 Work Phone: Comment on above:INTERPRETIVE INFORMATION: Histoplasma Yeast Antibodies by HIGHWAY ENGINEER titer of 1:8 or greater is generally considered presumptive evidence of histoplasmosis. A titer of 1:32 or greater or rising titers indicate strong presumptive evidence of histoplasmosis. Cross reactions, usually at lower titers, may occur with other fungal diseases.HCV RNA MARTINEZ+probe QnNot detectedMG-Pulm [facility] 1800 Work Phone: Comment on above:SOURCE: REF VALUENOT DETECTEDS. pneumoniae Maltese type 1 IgG (S) [Mass/Vol]<0.1below low threshold>1.3MG-[facility]ul[facility] 1800 Work Phone: S. pneumoniae Maltese type 10A IgG (S) [Mass/Vol]0.1 ug/mLbelow low threshold>1.3MG-[facility]ul[facility] 1800 Work Phone: S. pneumoniae Maltese type 11A IgG (S) [Mass/Vol]<0.1 below low threshold>1.3MG-Pul[facility] 1800 Work Phone: S. pneumoniae Maltese type 12F IgG (S) [Mass/Vol]<0.1 below low threshold>1.3MG-[facility] 1800 Work Phone: S. pneumoniae Maltese type 14 IgG (S) [Mass/Vol]<0.1 below low threshold>1.3MG-[facility]ul[facility] 1800 Work Phone: S. pneumoniae Maltese type 15B IgG (S) [Mass/Vol]<0.1 below low threshold>1.3MG-[facility] 1800 Work Phone: S. pneumoniae Maltese type 17F IgG (S) [Mass/Vol]<0.1 below low threshold>1.3MG-[facility]ul[facility] 1800 Work Phone: S. pneumoniae Maltese type 18C IgG (S) [Mass/Vol]<0.1 below low threshold>1.3MG-[facility]ul[facility] 1800 Work Phone: S. pneumoniae Maltese type 19A IgG (S) [Mass/Vol]0.1 ug/mLbelow low threshold>1.3MG-[facility]ul[facility] 1800 Work Phone: S. pneumoniae Maltese type 19F IgG (S) [Mass/Vol]0.2 ug/mLbelow low threshold>1.3MG-[facility] Work Phone: S. pneumoniae Maltese type 2 IgG (S) [Mass/Vol]<0.1 below low threshold>1.3MG-[facility]ul[facility] 1800 Work Phone: S. pneumoniae Maltese type 20A IgG (S) [Mass/Vol]<0.1 below low threshold>1.3MG-[facility]ul[facility] 1800 Work Phone: S. pneumoniae Maltese type 22F IgG (S) [Mass/Vol]<0.1 below low threshold>1.3MG-Pul[facility] 1800 Work Phone: S. pneumoniae Maltese type 23F IgG (S) [Mass/Vol]<0.1 below low threshold>1.3MG-[facility] Work Phone: S. pneumoniae Maltese type 3 IgG (S) [Mass/Vol]0.3 ug/mLbelow low threshold>1.3MG-[facility]ul[facility] 1800 Work Phone: S. pneumoniae Maltese type 33F IgG (S) [Mass/Vol]<0.1 below low threshold>1.3MG-Pul[facility] 1800 Work Phone: Comment on above:*This test was developed and its performance characteristics determined by [employer]. It hasnot been cleared or approved by the U.S. Food and Drug Administration. Performed At:[facility] [id number] [address]Qwtnxjlgwm Director: Ciaran Baxter Ph.D., BCLD (ABB)CLIA#: [id number]: s. pneumoniae Maltese type 4 IgG (S) [Mass/Vol] <0.1below low threshold>1.3MG-[facility] 1800 Work Phone: S. pneumoniae Maltese type 5 IgG (S) [Mass/Vol]<0.1 below low threshold>1.3MG-Pul[facility] 1800 Work Phone: S. pneumoniae Maltese type 6B IgG (S) [Mass/Vol]<0.1 below low threshold>1.3MG-Pul[facility] 1800 Work Phone: S. pneumoniae Maltese type 7F IgG (S) [Mass/Vol]<0.1 below low threshold>1.3MG-[facility]ul[facility] Work Phone: S. pneumoniae Maltese type 8 IgG (S) [Mass/Vol]<0.1 below low threshold>1.3MG-[facility]ul[facility] 1800 Work Phone: S. pneumoniae Maltese type 9N IgG (S) [Mass/Vol]<0.1 below low threshold>1.3MG-[facility] Work Phone: S. pneumoniae Maltese type 9V IgG (S) [Mass/Vol]<0.1 below low threshold>1.3MG-Pul[facility] 1800 Work Phone: Lipid Panelon 26-68-7628Xazspnjmwyl [Mass/Vol]128 mg/dL0 - 199MG-[facility] 1800 Work Phone: Comment on above:SOURCE: . AGE DESIRABLE BORDERLINE HIGH HIGH 0-19 Y 0 - 169 170 - 199 >/= 200 20-24 Y 0 - 189 190 - 224 >/= 225 >24 Y 0 - 199 200 - 239 >/= 240 All ranges are based on fasting samples. Specific therapeutic targets will vary based on patient-specific cardiac risk.. Pediatric guidelinesreference:Pediatrics 2011, 128(S5). Adult guidelines reference: NCEP ATPIII Guidelines, NAYE 2001, 258:2486-97. Venipuncture immediately after or during the administration of Metamizole may lead to falsely low results. Testing should be performed immediately prior to Metamizole dosing.Cholesterol in HDL [Mass/Vol]56.0 mg/dLMG-[facility] Work Phone: Comment on above:. AGE VERY LOW LOW NORMAL HIGH 0-19 Y < 35 < 40 40-45 ---- 20-24 Y ---- < 40 >45 ---- >24 Y ---- < 40 40-60 >60. Cholesterol in LDL [Mass/Vol]58 mg/dL0 - 99MG-[facility] Work Phone: Comment on above:. NEAR BORD AGE DESIRABLE OPTIMAL HIGH HIGH VERY HIGH 0-19 Y 0 - 109 --- 110-129 >/= 130 ---- 20-24 Y 0 - 119 --- 120-159 >/= 160 ---- >24 Y 0 - 99 100-129 130-159 160-189 >/=190. Cholesterol.total/Cholesterol in HDL [Mass ratio]2.3 {ratio}[facility] Work Phone: Comment on above:REF VALUESDESIRABLE < 3.4HIGH RISK > 5.0Triglyceride [Mass/Vol]72 mg/dL0 - 149MG-[facility] Work Phone: Comment on above:. AGE DESIRABLE BORDERLINE HIGH HIGH VERY HIGH [...] should be performed immediately prior to Metamizole dosing.Lipid Panel14 mg/dL0 - 40 MG-[facility] [employer] Work Phone: MAGNESIUMon [phone] [Mass/Vol]1.74 mg/dL Normal1.60 - 2.40[facility] HospitalComment on above:Performed By: #### TETAB #### [facility] [place], [place] [id number] IGG ANTIBODYon 69-42-9239ZFLRM IGG ANTIBODY PositiveNoNorthern Colorado Long Term Acute HospitalComment on above:Result Comment: INTERPRETATIVE COMMENT NEGATIVE: No IgG antibodies specific to [...] IVIG may demonstrate altered results in serological assays.Performed By: #### ABORG #### [facility] [address] [place], [place] [address]Mafvifehz, Serumon 56-13-9874Kgqsfnldz [Mass/Vol]1.74 mg/dL See BelowMG-Pulm [place] [address] Work Phone: Comment on above:SOURCE: Reference Range: 1.60 - 2.40 Mumps IgG Antibodyon 53-68-9188KnU IgG (S) [Titer]PositiveMG-Pulm [facility] Work Phone: Comment on above:INTERPRETATIVE COMMENT NEGATIVE: No IgG antibodies specific to [...] results forpatients, including immunocompromised patients, neonates, andpediatric patients,reflect their capacity to respondimmunologically to the virus as well as their exposure to thepathogen. Patients treated with IVIG may demonstrate alteredresults in serological assays.NICOTINEANDMETABOLITES,Uon [id number],UCanceled River's Edge HospitalComment on above:Order Comment: TEST NICOTINE AND METABOLITES,U WAS CANCELLED, 03/01/2022 13:42 pt couldnt void.Performed By: #### IGA #### [facility] [address] [place] [id number] Medical CenterComment on above:Order Comment: TEST NICOTINE AND METABOLITES,U WAS CANCELLED, 03/01/2022 13:42 pt couldnt void.Performed By: #### IGA #### [facility] [address] [place], [place] [address]VFTNBSYZUC Medical CenterComment on above:Order Comment: TEST NICOTINE AND METABOLITES,U WAS CANCELLED, 03/01/2022 13:42 pt couldnt void.Performed By: #### IGA #### [facility] [address] [place], [place] [address]XJHABXEKUC Medical CenterComment on above:Order Comment: TEST NICOTINE AND METABOLITES,U WAS CANCELLED, 03/01/2022 13:42 pt couldnt void.Performed By: #### IGA #### [facility] [address] [place], [place] [address]Bi Panel Informationon 31-48-2770PGA CALCULATED-Pulm [facility]- [place] 1800 Work Phone: Comment on above:Reportable Range: 15-100,000,000 IU/mL.The lauren HCV is an in vitro nucleic acid amplification testfor both the detection and quantitation of hepatitis C virus (HCV) RNA, in human EDTA plasma or serum, of HCV antibody positive or HCV-infected individuals on the lauren 6800/8800 Systems. Dual probesare used to detect and quantify, but not [...] as DETECTED BUT NOT QUANTIFIED .The lauren HCVis intended for use as an aid in the diagnosis of HCV infection in the following populations: individuals with antibody evidence of HCV with evidence of liver disease, individuals suspected to be actively infected with HCV antibody evidence, and individuals at risk for HCV infection with antibodiesto HCV. Detection of HCV RNA indicates that [...] the Molecular Diagnostic Laboratory, Department of Pathology, [facility].28 mg/dL3 - 200MG-[facility] 1800 Work Phone: Comment on above:DUE TO INHERENT IMPRECISION OF METHODS, THE SUM OF COMPONENTS MAY DIFFER FROM TOTAL IGG BY MUCH 20%.62 mg/dL11 - 85MG-[facility] 1800 Work Phone: [phone] mg/dL150 - 640MG-[facility] 1800 Work Phone: [phone] mg/dL490 - 1140MG-[facility]ul[facility] 1800 Work Phone: <0.2MG-[facility]ul[facility] [facility] Work Phone: Comment on above:POTENTIAL FOR CROSS-REACTIVITY BETWEENHSV I AND HSV II EXISTS.REF VALUESNEGATIVE <0.9EQUIVOCAL >=0.90 <=1.10POSITIVE >1.100.7 {INDEX}MG-Pulm [facility] 1800 Work Phone: Comment on above:REF VALUESNEGATIVE <0.9EQUIVOCAL >=0.90 <=1.10POSITIVE >1.10SEE BELOWMG-Pulm [facility] 1800 Work Phone: Comment on above:. EBV INTERPRETATION CHART. VCA-IGG VCA-IGM NA-IGG EA-IGG. PRIMARY ACUTE +/- +/- - +/-LATE ACUTE + +/- +/- +/-RECOVERING + - - +PREVIOUS INFECTION + - +/- -34 %25 - 45MG-Pulm [facility] 1800 Work Phone: >90>90MG-Pulm [facility] Work Phone: Comment on above:CALCULATIONS OF ESTIMATED GFR ARE PERFORMED USING THE 2020 CKD-EPI STUDY REFIT EQUATION WITHOUT THERACE VARIABLE FOR THE IDMS-TRACEABLE CREATININE METHODS.https://jasn.asnjournals.org/content//ASN.[email or web address] PT/INRon 23-21-0453OD Coag (PPP) [Time]12.2 sNormal9.8 - 13.4East Orange General HospitalComment on above:Performed By: #### SYPHR #### [facility] [address] [place], [place] [address]HL, INR1.7Mrbttq9.9 - 1.1East [facility] General HospitalComment on above:Performed By: #### SYPHR #### [facility] [address] [place], [place] [address]IEHMGPE IGG ABon 88-85-1164EVBDVQC IGG ABPositiveNormalUEast Orange Va Medical CenterComment on above:Result Comment: INTERPRETATIVE COMMENT NEGATIVE: No IgG antibodies specific to [...] IVIG may demonstrate altered results in serological assays.Performed By: #### ABORG #### [facility] [address] [place], [place] [address]SWATQGA IGG ABon 50-56-8984RPTCVPI IGG ABPOhioHealth Grove City Methodist HospitalComment on above:Result Comment: INTERPRETATIVE COMMENT NEGATIVE: No IgG antibodies specific to [...] IVIG may demonstrate altered results in serological assays.Performed By: #### ABORG #### [facility] [address] [place], [place] [address]Nsyozaa IgG Antibodyon 59-54-0242Ozbpdbq virus IgG IA Ql PositiveCooper County Memorial Hospital 1800 Work Phone: Comment on above:INTERPRETATIVE COMMENT NEGATIVE: No IgG antibodies specific to [...] tests should take into accountthe immunological status ofthe patient. Test results forpatients, including immunocompromised patients, neonates, andpediatricpatients, reflect their capacity to respondimmunologically to the virus as well as their exposure to thepathogen. Patients treated with IVIG may demonstrate alteredresults in serological assays.Rubeola IgG Antibodyon 75-71-8394FuW IgG IA Ql (S)PositiveMG- Pulm [facility] 1800 Work Phone: Comment on above:INTERPRETATIVE COMMENT NEGATIVE: No IgG antibodies specific to [...] tests should take into accountthe immunological status ofthe patient. Test results forpatients, including immunocompromised patients, neonates, andpediatricpatients, reflect their capacity to respondimmunologically to the virus as well as their exposure to thepathogen. Patients treated with IVIG may demonstrate alteredresults in serological assays.SYPHILIS SCREENING WITH REFLEXon 48-30-0531TQDWCEXT TOTAL AB Non-ReactiveNormalNONREACTIVEEast Orange General HospitalComment on above:Result Comment: No significant level of Treponema pallidum antibody detected. Repeat testing in 2 to 4 weeks may be considered if early infection or incubating syphilis infection is suspected.Performed By: #### SYPHR #### [facility] [address] [place], [place] [address]D. pallidum IgG+IgM IA Ql (S)Non-ReactiveSee BelowMG-Pulm [facility] 1800 Work Phone: Comment on above:SOURCE: Reference Range: NONREACTIVENo significant level of Treponema pallidum antibody detected. Repeat testing in 2 to 4 weeks may be considered if early infection or incubating syphilis infection is suspected.T-SPOT. TBon 16-05-1637S-SPOT. TBPassedMG-Pul[facility] 1800 Work Phone: [phone]-ILNY. TB0 1MG-[facility] 1800 Work Phone: [phone]-CWCP. TBNegativeSee BelowMG-Pulm [facility] [address] Work Phone: Comment on above:Reference Range: Normal Value: NegativeA negative test result does not exclude the possibility of exposure to or infection with Mycobacterium tuberculosis (M. tuberculosis). Patients with recent exposure to TB infected individuals exhibiting a negative T-SPOT.TB result should be considered for retesting within 6 weeks or if other relevant clinical symptoms indicate. Results from T-SPOT.TB testingmust be used in conjunction with each individual's epidemiological history, current medical status,and results of other diagnostic evaluations. The T-SPOT.TB test is qualitative and results are reported as positive, borderline or negative, given that the test controls perform as expected. In line with the Centers for Disease Control and Prevention's 2010 recommendation to report quantitative kit urements alongside the qualitative result, the laboratory provides spot counts for informational purposes only. The T-SPOT.TB test should not be interpreted as a quantitative test.T3 - Free Triiodothyronine, Serumon 52-42-2327Qpfn T3 [Mass/Vol]3.5 pg/mL2.3 - 4.2MG-Pulm [facility] 1800 Work Phone: Comment on above:SOURCE:T4 - Free Thyroxine, Serumon 51-93-9571Fnvc T4 [Mass/Vol]1.42 ng/dLSee BelowMG-Pulm [facility] 1800 Work Phone: Comment on above:SOURCE: Reference Range: 0.78 - 1.48 Thyroxine Free testing is performed using different testing methodology at [facility] than at other [facility]. Direct result comparisons should only be made within the same method.THYROXINE,FREEon 64-57-1774KIFWXESZB,FREE1.42 ng/dLNormal0.78 - 1.48[facility] Comment on above:Result Comment: Thyroxine Free testing is performed using different testing methodology at [facility] than at other [facility]. Direct result comparisons should only be made within the same method.Performed By: #### IGA #### [facility] [address] [place], [place] [address]NVLT IGGon 18-33-4939IOUYIODSEC IGGNon-ReactiveNormal NONREACTIVEEast Orange General HospitalComment on above:Performed By: #### SYPHR #### [facility] [address] [place], [place] [address]RDFPGHSEXFLSRHYQ,FREEon 61-88-7544AGDLKUFLXTUOZGJG,FREE3.5 pg/mLNormal2.3 - 4.2[facility] General HospitalComment on above:Performed By: #### HIV #### [facility] [address] [place], [place] [address]HZUxx 50-44-5270CWY Qn4.76 m[IU]/LHigh0.44 - 3.98East Orange General HospitalComment on above:Result Comment: TSH testing is performed using different testing methodology at [facility] than at other [facility]. Direct result comparisons should only be made within the same method.Performed By: #### TETAB #### [facility] [place], [place] [address]ZPL - Thyroid Stimulating Hormone, Serumon 86-84-2620LPO Qn4.76 m[IU]/Labove high thresholdSee BelowMG-Pulm [facility] 1800 Work Phone: Comment on above:SOURCE: Reference Range: 0.44 - 3.98 TSH testing is performed using different testing methodology at [facility] than at other [facility]. Direct result comparisons should only be made within the same method.Tetanus Abon 2C. tetani IgG IA Qn (S)>7.00<0.10MG-[facility] 1800 Work Phone: Comment on above:Interpretation: Non-Protective <0.10 Protective >=0.10 Results for this test are for researchpurposes only by the assay's machine tank operator. The performance characteristics of this product have not been established. Results should not be used as a diagnostic procedure without confirmation of the diagnosis by another medically established diagnostic product or procedure.Toxoplasma IgM, Serumon 03-01-2022T. gondii IgM IA Qn (S) <3.0<=7.9MG-[facility] [facility] Work Phone: Comment on above:INTERPRETIVE INFORMATION: Toxoplasma Ab, IgM 7.9 AU/mL or less .... Not Detected. 8.0-9.9 AU/mL ........ Indeterminate - Repeat testing in 10-14 days may be helpful. 10.0 AU/mL or greater. Detected -Significant level of Toxoplasma gondii IgM antibody detected and may indicate a current or recent infection. However, low levels of IgM antibodies may occasionally persist for more than 12 months post-infection.This test is performed using the Datapipe LIAISON. As suggested by the CDC, any [...] screening Human Cell, Tissues and Cellular and Tissue-BasedProducts (HCT/P). For additional information, refer to the CDC website: www.cdc.gov/parasites/toxopl asmosis/health_professionals/index.html. The magnitude of the measured result is not indicative of the amount of antibody present.Performed By: [employer] [place] [address]Xxqstucqvg Director: Garfield Torrez MD, PhDTransplant Recipient Assessmenton 58-90-2797Bybwbtmncl Recipient AssessmentAssessment Visit Type: This is the initial visit for the patient. Location: [place] [address]. Accompanied by: Sue girlfriend. Organ for transplant: [...] organ disease? 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 Knowledge of transplant / VAD: Patient is able to make an informed decision. Patient verbalizes understanding of transplant / VAD: risk of rejection, risk of infection, risk ofcomplications and risk of . Patient verbalizes understanding [...] is computer literate, but Patient does not haveEuro Freelancers access . 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 Patient's current employment: Not working disabled: . Employment History:. 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 Will patient [...] internet, tv, working on dissbility Resources: [employer] Primary Insurance: Self , Medicaid Medicaid: yes. [...] care? yes. Secondary Support: Name: Zoë Liriano. Jnd: [birth year]Relationship to Patient: Mom Can they take time off work? no. If so, is it paid time off? no. If not, will this impact your finances? no. Did they attend education (more content not included)...NormalUH [employer]works URINALYSISon 28-37-0650Rjhiayxynt (U)CancelNorth Memorial Health Hospital Comment on above:Order Comment: TEST URINALYSIS WAS CANCELLED, 03/01/2022 13:42 pt couldnt void.Performed By: #### SYPHR #### [facility] [address] [place], [place] [address]MAMBAOMC ACIDCanceledRiver's Edge HospitalComment on above:Order Comment: TEST URINALYSIS WAS CANCELLED, 03/01/2022 13:42 pt couldnt void.Result Comment: Concentrations > = 20 mg/dL of ascorbic acid can be expected to cause strong interference in the reactions testing for glucose, nitrite and blood. It is recommended to discontinue Vitamin C administration and retest in 10 hours. Performed By: #### SYPHR #### [facility] [address] [place], [place] [address]Meaatjgto Ql (U)CancelNorth Memorial Health Hospital Comment on above:Order Comment: TEST URINALYSIS WAS CANCELLED, 03/01/2022 13:42 pt couldnt void.Performed By: #### SYPHR #### [facility] [address] [place], [place] [address]Kxnqk (U)CancelNorth Memorial Health HospitalComment on above:Order Comment: TEST URINALYSIS WAS CANCELLED, 03/01/2022 13:42 pt couldnt void.Performed By: #### SYPHR #### [facility] [address] [place], [place] [address]Wjahxwu Ql (U)CancelNorth Memorial Health Hospital Comment on above:Order Comment: TEST URINALYSIS WAS CANCELLED, 03/01/2022 13:42 pt couldnt void.Performed By: #### SYPHR #### [facility] [address] [place], [place] [address]Hcvdywdzkb Ql (U)CancelNorth Memorial Health Hospital Comment on above:Order Comment: TEST URINALYSIS WAS CANCELLED, 03/01/2022 13:42 pt couldnt void.Performed By: #### SYPHR #### [facility] [address] [place], [place] [address]Dcuveei Ql (U)CanceledRiver's Edge Hospital Comment on above:Order Comment: TEST URINALYSIS WAS CANCELLED, 03/01/2022 13:42 pt couldnt void.Performed By: #### SYPHR #### [facility] [address] [place], [place] [address]Kcqxlcyai esterase Test strip Ql (U)CanceledRiver's Edge HospitalComment on above:Order Comment: TEST URINALYSIS WAS CANCELLED, 03/01/2022 13:42 pt couldnt void.Performed By: #### SYPHR #### [facility] [address] [place], [place] [address]Ijbgkjc Ql (U)CancelNorth Memorial Health Hospital Comment on above:Order Comment: TEST URINALYSIS WAS CANCELLED, 03/01/2022 13:42 pt couldnt void.Performed By: #### SYPHR #### [facility] [address] [place], [place] [address]wPQzsdhxqbDfckysYINorth Memorial Health HospitalComment on above: Order Comment: TEST URINALYSIS WAS CANCELLED, 03/01/2022 13:42 pt couldnt void. Performed By: #### SYPHR #### [facility] [address] [place], [place] [address]Vzcpqkr Ql (U)CancelNorth [facility] Health Hospital Comment on above:Order Comment: TEST URINALYSIS WAS CANCELLED, 03/01/2022 13:42 pt couldnt void.Performed By: #### SYPHR #### [facility] [address] [place], [place] [address]Qjlisxho gravity (U) [Rel density]CanceledRiver's Edge HospitalComment on above:Order Comment: TEST URINALYSIS WAS CANCELLED, 03/01/2022 13:42 pt couldnt void.Performed By: #### SYPHR #### [facility] [address] [place], [place] [address]TDZUYOGBAVNLOilywpifYzcmqtYTNorth Memorial Health HospitalComment on above:Order Comment: TEST URINALYSIS WAS CANCELLED, 03/01/2022 13:42 pt couldnt void.Performed By: #### SYPHR #### [facility] [address] [place], [place] [address]PZGRQLNEN ZOSTER IGG ABon 64-45-9283RLDHKOKKD ZOSTER IGG AB PositiveNormalNEGATIVEEast Orange General HospitalComment on above:Result Comment: INTERPRETATIVE COMMENT NEGATIVE: No IgG antibodies specific to [...] IVIG may demonstrate altered results in serological assays.Performed By: #### ABORG #### [facility] [address] [place], [place] [address]Xrddosbse Zoster IgG Antibodyon 14-23-2947ZIA IgG IA Ql (S) PositiveNEGATIVECooper County Memorial Hospital [employer] Work Phone: Comment on above:INTERPRETATIVE COMMENT NEGATIVE: No IgG antibodies specific to [...] may demonstrate alteredresults in serological assays. Bronchoscopyon 57-64-1250LtlpmympyijwCBBEJCKBHPV Patient Name: Patrick Liriano EXAMDATE Procedure Date: 01/30/2022 9:49 AM PATIENTID PATIENTACCOUNTNUM PATIENTDOB Date of : 1960 PATIENTROOM Room: [place] Procedure Room 8 PROV Attending MD: Paulino Betancur MD, [id number] ENDOPROCEDURENAME Procedure: Bronchoscopy INDICATION Indications: Emphysema, Bronchoscopic lung volume reduction PRIMARYPROVIDER Providers: Paulino Betancur MD (Doctor), Kenzie Cabrera RN (Nurse), Pankaj Tejeda, Delicatessen Slicer (Delicatessen Slicer), Peggy Hurtado MD (Fellow) EDREFPROVIDER Referring MD: Princess Burt DO (Referring MD) CURRENT_MEDS Medicines: General Anesthesia, [...] physician, the nurse, the anesthesiologist and the relay checker in the procedure room. Mental Status Examination: [...] transplant). CPT_CODES Procedure Code(s): --- Professional --- 97314, Bronchoscopy, rigid or flexible, including fluoroscopic guidance, when performed; with balloon occlusion, with assessment of air leak, with administration of occlusive substance (eg, fibrin glue), if performed ICD_CODES Diagnosis Code(s): --- Professional --- J43.9, Emphysema, unspecified CODINGSTMT CPT copyright 2020 [employer]. All rights reserved. The codes documented in this report are preliminary and upon stand in review may be revised to meet current [...] grade is 2 - (more content not included)...[facility]iver's Edge HospitalNo Panel Informationon 01-30-2022 [id number] [id number]}[facility] Work Phone: [facility] Work Phone: [facility] AUTO DIFFon 30-98-0961WRYC #0.1 103/ulNormal 0.0-0.1The The Jewish HospitalComment on above:Performed By: #### CBC ####[facility] [address] [place], [place] [address]Dr.Yilan Quesada Basophils/100 WBC (Bld)0.5 %Normal0.2-2.0The The Jewish HospitalComment on above: Performed By: #### CBC ####[facility] [address] [place], [place] [address]Dr.Yilan ChangEO #0.3 103/ulNormal0.0-0.7The The [facility] HospitalComment on above:Performed By: #### CBC ####[facility] [address] [place], [place] [address]Dr.Yilan ChangEosinophils/100 WBC (Bld)2.8 %Normal0.9-7.0The The [facility] HospitalComment on above:Performed By: #### CBC ####[facility] [address] [place], [place] [address]Dr.Yilan ChangErythrocyte distribution width (RBC) [Ratio]13.1 %Normal 11.0-15.0The The [facility] HospitalComment on above:Performed By: #### CBC ####[facility] [address] [place], [place] [address]Dr. Yilan ChangHematocrit (Bld) [Volume fraction]42.4 %Ktzuyb36.0-54.0The The [facility] HospitalComment on above:Performed By: #### CBC ####[facility] [address] [place], [place] [address]Dr.Yilan ChangHemoglobin (Bld) [Mass/Vol]13.9 g/dLCritically low14.0-18.0The [facility] HospitalComment on above:Performed By: #### CBC ####[facility] [address] [place] [address]Dr.Evon ChangIG #0.03 10e3/ulNormal0.00-0.03The The [facility] HospitalComment on above:Performed By: #### CBC ####[facility] [address] [place] [address]Dr.Evon ChangIG %0.3 %Normal 0.0-0.5The The [facility] HospitalComment on above:Performed By: #### CBC ####[facility] [address] [place], [place] [address]Dr.Evon QuesadaLYMPH #1.8 103/ulNormal1.2-3.8The The [facility] HospitalComment on above:Performed By: #### CBC ####[facility] [address] [place], [place] [address]Dr.Evon QuesadaLymphocytes/100 WBC (Bld)15.6 %Critically low20.5-60.0The The [facility] HospitalComment on above:Performed By: #### CBC ####[facility] [address] [place] [address]Dr.Evon QuesadaMANUAL DIFF REQ NONormalThe [facility] HospitalComment on above:Performed By: #### CBC ####[facility] [address] [place], [place] [address]Dr. Evon DipakMIDDLETOWN STATE [facility]ITAL (RBC) [Entitic mass]30.2 kfQdxyij18.9-34.0The [facility] Comment on above:Performed By: #### CBC ####[facility] Ujpg[address] [place], [place] [address]Dr.Evon DipakOLEAN GENERAL [facility] (RBC) [Mass/Vol]32.8 g/dL Xjiiem41.9-35.2The [facility] HospitalComment on above:Performed By: #### CBC ####[facility] [address] [place], [place] [address]Dr. Evon DipakV (RBC) [Entitic vol]92.0 jMMvnqpi76.0-94.0The [facility] Comment on above:Performed By: #### CBC ####[facility] [address] [place] [address]Dr.Evon QuesadaMONO #1.3 103/ulCritically high0.3-0.8The [facility] HospitalComment on above:Performed By: #### CBC ####[facility] [address] [place] [address]Dr. Yilan ChangMonocytes/100 WBC (Bld)11.1 %Normal1.7-12.0The [facility] Comment on above:Performed By: #### CBC ####[facility] [address] [place] [address]Dr.Evon QuesadaNEUT #7.9 103/ulCritically high1.4-6.5The [facility] HospitalComment on above:Performed By: #### CBC ####[facility] [address] [place], [place] [address]Dr. Mirtalan ChangNeutrophils/100 WBC (Bld)69.7 %Mpefek81.0-75.0The [facility] Comment on above:Performed By: #### CBC ####[facility] [address] [place], [place] [address]Dr.Evon QuesadaPlatelet mean volume (Bld) [Entitic vol]10.1 fLNormal9.5-13.5The The [facility] HospitalComment on above: Performed By: #### CBC ####[facility] [address] [place] [address]Dr.Yilan UqixnKWU140 103/iwOjoyul287-054Upb The Jewish HospitalComment on above:Performed By: #### CBC ####[facility] [address] [place] [address]Dr.Mirtalan ChangRBC4.61 106/ul Critically low4.70-6.10The [facility] HospitalComment on above:Performed By: #### CBC ####[facility] [address] [place], [place] [address]Dr. Mirtalan GomlmNKH01.3 103/ulCritically high4.0-11.0The [facility] HospitalComment on above:Performed By: #### CBC ####[facility] [address] [place], [place] [address]DsDr.Yilan QuesadaCovid-19 PCR (CVDTB)on 01-27-2022 SARS-CoV-2 (COVID-19) RNA MARTINEZ+probe Ql (Unsp spec)Not detectedNormalNOT DETECTED The The [facility] HospitalComment on above:Result Comment: This test is not yet approved or cleared by the [place] FDA. When there are no FDA-approved or cleared tests available, and other criteria are met, FDA can make tests available under an emergency access mechanism called an Emergency Use Authorization (EUA). The EUA for this test is supported by the Outboard Motor Inspector of Health and Human Service's (HHS's) declaration [...] of clinical signs and symptoms consistent with SARS-CoV-2.Performed By: #### CVDTBH #### [facility] [address] [place] [address] Dr. Evon QuesadaPROF CHEM 8 (BAS METB)on 04-75-6568Utzla gap [Moles/Vol]7.1 mmol/LNormalThe [facility] HospitalComment on above:Performed By: #### BMP #### [facility] [address] [place] [id number] Evon QuesadaCalcium [Mass/Vol]10.2 mg/dLCritically high8.5-10.1The [facility] HospitalComment on above:Performed By: #### BMP #### [facility] [address] [place] [id number] Evon QuesadaChloride [Moles/Vol]100 mmol/WTsalmt66-423Jke [facility] Comment on above:Performed By: #### BMP #### [facility] [address] [place] [address] [address] Evon QuesadaCO2 [Moles/Vol]33.2 mmol/LCritically high21.0-32.0The [facility] HospitalComment on above:Performed By: #### BMP #### [facility] [address] [place] [address] [address] Evon QuesadaCreatinine [Mass/Vol]0.74 mg/dLNormal0.70-1.30The The [facility] HospitalComment on above:Performed By: #### BMP #### [facility] [address] [place] [address] [address] Evon SowGFR-AF ARGENTINE>60Normal>=60The The Jewish HospitalComment on above:Performed By: #### BMP #### [facility] [address] [place] [address] Dr. Evon SowGFR-NON AF ARGENTINE>60Normal>=60The The Jewish HospitalComment on above:Performed By: #### BMP #### [facility] [address] [place] [address] Dr. Evon QuesadaGlucose [Mass/Vol]96 mg/sFZrcyvv34-989MmlMagruder Memorial Hospital Comment on above:Performed By: #### BMP #### [facility] [address] [place] [address] Dr. Evon QuesadaPotassium [Moles/Vol]4.3 mmol/LNormal3.5-5.1The [facility] Comment on above:Performed By: #### BMP #### [facility] [address] [place] [address] Dr. Evon QuesadaSodium [Moles/Vol]136 mmol/IDidlid355-633Dyb [facility] Comment on above:Performed By: #### BMP #### [facility] [address] [place] [address] Dr. Evon QuesadaUrea nitrogen [Mass/Vol]16.0 mg/dLNormal7.0-18.0The The [facility] HospitalComment on above:Performed By: #### BMP #### [facility] [address] [place], [place] [address] Dr. Evon QuesadaUrea nitrogen/Creatinine [Mass ratio]21.6 mg/mgProMedica Memorial HospitalComment on above:Performed By: #### BMP #### [facility] [address] [place], [place] [address] Dr. Evon QuesadaNM LUNG PERF QUANTon [id number] LUNG PERF QUANTEXAMINATION: NM LUNG PERF QUANT HISTORY: Chronic obstructive [...] Electronically authenticated by: NOEMI CONRAD Date: 2021-12-05 12:03[facility] Memorial HospitalXR CHEST 2 Von [id number] CHEST 2 VEXAMINATION: XR CHEST 2 V HISTORY: Chronic obstructive lung disease [...] Electronically authenticated by: NOEMI CONRAD Date: 2021-12-05 11:52[facility] SK[facility] BASE MID THIGHon [id number] CT SKULL BASE MID THIGHEXAMINATION: PET CT SKULL BASE MID THIGH HISTORY: [...] Electronically authenticated by: OJ CALI Date: 2021-10-30 13:20[facility] Memorial HospitalARTERIAL BLOOD GAS,CO-OXon [id number] EXCESS-BLOOD1.2 mmol/LNormal-2.0 - 3.0[facility] HospitalComment on above:Performed By: #### HIV #### [facility] [address] [place], [place] [address]VMHVCW, XXLIDEHXDK55.0 mmol/NNonygg94.0 - 26.0[facility] HospitalComment on above:Performed By: #### HIV #### [facility] [address] [place], [place] [address]HE HGB1.6 %AbnormalEast Orange General HospitalComment on above:Result Comment: REF VALUES NONSMOKERS 0.5-1.5% SMOKERS 0.5-10.0%Performed By: #### HIV #### [facility] [address] [place], [place] [address]RSQCB HGB3.2 %Normal0.0 - 5.0[facility] Comment on above:Performed By: #### HIV #### [facility] [address] [place], [place] [address]Iivwjwwrka (Bld) [Mass/Vol]15.0 g/wUWeidjo35.5 - 17.5[facility] HospitalComment on above:Performed By: #### HIV #### [facility] [address] [place], [place] [address]QQI HGB0.9 %Normal0.0 - 1.5[facility] HospitalComment on above:Performed By: #### HIV #### [facility] [address] [place], [place] [address]AOD HGB94.4 %Osvkxt69.0 - 98.0[facility] Comment on above:Performed By: #### HIV #### [facility] [address] [place], [place] [address]Hiickr (Bld) [Partial pressure]77 mm[Hg]Low85 - 95[facility] HospitalComment on above:Performed By: #### HIV #### [facility] [address] [place], [place] [address]QLRZPFY ODJKZDEPVIF85.0 degrees CNormalEast Orange General HospitalComment on above:Result Comment: NOTE: PATIENT RESULTS ARE NOT CORRECTED FOR TEMPERATURE.Performed By: #### HIV #### [facility] [address] [place], [place] [address]SLE[address] bqImRzuwgy76 - 42[facility] HospitalComment on above:Performed By: #### HIV #### [facility] [address] [place], [place] [address]vM (Bld)7.41 [pH]Normal7.38 - 7.42[facility] Comment on above:Performed By: #### HIV #### [facility] [address] [place], [place] [address]NS[address] %Jhxavj47 - 100[facility] HospitalComment on above:Performed By: #### HIV #### [facility] [address] [place], [place] [address]XW CT CHEST without FOR BRYAN BRONC PLANNINGon [id number] CT CHEST without FOR BRYAN BRON PLANNINGMRN: [id number] Patient Name: PATRICK LIRIANO STUDY: TH CT CHEST WITHOUT FOR BRYAN BRON PLANNING; 09/11/2021 1:05 pm INDICATION: sob J43.9: COPD (chronic obstructive pulmonary disease) with emphysema. COMPARISON: None ACCESSION NUMBER(S): [id number] ORDERING CLINICIAN: HUNTER SMITH TECHNIQUE: Helical data [...] on 08/11/2021 at 6:52 p.m. using the cloudControl system. I personally reviewed the images/study and I agree with the findings as stated. This study was interpreted at [facility], [place], [place]. Electronically signed by: Henok TESFAYENorthern Colorado Long Term Acute HospitalCovid-19 PCR (CVDTB)on [id number]-CoV-2 (COVID-19) RNA MARTINEZ+probe Ql (Unsp spec)Not detectedNormalNOT DETECTEDThe [facility] HospitalComment on above: Result Comment: This test is not yet approved or cleared by the [place] FDA. When there are no FDA-approved or cleared tests available, and other criteria are met, FDA can make tests available under an emergency access mechanism called an Emergency Use Authorization (EUA). The EUA for this test is supported by the [place] of Health and Human Service's (HHS's) declaration [...] of clinical signs and symptoms consistent with SARS-CoV-2.Performed By: #### CVDTBH #### [facility] [address] [place] [address] [address] Evon Araiza AUTO DIFFon [id number] #0.1 103/ulNormal0.0-0.1The The [facility] HospitalComment on above:Performed By: #### CBC ####[facility] [address] [address]Dr.Evon QuesadaBasophils/100 WBC (Bld)0.5 %Normal0.2-2.0The The [facility] HospitalComment on above:Performed By: #### CBC ####[facility] [address] [address]Dr.Evon ChangEO #0.2 103/ulNormal0.0-0.7The [facility] HospitalComment on above:Performed By: #### CBC ####[facility] [address] [address]DrTrevor ChangEosinophils/100 WBC (Bld)1.5 %Normal 0.9-7.0The The [facility] HospitalComment on above:Performed By: #### CBC ####[facility] [address] [address]DrTrevor Quesada Erythrocyte distribution width (RBC) [Ratio]13.3 %Mcntwt11.0-15.0The [facility] on above:Performed By: #### CBC ####[facility] Ri[address] [place], [place] [address]DrTrevor QuesadaHematocrit (Bld) [Volume fraction]42.6 %Ipptyw90.0-54.0The [facility] HospitalComment on above:Performed By: #### CBC ####[facility] [address] [address]Dr.Evon ChangHemoglobin (Bld) [Mass/Vol]13.9 g/dL Critically low14.0-18.0The The [facility] HospitalComment on above:Performed By: #### CBC ####[facility] J[address]kedot[address] [place], [place] [address]Dr. Mirtalan ChangIG #0.11 10e3/ulCritically high0.00-0.03The The [facility] HospitalComment on above:Performed By: #### CBC ####[facility] [address] [place], [place] [address]Dr.Evon ChangIG %0.7 %Critically high0.0-0.5The [facility] HospitalComment on above:Performed By: #### CBC ####[facility] [address] [place], [place] [address]Dr.Evon DipakLYMPH #2.3 103/ulNormal1.2-3.8The The [facility] HospitalComment on above:Performed By: #### CBC ####[facility] So[address] [place], [place] [address]Dr. Mirtakierra QuesadaLymphocytes/100 WBC (Bld)15.8 %Critically low20.5-60.0The [facility] HospitalComment on above:Performed By: #### CBC ####[facility] C[address]out[address] [place], [place] [address]Dr.Evon DipakMANUAL DIFF REQ NONormalThe [facility] HospitalComment on above:Performed By: #### CBC ####[facility] [address] [place], [place] [address]Dr. Evon QuesadaH (RBC) [Entitic mass]30.7 deEakydw46.9-34.0The [facility] Comment on above:Performed By: #### CBC ####[facility] F[address]it[address] [place], [place] [address]Dr.Evon QuesadaMCHC (RBC) [Mass/Vol]32.6 g/dL Rmoadd21.9-35.2The [facility] HospitalComment on above:Performed By: #### CBC ####[facility] [address] [address]Dr. Mirtakierra QuesadaMCV (RBC) [Entitic vol]94.0 hLZbrzgp77.0-94.0The [facility] Comment on above:Performed By: #### CBC ####[facility] [address] [place], [place] [address]Dr.Mirtakierra QuesadaMONO #1.7 103/ulCritically high0.3-0.8The [facility] HospitalComment on above:Performed By: #### CBC ####[facility] [address]ce[address] [place], [place] [address]Dr. Mirtakierra QuesadaMonocytes/100 WBC (Bld)11.3 %Normal1.7-12.0[facility] Comment on above:Performed By: #### CBC ####[facility] [address] [place], [place] [address]Dr.Evon QuesadaNEUT #10.4 103/ulCritically high1.4-6.5The [facility] HospitalComment on above:Performed By: #### CBC ####[facility] [address] [place], [place] [address]Dr. Mirtakierra QuesadaNeutrophils/100 WBC (Bld)70.2 %Lbrmqz24.0-75.0The [facility] Comment on above:Performed By: #### CBC ####[facility] [address] [place], [place] [address]Dr.Evon QuesadaPlatelet mean volume (Bld) [Entitic vol]10.1 fLNormal9.5-13.5The The [facility] HospitalComment on above: Performed By: #### CBC ####[facility] [address] [place], [place] [address]Dr.Evon QuesadaPLT366 103/tiVgprhm703-610Aup [facility] HospitalComment on above:Performed By: #### CBC ####[facility] [address] [place], [place] [address]DrTrevor QuesadaRBC4.53 106/ul Critically low4.70-6.10The [facility] Centerment on above:Performed By: #### CBC ####[facility] [address] [address]Dr. Evon QuesadaWBC14.7 103/ulCritically high4.0-11.0[facility] Hospitalment on above:Performed By: #### CBC ####[facility] [address] [address]Dr.Yilan QuesadaLIPID PROFILEon 00-70-2557QSAG-HDL RATIO NORMSEE [facility] CenterComment on above:Result Comment: 3.3 - 4.4 LOW RISK 4.4 - 7.1 AVERAGE RISK 7.1 - 11.0 MODERATE RISK >11.0 HIGH RISK Performed By: #### LIPID, CMP #### [facility] [address] [address] [address] Evon Rodriguezesterol [Mass/Vol]117 mg/dLNormal<=200The [facility] Comment on above:Performed By: #### LIPID, CMP #### [facility] [address] [address] [address] Evon Rodriguezesterol in HDL [Mass/Vol]56 mg/yACkicwu19-86Vkz [facility] on above:Performed By: #### LIPID, CMP #### [facility] [address] [address] [address] Evon Rodriguezesterol in LDL [Mass/Vol]49.8 mg/dLProMedica Memorial HospitalComment on above:Performed By: #### LIPID, CMP #### [facility] [address] [address] [address] Evon Oliva.total/Cholesterol in HDL [Mass ratio]2.1 {ratio} NormalThe [facility] HospitalComment on above:Performed By: #### LIPID, CMP #### [facility] [address] [address] [address] Evon Townsend NORMAL> or = 60 mg/dl - LOW CARDIOVASCULAR RISK <40 mg/dl - HIGH CARDIOVASCULAR RISKProMedica Memorial HospitalComment on above:Performed By: #### LIPID, CMP #### [facility] [address] [address] [address] Evon Deluna CALC NORMALSEE BELOWNoFirelands Regional Medical Center South CampusComment on above:Result Comment: <100 mg/dl OPTIMAL 100 - 129 mg/dl NEAR OR ABOVE OPTIMAL 130 - 159 mg/dl BORDERLINE HIGH 160 - 189 mg/dl HIGH >190 mg/dl VERY HIGH Performed By: #### LIPID, CMP #### [facility] [address] [address] [address] Evon QuesadaTriglyceride [Mass/Vol]56 mg/dLNormal<=150The [facility] Comment on above:Performed By: #### LIPID, CMP #### [facility] [address] [place] [address] Dr. Evon QuesadaVLDL CALC11.2 mg/dLNoFirelands Regional Medical Center South CampusComment on above: Performed By: #### LIPID, CMP #### [facility] [address] [address] [address] Evon QuesadaPROF 14(COMP METB)on [id number] [Mass/Vol]3.6 g/dLNormal 3.4-5.0[facility] on above:Performed By: #### LIPID, CMP #### [facility] [address] [address] [address] Evon QuesadaAlbumin/Globulin [Mass ratio]1.0 {ratio}NormalThe [facility] on above:Performed By: #### LIPID, CMP #### [facility] [address] [address] [address] Evon Workman [Catalytic activity/Vol]108 U/HIfpnpd15-223Xvh [facility] on above:Performed By: #### LIPID, CMP #### [facility] [address] [address] [address] Evon Moser [Catalytic activity/Vol]38 U/SQbrxvd54-85Lxl [facility] on above:Performed By: #### LIPID, CMP #### [facility] [address] [address] [address] Evon QuesadaAnion gap [Moles/Vol]10.7 mmol/LNormalMagruder Memorial Hospital Comment on above:Performed By: #### LIPID, CMP #### [facility] [address] [address] [address] Evon QuesadaAST [Catalytic activity/Vol]35 U/RIujyys80-09Xvs The [facility] HospitalComment on above:Performed By: #### LIPID, CMP #### [facility] [address] [address] [address] Evon QuesadaBilirubin [Mass/Vol]0.7 mg/dLNormal0.2-1.0[facility] Comment on above:Performed By: #### LIPID, CMP #### [facility] [address] [place] [address] Dr. Evon QuesadaCalcium [Mass/Vol]10.4 mg/dLCritically high8.5-10.1The The [facility] HospitalComment on above:Performed By: #### LIPID, CMP #### [facility] [address] [address] [address] Evon QuesadaChloride [Moles/Vol]102 mmol/VOlwevt14-462SzrMagruder Memorial Hospital Comment on above:Performed By: #### LIPID, CMP #### [facility] [address] [place] [address] Dr. Evon QuesadaCO2 [Moles/Vol]30.1 mmol/SWmicvr80.0-32.0[facility] Comment on above:Performed By: #### LIPID, CMP #### [facility] [address] [address] [address] Evon QuesadaCreatinine [Mass/Vol]0.79 mg/dLNormal0.70-1.30The [facility] HospitalComment on above:Performed By: #### LIPID, CMP #### [facility] [address] [place] [address] Dr. Evon SowGFR-AF ARGENTINE>60Normal>=60The [facility] HospitalComment on above:Performed By: #### LIPID, CMP #### [facility] [address] [address] [address] Evon SowGFR-NON AF ARGENTINE>60Normal>=60The [facility] HospitalComment on above:Performed By: #### LIPID, CMP #### [facility] [address] [address] [address] Evon QuesadaGlobulin (S) [Mass/Vol]3.7 g/dLNormalThGrand Lake Joint Township District Memorial HospitalComment on above:Performed By: #### LIPID, CMP #### [facility] [address] [address] [address] Evon QuesadaGlucose [Mass/Vol]99 mg/cWCtwmpy28-741NikMagruder Memorial Hospital Comment on above:Performed By: #### LIPID, CMP #### [facility] [address] [address] [address] Evon QuesadaPotassium [Moles/Vol]4.8 mmol/LNormal3.5-5.1The [facility] Comment on above:Performed By: #### LIPID, CMP #### [facility] [address] [address] [address] Evon QuesadaProtein [Mass/Vol]7.3 g/dLNormal6.4-8.2[facility] Comment on above:Performed By: #### LIPID, CMP #### [facility] [address] [address] [address] Evon QuesadaSodium [Moles/Vol]138 mmol/RRwhhpw488-243Jsu [facility] Comment on above:Performed By: #### LIPID, CMP #### [facility] [address] [address] [address] Evon QuesadaUrea nitrogen [Mass/Vol]12.0 mg/dLNormal7.0-18.0The [facility] HospitalComment on above:Performed By: #### LIPID, CMP #### [facility] [address] [address] [address] Evon QuesadaUrea nitrogen/Creatinine [Mass ratio]15.2 mg/mgNormalThe [facility] HospitalComment on above:Performed By: #### LIPID, CMP #### [facility] [address] [place], [place] [address] Dr. Evon QuesadaHEMOGLOBINon 90-41-2825Tktjftpylw (Bld) [Mass/Vol]13.3 g/dL Critically low14.0-18.0The [facility] HospitalComment on above:Performed By: #### HGB ####[facility] [address] [place], [place] [address]SgDr. Evon QuesadaCREATININE BLOODon 80-23-6325Opaqunuenu [Mass/Vol]0.64 mg/dLLow 0.70-1.30The [facility] HealthComment on above:Order Comment: No: Do not add to previous drawPerformed By: #### [id number] #### [facility] [address] [place] [address], USAGFR/1.73 sq M.predicted among blacks MDRD (S/P/Bld) [Vol rate/Area]mL/min/{1.73_m2}Normal>60[facility] Comment on above:Order Comment: No: Do not add to previous drawPerformed By: #### [id number] #### [facility] [address] [place] [address], USAGFR/1.73 sq M.predicted among non-blacks MDRD (S/P/Bld) [Vol rate/Area]mL/min/{1.73_m2}Normal>60[facility] Comment on above:Order Comment: No: Do not add to previous drawPerformed By: #### [id number] #### [facility] [address] [place] [address], USACardiovascular Lab Reporton [id number] Lab ReportUnCleveland Clinic [facility] Name: [facility] MR #: [id number] Physician: Almas Mcallister, Department of M.D. Medicine Service Date: 02/22/2021 Division of Birthdate: 1960 Cardiology Room #: 5AB [id number] Adult Cardiovascular Services [facility] [address] [place], [place] [address] Cardiovascular Laboratory Report FINAL IMPRESSIONS: 1. Severe [...] for a minimum of 6 months preferably half-way. 3. Aggressive cardiovascular risk factor modification. 4. Guideline directed medical therapy for coronary artery disease should include high-intensity statin therapy, beta michael, +/- an angiotensin-converting enzyme inhibitor. 5. Follow up with Dr. Mcallister in the [facility] in the next 3-4 weeks. 6. Follow [...] femoral vein and artery was obtained. A 6-Moroccan 11 cm sheath was placed in each. [...] to proceed with an interventional procedure. A 6-Moroccan XB3.5 guide catheter was advanced over J-wire [...] the procedure. All catheters were removed. A 6-Moroccan MynxGrip closure device was deployed per protocol, [...] small nondominant vessel. INDICATI (more content not included)...NormalThe [facility] Vital Signs Date TimeVital SignValuePerforming IbrlkbeuaSnhjvfjd78-67-1837 10:32-0400Body oxkukd183.5 cmBenjamin Ball DO Work Phone: [phone] [place], [place] 0747007-23-2025 10:32-0400 Body mass index (BMI) [Ratio]20.9 kg/r5Fvibtcux Ball DO Work Phone: [phone] [place], [place] 0747007-23-2025 10:32-0400 Body .92 kgBenjamin Ball DO Work Phone: [phone] [place], [place] 0747007-23-2025 10:32-0400 Diastolic blood nvdkcazu97 mm[Hg]Paulino Ball DO Work Phone: [phone] [place], [place] 0747007-23-2025 10:32-0400 Heart rate64 /minBenjamin Ball DO Work Phone: [phone] [place], [place] 0747007-23-2025 10:32-0400 Respiratory rate12 /minBenjamin Ball DO Work Phone: [phone] [place], [place] 0747007-23-2025 10:32-0400 Systolic blood qzlurcks379 mm[Hg]Paulino Ball DO Work Phone: [phone] [place], [place] 0747004-01-2025 10:34-0400 Diastolic blood kxwywimr96 mm[Hg]Paulino Ball DO Work Phone: [phone] [place], [place] 0747004-01-2025 10:34-0400 Heart rate56 /minBenjamin Ball DO Work Phone: [phone] [place], [place] 0747004-01-2025 10:34-0400 Respiratory rate20 /minBenjamin Ball DO Work Phone: [phone] [place], [place] 0747004-01-2025 10:34-0400 SaO2% (BldA) [Mass fraction]100 %Paulino Ball DO Work Phone: [phone] [place], [place] 0747004-01-2025 10:34-0400 Systolic blood mm[Hg]Paulino Ball DO Work Phone: [phone] [place], [place] 0747004-01-2025 08:07-0400 Body utlmfg722.5 cmBenjamin Ball DO Work Phone: [phone] [place], [place] 0747004-01-2025 08:07-0400 Body tpyzib93.11 kgBenjamin Ball DO Work Phone: [facility]01-27-2025 10:40-0500 Body sohoki713.5 cmFair[facility] Medical Center01-27-2025 10:40-0500Body mass index (BMI) [Ratio]21.9 kg/j9VcehzpmtvFairfield Medical Center01-27-2025 10:40-0500Body ztouuv79.43 kgFairfield Medical Center01-27-2025 10:40-0500Diastolic blood crhvajun56 mm[Hg][facility] 04-20-2024 10:40-0500Heart rate76 /[facility] 04-20-2024 10:40-0500Respiratory rate12 /[facility] 04-20-2024 10:40-0500Systolic blood tddxqube937 mm[Hg][facility]10-04-2024 10:26-0400Blood Pressure LocationPatrick WALKER [facility]10-04-2024 10:26-0400Body gzvzrlrzqry16.6 [degF]Calvin WALKER [facility]10-04-2024 10:26-0400Diastolic blood mm[Hg]Calvin WALKER [facility]10-04-2024 10:26-0400Heart rate62 /minPatrick WALKER [facility]10-04-2024 10:26-0400Respiratory rate16 /minPatrick WALKER [facility]10-04-2024 10:26-0400Systolic blood oktqbglh065 mm[Hg]Calvin WALKER [facility]07-23-2024 10:45-0400Body woutvm986.5 cmFairfield Medical Center07-23-2024 10:45-0400Body mass index (BMI) [Ratio]20.9 kg/c3SqjmpkhvzFairfield Medical Center07-23-2024 10:45-0400Body .92 kgFairfield Medical Center07-23-2024 10:45-0400Diastolic blood tnqeoftb80 mm[Hg] [facility]07-23-2024 10:45-0400Heart rate78 /[facility]07-23-2024 10:45-0400Respiratory rate12 /[facility]07-23-2024 10:45-0400Systolic blood tbkulnkl639 mm[Hg] [facility]02-05-2024 11:22-0500Blood Pressure Location Calvin WALKER [facility]02-05-2024 11:22-0500Diastolic blood qknazmdj65 mm[Hg]Calvin WALKER [facility]02-05-2024 11:22-0500Heart rate64 /minParegis WALKER [facility]02-05-2024 11:22-0500Respiratory rate16 /minCalvin WALKER [facility]02-05-2024 11:22-0500Systolic blood amvutgbe019 mm[Hg]Calvin WALKER [facility]01-30-2024 10:30-0500Body ilmrnn738.5 cmBenjamin Ball Other [employer] Other 01-30-2024 10:30-0500Body mass index (BMI) [Ratio] 20.72 kg/c2Mtqwxzqc Ball Other [employer] Other 01-30-2024 10:30-0500Body umjqxh52.21 kgBenjamin Ball Other [employer] Other 01-30-2024 10:30-0500Diastolic blood xfisbpdw12 mm[Hg] Paulino Ball Other [employer] Other 01-30-2024 10:30-0500Respiratory rate12 /minBenjamin Ball Other [employer] Other 01-30-2024 10:30-0500Systolic blood mm[Hg] Paulino Ball Other [employer] Other 07-31-2023 11:00-0400Body flgeoy854.5 cmBenjamin Ball Other [employer] Other 07-31-2023 11:00-0400Body mass index (BMI) [Ratio] 21.25 kg/t6Eevddhnu Ball Other [employer] Other 07-31-2023 11:00-0400Body ckleae39.11 kgBenjamin Ball Other [employer] Other 07-31-2023 11:00-0400Diastolic blood yezudrbh64 mm[Hg] Paulino Ball Other [employer] Other 07-31-2023 11:00-0400Respiratory rate16 /minBenjamin Ball Other [employer] Other 07-31-2023 11:00-0400Systolic blood mm[Hg] Paulino Wilson Other [facility] [employer] Other 12-09-2022 14:14-53717 [address] [address] [facility] Work Phone: [phone]-Alpllmmbmf-[facility] [place] [address] Work Phone: Comment on above:PHQ-9 TS Encounters Encounter DateEncounter [facility] ProviderFacilityStart: 48-93-9808jprnpbiyqt Calvin WALKERFacility:EU BellevueStart: 10-14-2024 End: 41-43-1415wvirtlmxjpMykepjyv Ball DO Work Phone: [facility] Work Phone: Start: 10-14-2024 End: 00-87-4561Btviwne encounter procedureBejuan Segundo DO-[facility] Work Phone: Start: 36-16-0664Zhe-patient / Non-visitBemarielakerline Wilson DO Work Phone: [facility] Work Phone: Start: 06-23-2024 End: 88-31-4282Ggexxqggx to same day surgery centerBeporterasia Wilson DO Work Phone: [facility] Work Phone: Start: 06-23-2024 End: 70-83-3453pruipmxsupQebwusih Ball DO Work Phone: [facility] Work Phone: Start: 06-15-2024 End: 80-12-7192rxxyqcohqmBUQR [facility] Hospitaltart: 04-20-2024 End: 86-53-9085bwzlsxssqvTuzasuilmUniversity Hospitals Portage [facility] Center Work Phone: Start: 04-20-2024 End: 16-78-7062Vgilxghrs for general adult medical examination without abnormal findingsKettering Health Greene Memorialtart: 04-20-2024 End: 22-53-7630Kqvvbnn encounter procedureFirsthealth Physician GroupSub[facility] Work Phone: Start: 12-27-2023 End: 69-45-0314rjciztsxtmOvnyoay R WATERSFacility:EU BellevueStart: 12-27-2023 End: 88-15-7558Edszfbx encounter procedureCalvin WALEKR [facility] start: 10-15-2023 End: 56-23-8414szeyuvoijpAhthjizbhUniversity Hospitals Portage Medical Center Work Phone: Start: 10-15-2023 End: 20-65-9955Dgzzixp encounter procedureFirsthealth Physician GroupSuburban [facility] Work Phone: Start: 06-20-2023 End: 88-95-1900vpodnmqfhwSEEWXBBUniversity Hospitals Samaritan Medical Centertart: 04-29-2023 End: 22-14-3365Lnbuueg encounter procedureCalvin WALKER [facility] start: 04-24-2023 End: 39-02-0374uwbwyxwqqlVzfwctxp Ball Other [facility] [employer] Other Start: 32-05-2182Kmgbmhlvh encounterBenjakerline Wilson [facility] ERtart: 04-23-2023 End: 29-89-1041yeozyozofqMnaidetm Ball Other [employer] Other Start: 08-58-3952Jbvgik outpatient visit 25 minutes Paulino Sully [facility] ClinicStart: 01-31-2023 End: 97-61-4932mnlcfprouaMovcmgng Ball Other [employer] Other Start: 33-27-9637Zkkozfbat encounterBenjamin BallFPG Referral CoordinatorStart: 12-07-2022 End: 06-85-1869ntgnhahuyeBmzhhxlj Ball Other noPrelert Other Start: 07-21-5369Ixeqzguxb encounterBenjamin BallFPG [facility] ClinicStart: 11-29-2022 End: 80-49-8842jivmofqdjvCasxwjdw Ball Other [employer] Other Start: 62-77-9082Ubqhtlyff encounterBenjamin BallFPG [facility] ClinicStart: 11-11-2022 End: 90-41-9292lbjnyaodbrFeablopq Ball Other [employer] Other Start: 41-31-6955Ntsggfzth encounterBenjamin BallFPG [facility] ClinicStart: 11-09-2022 End: 86-81-1690wnenonjvgeLouhjuhg Ball Other noPrelert Other Start: 75-65-2758Dausvtovp encounterBenjamin BallFPG [facility] ClinicStart: 10-22-2022 End: 29-39-5059nzaqllaqpfThccmqlt Ball Other [employer] Other Start: 12-47-6810Hefftxhxj for general adult medical examination without abnormal findingsBenjamin BallFPG [facility] ClinicStart: 61-19-0371Xvbavqhq preventive med est patient 40-64yrsBenjamin BallFPG [facility] ClinicStart: 06-26-2022 End: 21-15-1302tmixnxfkqnUJ PAULINO BALLFacility:U6Divtc: 60-19-4840cxdihxzajy Provider PendingFacility:UHCStart: 12-06-3455Ayegr UpdateRobert Schilz DO Work Phone: [phone]-Sust [facility] Work Phone: Start: 78-69-1836elnhvimwjkFvwbhuvv Pending Facility:[facility]tart: 85-45-4855DLAAFC, Provider: Hiral Guy, Status: Pen, Time: 11:00 AMRobert Schilz DO Work Phone: [phone]-Xzus [facility] Work Phone: [phone]: 75-70-2242Bmtpatb encounter procedureChristen Brooks CLINICAL ASST Work Phone: [phone]-Opecyomvoi-[facility] [place] [address] Work Phone: [phone]: 64-22-8678dnvzohjruqYm. GELA LINN [facility] Hospitalrt: 73-93-1666FFKXUXZY, Provider: LUNG TRANSPLANT EDUCATION,NURSE, Status: Pen, Time: 10:00 AMRobert Schilz DO Work Phone: [phone]-Ohsi [facility] Work Phone: [phone]: 49-91-5795EGDAUEjahgf Schilz DO Work Phone: [phone]-Cwvq [facility] [facility] Work Phone: Start: 43-10-6581Rmbhxj ReviewProvider AMAProvider Work Phone: [facility] Work Phone: Start: 21-60-1118Bawekhbsf for other preprocedural examinationDR DOCTOR Abimael Acevedo HospitalStart: 01-30-2022 End: 58-76-5458vjelrjvtymYj. PAULINO BETANCURFacility:[facility] CENTERtart: 01-27-2022 End: 61-46-7478tyltbsghrpJX PAULINO WILSONFacility:N4Fcrpv: 01-27-2022 End: 11-40-3997Tuapcgbqd for other preprocedural examinationDR PAULINO WILSON Facility:P0Lcwcu: 12-05-2021 End: 51-16-8829blpmyqmlamLP PAULINO WILSONFacility:J1Fkncd: 83-92-0256lbaaewdagj DR PAULINO WILSONFacility:U1Satbk: 10-28-2021 End: 45-12-2674sfnfazwljoRHFCTZ NICOLLE .Facility:B0Mtbmx: 47-56-2247ioihpkqwgq Hunter Amor AvasaralaFacility:CStart: 53-20-2780llaupvaljzVitnlx Amor AvasaralaFacility:UHCStart: 17-12-3204Zgajzlk encounter procedureMartina Rodríguez Work Phone: mg-Pulm [facility] [address] Work Phone: start: 09-08-2021 End: 14-11-2461iahqbdxgqfFI PAULINO WILSONFacility:C4Nodxi: 56-63-2122MWHIGYrnoxr Avasarala MD Work Phone: mg-Pulm [facility] Work Phone: Start: 35-26-2687Apxzekppt for general adult medical examination without abnormal findingsDR PAULINO WILSONSt. Charles Hospitaltart: 08-18-2021 End: 19-66-5606vnxdydylwcJY PAULINO WILSONFacility:I5Lpyxz: 08-18-2021 End: 83-68-6424Zmcvvlfvd for general adult medical examination without abnormal findingsDR PAULINO Castillocility:O3Eibdx: 79-90-9129Poynd health examination Paulino Wilson Other [place] [employer] Other Start: 82-37-2877yhbfbisshtKD PAULINO WILSONFacility:H1 Start: 76-93-7958lcdmfbwdmpWT CAROLINE TIMSARAHSFacility:F5Yddtz: 07-28-2021 ambulatoryDR CAROLINE TIMMISFacility:T0Dynuo: 07-07-2021 End: 77-42-5581ysdisxudkwVA PAULINO WILSONFacility:K2Yvorq: 02-22-2021 End: 30-88-1792bvuxasugvfVXGO Bernadine MCALLISTERFacility:UTMCStart: 53-33-4497Joevlec, abnormal examinationBejuan Wilson Other [employer] Other Patient encounter statusProvider AMAProvider Work Phone: [facility] Work Phone: Procedures DateProcedureProcedure DetailPerforming ClinicianStart: 80-87-3178Oofieajdgln Paulino Wilson DO Work Phone: Start: 09-08-1700ZYH screeningDR CAROLINE TIMMISComment on above:Performed By: #### PSASC #### [facility] [address] [place] [address] Dr. Evon QuesadaStart: 07-61-7369Jcvacswlt for malignant neoplasm of colon Paulino Wilson Other Cardiac catheter (physical object)Calvin WALKER Cardiac catheterizationProvider AMAProvider Work Phone: ColonoscopyProvider AMAProvider Work Phone: Depression screeningBejuan Wilson Other EndoscopyProvider AMAProvider Work Phone: Finger operationProvider AMAProvider Work Phone: Finger structure (body structure)Calvin WALKER Screening for malignant neoplasm of prostateDominicnasia Wilson Other Upper limb structure (body structure)Calvin WALKER Plan of Treatment DateCare ActivityDetailAuthorStart: 21-33-7877LwpfhbktrFairfield Medical Center Start: 08-87-0987FWC, Provider: Mary Salcedo, Status: Pen, Time: 2:00 PM NPV, Provider: Mary Salcedo, Status: Pen, Time: 2:00 PMMG-Pulm [facility] Work Phone: Start: 53-47-2528ORLXCILZXG, Provider: Hunter Smith, Status: Pen, Time: 1:40 PMVIRNPVHOME, Provider: Hunter Smith, Status: Pen, Time: 1:40 PMMG-Pulm [facility] [facility] 1400 Work Phone: start: 70-69-0834PBQ, [facility] RM1,PULM, Status: Pen, Time: 12:15 PMABG, Provider: [facility] 6TH FLR PFT RM1,PULM, Status: Pen, Time: 12:15 PMMG-Pulm [facility] Work Phone: Start: 03-79-9033MVT, Provider: [facility] 6TH FLR PFT RM1,PULM, Status: Pen, Time: 11:15 AMPFT, Provider: [facility] 6TH FLR PFT RM1,PULM, Status: Pen, Time: 11:15 AMMG-Pulm [facility] Work Phone: Start: 44-96-6104QYI, Provider: [facility] 6TH FLR PFT WALKWAY,PULM, Status: Pen, Time: 10:45 AMPST, Provider: [facility] 6TH FLR PFT WALKWAY,PULM, Status: Pen, Time: 10:45 AMMG-Pulm [facility] Work Phone: Comprehensive metabolic 2000 panel - Serum or Plasma [facility] CenterPatient EducationHemorrhoids Colon polyps Know your [facility] Work Phone: [facility] Immunizations Immunization DateImmunizationNotesCare FqrwnfsoUygkieqr56-09-3825EGIQ-MfB-6 mRNA (lnisxyjldao-rvbc-hxwpeqg) vaccineCreditShop [facility] BellevueComment on above:Result Comment: 2023-04-29: [id number]-XrK-5 mRNA (gqakupnyhhj-xnie-vczqshh) vaccineCreditShop [facility]ighComment on above:Result Comment: 2023-04-29: [id number] virus vaccine, unspecified formulationCalvin WALKER [facility] Payers DatePayer CategoryPayerPolicy [id number] 2024 [id number] [id number] 1960Self-[id number] 2.16.840.1.359538.3.57[id number] 2..0.1.896138.3.57[id number] 2.0.1.603626.3.579.[id number] 2.16.840.1.104264.3.57[id number] 2.16.840.1.309922.3.57[id number] 2.16.840.1.319871.3.57[id number] 2.16.840.1.525000.3.57[id number] 2.16.840.1.953906.3.57[id number] 2.16.840.1.160202.3.57[id number] 2.840.1.654756.3.57[id number] 2.840.1.162937.3.57[id number] 2.840.1.608122.3.57[id number] 2.840.1.747910.3.57[id number] 2.0.1.370611.3.57[id number] 2.840.1.263543.3.57[id number] 2.840.1.986960.3.57[id number] 2..1.192931.3.57[id number] 2.840.1.147964.3.57[id number] 2.840.1.189077.3.57[id number] 2.840.1.057272.3.5[id number] 2.840.1.4[id number] 2.16.840.1.400652.3.579.2.531 Social History DateTypeDetailFacrawford county memorial hospitalDivoSoutheast [facility] Work Phone: Comment on above:quit 12/2020;on short term disability;Sex [facility]igned At [facility]tart: 04-29-2023 End: 88-97-4970Sezhisq smoking statusEx-smoker (finding)[facility]ighTobacco smoking statusNeverExecutive Urology of [facility] Hospitaltart: 12-01-2018 End: 20-34-0360Okcuvom smoking status NHISSmoker (finding)[facility] Memorialtart: 35-39-1458Wnf Assigned At [facility]ustart: 04-20-2024 End: 83-97-2801VwaXmqo (finding)[facility] Goals DatePatient GoalDesired Activity/State Functional Status OqybGatrrcraqaBttledDlimgnsh50-95-9653Wedigdjpcn StatusN/AExecutive Urology of [facility]02-05-2024Functional StatusN/AExec[facility] Clinical Notes 10-06-2021 to 06-23-2024 Note Date & DmgbDlooTikuofbv39-94-5465 [place] [address] Colonoscopy Procedure Report Signed Patient: Patrick Liriano MR#: [id number] : 1960 Acct:[id number] Age/Sex: 64 / M Adm Date: 5 Loc: Room: Type: [facility] Attending Dr: Viri Aponte MD Copies to: DO Viri Lambert MD~ Colonoscopy Date/Provider 06/23/2024 Viri Aponte MD Colonoscopy Findings: Procedure: Colonoscopy with polypectomy Indication: 64-year-old man with history of colon polyps here for surveillance colonoscopy Pre-operative diagnosis: History of colonic polyps Post-operative diagnosis: Colonic polyps, diverticulosis, internal hemorrhoids. Sedation: propofol per anesthesia dept O2 oximetry, hemodynamic monitoring was performed pre, during, and post procedure. Patient was identified, H&P completed, patient was given full explanation of the procedure as well as associatedrisks and written consent wasobtained prior to procedure. Patient expressed complete understanding of the procedure as well as alternatives to the procedure and to anesthesia and agreed to proceed with the procedure as indicated. Patient was immediately reassessed prior to IV sedation. Under IV sedation, patient was placed in the left lateral decubitus position. Digital rectal exam was performed and normal. Colonoscope was inserted and passed proximally to the cecum, which was identified by the ileocecal valve, appendiceal orifice and cecal floor. Colonoscope was slowly withdrawnwith the findings as below. [place] bowel prep score was good. Findings: Cecum: Normal. Ascending colon: A 2 mm polyp removed using cold forceps Hepatic flexure: Normal. Transverse colon: A 1 cm polyp removed using hot snare Splenic flexure: Normal. Descending colon: A 2 mm polyp removed using cold forceps Sigmoid colon: Diverticulosis. A 2.5 cm polyp removed piecemeal using hot snarethen 2 clips were placed at the polypectomy site to prevent postpolypectomy bleeding. 1.5 cm polyp removed using hot snare then 2 clips were placed at the polypectomy site to prevent postpolypectomy bleeding. A 1 cm polyp removed using hot snare Rectum: An 8 mm polyp removed using hot snare. 2 polyps(5-6 mm) removed using cold snare. A 1 mm polyp removed using cold forceps. Retroflexed views: Rectum did show internal hemorrhoids. Biopsy taken: No Complications: None EBL: Minimal Recommendations: -Repeat colonoscopy in 6 months -Follow up pathology Following a period of recovery, patient was seen and given full explanation of the procedure. Patient tolerated the procedure well and will be discharged in satisfactory, stable condition. Viri Aponte M.D. Documented By: Viri Aponte MD 06/23/24 0917 Signed By: 06/23/24 0958 [facility]04-01-2025 [place] [address] Gastroenterology H&P Signed Patient: Patrick Liriano MR#: [id number] : 1960 Acct:[id number] Age/Sex: 64 / M Adm Date: 5 Loc: Room: Type: [facility] Attending Dr: Viri Aponte MD Copies to: DO Viri Lambert MD~ Date of Service: 06/23/2024 HISTORY & PHYSICAL: Patient's history with special attention to the cardiovascular, pulmonary systems and the current problem was reviewed with the patient immediately prior to the procedure. Present medications and doses reviewed in the EMR. Allergies and pertinent laboratory tests were also re viewedat this time in the EMR. The physical examination, as below, was then performed. Indication, assessment and HPI: 64-year-old man with history of colon polyps here for surveillance colonoscopy Family history of GI malignancy? No PHYSICAL EXAMINATION General appearance: NAD Skin: No jaundice Head: NC/AT Eyes: Anicteric Neck: Supple Lungs: Normal respiratory effort, no use of accessory muscles Abdomen: nondistended Neuro: Ox3. REVIEW OF SYSTEMS Constitutional: Denies malaise, fevers Cardiovascular: Denies chest pain, palpitations Respiratory: Denies shortness of breath, wheezing Gastrointestinal: As per HPI Genitourinary: Denies dysuria, polyuria Musculoskeletal: Denies joint swelling, joint stiffness Neurological: Denies confusion, numbness, tingling Endocrine: Denies fatigue Written informed consent obtained from the patient. Risks (including but not limited to perforation, infection, bloating, bleeding, need for emergent surgeryand loss of life), benefits and alternatives explained and questions answered. The patient verbalized understanding. Based on history patient is an appropriate candidate for the procedure. Viri Aponte M.D. Documented By: Viri Aponte MD 06/23/2415 Signed By: 06/23/24 0917 [facility]03-24-[facility] Chief Complaint: Patient here for 6 mo follow up CAD and NSVT. Had labs in Jan 2022. Wants to know if he can stop Plavix, as his PCI was in Feb 2021. MARK remains unchanged. Denies chest pain. HPI: Patrick Liriano is a 64 y.o. male With a history of coronary artery disease, hypertension, here in routine follow-up Doing well; no new symptoms Cardiology ROS: Review of Systems Cardiovascular: Positive for dyspnea on exertion. Respiratory: Positive for cough. Musculoskeletal: Positive for arthritis, back pain, joint pain and myalgias. All other systems reviewed and are negative. Past Medical History He has a past medical history of COPD (chronic obstructive pulmonary disease) ([facility]), Coronary artery disease, and NSVT (nonsustained ventricular tachycardia) ([facility]). Surgical History He has a past surgical history that includes Cardiac catheterization; Coronary stent placement; and Hand surgery. Social History He reports that he has quit smoking. His smoking use included cigarettes. He has never used smokeless tobacco. He reports that he does not currently use alcohol. No history on file for drug use. Family History Family History Problem Relation Name Age of Onset No Known Problems Mother No Known Problems Father Allergies Patient has no known allergies. Medications Current Outpatient Medications: albuterol 90 mcg/actuation inhaler, , Disp: , Rfl: aspirin 81 mg EC tablet, TAKE 1 TABLET BY MOUTH ONCE DAILY DIRECTED, Disp: 90 tablet, Rfl: 3 atorvastatin (Lipitor) 80 mg tablet, TAKE 1 TABLET BY MOUTH AT BEDTIME, Disp: 90 tablet, Rfl: 3 irlkgtjmpz-vkqvfucq-jikujbzttg 160-9-4.8 mcg/actuation HFA aerosol inhaler, Breztri Aerosphere 160 mcg-9mcg-4.8mcg/actuation HFA aerosol inhaler INHALE 2 PUFFS BY MOUTH TWICE A DAY *RINSE MOUTH AFTER USE*, Disp: , Rfl: metoprolol tartrate (Lopressor) 25 mg tablet, TAKE 1 TABLET BY MOUTH IN THE MORNING AND 1 TABLET AT BEDTIME, Disp: 180 tablet, Rfl: 3 Last Recorded Vitals Patient Vitals for the past 24 hrs: BP Pulse SpO2 Height Weight 06/15/24 0946 118/67 61 92 % 1.905 m (6' 3 ) 77.1 kg (170 lb) Physical Examination: GENERAL: alert and oriented x3, well developed, in no acute distress. HEAD: atraumatic, normocephalic. EYES: MARGARITO, EOMI. NECK: trachea midline, no JVD present, no carotid bruits present. CARDIAC: S1, S2 present. RRR. No murmur, rubs, or gallops. RESPIRATORY: CTAB, no increased effort of breathing, no rales, rhonchi, or wheezing. ABDOMEN: soft, nontender, nondistended. EXTREMITIES: no lower extremity edema, peripheral pulses are 2+ bilaterally. No rash/skin discoloration present. NEURO: strength/sensation equal and symmetric in bilateral upper and lower extremities. PSYCH: appropriate mood, affect, and judgement. Investigations: Echocardiogram 12/2020: Low normal global left ventricle [...] for a minimum of 6 months preferably half-way. 3. Aggressive cardiovascular risk factor modification. 4. Guideline directed medical therapy for coronary artery disease should include high-intensity statin therapy, beta michael, +/- an angiotensin-converting enzyme inhibitor. 5. Follow up with [facility]. Mcallister [facility] in the next 3-4 weeks. 6. Follow up with Dr. Wilson as scheduled. PROCEDURES: Limited femoral angiography, right heart catheterization, bilateral selective coronary angiography, percutaneous balloon angioplasty, and Synergy drug-eluting stent placement of the left anterior descending coronary artery. Failed MynxGrip deployment over the right femoral access Segmental leg pressures, ankle-brachial indices 05/23/2021 Impression: Normal arterial evaluation of the lower extremities without hemodynamic impairment of bilateral lower extremities at rest Labs 03/2024: Lipid profile within acceptable ranges Assessment: 1. Coronary atherosclerosis - S/p PCI/stent of the LAD 02/2021 I25.10: Atherosclerotic heart disease of [place] coronary artery without angina pectoris 2. Chronic obstructive lung disease J44.9: Chronic obstructive pulmonary disease, unspecified J44.9: Chronic obstructive pulmonary disease, unspecified CHRONIC OBSTRUCTIVE PULMON (more content not included)...[facility]01-27-2025 Evaluation note* Diagnosis Onset Date Resolution Status Admit Date ASHD (arteriosclerotic heart disease) acuteJanuary 2024 10:16amBenign prostatic hyperplasia with lower urinary tract symptomsacuteJanuary 2024 10:16amChronic bronchitisacuteJanuary 2024 10:16amColon xhwus4253ogwdiZtojqxe 2024 10:16amHypercalcemia acuteJanuary 2024 10:16amHypercholesterolemiaacuteJanuary 2024 10:16amNicotine addictionacuteJanuary 2024 10:16amNSVT (nonsustained ventricular tachycardia)acuteJanuary 2024 10:16amScreening PSA (prostate specific antigen)acuteJanuary 2024 10:16amScreening for colon cancer noneactiveJanuary 2024 10:16amWelcome to Medicare preventive visit noneactiveMaruary 2024 10:16am [facility] Work Phone: [phone] Hospital Discharge instructions Patient Education 12/27/2023 11:22:53 Benign Prostatic Hyperplasia Benign Prostatic Hyperplasia Benign prostatic hyperplasia (BPH) is an enlarged prostate gland that is caused by the normal agingprocess. The prostate may get bigger as a man gets older. The condition is not caused by cancer. The prostate is a walnut-sized gland that is involved in the production of semen. It is located in front of the rectum and below the bladder. The bladder stores urine. The urethra carries stored urine ou t of the body. An enlarged prostate can press on the urethra. This can make it harder to pass urine. The buildup of urine in the bladder can cause infection. Back pressure and infection may progress to bladder damage and kidney (renal) failure. What are the causes? This condition is part of the normal aging process. However, not all men develop problems from thiscondition. If the prostate enlarges away from the [...] urethra. Follow these instructions at home: Take kpnf-dvs-zpuhscq and prescription medicines only as told by [...] provider. Document Revised: 09/27/2021 Document Reviewed: 09/27/2021 [employer] Patient Education 2023 [employer]. Follow Up Care 04/29/2023 12:19:52 With:LIZETH WOODALL, Calvin Watson, URL Address: [address] [place], [place] [address]- When: Unknown [facility] 10-04-2024 NotePatient Education Urology Benign Prostatic Hyperplasia Benign prostatic hyperplasia (BPH) is an enlarged prostate gland that is caused by the normal agingprocess. The prostate may get bigger as a man gets older. The condition is not caused by cancer. The prostate is a walnut-sized gland that is involved in the production of semen. It is located in front of the rectum and below the bladder. The bladder stores urine. The urethra carries stored urine ou t of the body. An enlarged prostate can press on the urethra. This can make it harder to pass urine. The buildup of urine in the bladder can cause infection. Back pressure and infection may progress to bladder damage and kidney (renal) failure. What are the causes? This condition is part of the normal aging process. However, not all men develop problems from thiscondition. If the prostate enlarges away from the [...] urine that may remain in your bladder afteryou finish urinating. ? A digital rectal exam. [...] this procedure, a tool is inserted through theopening at the tip of the penis (urethra). [...] procedure uses radio frequencies to destroy and removea small amount of prostate tissue. ? Interstitial laser coagulation (ILC). This procedure uses a laser to destroy and remove a small amount of prostate tissue. ? Transurethral electrovaporization (TUVP). This procedure uses electrodes to destroy and remove a small amount of prostate tissue. ? Prostatic urethral lift. This procedure inserts an implant to push the lobes of the prostate awayfrom the urethra. Follow these instructions at home: ? Take qgst-ejd-uxsmtaw and prescription medicines only as told by [...] You develop side effec (more content not included)...[facility]03-28-2024 NoteCardiovascular Medicine [facility] SUBJECTIVE Chief Complaint Patient presents with [...] lung disease (CMS/HCC) Coronary artery disease involving [place] coronary artery of [place] heart without angina pectoris Primary hypertension Mixed [...] at bedtime., Disp: 90 tablet, Rfl: 3 zzekhbolie-znybasiq-cbfsnuslus 160-9-4.8 mcg/actuation HFA aerosol inhaler, Tramainetralthea Aerosphere [...] for a minimum of 6 months preferably continuous churn buttermaker. 3. Aggressive cardiovascular risk factor modification. 4. Guideline directed medical therapy for coronary artery disease should include high-intensit (more content not included)...[facility]03-28-2024 NotePatient here for 1 year follow up CAD and NSVT. Dr. Mcallister stopped Plavix at last visit in May 2022. He had routine labs w/ lipid in Mar 2023. Denies chest pain, palpitations, and lightheadedness/syncope. Sees Dr. Burt for SOB and COPD. Review of Systems Cardiovascular: Positive for dyspnea on exertion. Respiratory: Positive for cough. Musculoskeletal: Positive for arthritis, back pain, joint pain and myalgias. All other systems reviewed and are negative.[facility] 04-29-2023 Hospital Discharge instructions Patient Education 04/29/2023 12:11:15 Benign Prostatic Hyperplasia Benign Prostatic Hyperplasia Benign prostatic hyperplasia (BPH) is an enlarged prostate gland that is caused by the normal agingprocess. The prostate may get bigger as a man gets older. The condition is not caused by cancer. The prostate is a walnut-sized gland that is involved in the production of semen. It is located in front of the rectum and below the bladder. The bladder stores urine. The urethra carries stored urine ou t of the body. An enlarged prostate can press on the urethra. This can make it harder to pass urine. The buildup of urine in the bladder can cause infection. Back pressure and infection may progress to bladder damage and kidney (renal) failure. What are the causes? This condition is part of the normal aging process. However, not all men develop problems from thiscondition. If the prostate enlarges away from the [...] urethra. Follow these instructions at home: Take lvis-yra-lxkbqzv and prescription medicines only as told by [...] provider. Document Revised: 09/27/2021 Document Reviewed: 09/27/2021 [employer] Patient Education 2022 [employer]. Follow Up Care 01/23/2023 14:26:12 With:LIZETH WOODALL, Calvin Watson, URL Address: [facility] [address], [place] [phone] When: Unknown Comments:6 mos w/ [facility] Evaluation note* Encounter Date Diagnosis Assessment Notes Treatment Notes Treatment Clinical Notes Mar, ASHD (arteriosclerotic heart dis ease) (ICD-10 - I25.10) This patient is stable without activity related CP, dyspnea or lightheadedness. They are instructedto continue exercise and AHA diet plan. Continue secondary prevention measures. Mar,Mucopurulent chronic bronchitis (ICD-10 - J41.1)Continue abstinence from tobacco products. SMoking cessation x 2 years Yearly LDCT w/ Pulmonary medicine Denies CP, change in sputum production or hemoptysis Mar,Elevated cholesterol (ICD-10 - E78.00)Instructed on diet and exercise with continued statin therapy.Discussed the beneficial effects of lo wering cholesterol in reducing the risk for cerebrovascular and cardiovascular disease. Mar,Increased prostate specific antigen (PSA) velocity (ICD-10 - R97.20) Continue to monitor PSA - all values < 4.0 - recheck today - scheduled to see in AprilMar,Solitary pulmonary nodule (ICD-10 - R91.1)LDCT w/o suspicious nodules - ulmonary nodule w/o suspicious findings COntinue LDCT Mar,enign prostatic hyperplasia with lower urinary tract symptoms (ICD- 10 - N40.1)Symptoms tolerable w/ weaker stream and nocturia x 1 Denies dysuria or hematuria. Mar,oor urinary stream (ICD-10 - R39.12) Mar,Nicotine dependence, cigarettes, in remission (ICD-10 - F17.211) COntinue abstinence Yearly LDCT Mar,High risk medication use (ICD-10 - Z79.899) Mar,OtherHealthy diet and exercise. Reviewed age-appropriate preventive testing recommended. [employer] Other 09-07-2023 Evaluation note* Encounter Date Diagnosis Assessment Notes Treatment Notes Treatment Clinical Notes Nov, Increased prostate s pecific antigen (PSA) velocity (ICD-10 - R97.20) [facility] Other 08-18-2023 Evaluation note* Encounter Date Diagnosis Assessment Notes Treatment Notes Treatment Clinical Notes Oct, Solitary pulmonary n odule (ICD-10 - R91.1) LDCT w/o suspicious nodules - 10/2022Oct,Nicotine dependence, cigarettes, in remission (ICD-10 - F17.211) [employer] Other 07-31-2023 Evaluation note* Encounter Date Diagnosis Assessment Notes Treatment Notes Treatment Clinical Notes Sep, ASHD (arteriosclerotic heart dis ease) (ICD-10 - I25.10) This patient is stable without activity related CP, dyspnea or lightheadedness. They are instructedto continue exercise and AHA diet plan. Sep,Wellness examination (ICD-10 - Z00.00)Healthy diet and exercise. Reviewed age-appropriate preventive testing recommended. Sep,Mucopurulent chronic bronchitis (ICD-10 - J41.1)On hold for lung transplant due to inability to complete immunizations Respiratory status unchanged - stable w/ triple therapy - GALEN used once daily - no ER visits for AE Sep,Elevated cholesterol (ICD-10 - E78.00)Instructed on diet and exercise with continued statin therapy.Discussed the beneficial effects of lo wering cholesterol in reducing the risk for cerebrovascular and cardiovascular disease. Sep,entrilobular emphysema (ICD-10 - J43.2)On hold for lung transplant due to inability to complete immunizations Respiratory status unchanged - stable w/ triple therapy - GALEN used once daily - no ER visits for AE Sep,NSVT (nonsustained ventricular tachycardia) (ICD-10 - I47.29)Denies CP, palpitations or lightheadedness. f/u Cardiology Secondary to myocardial ischemia Sep,enign prostatic hyperplasia with lower urinary tract symptoms (ICD- 10 - N40.1)Symptoms tolerable Yearly PSA and ANGEL Sep,Right groin pain (ICD-10 - R10.31)No s/s hernia or orchitis. Reassure and monitor for now Sep,Nicotine dependence, cigarettes, in remission (ICD-10 - F17.211) Continue abstinence Sep,Screening PSA (prostate specific antigen) (ICD-10 - Z12.5) [facility] Other 07-15-2022 NotePatient Discussion/Summary You were seen today for evaluation for bronchoscopic lung volume reduction. I will get your CT from08/2021 uploaded for computer analysis. You have a new nodule in your right middle lobe, we'll haveto look into this more before a firm decision is made about the procedure. I will Dr. Burt know about our clinic visit. I will [...] the future, he'll need clearance from his palaeontologist to beable to be off the Plavix [...] the patient and will let his referring tack puller machine know as well so it can be worked up closer to home. I will contact the patient after I receive the [employer] report. CC: Dr. Burt - (telephone); (fax) Chief Complaint A telephone visit (audio only) between the patient (at the originating site) and the provider (at the distant site) was utilized to provide this telehealth service. Verbal consent was requested and obtained from PATRICK LIRIANO on this date, 10/06/2021 02:40 PM , fora telehealth visit. New patient Ref by Dr. Wilson AND Dr. Burt for Consult [place] Valve testing [employer]: [phone] History of Present IllnessDue to the COVID-19 [...] or lungs with the exception of the [facility] in 2020. No personal history of cancer. 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 Lives in [place], [place]. Dad and sister had lung cancer - both . Referral contact/referring tack puller machine: Dr. Brut - (telephone); (fax) Not allergic to nickel, [...] Date:10/28/2023 10:45:00 AM Scheduled Provider:Calvin WALKER MD Location:[facility] Appointment Type:URO Office Visit Diagnostic Tests Pending * PSA Total 04/29/23 [facility] evaluation + Plan note Future Appointments Appointment Date:01/01/2025 09:45:00 AM Scheduled Provider:Calvin WALKER MD Location:[facility] Appointment Type:URO Office Visit [facility] evaluation noteNo InformationNorth [employer] Other Evaluation note* Diagnosis Onset Date Resolution Status ASHD (arteriosclerotic heart disease) acuteBenign prostatic hyperplasia with lower urinary tract symptomsacuteChronic bronchitisacuteColon [id number] addictionacuteNSVT (nonsustained ventricular tachycardia)acute [facility] Work Phone: Evaluation note* Diagnosis Onset Date Resolution Status Admit Date ASHD (arteriosclerotic heart disease) acuteJanuary 2024 10:16amBenign prostatic hyperplasia with lower urinary tract symptomsacuteJanuary 2024 10:16amChronic bronchitisacuteJanuary 2024 10:16amColon [id number] 2024 10:16amHypercalcemia acuteJanuary 2024 10:16amHypercholesterolemiaacuteJanuary 2024 10:16amNicotine addictionacuteJanuary 2024 10:16amNSVT (nonsustained ventricular tachycardia)acuteJanuary 2024 10:16amScreening PSA (prostate specific antigen)acuteJanuary 2024 10:16amScreening for colon cancer noneactiveJanuary 2024 10:16amWelcome to Medicare preventive visit noneactiveJanuary 2024 10:16am [facility] Work Phone: Evaluation note* Diagnosis Onset Date Resolution Status Admit Date ASHD (arteriosclerotic heart disease) acuteJuly 2024 10:16amBenign prostatic hyperplasia with lower urinary tract symptomsacuteJuly 2024 10:16amChronic bronchitisacuteJuly 2024 10:16amColon [id number] 2024 10:16amHypercalcemiaacuteJuly 2024 10:16amHypercholesterolemiaacuteJuly 2024 10:16amIncreased prostate specific antigen (PSA) velocityacuteJuly 2024 10:16amNicotine addiction acuteJuly 2024 10:16amNSVT (nonsustained ventricular tachycardia)acuteJuly 2024 10:16am [facility] Work Phone: History and physical note Author Viri Aponte [facility] CenterNote Date/TimeApril 2024 9:17am[place] [id number] Gastroenterology H&P Signed Patient: Patrick Liriano MR#: [id number] : 1960 Acct:[id number] Age/Sex: 64 / M Adm Date: 5 Loc: Room: Type: [facility] Attending Dr: Viri Aponte MD Copies to: Paulino Wilson,DO Viri Aponte MD~ Date of Service: 06/23/2024 HISTORY & PHYSICAL: Patient's history with special attention to the cardiovascular, pulmonary systems and the current problem was reviewed with the patient immediately prior to the procedure. Present medications and doses reviewed in the EMR. Allergies and pertinent laboratory tests were also re viewedat this time in the EMR. The physical examination, as below, was then performed. Indication, assessment and HPI: 64-year-old man with history of colon polyps here for surveillance colonoscopy Family history of GI malignancy? No PHYSICAL EXAMINATION General appearance: NAD Skin: No jaundice Head: NC/AT Eyes: Anicteric Neck: Supple Lungs: Normal respiratory effort, no use of accessory muscles Abdomen: nondistended Neuro: Ox3. REVIEW OF SYSTEMS Constitutional: Denies malaise, fevers Cardiovascular: Denies chest pain, palpitations Respiratory: Denies shortness of breath, wheezing Gastrointestinal: As per HPI Genitourinary: Denies dysuria, polyuria Musculoskeletal: Denies joint swelling, joint stiffness Neurological: Denies confusion, numbness, tingling Endocrine: Denies fatigue Written informed consent obtained from the patient. Risks (including but not limited to perforation, infection, bloating, bleeding, need for emergent surgeryand loss of life), benefits and alternatives explained and questions answered. The patient verbalized understanding. Based on history patient is an appropriate candidate for the procedure. Viri Aponte M.D. Documented By: Viri Aponte MD 06/23/24 0915 Signed By: <Electronically signed by Viri Aponte MD> 06/23/24 0917 [facility] Work Phone: History general Narrative - Reported* Type Description Date Medical History emphysema Medical HistoryCOPDMedical HistoryLong term current use of inhaled steroid Medical HistoryCentrilobular emphysemaMedical HistoryNSVT (nonsustained ventricular tachycardia)Medical HistoryOropharyngeal dysphagiaMedical History Vitamin D deficiencyMedical HistoryHypercalcemiaMedical HistorySolitary pulmonary noduleMedical HistoryAdenomatous polyp of sigmoid colonMedical History Benign prostatic hyperplasia with lower urinary tract symptomsMedical History ASHD (arteriosclerotic heart disease)Medical HistoryNicotine dependence, cigarettes, in remissionMedical HistoryPruritic intertrigoMedical History OrchitisMedical HistoryDOE (dyspnea on exertion)Medical HistoryPulmonary emphysema, unspecified emphysema typeMedical HistoryCoronary artery disease Surgical HistoryDX BRONCHOSCOPE/[id number] HistoryPRQ CARD STENT W/ANGIO 1 [id number] [id number] HistoryLEFT FOREARM FX REPIAR Surgical HistoryVASECTOMYSurgical HistoryORIF RIGHT LONG [id number] Hospitalization HistorySEE SURGICAL [employer] Other History general Narrative - Reported* Type Description Date Medical History emphysema Medical HistoryCOPDMedical HistoryLong term current use of inhaled steroid Medical HistoryCentrilobular emphysemaMedical HistoryNSVT (nonsustained ventricular tachycardia)Medical HistoryOropharyngeal dysphagiaMedical History Vitamin D deficiencyMedical HistoryHypercalcemiaMedical HistorySolitary pulmonary noduleMedical HistoryAdenomatous polyp of sigmoid colonMedical History Benign prostatic hyperplasia with lower urinary tract symptomsMedical History ASHD (arteriosclerotic heart disease)Medical HistoryNicotine dependence, cigarettes, in remissionMedical HistoryPruritic intertrigoMedical History OrchitisMedical HistoryDOE (dyspnea on exertion)Medical HistoryPulmonary emphysema, unspecified emphysema typeMedical HistoryCoronary artery disease Surgical HistoryDX BRONCHOSCOPE/[id number] HistoryPRQ CARD STENT W/ANGIO 1 [id number] HistoryCOLONOSCOPY11/2018Surgical HistoryLEFT FOREARM FX REPIAR Surgical HistoryVASECTOMYSurgical HistoryORIF RIGHT LONG [id number] Hospitalization HistorySEE SURGICAL Triage Other History of Present illness Narrative* Visit Type: This is the initial visit for the patient. * Location: [place]. * Accompanied by: girlfriend Sue. * Organ [...] end stage organ disease? 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 * Patient verbalizes understanding of [...] is computer literate, but Patient does not havee[employer] access . 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 * Patient's current employment: Not working disabled: . 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 * Will [...] of services, like internet, tv, working on [employer] * Resources: [employer] * Primary Insurance: Self , Medicaid * [...] your care? yes. * Secondary Support: Phone: [phone] to Patient: Mom * Do they have their own conditions which may prevent them from providing care for you? yes. hearing aids, surgery, age,. * Housing: Owns home. * Type of Home: house, ranch, # of stairs 1 step up into and 3 steps into the kitchen basement . * Distance to [facility]: 1 hour and a half. * Pets: [...] the garage sold camper, gathering, lin. * Tenriism/Spirituality: none. * Current Tobacco User? No. * [...] not currently on probation or parole. * Correction: No * Citizenship: [place] Citizen: Yes * Advance Directives: no documents provided * has a will but not living [facility] [employer] Work Phone: History of Present illness Narrative* Visit Type: This is the initial visit for the patient. * Location: [place] [id number]. * Accompanied by: Sue girlfriend. * Organ [...] organ disease? 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 * Knowledge of transplant [...] is computer literate, but Patient does not have[employer] access . 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 * Patient's current employment: Not working disabled: . 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 Lrb: 82Relationship to Patient: Mom * Can they [...] the kitchen basement . * Distance to [facility]: 1 hour and a half. * Pets: [...] the garage sold camper, gatherings, lin. * Tenriism/Spirituality: none. * Attitude toward Interviewer: cooperative and [...] not currently on probation or parole. * Correction: No * Citizenship: [place] Citizen: Yes * Advance Directives: no documents provided * has a will but not living will and nothing in the system [employer] [address] Work Phone: Hospital course Narrative No data available for this section [facility] Discharge instructions Additional Instructions DISCHARGE INSTRUCTIONS FOR COLONOSCOPY WHAT TO EXPECT: - You may feel full, gassy or cramping after your procedure. In some cases, this may be from a few hours to a day. Walking may help relieve the discomfort. - If you have polyp(s) removed you may note some minor bloody discharge after your first bowel movements. - You should begin to recover from anesthesia within 1 hour of the procedure, however may feel groggy for the next 24 hours. DO's AND DON'Ts: - Call your doctor right away if you have a hard abdomen, severe pain, are passing lots of bright red blood or clots. - Call your doctor if you develop any rashes, hives or difficulty breathing. - Let your doctor know if you have not had a bowel movement by 3 days after your procedure. - If you take 81 mg aspirin for your heart it is safe to resume this medication. - If you take other blood thinner medications your doctor will instruct you when these can safely be resumed. - Do NOT drive for 24 hours. - Do NOT operate machinery such as power tools, lawn mowers, snow blowers, sewing machines, etc. for 24 hours. - Avoid alcoholic beverages and drugs for allergies, nerves, or sleep. - Do NOT stay alone. Do NOT leave your child unattended. - Do NOT make important personal or business decisions or sign any legal documents. - Eat solid foods and drink liquids in smaller amounts than usual until normal appetite returns. If you should experience an upset stomach, liquids high in sugar content (soda, Davon-Aid, non-acid juices) are recommended. - You can resume normal activities tomorrow. FOLLOW UP & RECOMMENDATIONS: -Notify the doctor if you have any problems. -Repeat colonoscopy in 6-month -Follow up with PCP. -Office number [phone]. [facility] Work Phone: Progress note No data available for this section [facility] reason for referral (narrative)No reason for referral information availableTrihealth Work Phone: Summary Purpose Family History No Family History Records FoundUnknown Family Member Name Dates Details : Father, Sister Status:ActiveMalignant neoplasm of overlapping sites of lung, unspecified laterality: Father, Sister Status:ActiveNo pertinent family history: Mother(V49.89, Z78.9) Status:Active Unknown Family Member Name Dates Details : Father, Sister Status:ActiveMalignant neoplasm of overlapping sites of lung, unspecified laterality: Father, Sister Status:ActiveNo pertinent family history: Mother(V49.89, Z78.9) Status:Active Unknown Family Member Name Dates Details : Father, Sister Status:ActiveMalignant neoplasm of overlapping sites of lung, unspecified laterality: Father, Sister Status:ActiveNo pertinent family history: Mother(V49.89, Z78.9) Status:Active Unknown Family Member Name Dates Details : Father, Sister Status:ActiveMalignant neoplasm of overlapping sites of lung, unspecified laterality: Father, Sister Status:ActiveNo pertinent family history: Mother(V49.89, Z78.9) Status:Active Unknown Family Member Name Dates Details : Father, Sister Status:ActiveMalignant neoplasm of overlapping sites of lung, unspecified laterality: Father, Sister Status:ActiveNo pertinent family history: Mother(V49.89, Z78.9) Status:Active Unknown Family Member Name Dates Details : Father, Sister Status:ActiveMalignant neoplasm of overlapping sites of lung, unspecified laterality: Father, Sister Status:ActiveNo pertinent family history: Mother(V49.89, Z78.9) Status:Active Unknown Family Member Name Dates Details : Father, Sister Status:ActiveMalignant neoplasm of overlapping sites of lung, unspecified laterality: Father, Sister Status:ActiveNo pertinent family history: Mother(V49.89, Z78.9) Status:Active Relationship Condition Age at Onset Recorded Date/T emy father Malignant neoplasm of lung Unknown family memberMalignant neoplasm of lungUnknownfamily memberMalignant neoplasm UnknowngrandparentDiabetes mellitusUnknownfatherFamily history of lung cancer UnknownMalignant neoplasmUnknown Relationship Condition Age at Onset Recorded Date/T emy father Malignant neoplasm of lung Unknown Family history of lung cancerUnknownMalignant neoplasmUnknownfamily member Malignant neoplasm of lungUnknownfamily memberMalignant neoplasmUnknown grandparentDiabetes mellitusUnknownmotherMalignant neoplasm of breastUnknown Advance Directives No Advanced Directives Records Found Advance Directive Response Recorded Date/ Time Advance Directives No November 11:46am Advance Directive Response Recorded Date/ Time Advance Directives No November 10:46am Chief Complaint and Reason for Visit Chief Complaint Wellness Reason for Visit ASHD (arteriosclerot ic heart disease) Benign prostatic hyperplasia with lower urinary tract symptoms Chronic bronchitis Colon polyp Hypercalcemia Nicotine addiction NSVT (nonsustained ventricular tachycardia) Chief Complaint Admit Date wellness April 20, 2024 1 0:16am Reason for Visit Admit Date ASHD (arteriosclerotic heart disease) [facility] 2024 10:16am Benign prostatic hyperplasia with lower urinary tract symptoms April 20, 2024 10:16am Chronic bronchitis April 20, 2024 1 0:16am Colon polyp April 20, 2024 1 0:16am Hypercalcemia April 20, 2024 1 0:16am Hypercholesterolemia April 20, 2024 10:16am Nicotine addiction April 20, 2024 1 0:16am NSVT (nonsustained ventricular tachycard ia) April 20, 2024 10:16am Screening PSA (prostate specific antigen ) April 20, 2024 10:16am Screening for colon cancer April 20, 2024 10:16am Welcome to Medicare preventive visit [facility] 2024 10:16am Chief Complaint Admit Date wellness April 20, 2024 1 0:16am hx of colon polyp June 23, 2024 7:51 am hx of colon polyp June 23, 2024 9:15 am Chief Complaint Admit Date 6 month f/u October 14, 2024 10:1 6am Reason for Visit Admit Date ASHD (arteriosclerotic heart disease) [facility] 2024 10:16am Benign prostatic hyperplasia with lower urinary tract symptoms October 14, 2024 10:16am Chronic bronchitis October 14, 2024 10:1 6am Colon polyp October 14, 2024 10:1 6am Hypercalcemia October 14, 2024 10:1 6am Hypercholesterolemia October 14, 2024 10: 16am Increased prostate specific antigen (PSA ) velocity October 14, 2024 10:16am Nicotine addiction October 14, 2024 10:1 6am NSVT (nonsustained ventricular tachycard ia) October 14, 2024 10:16am Additional Source Comments (unrecognized sect ion and content) No Status Records FoundNo Status Records FoundNo Status Records FoundNo Status Records FoundNo Status Records FoundNo Status Records FoundNo Status Records Found INFORMATION SOURCE (unrecogn ized section and content) DATE CREATED AUTHOR 03/22/2021 [facility] DATE CREATED AUTHOR AUTHOR'S ORGANIZ ATION 03/03/2022 [employer] DATE CREATED AUTHOR AUTHOR'S ORGANIZ ATION 05/11/2022 [facility] DATE CREATED AUTHOR AUTHOR'S ORGANIZ ATION 07/01/2022 [facility] DATE CREATED AUTHOR AUTHOR'S ORGANIZ ATION 06/15/2024 [facility] DATE CREATED AUTHOR AUTHOR'S ORGANIZ ATION 07/03/2024 [facility] DATE CREATED AUTHOR AUTHOR'S ORGANIZ ATION 11/27/2024 [facility] REASON FOR VISIT (unrecogniz ed section and content) 4 month Follow upNo Informat ionreminderLab workLab ResultsUrology UpdateLab results6 month Follow up Patient Care team informatio n (unrecognized section and content) Team Status: Active Member Role Status Dates Paulino Wilson , Primary Care Provider Active Team Status: Inactive Member Role Status Dates Paulino Wilson , DO Primary Care Provide r, Attending Provider Active Start: October 15, 2023 End: October 15, 2023 Team Status: Inactive Member Role Status Dates Paulino Wilson , Primary Care Provide r, Attending Provider Active Start: April 20, 2024 End: April 20, 2024 Team Status: Inactive Member Role Status Dates Paulino Wlison , DO Primary Care Provider Active Start: June 23, 2024 End: June 23, 2024Imad Asamely , MDAttending ProviderActiveStart: June 23, 2024 End: June 23, 2024 Team Status: Active Member Role Status Dates Paulino Wilson , Primary Care Provider Active Start: June 23, 2024 Imad Asaad , MDAttending Provider, Other ProviderActiveStart: June 23, 2024 Team Status: Inactive Member Role Status Dates Paulino Wilson , DO Primary Care Provider Active Start: October 14, 2024 End: October 14enjamin Segundo , DOAttending ProviderActiveStart: October 14, 2024 End: October 14, 2024 Goals (unrecognized section and content) Goals may [...] BE BASED ON THE PRIMARY CLINICAL RECORDS. [facility]. provides no warranty or guarantee of the accuracy or completeness of information in this document.
--- OUTSIDE RECORDS SUMMARY | 2025-02-17 12:08 | XMS_ITS | Encounter Summary ---
Author Organization [facility] Address [address] [place] [address] Care Team Providers Care System Specialist Name Role Phone Paulino Wilson DO Primary Care Provider [phone] Reason for Visit * ReasonCommentsMed Refill Encounter Details DateTypeDepartmentCare Team (Latest Contact Info)Pqsabxxfvpn52/25/2025Refill [facility] at [facility] [address] [place] [address] Almas Mcallister MD [address] [facility] [address] [place] [address] Coronary artery disease due to lipid rich plaque Social History Tobacco UseTypesPacks/DayYears UsedDateSmoking Tobacco: FormerCigarettes Smokeless Tobacco: NeverAlcohol UseStandard Drinks/WeekCommentsNot Currently0 (1 standard drink = 0.6 oz pure alcohol)PA Safety & EnvironmentAnswerDate Recorded Fear of Current or Ex-PartnerNot on file05/16/2023Emotionally AbusedNot on file 05/16/2023hysically AbusedNot on file05/16/2023Sexually AbusedNot on file 4Physically or Sexually AbusedNot on file05/16/2023Sex and Gender InformationValueDate RecordedSex Assigned at BirthNot on fileLegal SexMale 09/21/2021 12:10 AM EDTGender IdentityNot on fileSexual OrientationNot on file documented as of this encounter Plan of Treatment Not on file documented as of this encounter Visit Diagnoses Diagnosis Coronary artery disease due to lipid rich plaque documented in this encounter Care Teams Team MemberRelationshipSpecialtyStart DateEnd Date Paulino Wilson DO [address] [facility] [place] [address] PCP - General05/24/22documented as of this encounter
== END 2025-02-17 12:04 | disposition home or self-care (01) ==
LOC: CT 12:04
PROVIDERS: PCP Internal Medicine; Visit Provider Internal Medicine
DX: Z87.891 Personal history of nicotine dependence (principal)
CPT/HCPCS: 71271